=== PATIENT | male | born 1940 | race Caucasian/White ===

== ENCOUNTER 2018-09-15 14:24 | Emergency (ER) | payer OTHER ==
--- OUTSIDE RECORDS SUMMARY | 2018-09-15 14:30 | XMS REPORT | Continuity of Care Document ---
:1940 Author Organization [employer] Care Team Providers Name Role Phone [employer] Unavailable Unavailable Problems No Data Provided for This Section Medications No Data Provided for This Section Allergies, Adverse Reactions, Alerts No Known Medication Allergies Immunizations No Data Provided for This Section Results No Data Provided for This Section Pathology Reports No Data Provided for This Section Diagnostic Reports No Data Provided for This Section Consultation Notes No Data Provided for This Section Discharge Summaries No Data Provided for This Section History and Physicals No Data Provided for This Section Vital Signs No Data Provided for This Section Encounters Location Location Encounter Encounter Reason Attending ADM DC Status Source Details Type Number For Provider Date Date Visit Outpatient [id number] CORNELIO 08/11 Active [facility] [place] Outpatient [id number] CORNELIO 09/11 [facility] [place] Procedures No Data Provided for This Section Assessment and Plan No Data Provided for This Section Plan of Care No Data Provided for This Section Social History No Data Provided for This Section Family History No Data Provided for This Section Advance Directives No Data Provided for This Section Functional Status No Data Provided for This Section
--- NOTE | 2018-09-15 15:46 | RAD REPORT ---
EXAM DESCRIPTION: CT - Head C Spine Mpr Wo Con - 09/15/2018 3:23 pm CLINICAL HISTORY: Head and neck injury status post fall. Head and neck pain COMPARISON: None. TECHNIQUE: Computed axial tomography of the head and cervical spine was obtained. Sagittal and coronal reconstruction was performed. All CT scans are performed using dose optimization technique as appropriate and may include automated exposure control or mA/KV adjustment according to patient size. FINDINGS: Left posterior scalp hematoma without underlying skull fracture An intracranial bleed is not seen. Mild to moderate low-density areas within periventricular, deep an d subcortical white matter may indicate ischemic changes secondary to small vessel disease. The ventricles are normal in caliber. An extra-axial fluid collection is not noted.Fluid within the m axillary sinuses may indicate acute sinusitis A cervical fracture is not visualized. Minimal anterior subluxation C5 on C6. Minimal posterior sublu xation of C6 on C7. Spondylosis C3-4 results in moderate to marked narrowing of the left neural etienne petra. Spondylosis C4-5 results in moderate narrowing of the left neural foramina. Additional spondylos is involves the distal cervical spine IMPRESSION: No acute intracranial abnormality is seen. A cervical fracture is not visualized. If the patient continues to have symptoms to suggest intracra nial /spinal cord pathology then MRI would be recommended
[2018-09-15 17:20] LABS: Absolute Lymphocytes (CBC) 1.5 K/uL (0.7-4.9); Basophils % 0.8 % (0-1.3); Lymphocytes % 16.3 % (15.3-44.8); MPV 9.4 fL (7.6-11.3); Monocytes % 6.5 % (3.3-12.3)
[2018-09-15 17:24] LABS: Protime INR 1.04
--- NOTE | 2018-09-15 17:33 | RAD REPORT ---
EXAM DESCRIPTION: Ericka Single View09/15/2018 5:17 pm CLINICAL HISTORY: Chest pain COMPARISON: 2013 FINDINGS: The lungs appear clear of acute infiltrate. The heart is normal size 3 centimeter area of increased density within the right humerus likely either represents an infarct o r enchondroma IMPRESSION: No acute abnormalities displayed
[2018-09-15 17:39] LABS: ALT/SGPT 32 U/L (12-78); AST/SGOT 28 U/L (15-37); Albumin 3.9 g/dL (3.4-5.0); Alkaline Phosphatase 67 U/L (45-117); BUN Blood Urea Nitrogen 34 mg/dL (7-18); Bicarbonate 27 mmol/L (21-32); Bilirubin Direct 0.1 mg/dL (0-0.2); Bilirubin Total 0.3 mg/dL (0.2-1.0); Glucose Level 135 mg/dL (74-106); Magnesium 2.4 mg/dL (1.8-2.4); NT PRO-BNP 300 pg/mL (<450); Protein, Total 7.5 g/dL (6.4-8.2); Sodium Level 138 mmol/L (136-145); Troponin (Emerg Dept Use Only) < 0.02 ng/mL (0.0-0.045)
--- NOTE | 2018-09-15 18:54 | ER ---
Nurse's Notes [facility] Name: Abdoul Samuels Age: 78 yrs Sex: Male : 1940 Arrival Date: 09/15/2018 Time: 14:27 Bed 27 Private MD: Diagnosis: Syncope and collapse;Superficial injury of head Presentation: 09/15 14:28 Presenting complaint: Patient states: i was sitting on a stool and got dizzy and fell hj backwards and hit the back of the head and passed out, unknown how long, unwitnessed, denies taking blood thinners; denies N/V; reports neck pain; reports last memory was sitting on a stool and got dizzy;. Transition of care: patient was not received from another setting of care. Onset of symptoms was September 15, 2018. Risk Assessment: Do you want to hurt yourself or someone else? Patient reports no desire to harm self or others. Initial Sepsis Screen: Does the patient meet any 2 criteria? No. Patient's initial sepsis screen is negative. Does the patient have a suspected source of infection? No. Patient's initial sepsis screen is negative. Care prior to arrival: None. 14:28 Method Of Arrival: Ambulatory 14:28 Acuity: SHON 2 14:31 Mechanism of Injury: Fall out of chair. Trauma event details: Injury occurred in the [facility], Injury occurred: at home. Injury occurred: September 15, 2018 Injury occurred at: 13:00. Triage Assessment: 16:39 General: Appears in no apparent distress. Pain: Complains of pain in neck Pain does not wh radiate. Pain currently is 3 out of 10 on a pain scale. Historical: - Allergies: 14:30 No Known Allergies; hj - Home Meds: 16:45 Glimepiride Oral [Active]; levothyroxine oral [Active]; lisinopril Oral [Active]; Metoprolol Tartrate Oral [Active]; pravastatin Oral [Active]; tamsulosin Oral [Active]; amlodipine oral [Active]; - PMHx: 14:30 Arthritis; Diabetes - NIDDM; Hyperlipidemia; Hypertension; Hypothyroidism; - PSHx: 14:30 Unable to obtain; - Immunization history:: Adult Immunizations up to date. - Social history:: Smoking status: Patient/guardian denies using tobacco. - Immunization history: Last tetanus immunization: - up to date. - Ebola Screening: : Patient negative for fever greater than or equal to 101.5 degrees Fahrenheit, and additional compatible Ebola Virus Disease symptoms Patient denies exposure to infectious person. Screenin:37 Abuse screen: Denies threats or abuse. Denies injuries from another. Nutritional wh screening: No deficits noted. Tuberculosis screening: No symptoms or risk factors identified. Fall Risk Fall in past 12 months (25 points). Primary Survey: 16:37 NO uncontrolled hemorrhage observed. A: The patient needs verbal stimulation to wh respond. Airway: patent. Breathing/Chest: Respiratory pattern: regular, Respiratory effort: spontaneous, unlabored, Breath sounds: clear, bilaterally. Circulation: Cardiac rhythm: sinus rhythm. Disability Alert. Exposure/Environment: All clothing and personal items were removed. Reassessment Airway Airway Patent Breathing/Chest Respiratory pattern Regular Respiratory effort Spontaneous Unlabored Breath sounds Clear. Assessment: 15:22 General: Appears in no apparent distress. comfortable, Behavior is calm, cooperative, wh appropriate for age. Pain: Denies pain. Neuro: Level of Consciousness is awake, alert, obeys commands, Oriented to person, place, time, situation, Appropriate for age [employer] are equal bilaterally Moves all extremities. Full function. Neuro:. Cardiovascular: Cardiovascular: Heart tones S1 S2 Capillary refill < 3 seconds. Respiratory: Airway is patent Respiratory effort is even, unlabored, Respiratory pattern is regular, symmetrical, Breath sounds are clear bilaterally. GI: Abdomen is flat, non-distended. : No signs and/or symptoms were reported regarding the genitourinary system. EENT: No signs and/or symptoms were reported regarding the EENT system. Derm: Skin is intact, is healthy with good turgor, Skin is pink, warm \T\ dry. normal. Musculoskeletal: Range of motion: intact in all extremities. 16:25 Reassessment: Patient appears in no apparent distress at this time. Patient and/or wh family updated on plan of care and expected duration. Pain level reassessed. Patient is alert, oriented x 3, equal unlabored respirations, skin warm/dry/pink. Patient denies pain at this time. 17:27 Reassessment: Patient appears in no apparent distress at this time. Patient and/or wh family updated on plan of care and expected duration. Pain level reassessed. Patient is alert, oriented x 3, equal unlabored respirations, skin warm/dry/pink. Patient denies pain at this time. 18:26 Reassessment: Patient appears in no apparent distress at this time. Patient and/or wh family updated on plan of care and expected duration. Pain level reassessed. Patient is alert, oriented x 3, equal unlabored respirations, skin warm/dry/pink. Patient denies pain at this time. 19:29 Reassessment: Patient appears in no apparent distress at this time. Patient and/or wh family updated on plan of care and expected duration. Pain level reassessed. Patient is alert, oriented x 3, equal unlabored respirations, skin warm/dry/pink. Patient denies pain at this time. Vital Signs: 14:32 BP 110 / 54; Pulse 62; Resp 18; Temp 98.1(TE); Pulse Ox 98% on R/A; Weight 108.86 kg; hj Height 5 ft. 11 in. (180.34 cm); Pain 9/10; 16:46 BP 108 / 73; Pulse 59; Resp 18; Temp 97.8; Pulse Ox 99% on R/A; wh 17:00 BP 115 / 61; Pulse 61; Resp 18; Pulse Ox 98% on R/A; wh 17:31 BP 121 / 74; Pulse 57; Resp 17; Pulse Ox 98% on R/A; wh 18:26 BP 110 / 58; Pulse 55; Resp 18; Pulse Ox 98% on R/A; 14:32 Body Mass Index 33.47 (108.86 kg, 180.34 cm) Melissa Coma Score: 16:40 Eye Response: spontaneous(4). Verbal Response: oriented(5). Motor Response: obeys wh commands(6). Total: 15. Trauma Score (Adult): 16:38 Eye Response: spontaneous(1); Verbal Response: oriented(1); Motor Response: obeys wh commands(2); Systolic BP: > 89 mm Hg(4); Respiratory Rate: 10 to 29 per min(4); Melissa Score: 15; Trauma Score: 12 ED Course: 14:27 Patient arrived in ED. mr 14:30 Triage completed. hj 14:31 Arm band placed on. hj 14:35 Wolfgang Gruber MD is Attending Physician. kdr 14:48 Prabha Avalos, RN is Primary Nurse. iw 16:41 Patient has correct armband on for positive identification. Call light in reach. Side rails up X 1. monitoring and evaluation advisor on. Pulse ox on. NIBP on. 16:41 Patient maintains SpO2 saturation greater than 95% on room air. 16:42 Thermoregulation:. 17:16 XRAY Chest (1 view) In Process Unspecified. EDMS 17:19 EKG done, by cytogenetics technologist. reviewed by Wolfgang Gruber MD. dt2 17:50 Inserted saline lock: 22 gauge in right antecubital area, using aseptic technique. Blood collected. 19:29 No provider procedures requiring assistance completed. 19:36 IV discontinued, intact, bleeding controlled, No redness/swelling at site. wh Administered Medications: 19:12 Drug: Tetanus-Diphtheria Toxoid Adult 0.5 ml {Remote Sensing Scientist: [employer]. Exp: 05/29/2020. Lot #: [id number]. } Route: IM; Site: right deltoid; 19:36 Follow up: Response: No adverse reaction wh Intake: 19:40 PO: 0ml; Total: 0ml. Output: 19:40 Urine: 0ml; Total: 0ml. Outcome: 18:54 Discharge ordered by . kdr 19:35 Discharged to home via wheelchair. wh 19:35 Condition: good 19:35 Discharge instructions given to patient, family, Instructed on discharge instructions, follow up and referral plans. POC Syncope Demonstrated understanding of instructions, follow-up care, POC 19:39 Patient's length of stay in the Emergency Department was greater than 2 hours. awaiting fc results of CTPatient's length of stay extended due to 19:41 Patient left the ED. Signatures: Dispatcher [employer] EDMS Wolfgang Gruber MD MD [facility] Nelson Trinh CastilloEmily, RIGOBERTO FRANKLIN Prabha Avalos, RIGOBERTO FRANKLIN Carl Meneses RN RN hj Habalo, Winsy Alanna Chaves dt2 Corrections: (The following items were deleted from the chart) 14:31 14:28 Presenting complaint: Patient states: i was sitting on a stool and fell backwards hj and hit the back of the head and passed out, unknown how long, unwitnessed, denies taking blood thinners; denies N/V; 14:32 14:28 Presenting complaint: Patient states: i was sitting on a stool and got dizzy and hj fell backwards and hit the back of the head and passed out, unknown how long, unwitnessed, denies taking blood thinners; denies N/V; reports last memory was sitting on a stool and got dizzy; 14:33 14:28 Acuity: SHON 3 [facility] 16:42 16:41 Pulse ox on. NIBP on. [facility]
--- NOTE | 2018-09-15 18:55 | EDPHYS ---
Physician Documentation [facility] Name: Abdoul Samuels Age: 78 yrs Sex: Male : 1940 Arrival Date: 09/15/2018 Time: 14:27 Bed 27 Private MD: ED Physician Wolfgang Gruber HPI: 09/16 07:19 This 78 yrs old Male presents to ER via Ambulatory with complaints of Fall kdr Injury. 07:19 Details of fall: The patient fell from an upright position, from seated position, out kdr of a chair. Onset: The symptoms/episode began/occurred acutely, suddenly, just prior to arrival. Associated injuries: The patient sustained injury to the head, abrasion, contusion, hematoma, pain, swelling, tenderness. Severity of symptoms: At their worst the symptoms were moderate, in the emergency department the symptoms have improved, markedly. The patient has not experienced similar symptoms in the past. The patient has not recently seen a physician. The patient had been working in the [employer] for about 30 minutes or more. He was sweating profusely while sawing off the a pipe that he had just bought at the store. While he had a fan blowing on him, he was still very hot. While cutting the pipe, he became dizzy and apparently fell backwards off the chair hitting the concrete floor. He then had a LOC of unknown duration. When he awoke, he noted the bump on his head and then came to the ED with his .. Historical: - Allergies: 09/15 14:30 No Known Allergies; - Home Meds: 16:45 Glimepiride Oral [Active]; levothyroxine oral [Active]; lisinopril Oral [Active]; wh Metoprolol Tartrate Oral [Active]; pravastatin Oral [Active]; tamsulosin Oral [Active]; amlodipine oral [Active]; - PMHx: 14:30 Arthritis; Diabetes - NIDDM; Hyperlipidemia; Hypertension; Hypothyroidism; hj - PSHx: 14:30 Unable to obtain; hj - Immunization history:: Adult Immunizations up to date. - Social history:: Smoking status: Patient/guardian denies using tobacco. - Immunization history: Last tetanus immunization: - up to date. - Ebola Screening: : Patient negative for fever greater than or equal to 101.5 degrees Fahrenheit, and additional compatible Ebola Virus Disease symptoms Patient denies exposure to infectious person. ROS: 09/16 07:19 Constitutional: Negative for fever, chills, and weight loss, Eyes: Negative for injury, kdr pain, redness, and discharge, ENT: Negative for injury, pain, and discharge, Neck: Negative for injury, pain, and swelling, Cardiovascular: Negative for chest pain, palpitations, and edema, Respiratory: Negative for shortness of breath, cough, wheezing, and pleuritic chest pain, Abdomen/GI: Negative for abdominal pain, nausea, vomiting, diarrhea, and constipation, Back: Negative for injury and pain, : Negative for injury, bleeding, discharge, and swelling, MS/Extremity: Negative for injury and deformity, Psych: Negative for depression, anxiety, suicide ideation, homicidal ideation, and hallucinations, Allergy/Immunology: Negative for hives, rash, and allergies, Endocrine: Negative for neck swelling, polydipsia, polyuria, polyphagia, and marked weight changes, Hematologic/Lymphatic: Negative for swollen nodes, abnormal bleeding, and unusual bruising. Skin: Positive for abrasion(s), hematoma, swelling, of the left parietal area, Negative for abscesses, avulsion, cellulitis, laceration(s). Exam: 07:19 Constitutional: This is a well developed, well nourished patient who is awake, alert, kdr and in no acute distress. Eyes: Pupils equal round and reactive to light, extra-ocular motions intact. Lids and lashes normal. Conjunctiva and sclera are non-icteric and not injected. Cornea within normal limits. Periorbital areas with no swelling, redness, or edema. Neck: Trachea midline, no thyromegaly or masses palpated, and no cervical lymphadenopathy. Supple, full range of motion without nuchal rigidity, or vertebral point tenderness. No Meningismus. Chest/axilla: Normal chest wall appearance and motion. Nontender with no deformity. No lesions are appreciated. Cardiovascular: Regular rate and rhythm with a normal S1 and S2. No gallops, murmurs, or rubs. Normal PMI, no JVD. No pulse deficits. Respiratory: Lungs have equal breath sounds bilaterally, clear to auscultation and percussion. No rales, rhonchi or wheezes noted. No increased work of breathing, no retractions or nasal flaring. Abdomen/GI: Soft, non-tender, with normal bowel sounds. No distension or tympany. No guarding or rebound. No evidence of tenderness throughout. Back: No spinal tenderness. No costovertebral tenderness. Full range of motion. MS/ Extremity: Pulses equal, no cyanosis. Neurovascular intact. Full, normal range of motion. Neuro: Awake and alert, GCS 15, oriented to person, place, time, and situation. Cranial nerves II-XII grossly intact. Motor strength 5/5 in all extremities. Sensory grossly intact. Cerebellar exam normal. Normal gait. Psych: Awake, alert, with orientation to person, place and time. Behavior, mood, and affect are within normal limits. 07:19 Head/face: Exam is negative for Noted is abrasion(s), hematoma, that is mild, of the left occipital area. 07:19 Skin: injury, abrasion(s), small abrasion noted, of the left parietal area. Vital Signs: 09/15 14:32 BP 110 / 54; Pulse 62; Resp 18; Temp 98.1(TE); Pulse Ox 98% on R/A; Weight 108.86 kg; Height 5 ft. 11 in. (180.34 cm); Pain 9/10; 16:46 BP 108 / 73; Pulse 59; Resp 18; Temp 97.8; Pulse Ox 99% on R/A; wh 17:00 BP 115 / 61; Pulse 61; Resp 18; Pulse Ox 98% on R/A; wh 17:31 BP 121 / 74; Pulse 57; Resp 17; Pulse Ox 98% on R/A; wh 18:26 BP 110 / 58; Pulse 55; Resp 18; Pulse Ox 98% on R/A; wh 14:32 Body Mass Index 33.47 (108.86 kg, 180.34 cm) Melissa Coma Score: 16:40 Eye Response: spontaneous(4). Verbal Response: oriented(5). Motor Response: obeys wh commands(6). Total: 15. Trauma Score (Adult): 16:38 Eye Response: spontaneous(1); Verbal Response: oriented(1); Motor Response: obeys wh commands(2); Systolic BP: > 89 mm Hg(4); Respiratory Rate: 10 to 29 per min(4); [place] Score: 15; Trauma Score: 12 MDM: 18:54 Patient medically screened. [facility] 09/16 07:19 Data reviewed: vital signs, nurses notes, lab test result(s), EKG, radiologic studies. kdr Counseling: I had a detailed discussion with the patient and/or guardian regarding: the historical points, exam findings, and any diagnostic results supporting the discharge/admit diagnosis, lab results, radiology results, the need for outpatient follow up. ED course: The patient was stable in the ED. He was offered admission for observation but declined. 09/15 16:58 Order name: Basic Metabolic Panel; Complete Time: 18:44 kdr 09/15 16:58 Order name: CBC with Diff; Complete Time: 18:44 kdr 09/15 16:58 Order name: LFT's; Complete Time: 18:44 kdr 09/15 16:58 Order name: Magnesium; Complete Time: 18:44 kdr 09/15 16:58 Order name: NT PRO-BNP; Complete Time: 18:44 kdr 09/15 16:58 Order name: PT-INR; Complete Time: 18:44 kdr 09/15 14:46 Order name: CT Head C Spine ss 09/15 16:07 Order name: Head C Spine Mpr Wo Con; Complete Time: 18:44 EDMS 09/15 16:58 Order name: Troponin (emerg Dept Use Only); Complete Time: 18:44 kdr 09/15 16:58 Order name: XRAY Chest (1 view); Complete Time: 18:44 kdr 09/15 16:58 Order name: EKG; Complete Time: 17:00 kdr 09/15 16:58 Order name: Cardiac monitoring; Complete Time: 17:12 kdr 09/15 16:58 Order name: EKG - Nurse/Tech; Complete Time: 17:12 kdr 09/15 16:58 Order name: IV Saline Lock; Complete Time: 17:12 kdr 09/15 16:58 Order name: Labs collected and sent; Complete Time: 17:12 kdr 09/15 16:58 Order name: O2 Per Protocol; Complete Time: 17:12 kdr 09/15 16:58 Order name: O2 Sat Monitoring; Complete Time: 17:12 kdr Administered Medications: 09/15 19:12 Drug: Tetanus-Diphtheria Toxoid Adult 0.5 ml {Potato Chip Cooker Machine: [employer]. Exp: 05/29/2020. Lot #: [id number]. } Route: IM; Site: right deltoid; 19:36 Follow up: Response: No adverse reaction wh Disposition: 09/15/18 18:54 Discharged to Home. Impression: Syncope and collapse, Superficial injury of head. - Condition is Stable. - Discharge Instructions: Syncope, [id number], Head Injury, Adult, [id number]. - Medication Reconciliation Form, Thank You Letter form. - Follow up: Private Physician; When: 2 - 3 days; Reason: If symptoms return, Further diagnostic work-up, Recheck today's complaints, Continuance of care, Re-evaluation by your physician. - Problem is new. - Symptoms are resolved. Signatures: Dispatcher [employer] EDMS Wolfgang Gruber MD MD kdr Joaquin, Henry, RN RN Kirill Camacho Corrections: (The following items were deleted from the chart) 19:41 18:54 09/15/2018 18:54 Discharged to Home. Impression: Syncope and collapse; wh Superficial injury of head. Condition is Stable. Forms are Medication Reconciliation Form, Thank You Letter, Antibiotic Education, Prescription Opioid Use. Follow up: Private Physician; When: 2 - 3 days; Reason: If symptoms return, Further diagnostic work-up, Recheck today's complaints, Continuance of care, Re-evaluation by your physician. Problem is new. Symptoms are resolved. kdr
[2018-09-15] MEDS ORDERED: TETANUS & DIPHTHERIA TOX,ADULT 0.5 ML VIAL ONE (19:22)
[2018-09-15 19:47] VITALS: TEMP 97.8
[2018-09-15 19:48] VITALS: O2SAT 98
[2018-09-15 19:50] VITALS: BP 110/58
--- NOTE | 2018-09-16 07:36 | EKG ---
Test Date: 2018-09-15 Test Time: 16:58:03 Parole Hearing Officer: LUIZA MEASUREMENT RESULTS: Intervals: Rate: 59 CO: 162 QRSD: 136 QT: 442 QTc: 437 Coy: P: 48 CO: 162 QRS: 4 T: 35 INTERPRETIVE STATEMENTS: Sinus bradycardia Right bundle branch block Abnormal ECG Compared to ECG 08/24/2013 08:01:21 Right bundle-branch block now present Sinus rhythm no longer present Incomplete right bundle-branch block no longer present T-wave abnormality no longer present Electronically Signed On 09-16-18 07:35:39 CDT by Mark Lofton
== END 2018-09-15 19:41 | disposition home or self-care (01) ==
LOC: ER 14:24
DX: S00.81XA Abrasion of other part of head, initial encounter (principal); I10 Essential (primary) hypertension; E11.9 Type 2 diabetes mellitus without complications; E03.9 Hypothyroidism, unspecified; E78.5 Hyperlipidemia, unspecified; W07.XXXA Fall from chair, initial encounter; Y93.89 Activity, other specified; Y92.9 Unspecified place or not applicable; Z23 Encounter for immunization
CPT/HCPCS: 36415; 70450; 71045; 72125; 80048; 80076; 83735; 83880; 84484; 85025; 85610; 90471; 90714; 93005; 99285

== ENCOUNTER 2021-08-06 10:38 | Day surgery (SDC) | payer OTHER ==
--- NOTE | 2021-08-01 13:46 | RAD REPORT ---
EXAM DESCRIPTION: Ericka Reese And Philipp (2 Views)08/01/2021 1:39 pm CLINICAL HISTORY: Preop for bladder surgery/hypertension COMPARISON: 2020 FINDINGS: The lungs appear clear of acute infiltrate. The heart is normal size IMPRESSION: No acute abnormalities displayed
[2021-08-01 13:51] LABS: Protime INR 1.04
[2021-08-06] MEDS ORDERED: NA CHLORIDE 0.9% 1,000 ML ONE (11:09)
[2021-08-06] MEDS ORDERED: CEFAZOLIN 2 GM IN 0.9% NACL 2 GM/100 ML BAG IV ONE (11:15)
[2021-08-06] MEDS ORDERED: propofoL 200 MG/20 ML VIAL IV ONE (16:49)
[2021-08-06] MEDS ORDERED: FENTANYL CITR 100 MCG/2 ML ONE (16:49)
[2021-08-06] MEDS ORDERED: LIDOCAINE 1% MPF 5 ML VIAL ONE (16:50)
[2021-08-06] MEDS ORDERED: GLYCOPYRROLATE 0.2 MG/ML SYR ONE (17:36)
[2021-08-06] MEDS ORDERED: PHENAZOPYRIDINE 100MG TAB PO ONE ×2 (18:06→18:59)
[2021-08-06] MEDS: HYDROMORPHONE HCL 1 MG/ML INJ ONE ×2 (18:15→18:20)
[2021-08-06] MEDS ORDERED: ONDANSETRON 4 MG/2 ML VIAL ONE (18:22)
[2021-08-06] MEDS ORDERED: HYDROCODONE/APAP 5/325 MG TAB ONE (18:59)
[2021-08-06 20:17] VITALS: BP 124/70; TEMP 97.4; O2SAT 97
--- NOTE | 2021-08-07 04:05 | OP ---
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 Principal Procedure: Cystoscopy with multiple biopsies of the targeted lesion and fulguration of the lesion. Indication For Procedure: Mr. Samuels is an -xwct-vlz gentleman with chronic kidney disease st age 3, hypertension, hypothyroidism, obstructive sleep apnea on CPAP, CHF, diastolic dysfunction, typ e 2 diabetes with neuropathy and osteoarthritis with obstructive LUTS due to BPH, and a small amount of urge incontinence requiring 1 liner pad per day refractory to Flomax 0.8 mg daily in the setting o f a family history of prostate cancer in his father and brother, but PSA less than 1. He underwent c ystoscopic evaluation on 07/11/2021 revealing an erythematous and hemorrhagic patchy mucosa lateral t o the left ureteral orifice involving an approximately 2 cm patch of the left lateral wall in additio n to BPH with lateral lobar hypertrophy and mild intravesical projection without intravesically proje cting median lobe and mild trabeculation noted throughout. He presents for definitive diagnostic hair luation and treatment. Description Of Procedure: The patient was consented in the preoperative holding area before being tr ansferred to the operative suite where general anesthesia was induced. He was given Ancef 2 g IV ant imicrobial prophylaxis and Pneumoboots were provided for DVT prophylaxis. He was placed in the litho jenny position, padded and secured to the table appropriately. His genitalia were prepped using Hibic lens and draped in standard fashion. The case was begun using a 22-Serbian rigid cystoscope to paulette se the urethra and into the bladder with ease. The bladder was surveyed in its entirety, and as had previously been observed, within the left lateral wall lateral to the ureteral orifice, there was a p atch of irregular and erythematous nodular appearing mucosa suspicious for CIS. It occupied a region approximately 2 to 3 cm in diameter. As a result, I utilized a cold cup biopsy forceps to essential ly resect the entirety of that lesion biopsying the central portion and then extending to biopsying m ore along the periphery until essentially the entirety of the area of mucosal suspicion had been rese cted. I then fulgurated at 2 different points along the process due to some arterial bleeding vessel s that obscured visualization, but to also achieve complete hemostasis. I also wanted to make sure t he entirety of the lesion of mucosa irregularity had been fulgurated along the periphery. Once this was completed, I decompressed his bladder and again fulgurated any venous oozing that would occur wit h his bladder decompressed. In the end, the area was completely hemostatic, so I refilled his bladde r and placed an 18-[place]bian coude tip catheter for bladder rest and decompression. He was then taken o ut of the lithotomy position, awakened from general anesthesia, transferred to a stretcher and then t ransferred to the recovery room in good condition. Complications: None. Discharge Disposition: He should follow up in the Urology Clinic within the next 2 to 3 weeks to dis cuss the results of the pathology and determine any next steps if indeed bladder malignancy is identi fied. He will require upper tract imaging in that eventuality to rule out any upper tract lesion. SIM/CACHORRO Voice ID: [id number] Report ID: [id number]
== END 2021-08-06 20:00 | disposition home or self-care (01) ==
LOC: OR 10:38
PROVIDERS: ATTEND Urology
PROC: 0TBB8ZX Excision of Bladder, Via Natural or Artificial Opening Endoscopic, Diagnostic (ICD-10-PCS; principal; 2021-08-06 12:30)
DX: N32.9 Bladder disorder, unspecified (principal); N32.81 Overactive bladder; N40.1 Benign prostatic hyperplasia with lower urinary tract symptoms; Z20.822 Contact with and (suspected) exposure to COVID-19; N18.30 Chronic kidney disease, stage 3 unspecified; E03.9 Hypothyroidism, unspecified; I10 Essential (primary) hypertension; G47.33 Obstructive sleep apnea (adult) (pediatric); I50.9 Heart failure, unspecified; E11.9 Type 2 diabetes mellitus without complications
CPT/HCPCS: 87088; 87086; 36415; 85610; 82947 ×2; 88305; 71046; 52204; U0002; J2704; J3010; J1170; J0690; J7030; J2405

== ENCOUNTER 2021-10-22 07:05 | Day surgery (SDC) | payer OTHER ==
[2021-10-18 13:09] LABS: SARS-CoV-2 Antigen Rapid Res Negative (Negative)
[2021-10-18 13:31] LABS: Absolute Lymphocytes (CBC) 0.9 K/uL (0.7-4.9); Hematocrit 35.6 % (39.6-49.0); Lymphocytes % 14.2 % (15.3-44.8); MCV 89.7 fL (80-100); RBC Red Blood Cell Count 3.97 M/uL (4.33-5.43)
[2021-10-18 13:58] LABS: Potassium 5.2 mmol/L (3.5-5.1)
[2021-10-22] MEDS ORDERED: NA CHLORIDE 0.9% 1,000 ML ONE ×2 (07:21→11:02)
[2021-10-22] MEDS ORDERED: CEFAZOLIN 2 GM IN 0.9% NACL 0 GM/0 ML BAG ONE (07:21)
[2021-10-22] MEDS ORDERED: CEFAZOLIN 2 GM IN 0.9% NACL 2 GM/100 ML BAG ONE (07:22)
[2021-10-22] MEDS ORDERED: FENTANYL CITR 100 MCG/2 ML ONE (08:16)
[2021-10-22] MEDS ORDERED: LIDOCAINE 1% MPF 5 ML VIAL ONE (08:16)
[2021-10-22] MEDS ORDERED: propofoL 200 MG/20 ML VIAL IV ONE (08:16)
--- NOTE | 2021-10-22 08:28 | EKG ---
Test Date: 2021-10-18 Test Time: 12:39:08 Slip Filler: MEASUREMENT RESULTS: Intervals: Rate: 55 ND: 158 QRSD: 136 QT: 458 QTc: 438 [place]: P: 39 ND: 158 QRS: 0 T: 37 INTERPRETIVE STATEMENTS: Sinus bradycardia Right bundle branch block Abnormal ECG Compared to ECG 09/15/2018 16:58:03 No significant changes Electronically Signed On 10-22-21 08:13:11 CDT by Mark Anthony Alcala
[2021-10-22] MEDS ORDERED: GLYCOPYRROLATE 0.2 MG/ML SYR ONE (09:34)
[2021-10-22] MEDS: MORPHINE 4 MG/ML SYR ONE ×5 (10:07→10:31)
[2021-10-22] MEDS ORDERED: PHENAZOPYRIDINE 100MG TAB PO ONE ×2 (10:26→11:53)
[2021-10-22] MEDS ORDERED: CODEINE 30MG/APAP 300MG TAB PO PRN (10:26)
[2021-10-22] MEDS ORDERED: OPIUM/BELLADONNA SUPPOS (30-16.2 MG) PR ONE ×2 (10:32→10:36)
[2021-10-22 10:41] VITALS: O2SAT 100
[2021-10-22] MEDS ORDERED: MORPHINE 4 MG/ML SYR ONE (11:01)
[2021-10-22] MEDS ORDERED: CODEINE 30MG/APAP 300MG TAB ONE (11:53)
[2021-10-22 14:11] VITALS: BP 135/60; TEMP 97.3
--- NOTE | 2021-10-22 19:51 | OP ---
Surgeon: ADONAY FELICIANO Preoperative Diagnoses: 1.Benign prostatic hypertrophy with lower urinary tract obstruction and symptoms. 2.Urge incontinence. Postoperative Diagnoses: 1.Benign prostatic hypertrophy with lower urinary tract obstruction and symptoms. 2.Urge incontinence. 3.Bulbar urethral stricture disease. Principal Procedures: 1.Prostatic urethral lift/UroLift, 7 devices used with 6 implants placed. 2.Sequential urethral dilation of stricture. Indication For Procedure: Mr. Samuels presented to the Urology Clinic with bothersome urinary symptoms d espite use of Flomax 0.8 mg daily. He underwent cystoscopic evaluation revealing a papillary lesion in the bladder that was biopsied and found only to be atypical cells. He had significant lateral lob ar hypertrophy without significant intravesical projection and thus was counseled on the potential be nefit to management of his obstructive left using the prostatic urethral lift as opposed to other opt ions. He elected to proceed with the UroLift. Procedure In Detail: The patient was consented in the preoperative holding area before being transfe rred to operative suite where general anesthesia was induced. He was given Ancef 2 g IV antimicrobia l prophylaxis and pneumo boots were provided for DVT prophylaxis. He was placed in the lithotomy pos ition, padded and secured to the table appropriately. His genitalia were prepped with Hibiclens and he was draped in standard fashion. The case was begun using the UroLift sheath to attempt to anastasiya e the urethra and into the bladder; however, within the bulbar urethra, there was an approximately 5- Citizen [place] urethral stricture narrowing. As a result, the UroLift sheath was removed and a 22-[place]izen [place] rig id cystoscope was instead placed via the urethra to the point of the strictured narrowing. A [employer] guidewire was placed via the strictured opening and coiled putatively within his bladder. Over the wire, I was able use S-curved urethral dilators to dilate the strictured area from 18 to 20-Citizen [place]. I was then able to back load the cystoscope over the wire and surpass the previous point of stricture narrowing into his bladder with ease. I then removed the 22-Citizen [place] cystoscope and replaced it with the 20-[place]izen [place] UroLift delivery sheath and entered his bladder. His bladder was then decompressed, an d the first treatment site was identified within the left lateral lobe. Approximately 2 cm from the bladder neck, the first implant was placed in the anterolateral surface of the prostate and angled ap proximately 20 degrees to compress the lateral lobe. The trigger was pulled, thereby deploying a nee dle containing the implant through the prostate. The needle was advanced and compression was then ob tained allowing one end of the implant to be delivered to the capsular surface of the prostate. The implant was then tensioned to ensure capsular seating and removal of slack monofilament. The device was angled back toward the midline and slowly advanced proximally approximately 2 mm until cystoscopi c verification of the monofilament was centered in the delivery bay. The urethral end piece was then affixed to the monofilament thereby tailoring the size of the implant, and excess filament was then severed. The delivery device was then advanced into the bladder and replaced with a new delivery dev ice. A similar implant was placed in the right lateral lobe anterolaterally approximately 2 cm from the bladder neck. Unfortunately, this implant did not in fact successfully deployed, likely due to a bone strike, and no implant was seated in position upon subsequent cystoscopic verification using th e bridge. As a result, an additional implant was then placed in that position within the anterolater al lobe of the prostate 2 cm from the bladder neck successfully. I then placed a third implant at th e level of the verumontanum anterolaterally and then a fourth implant was placed at the level of the verumontanum within the right lobe of the prostate anterolaterally. I then performed cystoscopic cole ification of the implants and the position and confirmed the presence of a continuous anterior channe l with the of fluid inflow off and the bladder decompressed. Upon this observation, there was noted to be some left inferior median lobar intravesical projection that was obscuring the urethral lumen a t the bladder neck and there was residual lateral lobar intrusion into the urethra from the right lob e of the prostate at the verumontanum, so I then placed an additional implant at the level of the cole umontanum on the right side opening the channel there and a 6th implant was then placed inferiorly ta cking the median lobe up from the sulcus that was to the right side of the median lobe lateralizing t he median lobe to the left side successfully. In the end, a beautiful continuous anterior channel montalvo d been created from the bladder neck through the verumontanum, and the procedure was concluded. I th en placed the 20-Citizen [place] coude tip catheter successfully and easily into his bladder and placed 15 cc of sterile water in the balloon. The catheter was connected to a leg bag and the patient was taken o ut of the lithotomy position. He was then awakened from general anesthesia, transferred to a [facility] er and then transferred to the recovery room in good condition. Complications: None. Discharge Disposition: Given the presence of the stricture disease which was dilated today, I recomm end he maintain the catheter for at least 3-5 days to allow settling of the dilated stricture. He wi ll be discharged with a prescription for antimicrobial prophylaxis either Keflex or Bactrim until the catheter has been removed. SIM/MODL Voice ID: [id number] Report ID: [id number]
== END 2021-10-22 13:35 | disposition home or self-care (01) ==
LOC: OR 07:05
PROVIDERS: ATTEND Urology
PROC: 0T7D8DZ Dilation of Urethra with Intraluminal Device, Via Natural or Artificial Opening Endoscopic (ICD-10-PCS; 2021-10-22)
PROC: 0T7D8DZ Dilation of Urethra with Intraluminal Device, Via Natural or Artificial Opening Endoscopic (ICD-10-PCS; principal; 2021-10-22 08:30)
DX: N40.1 Benign prostatic hyperplasia with lower urinary tract symptoms (principal); N39.41 Urge incontinence; Z20.822 Contact with and (suspected) exposure to COVID-19; N18.30 Chronic kidney disease, stage 3 unspecified; E03.9 Hypothyroidism, unspecified; E11.9 Type 2 diabetes mellitus without complications; I50.30 Unspecified diastolic (congestive) heart failure
CPT/HCPCS: 52441; 52442 ×5; 52281; 93005; 85025; 87086; 80048; 36415; 82947 ×2; 87811; J2704; J3010; J0690; J7030 ×2; 87088

== ENCOUNTER 2022-12-24 19:03 | Inpatient (IN) | payer OTHER ==
--- OUTSIDE RECORDS SUMMARY | 2022-12-24 19:09 | XMS REPORT | Continuity of Care Document ---
:1940 Author Organization Formerly [facility] t Address [address] [facility]. [address] [place] [address] Care Team Providers Name Role Phone Danny Simon MD Primary Care Physician Juan Maurer Attending Clinician Doctor Unassigned, Mamou Attending Clinician Unavailable Pob, [facility] Main Attending Clinician Unavailable Nai Mcdonough DO Attending Clinician NAI MCDONOUGH Attending Clinician Unavailable Payers Payer Name Policy Type Policy Number Effective Date Expiration Date S ource Problems Condition Condition Condition Status Onset Resolution Last Treating Co mments Source Name Details Category Date Date Treatment Clinician Date Urge Urge Problem Common incontinen incontinen Sp kyleigh ce of ce - [facility] urine [facility] [id number] Acquired Problem Comm on phimosis Spirit of penis - [facility] [id number] Balanopost Problem Com mon hitis Spirit [facility] Lower Benign Problem Common urinary prostatic Spirit tract hyperplasi - [facility]I symptoms a with St due to lower [facility] benign urinary Medical prostatic tract Center hypertroph symptoms y [id number] Paraphimos Problem Com mon is Spirit - [facility] [id number] BPH loc w Problem Com mon urin Spirit obs/LUTS - [facility] [id number] Family Problem Common history of Spirit prostate - [facility] cancer [facility] [id number] OAB Problem Common (overactiv Spirit e bladder) - [facility] [id number] Lesion of Problem Com mon bladder Spirit - [facility] Disorder Bladder Problem Common of urinary disorder, Spi rit bladder unspecifie - [facility]I d [facility] Ataxia Ataxia Problem Active 2022-11-16 Maximiliano benson (finding) (finding) 12:50:41 l Active Moore Problem 11/16/2022 [facility] Cervical Cervical Problem Active 2022-11-16 Memoria radiculopa radiculopa 12:50:41 l thy thy Joseph (disorder) (disorder) Active Problem 11/16/2022 [facility] 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 12:50:41 l s s Moore (disorder) (disorder) Active Problem 11/16/2022 [facility] 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 Joseph (disorder) (disorder) Active Problem 11/16/2022 [facility] Hand pain Hand pain Problem Active 2022-11-16 Memsevero (finding) (finding) 12:50:41 l Active Joseph Problem 11/16/2022 [facility] Hyperlipid Hyperlipi Problem Active 2022-11-16 Memoria emia demia 12:50:41 l (disorder) (disorder) He rmann Active Problem 11/16/2022 [facility] Hypertensi Hypertens Problem Active 2022-11-16 Memoria ve madai 12:50:41 l disorder, disorder, Herm idania systemic systemic arterial arterial (disorder) (disorder) Active Problem 11/16/2022 [facility] Hypothyroi Hypothyro Problem Active 2022-11-16 Memoria dism idism 12:50:41 l (disorder) (disorder) He rmann Active Problem 11/16/2022 [facility] 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:41 l disease disease Moore (disorder) (disorder) Active Problem 11/16/2022 [facility] Simple Simple Problem Active 2022-11-16 Maximiliano kelley obesity obesity 12:50:41 l (disorder) (disorder) He itzelann Active Problem 11/16/2022 [facility] Carpal Carpal Problem Active 2022-11-16 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 Gonzalo n (disorder) (disorder) Active Problem 11/16/2022 [facility] Inactive Inactive Problem Active 2022-11-16 Memoria tuberculos tuberculos 12:50:41 l is is Joseph (disorder) (disorder) Active Problem 11/16/2022 [facility] Shoulder Shoulder Problem Active 2022-11-16 Memoria pain pain 12:50:41 l (finding) (finding) Herm idania Active Problem 11/16/2022 [facility] Tremor Tremor Problem Active 2022-11-16 Maximiliano kelley (finding) (finding) 12:50:41 l Active Moore Problem 11/16/2022 [facility] Amnesia Amnesia Problem Active 2022-11-16 Me moria (finding) (finding) 12:50:41 l Active Joseph Problem 11/16/2022 [facility] Impaired Impaired Problem Active 2022-11-16 Memoria cognition cognition 12:50:41 l (finding) (finding) Herm idania Active Problem 11/16/2022 [facility] Lumbar Lumbar Problem Active 2022-11-16 Mem oria radiculopa radiculopa 12:50:41 l thy thy Joseph (disorder) (disorder) Active Problem 11/16/2022 [facility] Allergies, Adverse Reactions, Alerts Allergy Allergy Status Severity Reaction(s) Onset Inactive Treating Comm ents Source Name Type Date Date Clinician No Known No Known Active Memori a Medicati Medicati l on on Joseph Allergie Allergie s s NO KNOWN Drug Active Univers [facility] Social History Social Habit Start Date Stop Date Quantity Comments Source History of Tobacco Use Co mmon [facility] Sex Assigned At Com mon [facility] Smoking Status Start Date Stop Date Source Unknown if ever smoked [facility] Tobacco smoking status 2022-11-13 14:02:04 Sg kunaljustino [place] Never Smoker [facility] Medications Ordered Filled Start Stop Current Ordering Indication Dosage Frequency Signature Comments Components Source Medication Medication Date Date Medication? Clinician (SIG) Name Name memantine 0 Yes 10 mg = 1 Mem oria 10 mg oral 9-07 tab, PO, l tablet 14:29: BID, # 60 Gonzalo n 00 tab, 5 Refill(s), Pharmacy: [facility] [id number], 170.18, cm, 11/13/22 9:07:00 CDT, Height, 109.545, kg, 11/13/22 9:07:00 CDT, Weight memantine 0 Yes 10 mg = 1 Mem oria 10 mg oral 9-07 tab, PO, l tablet 14:29: BID, # 60 Gonzalo n 00 tab, 5 Refill(s), Pharmacy: [facility] [id number], 170.18, cm, 11/13/22 9:07:00 CDT, Height, 109.545, kg, 11/13/22 9:07:00 CDT, Weight memantine 0 Yes 10 mg = 1 Mem oria 10 mg oral 6-13 tab, PO, l tablet 14:39: BID, # 60 Gonzalo n 00 tab, 2 Refill(s), Pharmacy: [facility] [id number], 170.18, cm, 06/24/22 10:25:00 CDT, Height, 112.727, kg, 06/24/22 10:25:00 CDT, Weight memantine 2022-0 Yes 10 mg = 1 Mem oria 10 mg oral 6-13 tab, PO, l tablet 14:39: BID, # 60 Gonzalo n 00 tab, 2 Refill(s), Pharmacy: [facility] [id number], 170.18, cm, 06/24/22 10:25:00 CDT, Height, 112.727, kg, 06/24/22 10:25:00 CDT, Weight memantine 2022-0 Yes 10 mg = 1 Mem oria 10 mg oral 4-18 tab, PO, l tablet 15:40: BID, # 60 Gonzalo n 00 tab, 6 Refill(s), Pharmacy: [facility] [id number], 170.18, cm, 06/24/22 10:25:00 CDT, Height, 112.727, kg, 06/24/22 10:25:00 CDT, Weight memantine 3-0 Yes 10 mg = 1 Mem oria 10 mg oral 4-18 tab, PO, l tablet 15:40: BID, # 60 Gonzalo n 00 tab, 6 Refill(s), Pharmacy: [facility] [id number], 170.18, cm, 06/24/22 10:25:00 CDT, Height, 112.727, kg, 06/24/22 10:25:00 CDT, Weight finasteride 2021-03 Yes 5 mg = 1 Me moria 5 mg oral 2-13 tab, PO, l tablet 20:11: Daily, # Joseph 00 30 tab, 0 Refill(s) finasteride 2021-03 Yes 5 mg = 1 Me moria 5 mg oral 2-13 tab, PO, l tablet 20:11: Daily, # Joseph 00 30 tab, 0 Refill(s) finasteride 2021-03 Yes 5 mg = 1 Me moria 5 mg oral 2-13 tab, PO, l tablet 20:11: Daily, # Joseph 00 30 tab, 0 Refill(s) donepezil 2021-03 Yes = 1 tab, Maximiliano kelley 10 mg oral 2-12 PO, Daily, l tablet 17:39: # 75 tab, Gonzalo n 00 2 Refill(s), Pharmacy: [facility] [id number], 172.72, cm, 10/17/21 13:31:00 CDT, Height, 100, kg, 10/17/21 13:31:00 CDT, Weight donepezil 1 Yes = 1 tab, Maximiliano kelley 10 mg oral 2-12 PO, Daily, l tablet 17:39: # 75 tab, Gonzalo n 00 2 Refill(s), Pharmacy: [facility] [id number], 172.72, cm, 10/17/21 13:31:00 CDT, Height, 100, kg, 10/17/21 13:31:00 CDT, Weight donepezil 2021-03 Yes = 1 tab, Maximiliano kelley 10 mg oral 2-12 PO, Daily, l tablet 17:39: # 75 tab, Gonzalo n 00 2 Refill(s), Pharmacy: [facility] [id number], 172.72, cm, 10/17/21 13:31:00 CDT, Height, 100, kg, 10/17/21 13:31:00 CDT, Weight Trospium Trospium 2021-03- No 1{table QD Trospium Chloride 20 Chloride 20 17 04-16 t_on_an Chloride MG MG 00:00: 00:00 _empty_ 20 MG 00 :00 stomach } Clotrimazol Clotrimazol 2021- No 1{appli BID Clotrimazo e-Betametha e-Betametha 11-18 cation} le-Betamet sone 1-0.05 sone 1-0.05 00:00: 00:00 hasone % % 00 :00 1-0.05 % Clotrimazol Clotrimazol 2021- No 1{appli BID Clotrimazo e-Betametha e-Betametha 11-18 cation} le-Betamet sone 1-0.05 sone 1-0.05 00:00: 00:00 hasone % % 00 :00 1-0.05 % Clotrimazol Clotrimazol 2021- No 1{appli BID Clotrimazo e-Betametha e-Betametha 11-18 cation} le-Betamet sone 1-0.05 sone 1-0.05 00:00: 00:00 hasone % % 00 :00 1-0.05 % Clotrimazol Clotrimazol 2021- No 1{appli BID Clotrimazo e-Betametha e-Betametha 11-18 cation} le-Betamet sone 1-0.05 sone 1-0.05 00:00: 00:00 hasone % % 00 :00 1-0.05 % Cephalexin Cephalexin 2021- No 1{capsu TID Cephalexin 500 MG 500 MG 11-18 le} 500 MG 00:00: 00:00 00 :00 donepezil 2021-0 Yes 10 mg = 1 Mem oria 10 mg oral 5-17 tab, PO, l tablet 20:47: Daily, # Moore 00 90 tab, 1 Refill(s), Pharmacy: [facility] [id number], 172.72, cm, 07/23/21 15:24:00 CDT, Height, 100.909, kg, 07/23/21 15:24:00 CDT, Weight donepezil 2021-0 Yes 10 mg = 1 Mem oria 10 mg oral 5-17 tab, PO, l tablet 20:47: Daily, # Moore 00 90 tab, 1 Refill(s), Pharmacy: [facility] [id number], 172.72, cm, 07/23/21 15:24:00 CDT, Height, 100.909, kg, 07/23/21 15:24:00 CDT, Weight donepezil 2021-0 Yes 10 mg = 1 Mem oria 10 mg oral 5-17 tab, PO, l tablet 20:47: Daily, # Joseph 00 90 tab, 1 Refill(s), Pharmacy: [facility] [id number], 172.72, cm, 07/23/21 15:24:00 CDT, Height, 100.909, kg, 07/23/21 15:24:00 CDT, Weight Aricept 5 2021-0 No 5 mg = 1 Maximiliano kelley mg oral 3-23 tab, PO, l tablet 19:27: Daily, # Moore 00 90 tab, 3 Refill(s), Pharmacy: [facility] [id number], 172.72, cm, 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, Height, 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, kg, 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, Weight Aricept 5 2-0 No 5 mg = 1 Maximiliano kelley mg oral 3-23 tab, PO, l tablet 19:27: Daily, # Moore 00 90 tab, 3 Refill(s), Pharmacy: [facility] [id number], 172.72, cm, 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, 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, 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, kg, 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, Weight Aricept 5 2021-0 No 5 mg = 1 Maximiliano kelley mg oral 3-23 tab, PO, l tablet 19:27: Daily, # Joseph 00 90 tab, 3 Refill(s), Pharmacy: [facility] [id number], 172.72, cm, 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, 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, 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, kg, 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, Weight Proscar 5 Proscar 5 2021-0 2023- No 1{table QD Proscar 5 MG MG 3-17 04-11 t} MG 00:00: 00:00 00 :00 Proscar 5 Proscar 5 2021-0 2023- No 1{table QD Proscar 5 MG MG 3-17 04-11 t} MG 00:00: 00:00 00 :00 Proscar 5 Proscar 5 2021-0 2023- No 1{table QD Proscar 5 MG MG 3-17 04-11 t} MG 00:00: 00:00 00 :00 Proscar 5 Proscar 5 2021-0 2023- No 1{table QD Proscar 5 MG MG 3-17 04-11 t} MG 00:00: 00:00 00 :00 Proscar 5 Proscar 5 2-0 2023- No 1{table QD Proscar 5 MG MG 3-17 04-11 t} MG 00:00: 00:00 00 :00 Proscar 5 Proscar 5 2021-0 2023- No 1{table QD Proscar 5 MG MG 3-17 04-11 t} MG 00:00: 00:00 00 :00 Proscar 5 Proscar 5 2021-0 2023- No 1{table QD Proscar 5 MG MG 3-17 04-11 t} MG 00:00: 00:00 00 :00 Donepezil 2-0 Yes 5 mg = 1 Maximiliano kelley hydrochlori 1-20 tab, PO, l de 5 MG 18:00: Daily, # Gonzalo n Oral Tablet 00 30 tab, 4 [Aricept] Refill(s), Pharmacy: [facility] [id number], 172.72, cm, 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, 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, 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, kg, 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, Weight Donepezil 2021-0 Yes 5 mg = 1 Maximiliano kelley hydrochlori 1-20 tab, PO, l de 5 MG 18:00: Daily, # Gonzalo n Oral Tablet 00 30 tab, 4 [Aricept] Refill(s), Pharmacy: [facility] [id number], 172.72, cm, 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 00 Pain/Fever , # 28 tab, 0 Refill(s) acetaminoph 2020-0 Yes 500 mg = 1 Memoria en 500 mg 9-09 tab, PO, l oral 15:56: Q6H, PRN Joseph tablet. 00 Pain/Fever , # 28 tab, 0 Refill(s) acetaminoph 2020-0 Yes 500 mg = 1 Memoria en 500 mg 9-09 tab, PO, l oral 15:56: Q6H, PRN Joseph tablet. 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, Height, 101.818, kg, 07/05/20 15:09:00 CDT, Weight primidone 0 Yes 50 mg = 1 Mem oria 50 mg oral 4-29 tab, PO, l tablet 20:28: Bedtime, # Christiana nn 00 30 tab, 3 Refill(s), Pharmacy: [facility] 149, 172.72, cm, 05/01/20 15:43: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, Height, 101.818, kg, 07/05/20 15:09:00 CDT, Weight moxifloxaci 0 No 0 Memori a n/nepafenac 4-29 Refill(s) l /prednisolo 20:26: Gonzalo n ne 00 0.5%-0.1%-1 % ophthalmic suspension Prednisone 0 Yes 20 mg, PO, M emoria 4-29 Daily, l 20:26: Quantity Moore 00 sufficient , 0 Refill(s) predniSONE 0 Yes 20 mg, PO, M emoria 4-29 Daily, l 20:26: Quantity Moore 00 sufficient , 0 Refill(s) moxifloxaci 0 No 0 Memori a n/nepafenac 4-29 Refill(s) l /prednisolo 20:26: Gonzalo n ne 00 0.5%-0.1%-1 % ophthalmic suspension Prednisone 2020-0 Yes 20 mg, PO, M emoria 4-29 Daily, l 20:26: Quantity Moore 00 sufficient , 0 Refill(s) predniSONE 2020-0 Yes 20 mg, PO, M emoria 4-29 Daily, l 20:26: Quantity Joseph 00 sufficient , 0 Refill(s) moxifloxaci 2020-0 No 0 Memori a n/nepafenac 4-29 Refill(s) l /prednisolo 20:26: Gonzalo n ne 00 0.5%-0.1%-1 % ophthalmic suspension Prednisone 2020-0 Yes 20 mg, PO, M emoria 4-29 Daily, l 20:26: Quantity Joseph 00 sufficient , 0 Refill(s) predniSONE 2020-0 Yes 20 mg, PO, M emoria 4-29 Daily, l 20:26: Quantity Moore 00 sufficient , 0 Refill(s) Hydroxychlo 2020-0 Yes 200 mg = 1 Memoria roquine 4-29 tab, PO, l Sulfate 200 20:17: BID, # 180 Joseph MG Oral 00 tab, 0 Tablet Refill(s) hydroxychlo 2020-0 Yes 200 mg = 1 Memoria roquine 4-29 tab, PO, l sulfate 200 20:17: BID, # 180 Joseph mg oral 00 tab, 0 tablet Refill(s) Hydroxychlo 2020-0 Yes 200 mg = 1 Memoria roquine 4-29 tab, PO, l Sulfate 200 20:17: BID, # 180 Joseph MG Oral 00 tab, 0 Tablet Refill(s) hydroxychlo 2020-0 Yes 200 mg = 1 Memoria roquine 4-29 tab, PO, l sulfate 200 20:17: BID, # 180 Joseph mg oral 00 tab, 0 tablet Refill(s) Hydroxychlo 2020-0 Yes 200 mg = 1 Memoria roquine 4-29 tab, PO, l Sulfate 200 20:17: BID, # 180 Moore MG Oral 00 tab, 0 Tablet Refill(s) hydroxychlo 2020-0 Yes 200 mg = 1 Memoria roquine 4-29 tab, PO, l sulfate 200 20:17: BID, # 180 Joseph mg oral 00 tab, 0 tablet Refill(s) pioglitazon 2020-0 Yes 15 mg = 1 M emoria e 15 mg 4-29 tab, PO, l oral tablet 20:16: Daily, # He rmann 00 30 tab, 0 Refill(s) meloxicam 2020-0 Yes 7.5 mg = 1 Me moria 7.5 mg oral 4-29 tab, PO, l tablet 20:16: Daily, # Joseph 00 30 tab, 0 Refill(s) pioglitazon 2020-0 Yes 15 mg = 1 M emoria e 15 mg 4-29 tab, PO, l oral tablet 20:16: Daily, # He rmann 00 30 tab, 0 Refill(s) meloxicam 2020-0 Yes 7.5 mg = 1 Me moria 7.5 mg oral 4-29 tab, PO, l tablet 20:16: Daily, # Moore 00 30 tab, 0 Refill(s) pioglitazon Yes 15 mg = 1 M emoria e 15 mg 4-29 tab, PO, l oral tablet 20:16: Daily, # He rm 30 tab, 0 Refill(s) meloxicam Yes 7.5 mg = 1 Me moria 7.5 mg oral 4-29 tab, PO, l tablet 20:16: Daily, # Moore 00 30 tab, 0 Refill(s) amLODIPine Yes 2.5 mg = 1 M emoria 2.5 mg oral 4-29 tab, PO, l tablet 20:14: Daily, # Joseph 00 90 tab, 1 Refill(s) amLODIPine Yes 2.5 mg = 1 M emoria 2.5 mg oral 4-29 tab, PO, l tablet 20:14: Daily, # Moore 00 90 tab, 1 Refill(s) amLODIPine Yes 2.5 mg = 1 M emoria 2.5 mg oral 4-29 tab, PO, l tablet 20:14: Daily, # Moore 00 90 tab, 1 Refill(s) tramadol 2020-0 Yes 50 mg = 1 Maximiliano kelley hydrochlori 3-24 tab, PO, l de 50 MG 14:54: BID, # 30 Herm idania Oral Tablet 00 tab, 0 Refill(s) tramadol 50 2020-0 Yes 50 mg = 1 M emoria mg oral 3-24 tab, PO, l tablet 14:54: BID, # 30 Gonzalo n 00 tab, 0 Refill(s) tramadol 2020-0 Yes 50 mg = 1 Maximiliano kelley hydrochlori 3-24 tab, PO, l de 50 MG 14:54: BID, # 30 Herm idania Oral Tablet 00 tab, 0 Refill(s) tramadol 50 2020-0 Yes 50 mg = 1 M emoria mg oral 3-24 tab, PO, l tablet 14:54: BID, # 30 Gonzalo n 00 tab, 0 Refill(s) tramadol 2020-0 Yes 50 mg = 1 Maximiliano kelley hydrochlori 3-24 tab, PO, l de 50 MG 14:54: BID, # 30 Herm idania Oral Tablet 00 tab, 0 Refill(s) tramadol 50 2020-0 Yes 50 mg = 1 M emoria mg oral 3-24 tab, PO, l tablet 14:54: BID, # 30 Gonzalo n 00 tab, 0 Refill(s) gabapentin 2020-0 Yes 300 mg = 1 M emoria 300 MG Oral 3-24 cap, PO, l Capsule 14:52: TID, 0 Joseph 00 Refill(s) gabapentin 2020-0 Yes 300 mg = 1 M emoria 300 mg oral 3-24 cap, PO, l capsule 14:52: BID, 0 Moore 00 Refill(s) gabapentin 2020-0 Yes 300 mg = 1 M emoria 300 MG Oral 3-24 cap, PO, l Capsule 14:52: TID, 0 Joseph 00 Refill(s) gabapentin 2020-0 Yes 300 mg = 1 M emoria 300 mg oral 3-24 cap, PO, l capsule 14:52: BID, 0 Joseph 00 Refill(s) gabapentin 2020-0 Yes 300 mg = 1 M emoria 300 MG Oral 3-24 cap, PO, l Capsule 14:52: TID, 0 Joseph 00 Refill(s) gabapentin 2020-0 Yes 300 mg = 1 M emoria 300 mg oral 3-24 cap, PO, l capsule 14:52: BID, 0 Joseph 00 Refill(s) baclofen 10 2019-0 No See Memori a mg oral 2-24 Instructio l tablet 20:42: ns, # 30 Joseph 06 tab, Refill(s) 2, TAKE ONE TABLET BY MOUTH AT BEDTIME, Pharmacy: [place] [id number] baclofen 10 No See Memori a mg oral 2-24 Instructio l tablet 20:42: ns, # 30 Joseph 06 tab, Refill(s) 2, TAKE ONE TABLET BY MOUTH AT BEDTIME, Pharmacy: [place] [address] baclofen 10 No See Memori a mg oral 2-24 Instructio l tablet 20:42: ns, # 30 Moore 06 tab, Refill(s) 2, TAKE ONE TABLET BY MOUTH AT BEDTIME, Pharmacy: [place] [address] baclofen 10 2018-03 Yes 10 mg = 1 M emoria mg oral 1-22 tab, PO, l tablet 15:53: Bedtime, # Christiana nn 00 30 tab, 2 Refill(s), Pharmacy: [place] [address] baclofen 2018-03 Yes 10 mg = 1 M emoria mg oral 1-22 tab, PO, l tablet 15:53: Bedtime, # Christiana nn 00 30 tab, 2 Refill(s), Pharmacy: [place] [address] baclofen 2018-03 Yes 10 mg = 1 M emoria mg oral 1-22 tab, PO, l tablet 15:53: Bedtime, # Christiana nn 00 30 tab, 2 Refill(s), Pharmacy: [place] [address] metFORMIN 2017- Yes 850 mg = 1 Me moria 850 mg oral 6-05 tab, PO, l tablet 18:32: TID, 0 Moore 00 Refill(s) glimepiride 2017- Yes 4 mg = 1 Me moria 4 mg oral 6-05 tab, PO, l tablet 18:32: Breakfast, Christiana nn 00 # 30 tab, 0 Refill(s) levothyroxi 2017-0 Yes 100 Memori a ne 100 mcg 6-05 microgram l (0.1 mg) 18:32: = 1 tab, Christiana nn oral tablet 00 PO, Daily, # 30 tab, 0 Refill(s) metoprolol 2018-0 Yes 50 mg = 1 Me moria tartrate 50 6-05 tab, PO, l mg oral 18:32: BID, # 180 Herm idania tablet 00 tab, 0 Refill(s) pravastatin 2018- Yes 40 mg = 1 M emoria 40 mg oral 6-05 tab, PO, l tablet 18:32: Bedtime, # Christiana nn 00 30 tab, 0 Refill(s) tamsulosin 2018-0 Yes 0.4 mg = 1 M emoria 0.4 mg oral 6-05 cap, PO, l capsule 18:32: Daily, # Gonzalo n 00 30 cap, 0 Refill(s) lisinopril 2018-0 Yes 5 mg = 1 Mem oria 5 mg oral 6-05 tab, PO, l tablet 18:32: Daily, # Moore 00 30 tab, 0 Refill(s) metFORMIN 2017- Yes 850 mg = 1 Me moria 850 mg oral 6-05 tab, PO, l tablet 18:32: TID, 0 Moore 00 Refill(s) glimepiride 2018-0 Yes 4 mg = 1 Me moria 4 mg oral 6-05 tab, PO, l tablet 18:32: Breakfast, Christiana nn 00 # 30 tab, 0 Refill(s) levothyroxi 2018-0 Yes 100 Memori a ne 100 mcg 6-05 microgram l (0.1 mg) 18:32: = 1 tab, Christinaa nn oral tablet 00 PO, Daily, # 30 tab, 0 Refill(s) metoprolol 2018-0 Yes 50 mg = 1 Me moria tartrate 50 6-05 tab, PO, l mg oral 18:32: BID, # 180 Herm idania tablet 00 tab, 0 Refill(s) pravastatin 2018-0 Yes 40 mg = 1 M emoria 40 mg oral 6-05 tab, PO, l tablet 18:32: Bedtime, # Christiana nn 00 30 tab, 0 Refill(s) tamsulosin 2018-0 Yes 0.4 mg = 1 M emoria 0.4 mg oral 6-05 cap, PO, l capsule 18:32: Daily, # Gonzalo n 00 30 cap, 0 Refill(s) lisinopril 2018-0 Yes 5 mg = 1 Mem oria 5 mg oral 6-05 tab, PO, l tablet 18:32: Daily, # Moore 00 30 tab, 0 Refill(s) metFORMIN 2018-0 Yes 850 mg = 1 Me moria 850 mg oral 6-05 tab, PO, l tablet 18:32: TID, 0 Moore 00 Refill(s) glimepiride 2018-0 Yes 4 mg = 1 Me moria 4 mg oral 6-05 tab, PO, l tablet 18:32: Breakfast, Christiana nn 00 # 30 tab, 0 Refill(s) levothyroxi 2018-0 Yes 100 Memori a ne 100 mcg 6-05 microgram l (0.1 mg) 18:32: = 1 tab, Christiana nn oral tablet 00 PO, Daily, # 30 tab, 0 Refill(s) metoprolol 2018-0 Yes 50 mg = 1 Me moria tartrate 50 6-05 tab, PO, l mg oral 18:32: BID, # 180 Herm idania tablet 00 tab, 0 Refill(s) pravastatin 2018-0 Yes 40 mg = 1 M emoria 40 mg oral 6-05 tab, PO, l tablet 18:32: Bedtime, # Christiana nn 00 30 tab, 0 Refill(s) tamsulosin 2018-0 Yes 0.4 mg = 1 M emoria 0.4 mg oral 6-05 cap, PO, l capsule 18:32: Daily, # Gonzalo n 00 30 cap, 0 Refill(s) lisinopril 2018-0 Yes 5 mg = 1 Mem oria 5 mg oral 6-05 tab, PO, l tablet 18:32: Daily, # Joseph 00 30 tab, 0 Refill(s) Levothyroxi Levothyroxi No QD Levothyrox ne Sodium ne Sodium ine Sodium 100 MCG 100 MCG 100 MCG Primidone Primidone No 1{table QD Primidone 50 MG 50 MG t} 50 MG Norvasc 10 Norvasc 10 No 1{table QD Norvasc 10 MG MG t} MG Metoprolol Metoprolol No 1{table BID Metoprolol Tartrate 50 Tartrate 50 t_with_ Tartrate MG MG food} 50 MG Lisinopril Lisinopril No 1{table QD Lisinopril 5 MG 5 MG t} 5 MG Levothyroxi Levothyroxi No QD Levothyrox ne Sodium ne Sodium ine Sodium 100 MCG 100 MCG 100 MCG Norvasc 10 Norvasc 10 No 1{table QD Norvasc 10 MG MG t} MG Pravastatin Pravastatin No 1{table QD Pravastati Sodium 40 Sodium 40 t} n Sodium MG MG 40 MG Metoprolol Metoprolol No 1{table BID Metoprolol Tartrate 50 Tartrate 50 t_with_ Tartrate MG MG food} 50 MG Glimepiride Glimepiride No 1{table QD Glimepirid 4 MG 4 MG t_with_ e [address]_or_t he_firs t_main_ meal_of _the_da y} Gabapentin Gabapentin No 1{capsu QD Gabapentin 300 MG 300 MG le} 300 MG Primidone Primidone No 1{table QD Primidone 50 MG 50 MG t} 50 MG Hydroxychlo Hydroxychlo No BID Hydroxychl roquine roquine oroquine Sulfate 200 Sulfate 200 Sulfate MG MG 200 MG tramadol tramadol No tramadol Hydrocodone Hydrocodone No Hydrocodon -Chlorpheni -Chlorpheni e-Chlorphe ramine ramine niramine metFORMIN metFORMIN No 1{table BID metFORMIN HCl 850 MG HCl 850 MG t_with_ HCl 850 MG a_meal} Acetaminoph Acetaminoph No 1{capsu QID Acetaminop en 500 MG en 500 MG le_as_n hen 500 MG eeded} metFORMIN metFORMIN No 1{table BID metFORMIN HCl 850 MG HCl 850 MG t_with_ HCl 850 MG a_meal} Hydroxychlo Hydroxychlo No BID Hydroxychl roquine roquine oroquine Sulfate 200 Sulfate 200 Sulfate MG MG 200 MG Gabapentin Gabapentin No 1{capsu QD Gabapentin 300 MG 300 MG le} 300 MG Pravastatin Pravastatin No 1{table QD Pravastati Sodium 40 Sodium 40 t} n Sodium MG MG 40 MG Acetaminoph Acetaminoph No 1{capsu QID Acetaminop en 500 MG en 500 MG le_as_n hen 500 MG eeded} Lisinopril Lisinopril No 1{table QD Lisinopril 5 MG 5 MG t} 5 MG Hydrocodone Hydrocodone No Hydrocodon -Chlorpheni -Chlorpheni e-Chlorphe ramine ramine niramine tramadol tramadol No tramadol Glimepiride Glimepiride No 1{table QD Glimepirid 4 MG 4 MG t_with_ e [address]_or_t he_firs t_main_ meal_of _the_da y} Levothyroxi Levothyroxi No QD Levothyrox ne Sodium ne Sodium ine Sodium 100 MCG 100 MCG 100 MCG Primidone Primidone No 1{table QD Primidone 50 MG 50 MG t} 50 MG Norvasc 10 Norvasc 10 No 1{table QD Norvasc 10 MG MG t} MG Metoprolol Metoprolol No 1{table BID Metoprolol Tartrate 50 Tartrate 50 t_with_ Tartrate MG MG food} 50 MG Lisinopril Lisinopril No 1{table QD Lisinopril 5 MG 5 MG t} 5 MG Pravastatin Pravastatin No 1{table QD Pravastati Sodium 40 Sodium 40 t} n Sodium MG MG 40 MG tramadol tramadol No tramadol Glimepiride Glimepiride No 1{table QD Glimepirid 4 MG 4 MG t_with_ e [address]_or_t he_firs t_main_ meal_of _the_da y} Hydrocodone Hydrocodone No Hydrocodon -Chlorpheni -Chlorpheni e-Chlorphe ramine ramine niramine Levothyroxi Levothyroxi No QD Levothyrox ne Sodium ne Sodium ine Sodium 100 MCG 100 MCG 100 MCG Acetaminoph Acetaminoph No 1{capsu QID Acetaminop en 500 MG en 500 MG le_as_n hen 500 MG eeded} Primidone Primidone No 1{table QD Primidone 50 MG 50 MG t} 50 MG Norvasc 10 Norvasc 10 No 1{table QD Norvasc 10 MG MG t} MG metFORMIN metFORMIN No 1{table BID metFORMIN HCl 850 MG HCl 850 MG t_with_ HCl 850 MG a_meal} Hydroxychlo Hydroxychlo No BID Hydroxychl roquine roquine oroquine Sulfate 200 Sulfate 200 Sulfate MG MG 200 MG Gabapentin Gabapentin No 1{capsu QD Gabapentin 300 MG 300 MG le} 300 MG Metoprolol Metoprolol No 1{table BID Metoprolol Tartrate 50 Tartrate 50 t_with_ Tartrate MG MG food} 50 MG Lisinopril Lisinopril No 1{table QD Lisinopril 5 MG 5 MG t} 5 MG Pravastatin Pravastatin No 1{table QD Pravastati Sodium 40 Sodium 40 t} n Sodium MG MG 40 MG tramadol tramadol No tramadol Glimepiride Glimepiride No 1{table QD Glimepirid 4 MG 4 MG t_with_ e [address]_or_t he_firs t_main_ meal_of _the_da y} Hydrocodone Hydrocodone No Hydrocodon -Chlorpheni -Chlorpheni e-Chlorphe ramine ramine niramine Levothyroxi Levothyroxi No QD Levothyrox ne Sodium ne Sodium ine Sodium 100 MCG 100 MCG 100 MCG Acetaminoph Acetaminoph No 1{capsu QID Acetaminop en 500 MG en 500 MG le_as_n hen 500 MG eeded} Primidone Primidone No 1{table QD Primidone 50 MG 50 MG t} 50 MG Norvasc 10 Norvasc 10 No 1{table QD Norvasc 10 MG MG t} MG metFORMIN metFORMIN No 1{table BID metFORMIN HCl 850 MG HCl 850 MG t_with_ HCl 850 MG a_meal} Hydroxychlo Hydroxychlo No BID Hydroxychl roquine roquine oroquine Sulfate 200 Sulfate 200 Sulfate MG MG 200 MG Gabapentin Gabapentin No 1{capsu QD Gabapentin 300 MG 300 MG le} 300 MG Metoprolol Metoprolol No 1{table BID Metoprolol Tartrate 50 Tartrate 50 t_with_ Tartrate MG MG food} 50 MG tramadol tramadol No tramadol Norvasc 10 Norvasc 10 No 1{table QD Norvasc 10 MG MG t} MG Hydroxychlo Hydroxychlo No BID Hydroxychl roquine roquine oroquine Sulfate 200 Sulfate 200 Sulfate MG MG 200 MG Primidone Primidone No 1{table QD Primidone 50 MG 50 MG t} 50 MG Pravastatin Pravastatin No 1{table QD Pravastati Sodium 40 Sodium 40 t} n Sodium MG MG 40 MG metFORMIN metFORMIN No 1{table BID metFORMIN HCl 850 MG HCl 850 MG t_with_ HCl 850 MG a_meal} Glimepiride Glimepiride No 1{table QD Glimepirid 4 MG 4 MG t_with_ e [address]_or_t he_firs t_main_ meal_of _the_da y} Acetaminoph Acetaminoph No 1{capsu QID Acetaminop en 500 MG en 500 MG le_as_n hen 500 MG eeded} Hydrocodone Hydrocodone No Hydrocodon -Chlorpheni -Chlorpheni e-Chlorphe ramine ramine niramine Levothyroxi Levothyroxi No QD Levothyrox ne Sodium ne Sodium ine Sodium 100 MCG 100 MCG 100 MCG Gabapentin Gabapentin No 1{capsu QD Gabapentin 300 MG 300 MG le} 300 MG Metoprolol Metoprolol No 1{table BID Metoprolol Tartrate 50 Tartrate 50 t_with_ Tartrate MG MG food} 50 MG Lisinopril Lisinopril No 1{table QD Lisinopril 5 MG 5 MG t} 5 MG metFORMIN metFORMIN No 1{table BID metFORMIN HCl 850 MG HCl 850 MG t_with_ HCl 850 MG a_meal} Hydroxychlo Hydroxychlo No BID Hydroxychl roquine roquine oroquine Sulfate 200 Sulfate 200 Sulfate MG MG 200 MG Gabapentin Gabapentin No 1{capsu QD Gabapentin 300 MG 300 MG le} 300 MG Pravastatin Pravastatin No 1{table QD Pravastati Sodium 40 Sodium 40 t} n Sodium MG MG 40 MG Acetaminoph Acetaminoph No 1{capsu QID Acetaminop en 500 MG en 500 MG le_as_n hen 500 MG eeded} Lisinopril Lisinopril No 1{table QD Lisinopril 5 MG 5 MG t} 5 MG Hydrocodone Hydrocodone No Hydrocodon -Chlorpheni -Chlorpheni e-Chlorphe ramine ramine niramine tramadol tramadol No tramadol Glimepiride Glimepiride No 1{table QD Glimepirid 4 MG 4 MG t_with_ e [address]_or_t he_firs t_main_ meal_of _the_da y} Levothyroxi Levothyroxi No QD Levothyrox ne Sodium ne Sodium ine Sodium 100 MCG 100 MCG 100 MCG Primidone Primidone No 1{table QD Primidone 50 MG 50 MG t} 50 MG Norvasc 10 Norvasc 10 No 1{table QD Norvasc 10 MG MG t} MG Metoprolol Metoprolol No 1{table BID Metoprolol Tartrate 50 Tartrate 50 t_with_ Tartrate MG MG food} 50 MG metFORMIN metFORMIN No 1{table BID metFORMIN HCl 850 MG HCl 850 MG t_with_ HCl 850 MG a_meal} Hydroxychlo Hydroxychlo No BID Hydroxychl roquine roquine oroquine Sulfate 200 Sulfate 200 Sulfate MG MG 200 MG Gabapentin Gabapentin No 1{capsu QD Gabapentin 300 MG 300 MG le} 300 MG Pravastatin Pravastatin No 1{table QD Pravastati Sodium 40 Sodium 40 t} n Sodium MG MG 40 MG Acetaminoph Acetaminoph No 1{capsu QID Acetaminop en 500 MG en 500 MG le_as_n hen 500 MG eeded} Lisinopril Lisinopril No 1{table QD Lisinopril 5 MG 5 MG t} 5 MG Hydrocodone Hydrocodone No Hydrocodon -Chlorpheni -Chlorpheni e-Chlorphe ramine ramine niramine tramadol tramadol No tramadol Glimepiride Glimepiride No 1{table QD Glimepirid 4 MG 4 MG t_with_ e [address]_or_t he_firs t_main_ meal_of _the_da y} Tamsulosin Tamsulosin 2021- No 2{capsu QD Tamsulosin HCl 0.4 MG HCl 0.4 MG 12-12 les} HCl 0.4 MG 00:00 :00 Tamsulosin Tamsulosin 2021- No 2{capsu QD Tamsulosin HCl 0.4 MG HCl 0.4 MG 12-12 les} HCl 0.4 MG 00:00 :00 Tamsulosin Tamsulosin 2021- No 2{capsu QD Tamsulosin HCl 0.4 MG HCl 0.4 MG 12-12 les} HCl 0.4 MG 00:00 :00 Tamsulosin Tamsulosin 2021- No 2{capsu QD Tamsulosin HCl 0.4 MG HCl 0.4 MG 12-12 les} HCl 0.4 MG 00:00 :00 Tamsulosin Tamsulosin 2021- No 2{capsu QD Tamsulosin HCl 0.4 MG HCl 0.4 MG 12-12 les} HCl 0.4 MG 00:00 :00 Tamsulosin Tamsulosin 2021- No 2{capsu QD Tamsulosin HCl 0.4 MG HCl 0.4 MG 12-12 les} HCl 0.4 MG 00:00 :00 Tamsulosin Tamsulosin 2021- No 2{capsu QD Tamsulosin HCl 0.4 MG HCl 0.4 MG 12-12 les} HCl 0.4 MG 00:00 :00 Vital Signs Vital Name Observation Time Observation Value Comments Source height 2022-01-23 09:15:00 71 [in_i] [facility] weight 2022-01-23 09:15:00 233 [lb_av] [facility] temperature 2022-01-23 09:15:00 98 [degF] [facility] bmi 2022-01-23 09:15:00 32.49 kg/m2 [facility] oximetry 2022-01-23 09:15:00 96 % [facility] respiratory rate 2022-01-23 09:15:00 18 /min Comm on [facility] blood pressure 2022-01-23 09:15:00 133 mm[Hg] [facility] blood pressure 2022-01-23 09:15:00 60 mm[Hg] [facility] height 2021-11-18 11:45:00 71 [in_i] [facility] weight 2021-11-18 11:45:00 224.2 [lb_av] [facility] temperature 2021-11-18 11:45:00 98.3 [degF] [facility] bmi 2021-11-18 11:45:00 31.27 kg/m2 [facility] oximetry 2021-11-18 11:45:00 96 % [facility] respiratory rate 2021-11-18 11:45:00 16 /min Comm on [facility] blood pressure 2021-11-18 11:45:00 132 mm[Hg] [facility] - systolic [facility] blood pressure 2021-11-18 11:45:00 60 mm[Hg] [facility] - diastolic [facility] height 2021-09-05 09:45:00 71 [in_i] [facility] weight 2021-09-05 09:45:00 220 [lb_av] [facility] temperature 2021-09-05 09:45:00 98.1 [degF] [facility] bmi 2021-09-05 09:45:00 30.68 kg/m2 [facility] oximetry 2021-09-05 09:45:00 99 % [facility] respiratory rate 2021-09-05 09:45:00 16 /min Comm on [facility] blood pressure 2021-09-05 09:45:00 134 mm[Hg] [facility] - systolic [facility] blood pressure 2021-09-05 09:45:00 64 mm[Hg] [facility] height 2021-07-11 09:30:00 71 [in_i] [facility] weight 2021-07-11 09:30:00 212 [facility]lb_av] [facility] temperature 2021-07-11 09:30:00 98.4 [degF] [facility] bmi 2021-07-11 09:30:00 29.56 kg/m2 [facility] oximetry 2021-07-11 09:30:00 99 % [facility] respiratory rate 2021-07-11 09:30:00 16 /min [facility] blood pressure 2021-07-11 09:30:00 118 mm[Hg] [facility] blood pressure 2021-07-11 09:30:00 61 mm[Hg] [facility] Systolic (mm Hg) 2022-11-13 14:01:00 Maximiliano [facility] Diastolic (mm Hg) 2022-11-13 14:01:00 [facility] Heart Rate 2022-11-13 14:01:00 [facility] Height 2022-11-13 14:01:00 5 [ft_i] [facility] Weight 2022-11-13 14:01:00 [facility] BMI Calculated 2022-11-13 14:01:00 [facility] Systolic (mm Hg) 2022-06-24 15:15:00 Maximiliano rial Joseph Diastolic (mm Hg) 2022-06-24 15:15:00 [facility] Heart Rate 2022-06-24 15:15:00 [facility] Height 2022-06-24 15:15:00 5 [ft_i] [facility] Weight 2022-06-24 15:15:00 [facility] BMI Calculated 2022-06-24 15:15:00 [facility] Systolic (mm Hg) 2022-02-18 19:39:00 Maximiliano rial Moore Diastolic (mm Hg) 2022-02-18 19:39:00 [facility] Heart Rate 2022-02-18 19:39:00 [facility] Height 2022-02-18 19:39:00 5 [ft_i] [facility] Weight 2022-02-18 19:39:00 [facility] BMI Calculated 2022-02-18 19:39:00 [facility] Systolic (mm Hg) 2021-10-17 18:18:00 Maximiliano rial Joseph Diastolic (mm Hg) 2021-10-17 18:18:00 [facility] Heart Rate 2021-10-17 18:18:00 [facility] Respitory Rate 2021-10-17 18:18:00 [facility] Height 2021-10-17 18:18:00 172.72 cm [facility] Weight 2021-10-17 18:18:00 [facility] BMI Calculated 2021-10-17 18:18:00 [facility] Systolic (mm Hg) 2021-07-23 20:00:00 Maximiliano rial Moore Diastolic (mm Hg) 2021-07-23 20:00:00 [facility] Heart Rate 2021-07-23 20:00:00 [facility] Respitory Rate 2021-07-23 20:00:00 [facility] Height 2021-07-23 20:00:00 172.72 cm [facility] Weight 2021-07-23 20:00:00 [facility] BMI Calculated 2021-07-23 20:00:00 [facility] Systolic (mm Hg) 2021-03-28 17:34:00 Maximiliano rial Moore Diastolic (mm Hg) 2021-03-28 17:34:00 [facility] Heart Rate 2021-03-28 17:34:00 [facility] Respitory Rate 2021-03-28 17:34:00 [facility] Height 2021-03-28 17:34:00 172.72 cm [facility] Weight 2021-03-28 17:34:00 [facility] BMI Calculated 2021-03-28 17:34:00 [facility] Diastolic (mm Hg) 2020-12-27 16:08:00 [facility] Heart Rate 2020-12-27 16:08:00 [facility] Respitory Rate 2020-12-27 16:08:00 [facility] Height 2020-12-27 16:08:00 175.26 cm [facility] Weight 2020-12-27 16:08:00 [facility] BMI Calculated 2020-12-27 16:08:00 [facility] Systolic (mm Hg) 2020-12-27 16:08:00 Maximiliano rial Moore Systolic (mm Hg) 2020-11-15 16:17:00 Maximiliano rial Moore Diastolic (mm Hg) 2020-11-15 16:17:00 [facility] Heart Rate 2020-11-15 16:17:00 [facility] Respitory Rate 2020-11-15 16:17:00 [facility] Height 2020-11-15 16:17:00 170.18 cm [facility] Weight 2020-11-15 16:17:00 [facility] BMI Calculated 2020-11-15 16:17:00 [facility] Systolic (mm Hg) 2020-07-05 20:09:00 Maximiliano rial Moore Diastolic (mm Hg) 2020-07-05 20:09:00 [facility] Heart Rate 2020-07-05 20:09:00 [facility] Respitory Rate 2020-07-05 20:09:00 [facility] Weight 2020-07-05 20:09:00 [facility] Systolic (mm Hg) 2020-05-01 21:06:00 Maximiliano rial Moore Diastolic (mm Hg) 2020-05-01 21:06:00 [facility] Heart Rate 2020-05-01 21:06:00 [facility] Respitory Rate 2020-05-01 21:06:00 [facility] Height 2020-05-01 21:06:00 172.72 cm [facility] Weight 2020-05-01 21:06:00 [facility] BMI Calculated 2020-05-01 21:06:00 [facility] Systolic (mm Hg) 2020-01-05 20:13:00 Maximiliano rial Moore Diastolic (mm Hg) 2020-01-05 20:13:00 [facility] Heart Rate 2020-01-05 20:13:00 [facility] Respitory Rate 2020-01-05 20:13:00 [facility] Height 2020-01-05 20:13:00 172.72 cm [facility] Weight 2020-01-05 20:13:00 [facility] BMI Calculated 2020-01-05 20:13:00 [facility] Systolic (mm Hg) 2019-12-01 15:07:00 Maximiliano rial Moore Diastolic (mm Hg) 2019-12-01 15:07:00 [facility] o[facility] Heart Rate 2019-12-01 15:07:00 [facility] Respitory Rate 2019-12-01 15:07:00 [facility] Height 2019-12-01 15:07:00 172.72 cm [facility] Weight 2019-12-01 15:07:00 [facility] BMI Calculated 2019-12-01 15:07:00 [facility] Systolic (mm Hg) 2019 14:35:00 Maximiliano rial Joseph Diastolic (mm Hg) 2019 14:35:00 [facility] Heart Rate 2019 14:35:00 [facility] Respitory Rate 2019 14:35:00 [facility] Height 2019 14:35:00 180.34 cm [facility] Weight 2019 14:35:00 [facility] BMI Calculated 2019 14:35:00 [facility] Systolic (mm Hg) 2019-03-30 19:37:00 Maximiliano rial Joseph Diastolic (mm Hg) 2019-03-30 19:37:00 [facility] Heart Rate 2019-03-30 19:37:00 [facility] Respitory Rate 2019-03-30 19:37:00 [facility] Height 2019-03-30 19:37:00 172.72 cm [facility] Weight 2019-03-30 19:37:00 [facility] BMI Calculated 2019-03-30 19:37:00 [facility] Systolic (mm Hg) 2019-01-28 15:19:00 Maximiliano rial Moore Diastolic (mm Hg) 2019-01-28 15:19:00 [facility] Heart Rate 2019-01-28 15:19:00 [facility] Respitory Rate 2019-01-28 15:19:00 [facility] Height 2019-01-28 15:19:00 177.8 cm [facility] Weight 2019-01-28 15:19:00 [facility] BMI Calculated 2019-01-28 15:19:00 Kylee Grullon Procedures Procedure Date / Time Performing Clinician Source Performed PATIENT CORRESPONDENCE 2021-08-13 05:01:00 Doctor Unassigned, Un [facility] (LETTERS, USPS [facility] DOCUMENTATION) ASSIGNMENT OF BENEFITS 2021-04-05 17:50:31 Doctor Unassigned, Un [facility] PHYSICIAN ORDERS 2021-01-10 05:01:00 Doctor Unassigned, [facility] Carpal tunnel release [facility] Encounters Start End Encounter Admission Attending Care Care Encounter Source Date/Time Date/Time Type Type Clinicians Facility Department ID 2022-05-22 Outpatient [facility] [id number] Common 14:53:02 [id number] [facility] 2022-02-18 [facility] [id number] Common 08:27:01 [facility] 2021-07-11 [facility] [id number] Common 08:55:02 [facility] 2023-05-22 2023-05-22 Outpatient [facility]IE [facility] [id number] [facility] 09:00:00 09:00:00 24 justino Moore 2023-05-22 2023-05-22 Outpatient [facility]IE [facility] [id number] [facility] 09:00:00 09:00:00 24 justino Ruiz 2022-11-13 2022-11-14 Outpatient MHIE MNA [id number] [facility] 14:00:00 04:59:59 Neurology 23 justino Ruiz 2022-11-13 2022-11-14 Outpatient MHIE MNA [id number] [facility] 14:00:00 04:59:59 Neurology 23 justino Ruiz 2022-11-13 2022-11-13 Outpatient MIKE MaurerSCHPORSCHE [id number] 09:00:00 23:59:59 Juan 23 Javier 2022-11-13 2022-11-13 Outpatient MHIE MHIE [id number] [facility]oria 09:00:00 09:00:00 23 justino Ruiz 2022-08-19 2022-08-20 Between MHIE MNA [id number] [facility] 14:39:39 14:39:39 Visit Neurology 04 justino Ruiz 2022-08-19 2022-08-20 Between MHIE MNA [id number] Memoria 14:39:39 14:39:39 Visit Neurology 04 justino Ruiz 2022-08-19 2022-08-20 Outpatient MHMISCHER MHMISCHER [id number] 09:39:39 09:39:39 04 2022-06-24 2022-06-25 Outpatient MHIE MNA [id number] [facility] 15:15:00 04:59:59 Neurology 22 l Pepe Ruiz 2022-06-24 2022-06-25 Outpatient MHIE MNA [id number] [facility] 15:15:00 04:59:59 Neurology 22 justino Ruiz 2022-06-24 2022-06-24 Outpatient DEREK MaurerSCHER MISCHER [id number] 10:15:00 23:59:59 Juan 22 Javier 2022-06-24 2022-06-24 Outpatient MHIE MHIE [id number] [facility]oria 10:15:00 10:15:00 22 justino Ruiz 2022-02-18 2022-02-19 Outpatient MHIE MNA [id number] [facility] 20:15:00 05:59:59 Neurology 21 justino Ruiz 2022-02-18 2022-02-19 Outpatient MHIE MNA [id number] [facility] 20:15:00 05:59:59 Neurology 21 justino Ruiz 2022-02-18 2022-02-18 Outpatient DEREK MaurerSCHER MISCHER [id number] 14:15:00 23:59:59 Juan 21 Javier 2022-02-18 2022-02-18 Outpatient MHIE MHIE [id number] [facility] 14:15:00 14:15:00 21 justino Ruiz 2022-01-23 2022-01-23 OFFICE [facility] [id number] Co mmon 00:00:00 00:00:00 VISIT EST Spir it PT LEVEL 3 - [facility] 2021-12-03 2021-12-03 (TEL) [facility] [id number] Co mmon 00:00:00 00:00:00 [facility] 2021-11-18 2021-11-18 OFFICE STLMLC [facility] [id number] Co mmon 00:00:00 00:00:00 VISIT [facility] ESTAB PT - [facility] LEVEL 4 [facility] 2021-10-24 2021-10-24 Ambulatory nullFlavo MNA [id number] Memoria 18:30:00 18:30:00 Pre-Reg r Neurology 19 l Pepe Ruiz 2021-10-24 2021-10-24 Ambulatory nullFlavo MNA [id number] Memoria 18:30:00 18:30:00 Pre-Reg r Neurology 19 l Pepe Ruiz 2021-10-24 2021-10-24 Outpatient MHIE MHIE [id number] [facility]oria 13:30:00 13:30:00 19 justino Ruiz 2021-10-24 2021-10-24 [facility] [id number] 13:30:00 13:30:00 Juan Kyle Javier 2021-10-17 2021-10-18 Outpatient nullFlavo MNA [id number] Memoria 18:00:00 04:59:59 r Neurology 20 l Pepe Ruiz 2021-10-17 2021-10-18 Outpatient nullFlavo MNA [id number] Memoria 18:00:00 04:59:59 r Neurology 20 l Pepe Ruiz 2021-10-17 2021-10-17 [facility] [id number] 13:00:00 23:59:59 Juan Beth Javier 2021-10-17 2021-10-17 Outpatient MHIE MHIE [id number] [facility]oria 13:00:00 13:00:00 20 l Joseph 2021-09-05 2021-09-05 OFFICE STLMLC [facility] [id number] Co mmon 00:00:00 00:00:00 VISIT [facility] ESTAB PT - [facility] LEVEL 4 [facility] 2021-08-19 2021-08-19 (TEL) [facility]LMLC [facility] [id number] Co mmon 00:00:00 00:00:00 [facility] 2021-08-13 2021-08-13 Orders Doctor LUCIEN [id number] Univers 00:00:00 00:00:00 Only Unassigned, ADONIS [id number] [facility]y of [facility] [id number] Antony as [id number] [address] 2021-07-23 2021-07-24 Outpatient nullFlavo MNA [id number] Memoria 20:00:00 04:59:59 r Neurology 18 l Pepe Oviedoann 2021-07-23 2021-07-24 Outpatient nullFlavo MNA [id number] Memoria 20:00:00 04:59:59 r Neurology 18 l Pepe Ruiz 2021-07-23 2021-07-23 Outpatient RALEIGH MaurerMISCHER MHMISCHER [id number] 15:00:00 23:59:59 Juan 18 Javier 2021-07-23 2021-07-23 Outpatient MHIE MHIE [id number] [facility] 15:00:00 15:00:00 18 justino Joseph 2021-07-11 2021-07-11 OFFICE STLMLC ST[facility] [id number] Co mmon 00:00:00 00:00:00 VISIT [facility] ESTAB PT - [facility] LEVEL 2 [facility] 2021-04-05 2021-04-05 Core Checker Fernando, Memo Lab Main [facility] [id number] Univers 11:45:00 12:00:00 Visit Nai Mcdonough [id number] [id number] [id number] [place] [address] 2021-04-05 2021-04-05 Outpatient Sridevi MCDONOUGH [facility] [id number] Univers 11:45:00 11:45:00 ANI itsukhdeep of [facility] 2021-04-05 2021-04-05 Orders Doctor MCGRAW [id number] Univers 00:00:00 00:00:00 Only Unassigned, ADONIS [id number] [facility] [id number] Antony as [phone] [address] 2021-03-28 2021-03-29 Outpatient nullFlavo MNA [id number] Memoria 17:15:00 05:59:59 r Neurology 17 justino Ruiz 2021-03-28 2021-03-29 Outpatient nullFlavo MNA [id number] Memoria 17:15:00 05:59:59 r Neurology 17 l Pepe Ruiz 2021-03-28 2021-03-28 Outpatient MIKE Maurer [facility] [id number] 11:15:00 23:59:59 Juan 17 Javier 2021-03-28 2021-03-28 Outpatient MHIE MHIE [id number] Memoria 11:15:00 11:15:00 17 justino Joseph 2021-01-10 2021-01-10 Orders Doctor LUCIEN [id number] Univers 00:00:00 00:00:00 Only Unassigned, ADONIS [id number] [place]y of [place] [facility] [id number] Antony as [id number] [address] 2020-12-27 2020-12-28 Outpatient nullFlavo MNA [id number] Memoria 16:30:00 04:59:59 r Neurology 16 justino Ruiz 2020-12-27 2020-12-28 Outpatient nullFlavo MNA [id number] Memoria 16:30:00 04:59:59 r Neurology 16 justino Ruiz 2020-12-27 2020-12-27 Outpatient MIKE Maurer [facility] [id number] 11:30:00 23:59:59 Juan 16 Javier 2020-12-27 2020-12-27 Outpatient MHIE MHIE [id number] [facility]oria 11:30:00 11:30:00 16 justino Ruiz 2020-11-15 2020-11-16 Outpatient nullFlavo MNA [id number] Mem[facility] 16:15:00 04:59:59 r Neurology 15 justino Ruiz 2020-11-15 2020-11-16 Outpatient nullFlavo MNA [id number] Memoria 16:15:00 04:59:59 r Neurology 15 l Pepe Oviedoann 2020-11-15 2020-11-15 Outpatient MIKE Maurer [facility] [id number] 11:15:00 23:59:59 Juan 15 Javier 2020-11-15 2020-11-15 Outpatient MHIE MHIE [id number] [facility]oria 11:15:00 11:15:00 15 justino Ruiz 2020-11-09 2020-11-11 Outside nullFlavo MNA [id number] [facility]oria 18:33:21 04:59:59 Medical r Neurology 02 l Records Pepe Ruiz 2020-11-09 2020-11-11 Outside nullFlavo MNA [id number] Memoria 18:33:21 04:59:59 Medical r Neurology 02 l Records Pepe Ruiz 2020-11-09 2020-11-10 Outpatient MHMISCHER MHMISCHER [id number] 13:33:21 23:59:59 2020-08-11 2020-08-13 Outside nullFlavo MNA [id number] Memoria 22:43:35 04:59:59 Medical r Neurology 01 l Records Pepe Ruiz 2020-08-11 2020-08-13 Outside nullFlavo MNA [id number] Memoria 22:43:35 04:59:59 Medical r Neurology 01 l Records Pepe Ruiz 2020-08-11 2020-08-12 Outpatient MHMISCHER MHMISCHER [id number] 17:43:35 23:59:59 2020-08-02 2020-08-02 Ambulatory nullFlavo MNA [id number] Memoria 19:30:00 19:30:00 Pre-Reg r Neurology 14 l Pepe Ruiz 2020-08-02 2020-08-02 Ambulatory nullFlavo MNA [id number] Memoria 19:30:00 19:30:00 Pre-Reg r Neurology 14 l Pepe Oviedoann 2020-08-02 2020-08-02 Outpatient MHIE MHIE [id number] Memoria 14:30:00 14:30:00 14 justino Ruiz 2020-08-02 2020-08-02 Outpatient RALEIGH MaurerMISCHER MHMISCHER [id number] 14:30:00 14:30:00 Juan 14 Javier 2020-07-05 2020-07-06 Outpatient nullFlavo MNA [id number] Memoria 19:45:00 04:59:59 r Neurology 13 l Pepe Ruiz 2020-07-05 2020-07-06 Outpatient nullFlavo MNA [id number] Memoria 19:45:00 04:59:59 r Neurology 13 l Pepe Ruiz 2020-07-05 2020-07-05 [id number] 14:45:00 23:59:59 Juan 13 Javier 2020-07-05 2020-07-05 Outpatient MHIE [id number] Memoria 14:45:00 14:45:00 13 justino Ruiz 2020-05-01 2020-05-02 Outpatient nullFlavo MNA [id number] Memoria 21:30:00 05:59:59 r Neurology 12 l Pepe Ruiz 2020-05-01 2020-05-02 Outpatient nullFlavo MNA [id number] Memoria 21:30:00 05:59:59 r Neurology 12 l Pepe Oviedoann 2020-05-01 2020-05-01 [facility] [id number] 15:30:00 23:59:59 Juan 12 Javier 2020-05-01 2020-05-01 Outpatient MHIE IE [id number] Memoria 15:30:00 15:30:00 12 justino Joseph 2020-02-17 2020-02-17 Ambulatory nullFlavo MNA [id number] Memoria 15:00:00 15:00:00 Pre-Reg r Neurology 11 l Lares Moore 2020-02-17 2020-02-17 Ambulatory nullFlavo MNA [id number] Memoria 15:00:00 15:00:00 Pre-Reg r Neurology 11 l Lares Moore 2020-02-17 2020-02-17 Outpatient MHIE IE [id number] Memoria 09:00:00 09:00:00 11 l Joseph 2020-02-17 2020-02-17 [id number] 09:00:00 09:00:00 Juan 11 Javier 2020-01-12 2020-01-12 Ambulatory nullFlavo MNA [id number] Memoria 16:00:00 16:00:00 Pre-Reg r Neurology 09 l Lares Joseph 2020-01-12 2020-01-12 Ambulatory nullFlavo MNA [id number] Memoria 16:00:00 16:00:00 Pre-Reg r Neurology 09 l Laressevero Ruiz 2020-01-12 2020-01-12 Outpatient MHIE IE [id number] Memoria 10:00:00 10:00:00 09 l Joseph 2020-01-12 2020-01-12 [facility] [id number] 10:00:00 10:00:00 Juan 09 Javier 2020-01-05 2020-01-06 Outpatient nullFlavo MNA [id number] Memoria 20:00:00 04:59:59 r Neurology 10 l Lares Joseph 2020-01-05 2020-01-06 Outpatient nullFlavo MNA [id number] Memoria 20:00:00 04:59:59 r Neurology 10 l Pepe Moore 2020-01-05 2020-01-05 [facility] [id number] 15:00:00 23:59:59 Juan 10 Javier 2020-01-05 2020-01-05 Outpatient MHIE [id number] Memoria 15:00:00 15:00:00 10 justino Moore 2019-12-01 2019-12-02 Outpatient nullFlavo MNA [id number] Memoria 14:30:00 04:59:59 r Neurology 08 l Lares Moore 2019-12-01 2019-12-02 Outpatient nullFlavo MNA [id number] Memoria 14:30:00 04:59:59 r Neurology 08 l Lares Moore 2019-12-01 2019-12-01 [id number] 09:30:00 23:59:59 Juan 08 Javier 2019-12-01 2019-12-01 Ambulatory nullFlavo MNA [id number] Memoria 14:30:00 14:30:00 Pre-Reg r Neurology 07 l Lares Moore 2019-12-01 2019-12-01 Ambulatory nullFlavo MNA [id number] Memoria 14:30:00 14:30:00 Pre-Reg r Neurology 07 l Lares Joseph 2019-12-01 2019-12-01 Outpatient MHIE IE [id number] Memoria 09:30:00 09:30:00 08 l Moore 2019-12-01 2019-12-01 Outpatient MHIE IE [id number] Memoria 09:30:00 09:30:00 07 l Moore 2019-12-01 2019-12-01 Outpatient [facility] [id number] 09:30:00 09:30:00 Juan 07 Javier 2019 2019-06-01 Outpatient nullFlavo MNA [id number] Memoria 14:30:00 04:59:59 r Neurology 06 l Pepe Moore 2019 2019-06-01 Outpatient nullFlavo MNA [id number] Memoria 14:30:00 04:59:59 r Neurology 06 l Pepe Moore 2019 2019 Outpatient [facility] [id number] 09:30:00 23:59:59 Juan 06 Javier 2019 2019 Outpatient MHIE IE [id number] Memoria 09:30:00 09:30:00 06 l Moore 2019-03-30 2019-03-31 Outpatient nullFlavo MNA [id number] Memoria 19:00:00 05:59:59 r Neurology 05 l Pepe Joseph 2019-03-30 2019-03-31 Outpatient nullFlavo MNA [id number] Memoria 19:00:00 05:59:59 r Neurology 05 l Lares Joseph 2019-03-30 2019-03-30 [id number] 13:00:00 23:59:59 Juan 05 Javier 2019-03-30 2019-03-30 Outpatient MHIE MHIE [id number] Memoria 13:00:00 13:00:00 05 l Joseph 2019-03-18 2019-03-18 Ambulatory nullFlavo MNA [id number] Memoria 16:00:00 16:00:00 Pre-Reg r Neurology 04 l Lares Moore 2019-03-18 2019-03-18 Ambulatory nullFlavo MNA [id number] Memoria 16:00:00 16:00:00 Pre-Reg r Neurology 04 l Lares Joseph 2019-03-18 2019-03-18 Outpatient MHIE MHIE [id number] Memoria 10:00:00 10:00:00 04 justino Ruiz 2019-03-18 2019-03-18 Outpatient [facility] [id number] 10:00:00 10:00:00 Juan Farrah Herrera 2019-01-28 2019-01-29 Outpatient nullFlavo MNA [id number] Memoria 15:00:00 05:59:59 r Neurology 03 justino Oviedoann 2019-01-28 2019-01-29 Outpatient nullFlavo MNA [id number] Memoria 15:00:00 05:59:59 r Neurology 03 justino Lares Joseph 2019-01-28 2019-01-28 Outpatient [facility] [id number] 09:00:00 23:59:59 Juan Terrence Herrera 2019-01-28 2019-01-28 Outpatient MHIE MHIE [id number] Memoria 09:00:00 09:00:00 03 justino Ruiz 2017-09-11 2017-09-11 Outpatient MHIE MHIE [id number] Memoria 15:15:00 15:15:00 02 justino Ruiz 2017-09-11 2017-09-11 Outpatient MHIE MHIE [id number] Memoria 15:15:00 15:15:00 02 justino Ruiz 2017-08-11 2017-08-11 Outpatient MHIE MHIE [id number] Memoria 14:30:00 14:30:00 01 justino Ruiz 2017-08-11 2017-08-11 Outpatient MHIE MHIE [id number] Memoria 14:30:00 14:30:00 01 justino Ruiz Results This patient has no known results.
[2022-12-24 19:42] LABS: Absolute Lymphocytes (CBC) 1.1 K/uL (0.7-4.9); Hematocrit 29.3 % (39.6-49.0); Lymphocytes % 21.3 % (15.3-44.8); MCV 89.9 fL (80-100); MPV 9.2 fL (7.6-11.3); Platelets 138 thou/uL (152-406); RBC Red Blood Cell Count 3.26 M/uL (4.33-5.43)
[2022-12-24 19:43] LABS: Protime INR 1.06
[2022-12-24] MEDS ORDERED: CALCIUM GLUCONATE 1 GM IVPB 2 GM/100 ML BAG IV ONE (19:52)
--- NOTE | 2022-12-24 19:59 | P.HP ---
Certification for Inpatient Patient admitted to: Inpatient With expected LOS: <2 Midnights Patient will require the following post-hospital care: None Practitioner: I am a practitioner with admitting privileges, knowledge of patient current condition, hospital course, and medical plan of care. Services: Services provided to patient in accordance with Admission requirements found in Title 42 Section 412.3 of the Code of Federal Regulations Patient History Date of Service: 12/25/22 Reason for admission: Hyperkalemia, acute kidney injury History of Present Illness: 82-year-old male with a past medical history of sgb-xmhvqgc-vqaurjpwq diabetes, hypertension, hyperlipidemia, arthritis, hypothyroidism, presents to the emergency room for acute kidney injury. Patient was referred by Dr. Portillo, urology. With reported mild hyperkalemia, acute kidney injury. Patient has no reported symptoms, no chest pain, palpitations, shortness of breath, dysuria, abdominal pain, nausea vomiting diarrhea,. No reported history of prior kidney dysfunction. Plan to admit for acute kidney injury, hypekalemia. ER evaluation vital signs BP 132 / 67; Pulse 71; Resp 18; Temp 97.7; Pulse Ox 100% ; ER lab evaluation initial potassium was 6.2 after treatment with repeat. Potassium of 5.7, BUN 66 creatinine 2.66, elevated BNP 1790, troponin normal 7.4 no leukocy tosis, normocytic anemia 10.0, 29.3 Allergies No Known Allergies Allergy (Verified 12/23/22 14:19) Home Medications: Amlodipine [Norvasc*] 10 mg PO DAILY 08/24/13 Glimepiride [Amaryl] 4 mg PO BID 08/24/13 Levothyroxine [Synthroid*] 100 mcg PO DAILY 08/24/13 Metoprolol Tartrate [Lopressor*] 50 mg PO BID 08/24/13 Pravastatin [Pravachol*] 40 mg PO DAILY 08/24/13 Tamsulosin [Flomax*] 0.4 mg PO DAILY 08/24/13 Lisinopril [Zestril] 1 tab PO DAILY 08/01/21 Chlorthalidone [Hygroton 25mg Tab] 25 mg PO DAILY 12/23/22 Finasteride [Proscar] 5 mg PO DAILY 12/23/22 Metformin HCl [Glucophage] 850 mg PO BIDWM 12/23/22 - Past Medical/Surgical History Diabetic: Yes -: Diabetes -: Hypertension -: Hypothyroidism -: Thyroidectomy -: Knee Replacement right -: Back surgery -: Ankle surgery - Social History Smoking Status: Never smoker Alcohol use: No CD- Drugs: No Caffeine use: Yes Place of Residence: Home Review of Systems 10-point ROS is otherwise unremarkable Physical Examination - Physical Exam General: Alert, In no apparent distress, Oriented x3, Other (Generalized weakness) HEENT: Atraumatic, Normocephalic Neck: Supple, 2+ carotid pulse no bruit Respiratory: Clear to auscultation bilaterally, Normal air movement Cardiovascular: No edema, Normal pulses, Regular rate/rhythm Capillary refill: <2 Seconds Gastrointestinal: Normal bowel sounds, Soft and benign Musculoskeletal: No clubbing, No swelling Integumentary: No rashes, No breakdown Neurological: Normal speech, Normal strength at 5/5 x4 extr, Other (Unsteady gait) - Studies Laboratory Data (last 24 hrs) 12/24/22 12/24/22 19:28 19:28 WBC 5.20 Hgb 10.0 L Hct 29.3 L Plt Count 138 L PT 11.7 INR 1.06 Assessment and Plan - Plan Assessment plan Acute on chronic kidney disease Elevated BNP Hyperkalemia Normocytic anemia nja-qhmlzlt-vcxicfwsl diabetes hypertension hyperlipidemia arthritis hypothyroidism DVT prophylaxis Assessment plan Acute on chronic kidney disease Hyperkalemia Nephrology consult, referred by Dr. Portillo, urology. initial potassium was 6.2 after treatment with repeat. Potassium of 5.7, BUN 66 creatinine 2.66, Elevated BNP elevated BNP 1790, troponin normal 7.4 Trend BNP cmn-rspfmjv-maujutxon diabetes Accu-Cheks, sliding scale insulin Normocytic anemia normocytic anemia 10.0, 29.3 Trend H&H hypertension hyperlipidemia arthritis hypothyroidism Resume appropriate home medications BP 132 / 67; Pulse 71; Resp 18; Temp 97.7; Pulse Ox 100% Full code Diet renal DVT prophylaxis Discharge Plan: Home Plan to discharge in: 48 Hours - Advance Directives Does patient have a Living Will: No Does patient have a Durable POA for Healthcare: No - Code Status/Comfort Care Code Status: Full Code Physician Review: Patient Assessed, Agree with Above Assessment and Plan Critical Care: No Time Spent Managing Pts Care (In Minutes): 50
[2022-12-24 20:15] LABS: Albumin 3.5 g/dL (3.4-5.0); Bilirubin Direct 0.1 mg/dL (0-0.2); Bilirubin Indirect, Calculated 0.2 mg/dL (0.2-0.8); Bilirubin Total 0.3 mg/dL (0.2-1.0); Magnesium 1.9 mg/dL (1.6-2.4); Potassium 5.7 mEq/L (3.5-5.1); Protein, Total 7.2 g/dL (6.4-8.2); Troponin High Sensitivity 7.4 pg/mL (<58.9)
--- NOTE | 2022-12-24 20:22 | EDPHYS ---
Physician Documentation [facility] Name: Abdoul Samuels Age: 82 yrs Sex: Male : 1940 Arrival Date: 12/24/2022 Time: 19:03 Bed 7 Private MD: ED Physician Otilia Pham HPI: 12/24 19:36 This 82 yrs old Male presents to ER via Wheelchair with complaints of Abnormal Lab sp3 Results. 19:36 82-year-old male with a history of diabetes, hyperlipidemia, hypertension who was being sp3 evaluated by urology for possible bladder malignancy secondary to bleeding presents to the ED sent via his urologist Dr. Portillo for elevated potassium and creatinine found on routine outpatient preop labs. Potassium was taken twice and the first time it was 6.2 and the second time 6.1. Creatinine is 3+. 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 Portillo. Patient has no symptoms currently and denies any pain, headache, neck pain, fever, chest pain, palpitations, shortness of breath, back pain, abdominal pain, nausea, vomiting, diarrhea, syncope, near syncope, focal neurological deficit, penile bleeding, gross hematuria, or any other signs or symptoms on ROS at this time. No prior kidney dysfunction reported.. Historical: - Allergies: 19:14 No Known Allergies; ap3 - PMHx: 19:13 Arthritis; Diabetes - NIDDM; Diabetes - NIDDM; Hyperlipidemia; Hypertension; ap3 Hypothyroidism; Hypothyroidism; Hypothyroidism; - Immunization history:: Client reports receiving the 2nd dose of the Covid vaccine. - Social history:: Smoking status: Patient denies any tobacco usage or history of. ROS: 19:38 Constitutional: Negative for fever, chills, and weight loss, Eyes: Negative for injury, sp3 pain, redness, and discharge, ENT: Negative for injury, pain, and discharge, Neck: Negative for injury, pain, and swelling, Cardiovascular: Negative for chest pain, palpitations, and edema, Respiratory: Negative for shortness of breath, cough, wheezing, and pleuritic chest pain, Abdomen/GI: Negative for abdominal pain, nausea, vomiting, diarrhea, and constipation, Back: Negative for injury and pain, MS/Extremity: Negative for injury and deformity, Skin: Negative for injury, rash, and discoloration, Neuro: Negative for headache, weakness, numbness, tingling, and seizure, Psych: Negative for depression, anxiety, suicide ideation, homicidal ideation, and hallucinations, Allergy/Immunology: Negative for hives, rash, and allergies, Endocrine: Negative for neck swelling, polydipsia, polyuria, polyphagia, and marked weight changes, 19:38 All other systems are negative, Exam: 19:40 Constitutional: This is a well developed, well nourished patient who is awake, alert, sp3 and in no acute distress. Head/Face: Normocephalic, atraumatic. Eyes: Pupils equal round and reactive to light, extra-ocular motions intact. Lids and lashes normal. Conjunctiva and sclera are non-icteric and not injected. Cornea within normal limits. Periorbital areas with no swelling, redness, or edema. ENT: Nares patent. No nasal discharge, no septal abnormalities noted. External auditory canals are clear. Oropharynx with no redness, swelling, or masses, exudates, or evidence of obstruction, uvula midline. Mucous membranes moist. Neck: Trachea midline, no thyromegaly or masses palpated, and no cervical lymphadenopathy. Supple, full range of motion without nuchal rigidity, or vertebral point tenderness. No Meningismus. Chest/axilla: Normal chest wall appearance and motion. Nontender with no deformity. No lesions are appreciated. Cardiovascular: Regular rate and rhythm with a normal S1 and S2. No gallops, murmurs, or rubs. Normal PMI, no JVD. No pulse deficits. Respiratory: Lungs have equal breath sounds bilaterally, clear to auscultation and percussion. No rales, rhonchi or wheezes noted. No increased work of breathing, no retractions or nasal flaring. Abdomen/GI: Soft, non-tender, with normal bowel sounds. No distension or tympany. No guarding or rebound. No evidence of tenderness throughout. Back: No spinal tenderness. No costovertebral tenderness. Full range of motion. Skin: Warm, dry with normal turgor. Normal color with no rashes, no lesions, and no evidence of cellulitis. 19:40 ECG was reviewed by the Attending Physician. EKG demonstrates normal sinus rhythm at 65 bpm with normal intervals, right bundle branch block, nonspecific diffuse ST/T changes without evidence of acute ischemia. No T wave elevations noted. Vital Signs: 19:12 BP 132 / 67; Pulse 71; Resp 18; Temp 97.7; Pulse Ox 100% ; Weight 95.25 kg; ap3 19:49 BP 118 / 63; Pulse 65; Resp 17 S; Pulse Ox 97% on R/A; jw7 20:00 BP 116 / 66; Pulse 63; Resp 16 S; Pulse Ox 98% on R/A; jw7 21:00 BP 121 / 72; Pulse 64; Resp 18 S; Pulse Ox 100% on R/A; jw7 22:07 BP 102 / 82; Pulse 62; Resp 18; Pulse Ox 100% ; bp MDM: 19:20 Patient medically screened. sp3 19:41 Data reviewed: vital signs, nurses notes, lab test result(s), EKG, radiologic studies. sp3 ED course: 82-year-old male with PMH above being worked up for potential bladder malignancy now presents with acute kidney injury and mild hypokalemia. No EKG changes noted. Calcium gluconate x2 A have been given to stabilize membranes pending repeat potassium here. Patient will need to be admitted to medicine service with renal and urological consults for further work-up. Differential diagnosis includes intrinsic renal pathology, tubular acidosis, as well as obstructive pathology including ureteral obstruction due to external compression or ureterovesicular junction blockade.. 12/24 19:23 Order name: Basic Metabolic Panel; Complete Time: 20:17 sp3 12/24 19:23 Order name: CBC with Diff; Complete Time: 19:52 sp3 12/24 19:23 Order name: LFT's; Complete Time: 20:17 sp3 12/24 19:23 Order name: Magnesium; Complete Time: 20:17 sp3 12/24 19:23 Order name: NT PRO-BNP; Complete Time: 20:17 sp3 12/24 19:23 Order name: PT-INR; Complete Time: 19:52 sp3 12/24 19:23 Order name: Troponin HS; Complete Time: 20:17 sp3 12/24 19:23 Order name: XRAY Chest (1 view) sp3 12/24 19:23 Order name: EKG; Complete Time: 19:24 sp3 12/24 19:23 Order name: Cardiac monitoring; Complete Time: 19:40 sp3 12/24 19:23 Order name: EKG - Nurse/Tech; Complete Time: 19:40 sp3 12/24 19:23 Order name: IV Saline Lock; Complete Time: 19:40 sp3 12/24 19:23 Order name: Labs collected and sent; Complete Time: 19:40 sp3 12/24 19:23 Order name: O2 Per Protocol; Complete Time: 19:40 sp3 12/24 19:23 Order name: O2 Sat Monitoring; Complete Time: 19:40 sp3 Administered Medications: 19:47 Drug: Calcium Gluconate IVPB 2 grams IVPB once over 60 mins; (mix in NS 100 mL) Route: jw7 IVPB; Infused Over: 60 mins; Site: left forearm; 21:16 Follow up: Response: No adverse reaction; IV Status: Completed infusion; IV Intake: jw7 100ml Disposition Summary: 12/24/22 20:22 Hospitalization Ordered Notes: Hospitalization Status: Inpatient Admission sp3 Provider: Rosy Feliz sp3 Location: Telemetry/[facility] (Inpatient) sp3 Condition: Stable sp3 Problem: new sp3 Symptoms: are unchanged sp3 Bed/Room Type: Standard sp3 Room Assignment: 428(12/24/22 21:56) kl Diagnosis - Acute kidney injury, hypokalemia sp3 Forms: - Medication Reconciliation Form sp3 - SBAR form sp3 - Leadership Thank You Letter sp3 Signatures: Dispatcher [employer] Amber Burris RN RN kl Prokisch, Amanda, RN RN ap3 Patel, Setul, MD MD sp3 Yanci Szymanski RN RN jw7 Corrections: (The following items were deleted from the chart) 21:56 20:22 sp3 kl
--- NOTE | 2022-12-24 20:22 | ER ---
Nurse's Notes [facility] Name: Abdoul Samuels Age: 82 yrs Sex: Male : 1940 Arrival Date: 12/24/2022 Time: 19:03 Bed 7 Private MD: Diagnosis: Acute kidney injury, hypokalemia Presentation: 12/24 19:12 Chief complaint: Patient states: he was evaluated with his PCP, and was informed that ap3 his potassium was high and he needed to come to the ED for further evaluation. Coronavirus screen: At this time, the client does not indicate any symptoms associated with coronavirus-19. Ebola Screen: No symptoms or risks identified at this time. Initial Sepsis Screen: Does the patient meet any 2 criteria? No. Patient's initial sepsis screen is negative. Does the patient have a suspected source of infection? No. Patient's initial sepsis screen is negative. Risk Assessment: Do you want to hurt yourself or someone else? Patient reports no desire to harm self or others. Onset of symptoms is unknown. 19:12 Method Of Arrival: Wheelchair ap3 19:12 Acuity: SHON 3 ap3 Triage Assessment: 19:13 General: Appears in no apparent distress. Behavior is calm, cooperative, appropriate ap3 for age. Pain: Complains of pain in low back area. Neuro: Level of Consciousness is awake, alert, obeys commands, Oriented to person, place, time, situation. Cardiovascular: Patient's skin is warm and dry. Respiratory: Airway is patent Respiratory effort is even, unlabored, Respiratory pattern is regular, symmetrical. Historical: - Allergies: 19:14 No Known Allergies; ap3 - PMHx: 19:13 Arthritis; Diabetes - NIDDM; Diabetes - NIDDM; Hyperlipidemia; Hypertension; ap3 Hypothyroidism; Hypothyroidism; Hypothyroidism; - Immunization history:: Client reports receiving the 2nd dose of the Covid vaccine. - Social history:: Smoking status: Patient denies any tobacco usage or history of. Screenin:14 Abuse screen: Denies threats or abuse. Nutritional screening: No deficits noted. ap3 Tuberculosis screening: No symptoms or risk factors identified. 19:39 [facility] ED Fall Risk Assessment (Adult) History of falling in the last 3 months, jw7 including since admission No falls in past 3 months (0 pts) Confusion or Disorientation No (0 pts) Intoxicated or Sedated No (0 pts) Impaired Gait No (0 pts) Mobility Assist Device Used Yes (1 pt) Altered Elimination No (0 pt) Score/Fall Risk Level 0 - 2 = Low Risk Oriented to surroundings, Maintained a safe environment. Assessment: 19:20 General: see triage assessment. jw7 20:15 Reassessment: Patient appears in no apparent distress at this time. No changes from jw7 previously documented assessment. Patient and/or family updated on plan of care and expected duration. Pain level reassessed. Patient is alert, oriented x 3, equal unlabored respirations, skin warm/dry/pink. 21:13 Reassessment: Patient appears in no apparent distress at this time. No changes from jw7 previously documented assessment. Patient and/or family updated on plan of care and expected duration. Pain level reassessed. Patient is alert, oriented x 3, equal unlabored respirations, skin warm/dry/pink. Vital Signs: 19:12 BP 132 / 67; Pulse 71; Resp 18; Temp 97.7; Pulse Ox 100% ; Weight 95.25 kg; ap3 19:49 BP 118 / 63; Pulse 65; Resp 17 S; Pulse Ox 97% on R/A; jw7 20:00 BP 116 / 66; Pulse 63; Resp 16 S; Pulse Ox 98% on R/A; jw7 21:00 BP 121 / 72; Pulse 64; Resp 18 S; Pulse Ox 100% on R/A; jw7 22:07 BP 102 / 82; Pulse 62; Resp 18; Pulse Ox 100% ; bp ED Course: 19:07 Patient arrived in ED. mr 19:08 Otilia Pham MD is Attending Physician. sp3 19:13 Triage completed. ap3 19:14 Arm band placed on right wrist. ap3 19:37 Yanci Szymanski, RN is Primary Nurse. jw7 19:38 Initial lab(s) drawn, by me, sent to lab. EKG done, by ED staff, reviewed by Otilia Pham MD. Inserted saline lock: 22 gauge in left forearm, using aseptic technique. Blood collected. 19:39 Patient has correct armband on for positive identification. Bed in low position. Call [facility] light in reach. 20:14 XRAY Chest (1 view) In Process Unspecified. EDMS 20:21 Rosy Feliz MD is Hospitalizing Provider. sp3 21:15 Provided Education on: need for admit. jw7 21:15 No provider procedures requiring assistance completed. jw7 22:07 Patient admitted, IV remains in place. bp Administered Medications: 19:47 Drug: Calcium Gluconate IVPB 2 grams IVPB once over 60 mins; (mix in NS 100 mL) Route: jw7 IVPB; Infused Over: 60 mins; Site: left forearm; 21:16 Follow up: Response: No adverse reaction; IV Status: Completed infusion; IV Intake: jw7 100ml Medication: 21:15 VIS not applicable for this client. jw7 Intake: 21:16 IV: 100ml; Total: 100ml. jw7 Outcome: 20:22 Decision to Hospitalize by Provider. sp3 22:06 Admitted to Tele accompanied by tech, via wheelchair, room 428, with chart, Report bp called to ZEYAD FRANKLIN 22:06 Condition: stable 22:06 Instructed on the need for admit, 22:22 Patient left the ED. bp Signatures: Dispatcher [employer] EDCA Trinh Nelson, Reg Reg mr Brien Hernández, RN RN bp Alida Zuniga RN RN [email or web address] Otilia Pham MD MD sp3 Yanci Szymanski RN RN jw7
--- NOTE | 2022-12-24 20:29 | RAD REPORT ---
EXAM DESCRIPTION: RADChest Single View12/24/2022 8:12 pm CLINICAL HISTORY: Hypokalemia COMPARISON: Chest Pa And Lat (2 Views) dated 12/23/2022; Chest Pa And Lat (2 Views) dated 08/01/2021; Chest Pa And Lat (2 Views) dated 07/06/2020; Chest Single View dated 09/15/2018 TECHNIQUE: Portable AP view of the chest. FINDINGS: The lungs are clear. No pneumothorax or effusion. The cardiomediastinal contours are unre markable. IMPRESSION: No acute cardiopulmonary process.
[2022-12-24 22:28] VITALS: BMI 32.2
[2022-12-24] MEDS ORDERED: SOD POLYSTYREN SUL 15 GM/60 ML UCUP PO ONE (22:29)
[2022-12-24] MEDS ORDERED: ACETAMINOPHEN 500 MG TAB PO PRN (22:29)
[2022-12-25 07:08] LABS: Absolute Lymphocytes (CBC) 1.4 K/uL (0.7-4.9); Hematocrit 28.4 % (39.6-49.0); Lymphocytes % 31.4 % (15.3-44.8); MCV 90.6 fL (80-100); MPV 9.3 fL (7.6-11.3); Platelets 118 thou/uL (152-406); RBC Red Blood Cell Count 3.13 M/uL (4.33-5.43)
[2022-12-25 07:21] LABS: Magnesium 1.8 mg/dL (1.6-2.4); Potassium 5.8 mEq/L (3.5-5.1)
[2022-12-25] MEDS ORDERED: NA CHLORIDE 0.9% 1,000 ML IV SCH (08:00)
[2022-12-25] MEDS ORDERED: HOME MED 1 EA UNK (Pravastatin [Pravachol*] 40 MG/TAB Tab) PO SCH (09:00)
[2022-12-25] MEDS ORDERED: AMLODIPINE 10 MG TAB PO SCH (09:00)
[2022-12-25] MEDS ORDERED: TAMSULOSIN 0.4 MG SR CAP PO SCH (09:00)
[2022-12-25] MEDS ORDERED: FINASTERIDE 5 MG TAB PO SCH (09:00)
--- NOTE | 2022-12-25 09:41 | P.CNS ---
Date of Consult: 12/25/22 Reason for Consult: PUNEET/ CKD Requesting Physician: Clement Lau Chief Complaint: Hyperkalemia, acute kidney injury History of Present Illness: 82-year-old male with a past medical history of [id number] diabetes, hypertension, hyperlipidemia, arthritis, hypothyroidism, presents to the emergency room for acute kidney injury. Patient was referred by Dr. Portillo, urology. With reported mild hyperkalemia, acute kidney injury. Patient has no reported symptoms, no chest pain, palpitations, shortness of breath, dysuria, abdominal pain, nausea vomiting diarrhea,. No reported history of prior kidney dysfunction. Plan to admit for acute kidney injury, hypekalemia. ER evaluation vital signs BP 132 / 67; Pulse 71; Resp 18; Temp 97.7; Pulse Ox 100% ; ER lab evaluation initial potassium was 6.2 after treatment with repeat. Potassium of 5.7, BUN 66 creatinine 2.66, elevated BNP 1790, troponin normal 7.4 no leukocytosis, normocytic anemia 10.0, 29.3 19:36 This 82 yrs old Male presents to ER via Wheelchair with complaints of Abnormal Lab sp3 Results. 19:36 82-year-old male with a history of diabetes, hyperlipidemia, hypertension who was being sp3 evaluated by urology for possible bladder malignancy secondary to bleeding presents to the ED sent via his urologist Dr. Portillo for elevated potassium and creatinine found on routine outpatient preop labs. Potassium was taken twice and the first time it was 6.2 and the second time 6.1. Creatinine is 3+. 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 Portillo. Patient has no symptoms currently and denies any pain, headache, neck pain, fever, chest pain, palpitations, shortness of breath, back pain, abdominal pain, nausea, vomiting, diarrhea, syncope, near syncope, focal neurological deficit, penile bleeding, gross hematuria, or any other signs or symptoms on ROS at this time. No prior kidney dysfunction reported. Allergies No Known Allergies Allergy (Verified 12/23/22 14:19) Home medications list reviewed: Yes Home Medications: Amlodipine [Norvasc*] 10 mg PO DAILY 08/24/13 Glimepiride [Amaryl] 4 mg PO BID 08/24/13 Levothyroxine [Synthroid*] 100 mcg PO DAILY 08/24/13 Metoprolol Tartrate [Lopressor*] 50 mg PO BID 08/24/13 Pravastatin [Pravachol*] 40 mg PO DAILY 08/24/13 Tamsulosin [Flomax*] 0.4 mg PO DAILY 08/24/13 Chlorthalidone [Hygroton 25mg Tab] 25 mg PO DAILY 12/23/22 Finasteride [Proscar*] 5 mg PO DAILY 12/23/22 Metformin HCl [Glucophage*] 850 mg PO BIDWM 12/23/22 - Past Medical/Surgical History Diabetic: Yes -: DM II -: HTN -: Hypothyroidism -: CKD III with Proteinuria (Dr. Paul/ Dr. Taveras) -: Hypothyroidism -: HLD -: Thyroidectomy -: Knee Replacement right -: Back surgery -: Ankle surgery - Social History Smoking Status: Former smoker Alcohol use: No CD- Drugs: No Caffeine use: Yes Place of Residence: Home Review of Systems 10-point ROS is otherwise unremarkable General: Weakness, Malaise Physical Examination Temp Pulse Resp BP Pulse Ox 97.7 F 69 18 118/57 L 96 12/25/22 04:00 12/25/22 04:00 12/25/22 04:00 12/25/22 04:00 12/25/22 04:00 General: In no apparent distress, Oriented x3, Cooperative HEENT: Atraumatic Neck: Supple Respiratory: Clear to auscultation bilaterally Cardiovascular: No edema, Regular rate/rhythm Gastrointestinal: Soft and benign, Non-distended Musculoskeletal: No clubbing, No contractures Integumentary: No rashes, No cyanosis Neurological: Normal speech Laboratory Data (last 24 hrs) 12/24/22 12/24/22 12/24/22 19:28 19:28 19:28 WBC 5.20 Hgb 10.0 L Hct 29.3 L Plt Count 138 L PT 11.7 INR 1.06 Sodium 140 Potassium 5.7 H BUN 66 H Creatinine 2.66 H Glucose 114 H Magnesium 1.9 Total Bilirubin 0.3 AST 25 ALT 29 Alkaline Phosphatase 76 Imagings Data: EXAM DESCRIPTION: RADChest Single View12/24/2022 8:12 pm CLINICAL HISTORY: Hypokalemia COMPARISON: Chest Pa And Lat (2 Views) dated 12/23/2022; Chest Pa And Lat (2 Views) dated 08/01/2021; Chest Pa And Lat (2 Views) dated 07/06/2020; Chest Single View dated 09/15/2018 TECHNIQUE: Portable AP view of the chest. FINDINGS: The lungs are clear. No pneumothorax or effusion. The cardiomediastinal contours are unremarkable. IMPRESSION: No acute cardiopulmonary process. Conclusions/Impression: Stage II PUNEET likely due to hypovolemia CKD III with Proteinuria -No NSAIDs -Change IVF to 1/2NS Hyperkalemia -Continue Lokelma HTN with CKD/ CHF -Continue Amlodipine Diastolic CHF, chronic -Daily weight DM II with CKD -RISS prn -Hold Metformin -Continue Glimepiride Anemia in chronic illness B12 Deficiency -Monitor H&H -Start B12 BPH with LUTS -Continue Proscar and Flomax CKD MBD Vitamin D3 Deficiency -Start Ergo Hospitalist and ER notes reviewed Thank you kindly for the consultation
[2022-12-25] MEDS: METFORMIN HCL 850 MG TAB PO SCH ×2 (09:48→09:49)
[2022-12-25] MEDS: GLIMEPIRIDE 2 MG TABLET PO SCH ×2 (09:48→21:38)
[2022-12-25] MEDS: METOPROLOL TAR 50 MG TAB PO SCH ×2 (09:48→21:38)
[2022-12-25] MEDS: LEVOTHYROXINE SOD 0.1 MG TAB PO SCH (09:48)
[2022-12-25] MEDS: SODIUM ZIRCONIUM CYCLOSILICATE 10 GM/PKT PO SCH ×3 (09:49→21:38)
[2022-12-25] MEDS ORDERED: CYANOCOBALAMIN 1000MCG/ML INJ SQ SCH (10:00)
--- NOTE | 2022-12-25 11:27 | P.PN ---
Subjective Date of Service: 12/25/22 Chief Complaint: Hyperkalemia, acute kidney injury Subjective: Improving (Patient is improving denies any complaints-at the bedside patient feels weak) Review of Systems Unremarkable General: Weakness Physical Examination - Vital Signs Temperature: 97.7 F Blood Pressure: 124/65 Pulse: 66 Respirations: 18 Pulse Ox (%): 96 - Physical Exam General: Alert HEENT: Atraumatic Neck: Supple Cardiovascular: No edema, Regular rate/rhythm - Studies Laboratory Data (last 24 hrs) 12/24/22 12/24/22 12/24/22 19:28 19:28 19:28 WBC 5.20 Hgb 10.0 L Hct 29.3 L Plt Count 138 L PT 11.7 INR 1.06 Sodium 140 Potassium 5.7 H BUN 66 H Creatinine 2.66 H Glucose 114 H Magnesium 1.9 Total Bilirubin 0.3 AST 25 ALT 29 Alkaline Phosphatase 76 Assessment And Plan - Current Problems (Diagnosis) (1) Hyperkalemia Current Visit: Yes Status: Acute Plan: Patient is 82 years of age with stage III kidney disease admitted with hyperkalemia signs of weakness been falling recently according to his patient is on ZULEYMA inhibitor potassium is borderline elevated at 5.8 renal function is improved start on IV fluids and was given a dose of Kayexalate patient is also on Lokelma and exchange resident seen by nephrology possible discharge tomorrow chest x-ray clear vital signs stable Discharge Plan: Home Plan to discharge in: 24 Hours Physician Review: Patient Assessed, Agree with Above Assessment and Plan
[2022-12-25] MEDS: NACHLORIDE 0.45% 1,000 ML IV SCH ×2 (12:00→21:39)
[2022-12-25] MEDS ORDERED: DRISDOL (VITAMIN D=ERGOCALCIFEROL) 50000 UNIT CAP PO SCH (12:00)
--- NOTE | 2022-12-25 13:38 | EKG ---
Test Date: 2022-12-24 Test Time: 19:26:16 Virtual Customer Assistant: ALYSSIA MEASUREMENT RESULTS: Intervals: Rate: 65 NH: 142 QRSD: 130 QT: 396 QTc: 411 [place]: P: 61 NH: 142 QRS: 33 T: 45 INTERPRETIVE STATEMENTS: Normal sinus rhythm Right bundle branch block Abnormal ECG Compared to ECG 12/23/2022 14:36:34 No significant changes Electronically Signed On 12-25-22 13:36:15 CDT by Israel Girard
[2022-12-25] MEDS ORDERED: ATORVASTATIN 10 MG TAB PO SCH (21:00)
[2022-12-26 03:34] LABS: Absolute Lymphocytes (CBC) 1.7 K/uL (0.7-4.9); Hematocrit 27.7 % (39.6-49.0); Lymphocytes % 31.4 % (15.3-44.8); MPV 9.4 fL (7.6-11.3); Platelets 108 thou/uL (152-406); RBC Red Blood Cell Count 3.08 M/uL (4.33-5.43)
[2022-12-26 03:35] LABS: Magnesium 1.6 mg/dL (1.6-2.4); Potassium 4.2 mEq/L (3.5-5.1)
[2022-12-26] MEDS: LEVOTHYROXINE SOD 0.1 MG TAB PO SCH (04:00)
[2022-12-26 04:56] VITALS: O2SAT 95
[2022-12-26 07:38] VITALS: BP 135/74; TEMP 97.1
--- NOTE | 2022-12-26 08:41 | P.DS ---
Admission Date: 12/24/22 Discharge Date: 12/26/22 Disposition: ROUTINE DISCHARGE Discharge Condition: GOOD Reason for Admission: Hyperkalemia, acute kidney injury - Problems (1) Hyperkalemia Current Visit: Yes Status: Acute Brief History of Present Illness: Patient is 82 years of age admitted to the hospital with hyperkalemia chronic back pain Hospital Course: Patient was admitted to the hospital and was given Lokelma iron exchange the resident was also seen by Nephrology started on IV fluids Did well his renal function improved calcium was back to normal discharge home pending approval of nephrology on examination is alert oriented signs all stable chest clear cardiovascular stoma sounds normal abdomen soft-at the bedside Vital Signs/Physical Exam: Temp Pulse Resp BP Pulse Ox 97.1 F 58 17 135/74 97 12/26/22 07:38 12/26/22 07:38 12/26/22 07:38 12/26/22 07:38 12/26/22 07:38 Laboratory Data at Discharge: WBC 5.50 thou/uL (4.3-10.9) 12/26/22 02:45 Hgb 9.3 g/dL (13.6-17.9) L 12/26/22 02:45 Hct 27.7 % (39.6-49.0) L 12/26/22 02:45 Plt Count 108 thou/uL (152-406) L 12/26/22 02:45 PT 11.7 SECONDS (9.5-12.5) 12/24/22 19:28 INR 1.06 12/24/22 19:28 Sodium 140 mEq/L (136-145) 12/26/22 02:45 Potassium 4.2 mEq/L (3.5-5.1) D 12/26/22 02:45 BUN 45 mg/dL (7-18) H 12/26/22 02:45 Creatinine 1.81 mg/dL (0.70-1.30) H 12/26/22 02:45 Glucose 66 mg/dL (74-106) L 12/26/22 02:45 Magnesium 1.6 mg/dL (1.6-2.4) 12/26/22 02:45 Total Bilirubin 0.3 mg/dL (0.2-1.0) 12/24/22 19:28 AST 25 U/L (15-37) 12/24/22 19:28 ALT 29 U/L (16-61) 12/24/22 19:28 Alkaline Phosphatase 76 U/L (45-117) 12/24/22 19:28 Home Medications: Amlodipine [Norvasc*] 10 mg PO DAILY 08/24/13 Glimepiride [Amaryl] 4 mg PO BID 08/24/13 Levothyroxine [Synthroid*] 100 mcg PO DAILY 08/24/13 Metoprolol Tartrate [Lopressor*] 50 mg PO BID 08/24/13 Pravastatin [Pravachol*] 40 mg PO DAILY 08/24/13 Tamsulosin [Flomax*] 0.4 mg PO DAILY 08/24/13 Chlorthalidone [Hygroton 25mg Tab] 25 mg PO DAILY 12/23/22 Finasteride [Proscar*] 5 mg PO DAILY 12/23/22 Metformin HCl [Glucophage*] 850 mg PO BIDWM 12/23/22 Followup: HUGO ARIAS [Primary Care Provider] -
[2022-12-26] MEDS ORDERED: MAGNESIUM SULFATE 1 gm IVPB 1 GM/100 ML BAG IV ONE (09:00)
== END 2022-12-26 09:55 | disposition home or self-care (01) | DRG 683 ==
LOC: ER 19:03 → ERHOLD 20:57 → OBSVTOIN 20:57 → 4TH 22:05
PROVIDERS: ADMIT Internal Medicine Sleep Medicine; ATTEND Internal Medicine Sleep Medicine
DX: N17.9 Acute kidney failure, unspecified (principal); I13.0 Hypertensive heart and chronic kidney disease with heart failure and stage 1 through stage 4 chronic kidney disease, or unspecified chronic kidney disease; I50.32 Chronic diastolic (congestive) heart failure; E87.5 Hyperkalemia; N18.30 Chronic kidney disease, stage 3 unspecified; E11.22 Type 2 diabetes mellitus with diabetic chronic kidney disease; D63.1 Anemia in chronic kidney disease; D51.9 Vitamin B12 deficiency anemia, unspecified; E78.5 Hyperlipidemia, unspecified; E55.9 Vitamin D deficiency, unspecified; N40.1 Benign prostatic hyperplasia with lower urinary tract symptoms; E87.6 Hypokalemia; E03.9 Hypothyroidism, unspecified; G89.29 Other chronic pain; M54.9 Dorsalgia, unspecified; M19.90 Unspecified osteoarthritis, unspecified site; I45.10 Unspecified right bundle-branch block; Z79.84 Long term (current) use of oral hypoglycemic drugs; Z79.899 Other long term (current) drug therapy; Z96.651 Presence of right artificial knee joint; Z79.890 Hormone replacement therapy; Z87.891 Personal history of nicotine dependence
CPT/HCPCS: 36415; 71045; 80048; 80076; 83735; 83880; 84484; 85025; 85610; 93005; 96365; 97116; 97161; 97530; 99285; J0612; J3420; J3475; J7030

== ENCOUNTER 2023-01-08 10:30 | Day surgery (SDC) | payer OTHER ==
[2023-01-07 14:12] LABS: Protime INR 1.02
--- NOTE | 2023-01-08 09:49 | EKG ---
Test Date: 2023-01-07 Test Time: 13:23:57 Rotary Cutter: MYRA MEASUREMENT RESULTS: Intervals: Rate: 75 DC: 152 QRSD: 126 QT: 388 QTc: 433 [place]: P: 74 DC: 152 QRS: 52 T: 52 INTERPRETIVE STATEMENTS: Normal sinus rhythm with sinus arrhythmia Right bundle branch block Abnormal ECG Compared to ECG 12/24/2022 19:26:16 No significant changes Electronically Signed On 01-08-23 09:46:16 CDT by Israel Girard
[2023-01-08] MEDS ORDERED: NA CHLORIDE 0.9% 500 ML ONE (11:44)
[2023-01-08] MEDS ORDERED: HEPA 1000U/500MLS 2,000 UNIT/1,000 ML BAG IV ONE (13:48)
[2023-01-08] MEDS ORDERED: LIDOCAINE 1% 20 ML MDV ONE (13:48)
[2023-01-08] MEDS ORDERED: MIDAZOLAM HCL 2 MG/2 ML INJ ONE (13:48)
[2023-01-08] MEDS ORDERED: HEPARIN 5000 UNIT/ML 1 ML VIAL ONE (13:48)
[2023-01-08] MEDS ORDERED: FENTANYL CITR 100 MCG/2 ML ONE (13:48)
[2023-01-08] MEDS ORDERED: HEPARIN 10,000 UNIT/10 ML VIAL IV ONE (13:49)
[2023-01-08] MEDS ORDERED: ATROPINE SULF 1 MG/10 ML SYR IV ONE (13:49)
[2023-01-08] MEDS ORDERED: CLOPIDOGREL 75 MG TABLET ONE (13:49)
[2023-01-08] MEDS ORDERED: ASPIRIN 325 MG TAB ONE (13:49)
[2023-01-08] MEDS ORDERED: VERAPAMIL HCL 10 MG/4 ML VIAL IV ONE (13:49)
[2023-01-08] MEDS ORDERED: ASPIRIN 81 MG CHEWABLE TABLET ONE (14:15)
[2023-01-08 17:05] VITALS: TEMP 98
[2023-01-08 17:06] VITALS: O2SAT 98
[2023-01-08 17:17] VITALS: BP 133/92
== END 2023-01-08 16:50 | disposition home or self-care (01) ==
LOC: CCL 10:30
PROVIDERS: ATTEND Internal Medicine
DX: I25.10 Atherosclerotic heart disease of native coronary artery without angina pectoris (principal); I34.0 Nonrheumatic mitral (valve) insufficiency; I45.10 Unspecified right bundle-branch block; I10 Essential (primary) hypertension; E78.2 Mixed hyperlipidemia; E11.9 Type 2 diabetes mellitus without complications; F17.220 Nicotine dependence, chewing tobacco, uncomplicated; Z79.84 Long term (current) use of oral hypoglycemic drugs; Z79.899 Other long term (current) drug therapy
CPT/HCPCS: 93005; 36415; 85610; 82947; 85730; 93458; 76937; C1893; Q9966; J1644; J2001; J2250; J3010; J7040; J0461

== ENCOUNTER 2023-01-20 08:04 | Day surgery (SDC) | payer OTHER ==
[2023-01-20] MEDS ORDERED: NA CHLORIDE 0.9% 1,000 ML ONE (08:48)
[2023-01-20] MEDS ORDERED: propofoL 200 MG/20 ML VIAL IV ONE (09:46)
[2023-01-20] MEDS ORDERED: GEMCITABINE HCL 26.3 ML IS ONE (10:00)
[2023-01-20] MEDS ORDERED: CEFAZOLIN SODIUM 2 GM/VIAL ONE (10:27)
[2023-01-20] MEDS ORDERED: GLYCOPYRROLATE 0.2 MG/ML SYR ONE ×2 (11:06→11:07)
--- NOTE | 2023-01-20 12:29 | OP ---
Surgeon: ADONAY FELICIANO Preoperative Diagnoses: 1.Multifocal bladder tumors. 2.Irritative LUTS/lower urinary tract symptoms. Postoperative Diagnoses: 1.Multifocal bladder tumors. 2.Irritative LUTS/lower urinary tract symptoms. Principal Procedures: 1.Cystoscopy. 2.Transurethral resection of a bladder tumor (less than 2 cm). 3.Bladder biopsies with fulguration. 4.Insertion of urethral Harkins catheter. 5.Instillation of intravesical gemcitabine 2 g in 50 cc normal saline. Findings: Sessile papillary tumor within the bladder neck next to the left ureteral orifice, within the left posterior lateral wall extending into the right posterior lateral wall, and a separate nodul ar papillary tumor at the left bladder neck. Indications For Procedures: Mr. Samuels presented to the Urology Clinic and underwent cystoscopic evalua tion revealing the presence of the multifocal bladder tumors. He was recommended for operative resec tion and intravesical gemcitabine chemotherapy, but this was delayed due to the presence of acute on chronic kidney injury and hyperkalemia. He was admitted and medically managed for that and now prese [facility] for definitive management of his bladder cancer. Procedure In Detail: The patient was consented in the preoperative holding area before being transfe rred to the operative suite where general anesthesia was induced. He was given Ancef 1 g IV antimicr obial prophylaxis, and pneumo boots were provided for DVT prophylaxis. He was placed in the lithotom y position, padded and secured to the table appropriately, and his genitalia were prepped with Hibicl ens and draped in standard fashion. The case was begun using a 22-Portuguese rigid cystoscope to anastasiya e the urethra and into the bladder with ease. The prostatic urethral channel was surveyed on the way in, and there was evidence of a UroLift implants with a nice anterior channel created with some mini mal residual lateral lobar hypertrophy between the implants potentially causing a slight residual deg ree of obstruction, but overall a beautiful channel with a history of UroLift. The bladder was then entered and decompressed of fluid and urine. I then surveyed it in its entirety after refilling it w ith sterile water. As noted above, within the left bladder neck near the trigone, there was a sessil e papillary tumor that was approximately 1.5 to 2 cm in diameter. This was extending overlying the a maury lateral to the ureteral orifice and into the bladder neck. Additionally, posteriorly involving t he left posterior wall, mostly extending into the mid posterior and slightly to the right posterior w all of the bladder, there was an erythematous irregular patch of sessile mucosa. Additionally, in th e bladder neck on the left, there was a separate nodular tumor approximately 1 cm in diameter. I rubia s switched to the resectoscope after dilating his meatus and fossa navicularis to 30-Portuguese using ure thral sounds. I then utilized the monopolar resectoscope loop at a cautery setting of 120 cut and 70 coag and began to resect the bladder neck trigone left tumor first. This was resected in its entire ty, and those samples were sent for pathologic analysis. I then switched for a cold cup biopsy force ps, and given the patch of irregular mucosa posteriorly, I biopsied several segments of that patch an d sent that separately for pathologic analysis as left posterior lateral wall bladder biopsy. I then turned my attention back to the bladder neck and used the resectoscope to resect the bladder tumor o bserved anteriorly within the left portion of the bladder neck. Once each of the sites was adequatel y resected or biopsied, I then carefully fulgurated each of these lesions, taking care to keep the ri ght ureteral orifice in vision and uninjured. Once completely hemostatic, I then irrigated his bladd er to remove any circulating debris and tumor cells created. I then ensured the bladder was complete ly hemostatic and decompressed, and once it was, I then refilled it and placed an 18-Portuguese coude tip catheter after removing the resectoscope. I placed 15 cc of sterile water in the balloon and decomp ressed his bladder before irrigating it using a catheter tip syringe to further ensure removal of any and all circulating debris and tumor cells. I then decompressed his bladder completely before retro grade instilling 2 g of gemcitabine in 50 cc of normal saline with ease. This was clamped into his b ladder and a leg bag was attached for ease of subsequent decompression. He was then taken out of the lithotomy position, and his genitalia were toweled off to prevent potential topical exposure. He wa s then awakened from general anesthesia, transferred to a stretcher, and then transferred to the [facility] very room in good condition. Complications: None. Discharge Disposition: He should follow up in the Urology Clinic within the next 1 to 2 weeks to dis cuss the results of the pathology. Given the multifocal nature of his bladder tumors, he will requir e adjuvant therapy of some sort, depending on the pathologic findings. He also will require definiti ve upper tract imaging via CT urography, which we will arrange also on followup. SIM/CACHORRO Voice ID: [id number] Report ID: [id number]
[2023-01-20 14:40] VITALS: O2SAT 97
[2023-01-20] MEDS ORDERED: LIDOCAINE JELLY 2% 5 ML SYRINGE TOP ONE (15:42)
[2023-01-20 16:09] LABS: Potassium 5.4 mEq/L (3.5-5.1)
[2023-01-20] MEDS ORDERED: FUROSEMIDE 40 MG/4 ML VIAL IV ONE (16:31)
[2023-01-20 18:07] LABS: Potassium 4.8 mEq/L (3.5-5.1)
[2023-01-20 18:53] VITALS: BP 130/72; TEMP 97
== END 2023-01-20 18:48 | disposition home or self-care (01) ==
LOC: OR 08:04
PROVIDERS: ATTEND Urology
PROC: 3E0K705 Introduction of Other Antineoplastic into Genitourinary Tract, Via Natural or Artificial Opening (ICD-10-PCS; 2023-01-20)
PROC: 0TBB8ZX Excision of Bladder, Via Natural or Artificial Opening Endoscopic, Diagnostic (ICD-10-PCS; principal; 2023-01-20 10:00)
DX: C67.5 Malignant neoplasm of bladder neck (principal); C67.0 Malignant neoplasm of trigone of bladder; C67.4 Malignant neoplasm of posterior wall of bladder; E11.22 Type 2 diabetes mellitus with diabetic chronic kidney disease; I13.0 Hypertensive heart and chronic kidney disease with heart failure and stage 1 through stage 4 chronic kidney disease, or unspecified chronic kidney disease; N18.30 Chronic kidney disease, stage 3 unspecified; I50.30 Unspecified diastolic (congestive) heart failure
CPT/HCPCS: 52500; 52204; 51720; 80048 ×2; 36415; 82947 ×2; 88305; J9201; J2704; J1940; J7030

== ENCOUNTER → 2023-03-30 | Emergency (ER) | payer OTHER ==
[~2023-03-30] MED LIST: CIPROFLOXACIN 400mg IV 400 MG/200 ML BAG IV ONE; HEPARIN 5000 UNIT/ML 1 ML VIAL ONE; NA CHLORIDE 0.9% 0 ML ONE; Ringers Lactate 1,000 ML IV ONE
--- NOTE | 2023-03-30 21:34 | EDPHYS ---
Physician Documentation [facility] Name: Abdoul Samuels Age: 82 yrs Sex: Male : 1940 Arrival Date: 03/30/2023 Time: 20:20 Bed 10 Private MD: Florin Strange ED Physician Kj Lee HPI: 03/30 20:24 This 82 yrs old Male presents to ER via Unassigned with complaints of Problem sp4 With Urinary Catheter. 20:24 PMH - Allergies: No Known Allergies; PMHx: Arthritis; Diabetes - NIDDM; Diabetes - sp4 NIDDM; Hyperlipidemia; Hypertension; Hypothyroidism; Hypothyroidism; Hypothyroidism;. 21:28 Very pleasant 82-year-old male with history of bladder cancer, history of indwelling sp4 Harkins catheter for 1 week, presents with complaint of urine leakage around catheter and discomfort associated with the cath. Patient initially requested catheter to be removed. . Historical: - Allergies: 20:33 No Known Allergies; jj7 - PMHx: 20:33 Arthritis; Diabetes - NIDDM; Hyperlipidemia; Hypertension; Hypothyroidism; BLADDER jj7 CANCER (Hypothyroidism); - PSHx: 20:34 RIGHT KNEE REPLACEMENT; BACK; NECK; jj7 - Immunization history:: Adult Immunizations up to date, Flu vaccine is up to date. - Social history:: Smoking status: Patient denies any tobacco usage or history of. Patient/guardian denies using alcohol, street drugs. - Family history:: not pertinent. ROS: 21:28 Constitutional: Negative for fever, chills, and weight loss, positive for urinary sp4 catheter discomfort and leakage around urinary catheter 21:28 All other systems are negative, Exam: 21:28 Constitutional: This is a well developed, well nourished patient who is awake, alert, sp4 and in no acute distress. Elderly male with indwelling urinary catheter ambulatory via motorized wheelchair Head/Face: Normocephalic, atraumatic. Eyes: Pupils equal round and reactive to light, extra-ocular motions intact. Lids and lashes normal. Conjunctiva and sclera are not injected. Cornea within normal limits. Periorbital areas with no swelling, redness, or edema. ENT: Nares patent. No nasal discharge, no septal abnormalities noted. Tympanic membranes are normal and external auditory canals are clear. Oropharynx with no redness, swelling, or masses, exudates, or evidence of obstruction, uvula midline. Mucous membranes moist. Neck: Trachea midline, no thyromegaly or masses palpated, and no cervical lymphadenopathy. Supple, full range of motion without nuchal rigidity, or vertebral point tenderness. Chest/axilla: Normal chest wall appearance and motion. Nontender with no deformity. No lesions are appreciated. Cardiovascular: Regular rate and rhythm with a normal S1 and S2. No gallops, murmurs, or rubs. Normal PMI, no JVD. No pulse deficits. Respiratory: Lungs have equal breath sounds bilaterally, clear to auscultation and percussion. No rales, rhonchi or wheezes noted. No increased work of breathing, no retractions or nasal flaring. Abdomen/GI: Soft, non-tender, with normal bowel sounds. No distension or tympany. No guarding or rebound. No evidence of tenderness throughout. Back: No spinal tenderness. No costovertebral tenderness. There is sacral decubitus ulcer that is covered by the wound VAC. Male : Normal genitalia with no discharge or lesions. Normal uncircumcised male with indwelling urinary catheter. Catheter removed during examination , replaced with larger 18-gauge Harkins cathether. Skin: Warm, dry with normal turgor. Normal color with no rashes, no lesions, and no evidence of cellulitis. MS/ Extremity: Pulses equal, no cyanosis. Neurovascular intact. Full, normal range of motion. Neuro: Awake and alert, GCS 15, oriented to person, place, time, and situation. Cranial nerves II-XII grossly intact. Motor strength 5/5 in all extremities. Sensory grossly intact. Psych: Awake, alert, with orientation to person, place and time. Behavior, mood, and affect are within normal limits Vital Signs: 20:26 BP 147 / 89; Pulse 100; Resp 19; Temp 97; Pulse Ox 98% ; Weight 98.43 kg; Height 5 ft. [facility] 8 in. ; Pain 0/10; 20:26 Body Mass Index 32.99 (98.43 kg, 172.72 cm) [facility] 20:26 Pain Scale: Adult [facility] Melissa Coma Score: 21:28 Eye Response: spontaneous(4). Motor Response: obeys commands(6). Verbal Response: sp4 oriented(5). Total: 15. Procedures: 21:28 Harkins cath inserted by myself - 18 Fr. Returned clear yellow urine. Urine output = 20 sp4 ml's. Patient tolerated well. No complications , leg bag applied. MDM: 20:40 Patient medically screened. sp4 21:28 Differential Diagnosis Harkins catheter complication. Data reviewed: vital signs, nurses sp4 notes. ED course: 16 [place] Harkins catheter was replaced onto 18-gauge Harkins catheter with return of a clear urine, patient was convinced to keep the catheter until he can see his urologist Dr. Portillo on outpatient basis for voiding trial in office. Patient is advised and has agreed to keep current catheter and to will continue catheter care at home . . 03/30 20:39 Order name: Harkins Leg Bag; Complete Time: 21:41 sp4 03/30 20:39 Order name: Harkins; Complete Time: 21:41 sp4 Administered Medications: No medications were administered Disposition Summary: 03/30/23 21:33 Discharge Ordered Problem: new sp4 Symptoms: have improved sp4 Condition: Stable sp4 Diagnosis - Leakage of urinary (indwelling) catheter sp4 - Discomfort associated with indwelling urinary catheter sp4 Followup: sp4 - With: Rob Portillo MD - When: 7 - 10 days - Reason: Recheck today's complaints Discharge Instructions: - Discharge Summary Sheet sp4 - Indwelling Urinary Catheter Insertion, Care After sp4 Forms: - Patient Portal Instructions sp4 Signatures: Pedro King RN RN jj7 Kj Lee MD MD sp4
--- NOTE | 2023-03-30 21:34 | ER ---
Nurse's Notes [facility] Name: Abdoul Samuels Age: 82 yrs Sex: Male : 1940 Arrival Date: 03/30/2023 Time: 20:20 Bed 10 Private MD: Florin Strange Diagnosis: Leakage of urinary (indwelling) catheter;Discomfort associated with indwelling urinary catheter Presentation: 03/30 20:26 Chief complaint: Patient states: PT STATES HE WANTS HIS MONTES CATHETER TAKEN OUT jj7 BECAUSE HE IS TIRED OF IT LEAKING ALL OVER HIM. HAD IT PUT IN 1 WK AGO. Coronavirus screen: At this time, the client does not indicate any symptoms associated with coronavirus-19. Ebola Screen: No symptoms or risks identified at this time. Initial Sepsis Screen: Does the patient meet any 2 criteria? HR > 90 bpm. No. Patient's initial sepsis screen is negative. Does the patient have a suspected source of infection? No. Patient's initial sepsis screen is negative. Risk Assessment: Do you want to hurt yourself or someone else? Patient reports no desire to harm self or others. 20:26 Method Of Arrival: Ambulatory jj7 20:26 Acuity: SHON 4 jj7 21:58 Onset of symptoms is unknown. ap3 Triage Assessment: 20:34 General: Appears in no apparent distress. comfortable, Behavior is calm, cooperative, jj7 appropriate for age, Smells of. Pain: Denies pain. Historical: - Allergies: 20:33 No Known Allergies; jj7 - PMHx: 20:33 Arthritis; Diabetes - NIDDM; Hyperlipidemia; Hypertension; Hypothyroidism; BLADDER jj7 CANCER (Hypothyroidism); - PSHx: 20:34 RIGHT KNEE REPLACEMENT; BACK; NECK; jj7 - Immunization history:: Adult Immunizations up to date, Flu vaccine is up to date. - Social history:: Smoking status: Patient denies any tobacco usage or history of. Patient/guardian denies using alcohol, street drugs. - Family history:: not pertinent. Screenin:36 [facility] ED Fall Risk Assessment (Adult) History of falling in the last 3 months, jj7 including since admission No falls in past 3 months (0 pts) Confusion or Disorientation No (0 pts) Intoxicated or Sedated No (0 pts) Impaired Gait Yes (1 pt) Mobility Assist Device Used Yes (1 pt) Altered Elimination Yes (1 pt) Score/Fall Risk Level 3 or more points = High Risk Oriented to surroundings, Maintained a safe environment, Educated pt \T\ family on fall prevention, incl call for assistance when getting out of bed. Abuse screen: Denies threats or abuse. Nutritional screening: No deficits noted. Tuberculosis screening: No symptoms or risk factors identified. Vital Signs: 20:26 BP 147 / 89; Pulse 100; Resp 19; Temp 97; Pulse Ox 98% ; Weight 98.43 kg; Height 5 ft. jj7 8 in. ; Pain 0/10; 20:26 Body Mass Index 32.99 (98.43 kg, 172.72 cm) j7 20:26 Pain Scale: Adult j7 Melissa Coma Score: 21:28 Eye Response: spontaneous(4). Motor Response: obeys commands(6). Verbal Response: sp4 oriented(5). Total: 15. ED Course: 20:23 Patient arrived in ED. mr 20:23 Florin Strange MD is Private Physician. mr 20:23 Kj Lee MD is Attending Physician. sp4 20:33 Triage completed. jj7 20:34 Arm band placed on right wrist. jj7 20:36 Patient has correct armband on for positive identification. jj7 21:32 Rob Portillo MD is Referral Physician. sp4 21:56 No provider procedures requiring assistance completed. Patient did not have IV access ap3 during this emergency room visit. 21:57 Provided Education on: discharge instructions. ap3 Administered Medications: No medications were administered Medication: 21:58 VIS not applicable for this client. ap3 Outcome: 21:33 Discharge ordered by . sp4 21:57 Discharged to home via wheelchair, ap3 21:57 Condition: good 21:57 Discharge instructions given to patient, Instructed on discharge instructions, follow up and referral plans. Demonstrated understanding of instructions, follow-up care, 21:58 Patient left the ED. ap3 Signatures: Trinh Nelson, Reg Reg Alida Zuniga RN RN ap3 Pedro King RN RN jj7 Kj Lee MD MD sp4
[2023-03-31 03:47] VITALS: BP 147/89; TEMP 97; O2SAT 98
== END ==
LOC: ER 20:20
DX: T83.038A Leakage of other urinary catheter, initial encounter (principal); T83.84XA Pain due to genitourinary prosthetic devices, implants and grafts, initial encounter; E11.9 Type 2 diabetes mellitus without complications; I10 Essential (primary) hypertension; E03.9 Hypothyroidism, unspecified; E78.5 Hyperlipidemia, unspecified; Z85.51 Personal history of malignant neoplasm of bladder
CPT/HCPCS: 51702; 99282

== ENCOUNTER → 2023-03-31 | Emergency (ER) | payer OTHER ==
[2023-04-01 00:20] LABS: Absolute Lymphocytes (CBC) 0.6 K/uL (0.7-4.9); Hematocrit 26.5 % (39.6-49.0); Lymphocytes % 22.6 % (15.3-44.8); MCV 88.4 fL (80-100); MPV 8.1 fL (7.6-11.3); Platelets 128 thou/uL (152-406)
[2023-04-01 00:21] LABS: Specific Gravity 1.026 (1.005-1.030); Urine Bacteria >50 /HPF (<20); Urine Bilirubin NEGATIVE (Negative); Urine Blood 3+ (OVER) (Negative); Urine Clarity Extremely Turbid (Clear); Urine Color Light-Orange (Yellow); Urine Glucose TRACE (Negative); Urine Mucus 3+ /HPF (None Seen); Urine Protein 3+ (Negative); Urine RBC >50 /HPF (None Seen); Urine Urobilinogen Normal (Normal); Urine WBC Clump Many /HPF (None Seen); Urine pH 5.5 (5.0-7.0)
[2023-04-01 00:34] LABS: Albumin 3.5 g/dL (3.4-5.0); Bilirubin Total 0.5 mg/dL (0.2-1.0); Potassium 4.4 mEq/L (3.5-5.1); Protein, Total 6.8 g/dL (6.4-8.2)
--- NOTE | 2023-04-01 04:35 | ER ---
Nurse's Notes [facility] Name: Abdoul Samuels Age: 82 yrs Sex: Male : 1940 Arrival Date: 03/31/2023 Time: 22:18 Bed 13 Private MD: Diagnosis: UTI/ Urinary tract infection, site not specified;Acute on chronic renal insufficiency, indwelling catheter associated UTI, indwelling urinary catheter discomfort, decreased urine output Presentation: 03/31 22:47 Chief complaint: Patient states: URINARY RETENTION. STATES HE WAS HAVING ISSUE WITH IT jj7 LEAKING. CAME LAST NIGHT TO THE ER TO GET IT REMOVED FOR LEAKING. IT WAS NOT REMOVED BUT CHANGED. STATES HE CAME IN THIS MORNING FOR LEAKING AND URINARY RETENTION. THEY CHANGED THE BAG. NOW HE IS JUST HAVING URINARY RETENTION AND HE IS FRUSTRATED. Coronavirus screen: At this time, the client does not indicate any symptoms associated with coronavirus-19. Ebola Screen: No symptoms or risks identified at this time. Initial Sepsis Screen: Does the patient meet any 2 criteria? No. Patient's initial sepsis screen is negative. Does the patient have a suspected source of infection? No. Patient's initial sepsis screen is negative. Risk Assessment: Do you want to hurt yourself or someone else? Patient reports no desire to harm self or others. 22:47 Method Of Arrival: Wheelchair jj7 22:47 Acuity: SHON 5 jj7 Triage Assessment: 22:55 General: Appears in no apparent distress. uncomfortable, Behavior is cooperative, jj7 appropriate for age, agitated. Pain: Denies pain. Historical: - Allergies: 22:55 NKDA; jj7 - PMHx: 22:55 Arthritis; Bladder cancer (Hypothyroidism); Diabetes - NIDDM; Hyperlipidemia; jj7 Hypertension; Hypothyroidism; - PSHx: 22:55 back; Right knee replacement; neck; jj7 - Immunization history:: Adult Immunizations up to date. - Social history:: Smoking status: Patient denies any tobacco usage or history of. Patient/guardian denies using alcohol, street drugs. - Family history:: not pertinent. Screenin/24 00:01 [facility] ED Fall Risk Assessment (Adult) History of falling in the last 3 months, bp including since admission No falls in past 3 months (0 pts). Abuse screen: Denies threats or abuse. Denies injuries from another. Nutritional screening: No deficits noted. Tuberculosis screening: No symptoms or risk factors identified. Assessment: 03/31 23:00 General: SEE TRIAGE NOTE. bp 04/01 00:10 Reassessment: Patient is alert, oriented x 3, equal unlabored respirations, skin jj7 warm/dry/pink. RECEIVED PT REPORT FROM CHER FRANKLIN. 02:50 Reassessment: Patient appears in no apparent distress at this time. Patient and/or pf1 family updated on plan of care and expected duration. Pain level reassessed. Patient is alert, oriented x 3, equal unlabored respirations, skin warm/dry/pink. Patient states symptoms have improved. Vital Signs: 03/31 22:47 BP 113 / 96; Pulse 76; Resp 18; Temp 97; Pulse Ox 98% ; Weight 126.1 kg; Height 5 ft. jj7 11 in. ; 04/01 01:14 BP 96 / 54; Pulse 72; Resp 17; Pulse Ox 98% ; Pain 0/10; jj7 02:10 BP 100 / 61; Pulse 69; Resp 16; Pulse Ox 96% ; jj7 02:50 BP 106 / 65; Pulse 68; Resp 16; Pulse Ox 97% on R/A; Pain 0/10; pf1 03/31 22:47 Body Mass Index 38.77 (126.10 kg, 180.34 cm) jj7 04/01 01:14 Pain Scale: Adult jj7 02:50 Pain Scale: Adult pf1 ED Course: 03/31 22:19 Patient arrived in ED. jj6 22:29 Kj Lee MD is Attending Physician. sp4 22:55 Triage completed. jj7 22:55 Arm band placed on right wrist. jj7 23:02 Cher Hernández, RIGOBERTO is Primary Nurse. bp 04/01 00:00 Inserted saline lock: 22 gauge in right forearm, using aseptic technique. Blood bp collected. 00:01 Patient has correct armband on for positive identification. bp 00:30 CT Abd/Pelvis - Without Cont (PO Contrast Only) In Process Unspecified. EDMS 02:36 Richar Paul DO is Referral Physician. sp4 02:50 Provided Education on: follow up and prescription. pf1 02:50 IV discontinued, intact, bleeding controlled, No redness/swelling at site. Pressure pf1 dressing applied. 02:50 No provider procedures requiring assistance completed. pf1 Administered Medications: No medications were administered Medication: 02:50 VIS not applicable for this client. pf1 Outcome: 02:37 Discharge ordered by . sp4 02:50 Discharged to home via wheelchair, pf1 02:50 Condition: improved pf1 02:50 Discharge instructions given to patient, Instructed on discharge instructions, follow up and referral plans. Demonstrated understanding of instructions, follow-up care, medications, Prescriptions given X 1, 02:50 Patient left the ED. pf1 Signatures: Dispatcher [employer] EDMS Cher Hernández RN RN Radha Meyer jj6 Pedro King RN RN jj7 Chelsy Levi RN RN pf1 Kj Lee MD MD sp4 Corrections: (The following items were deleted from the chart) 06:20 03:15 Patient left the ED. pf1 pf1
--- NOTE | 2023-04-01 04:35 | EDPHYS ---
Physician Documentation [facility] Name: Abdoul Samuels Age: 82 yrs Sex: Male : 1940 Arrival Date: 03/31/2023 Time: 22:18 Bed 13 Private MD: ED Physician Kj Lee HPI: 03/31 22:29 This 82 yrs old Male presents to ER via Unassigned with complaints of Problem sp4 With Urinary Catheter. 04/01 02:24 82-year-old male with history of bladder cancer, arthritis, hypothyroidism, diabetes, sp4 hyperlipidemia, prostate enlarged. Patient presents with urinary catheter discomfort. Patient states that there is less urinary output. He noticed in the last 24 hours.. Historical: - Allergies: 03/31 22:55 NKDA; jj7 - PMHx: 22:55 Arthritis; Bladder cancer (Hypothyroidism); Diabetes - NIDDM; Hyperlipidemia; jj7 Hypertension; Hypothyroidism; - PSHx: 22:55 back; Right knee replacement; neck; jj7 - Immunization history:: Adult Immunizations up to date. - Social history:: Smoking status: Patient denies any tobacco usage or history of. Patient/guardian denies using alcohol, street drugs. - Family history:: not pertinent. Vital Signs: 22:47 BP 113 / 96; Pulse 76; Resp 18; Temp 97; Pulse Ox 98% ; Weight 126.1 kg; Height 5 ft. j7 11 in. ; 04/01 01:14 BP 96 / 54; Pulse 72; Resp 17; Pulse Ox 98% ; Pain 0/10; jj7 02:10 BP 100 / 61; Pulse 69; Resp 16; Pulse Ox 96% ; jj7 02:50 BP 106 / 65; Pulse 68; Resp 16; Pulse Ox 97% on R/A; Pain 0/10; pf1 03/31 22:47 Body Mass Index 38.77 (126.10 kg, 180.34 cm) j7 04/01 01:14 Pain Scale: Adult jj7 02:50 Pain Scale: Adult pf1 MDM: 03/31 22:38 Patient medically screened. sp4 04/01 02:17 ED course: CLINICAL HISTORY: bladder pain COMPARISON: 02/13/2023. TECHNIQUE: CTABDOMEN sp4 PELVIS WITHOUT IV CONTRAST on 03/31/2023 10:58 PM PAN SHAKER This exam was performed according to our departmental dose-optimization program, which includes automated exposure control, adjustment of the mA and/or kV according to patient size and/or use of iterative reconstruction technique. FINDINGS: Lower lungs are clear. Abdomen: The liver is normal in appearance. There is no biliary dilatation. Gallbladder is normal in appearance. Stomach is moderately distended with fluid and food material. The pancreas and spleen are normal in appearance. The adrenal glands are normal. Kidneys are mildly atrophic. Bilateral upper pole renal cysts are present measuring up to 3.7 cm. Abdominal aorta is normal in course and caliber without aneurysm. There is no free air. There is no retroperitoneal adenopathy. Pelvis: There is no bowel obstruction. Urinary bladder is decompressed with a Harkins catheter. There is no free fluid. Appendix is normal. Skeleton: There are no acute osseous findings. No suspicious bony lesions. IMPRESSION: No acute process. Bosniak II benign renal cyst measuring 3.7 cm. No follow-up imaging is recommended. JACR 2018 Apr; 264-273, Management of the Incidental Renal Mass on CT, [employer] 2020; 814-848, Bosniak Classification of Cystic Renal Masses, Version 2019.. 03/31 23:39 Order name: Urinalysis W/Microscopic; Complete Time: 02:18 sp4 03/31 23:39 Order name: CBC with Diff; Complete Time: 02:18 sp4 03/31 23:39 Order name: CMP; Complete Time: 02:18 sp4 04/01 00:27 Order name: Urine Culture EDID 03/31 22:58 Order name: CT Abd/Pelvis - Without Cont (PO Contrast Only) sp4 Administered Medications: No medications were administered Disposition Summary: 04/01/23 02:37 Discharge Ordered Problem: new sp4 Symptoms: have improved sp4 Condition: Stable sp4 Diagnosis - UTI/ Urinary tract infection, site not specified sp4 - Acute on chronic renal insufficiency, indwelling catheter associated UTI, sp4 indwelling urinary catheter discomfort, decreased urine output Followup: sp4 - With: Richar Paul DO - When: 5 - 6 days - Reason: Recheck today's complaints Discharge Instructions: - Discharge Summary Sheet sp4 - Urinary Tract Infection, Adult, [id number] sp4 Forms: - Patient Portal Instructions sp4 Prescriptions: - Cephalexin 500 mg Oral Capsule - take 1 capsule ORAL route every 8 hours for 10 days; 30 capsule; Refills: 0, sp4 Product Selection Permitted Signatures: Dispatcher [employer] Pedro Crow RN RN jj7 Kj Lee MD MD sp4
[2023-04-01 06:53] VITALS: BP 100/61; TEMP 97; O2SAT 96
--- NOTE | 2023-04-01 13:43 | RAD REPORT ---
EXAM DESCRIPTION: CT - Abdomen Pelvis Wo Contrast - 04/01/2023 12:29 am CLINICAL HISTORY: Bladder pain COMPARISON: 02/13/2023. TECHNIQUE: CT ABDOMEN PELVIS WITHOUT IV CONTRAST on 03/31/2023 10:58 PM MANAGER PARTY This exam was performed according to our departmental dose-optimization program, which includes autom ated exposure control, adjustment of the mA and/or kV according to patient size and/or use of iterati ve reconstruction technique. FINDINGS: Lower lungs are clear. Abdomen: The liver is normal in appearance. There is no biliary dilatation. Gallbladder is normal in appearance. Stomach is moderately distended with fluid and food material. The pancreas and spleen are normal in appearance. The adrenal glands are normal. Kidneys are mildly atrophic. Bilateral upper po le renal cysts are present measuring up to 3.7 cm. Abdominal aorta is normal in course and caliber without aneurysm. There is no free air. There is no r etroperitoneal adenopathy. Pelvis: There is no bowel obstruction. Urinary bladder is decompressed with a Harkins catheter. There i s no free fluid. Appendix is normal. Skeleton: There are no acute osseous findings. No suspicious bony lesions. IMPRESSION: No acute process. Bosniak II benign renal cyst measuring 3.7 cm. No follow-up imaging is recommended. JACR 2018 Apr; 264-273, Management of the Incidental Renal Mass on CT, [employer] 2020; 814-848, B osniak Classification of Cystic Renal Masses, Version 2019. Electronically signed by: Brandon Cummins MD 04/01/2023 01:09 AM MANAGER PARTY Due to temporary technical issues with the PACS/Fluency reporting system, reports are being signed by the in house radiologist without review as a courtesy to ensure prompt reporting. The interpreting r adiologist is fully responsible for the content of the report.
== END ==
LOC: ER 22:18
DX: T83.511A Infection and inflammatory reaction due to indwelling urethral catheter, initial encounter (principal); E11.22 Type 2 diabetes mellitus with diabetic chronic kidney disease; I12.9 Hypertensive chronic kidney disease with stage 1 through stage 4 chronic kidney disease, or unspecified chronic kidney disease; N18.9 Chronic kidney disease, unspecified; N17.9 Acute kidney failure, unspecified; R34 Anuria and oliguria
CPT/HCPCS: 36415; 74176; 99284

== ENCOUNTER → 2023-03-31 | Emergency (ER) | payer OTHER ==
--- NOTE | 2023-03-31 12:35 | ER ---
Nurse's Notes [facility] Name: Abdoul Samuels Age: 82 yrs Sex: Male : 1940 Arrival Date: 03/31/2023 Time: 11:58 Bed 10 Private MD: Diagnosis: Kirk catheter problem Presentation: 03/31 12:04 Chief complaint: Patient states: kirk catheter is leaking, had it replaced last night iw but the new one is leaking again . has hx of prostate cancer , Dr. Portillo did surgery less than a years ago and he has had a kirk catheter for approx one month. Coronavirus screen: At this time, the client does not indicate any symptoms associated with coronavirus-19. Ebola Screen: Patient negative for fever greater than or equal to 101.5 degrees Fahrenheit, and additional compatible Ebola Virus Disease symptoms Patient denies exposure to infectious person. Patient denies travel to an Ebola-affected area in the 21 days before illness onset. No symptoms or risks identified at this time. Initial Sepsis Screen: Does the patient meet any 2 criteria? No. Patient's initial sepsis screen is negative. Does the patient have a suspected source of infection? No. Patient's initial sepsis screen is negative. Risk Assessment: Do you want to hurt yourself or someone else? Patient reports no desire to harm self or others. Onset of symptoms was March 31, 2023. 12:04 Method Of Arrival: Ambulatory iw 12:04 Acuity: SHON 4 iw Triage Assessment: 12:47 General: Appears in no apparent distress. Behavior is calm, cooperative, appropriate cp4 for age. Pain: Denies pain. Historical: - Allergies: 12:07 No Known Allergies; iw - PMHx: 12:06 Bladder cancer (Hypothyroidism); Arthritis; Diabetes - NIDDM; Hyperlipidemia; iw Hypertension; Hypothyroidism; - PSHx: 12:06 back; neck; Right knee replacement; iw - Immunization history:: Adult Immunizations up to date. - Social history:: Smoking status: Patient denies any tobacco usage or history of. Screenin:[address] [facility] ED Fall Risk Assessment (Adult) History of falling in the last 3 months, cp4 including since admission No falls in past 3 months (0 pts) Confusion or Disorientation No (0 pts) Intoxicated or Sedated No (0 pts) Impaired Gait No (0 pts) Mobility Assist Device Used No (0 pt) Altered Elimination No (0 pt) Score/Fall Risk Level 0 - 2 = Low Risk Oriented to surroundings, Maintained a safe environment, Educated pt \T\ family on fall prevention, incl call for assistance when getting out of bed, Assessed \T\ reinforced patient's understanding of fall precautions, Hourly rounding (assess needs \T\ fall precautionary measures) done. Abuse screen: Denies threats or abuse. Nutritional screening: No deficits noted. Tuberculosis screening: No symptoms or risk factors identified. Assessment: 12:48 Reassessment: No changes from previously documented assessment. cp4 Vital Signs: 12:04 BP 122 / 71; Pulse 76; Resp 16; Temp 98.1; Pulse Ox 97% on R/A; Weight 98.43 kg; Height iw 5 ft. 11 in. ; 12:04 Body Mass Index 30.27 (98.43 kg, 180.34 cm) iw ED Course: 12:00 Patient arrived in ED. mr 12:01 Otilia Pham MD is Attending Physician. sp3 12:06 Triage completed. iw 12:06 Arm band placed on. iw 12:36 Mariaelena Villarreal is Primary Nurse. cp4 12:48 Bed in low position. Call light in reach. Side rails up X 1. Provided Education on: cp4 kirk catheter. 12:48 No provider procedures requiring assistance completed. Patient did not have IV access cp4 during this emergency room visit. Administered Medications: No medications were administered Medication: 12:48 VIS not applicable for this client. cp4 Outcome: 12:35 Discharge ordered by . sp3 12:48 Discharged to home via wheelchair, cp4 12:48 Condition: stable 12:48 Discharge instructions given to patient, Instructed on discharge instructions, follow up and referral plans. Demonstrated understanding of instructions, follow-up care, 12:53 Patient left the ED. cp4 Signatures: Trinh Nelson, Reg Reg Prabha Avalos, RN RN iw Otilia Pham MD MD sp3 Mariaelena Villarreal cp4 Corrections: (The following items were deleted from the chart) 12:07 12:04 Chief complaint: Patient states: kirk catheter is leaking, had it replaced last iw night but the new one is leaking again iw
--- NOTE | 2023-03-31 12:35 | EDPHYS ---
Physician Documentation [facility] Name: Abdoul Samuels Age: 82 yrs Sex: Male : 1940 Arrival Date: 03/31/2023 Time: 11:58 Bed 10 Private MD: ED Physician Otilia Pham HPI: 03/31 12:22 This 82 yrs old Male presents to ER via Ambulatory with complaints of Problem With sp3 Urinary Catheter. 12:22 82-year-old male with history of bladder cancer, diabetes, hyperlipidemia, hypertension sp3 who was seen yesterday for Harkins catheter problem where he had it replaced with a larger catheter presents again for similar complaints of leaking urine. Patient is requesting a different catheter to prevent leakage. He has no pain, no hematuria grossly, no fever and no complaints. Remainder of ROS negative.. Historical: - Allergies: 12:07 No Known Allergies; iw - PMHx: 12:06 Bladder cancer (Hypothyroidism); Arthritis; Diabetes - NIDDM; Hyperlipidemia; iw Hypertension; Hypothyroidism; - PSHx: 12:06 back; neck; Right knee replacement; iw - Immunization history:: Adult Immunizations up to date. - Social history:: Smoking status: Patient denies any tobacco usage or history of. ROS: 12:25 Constitutional: Negative for fever, chills, and weight loss, Eyes: Negative for injury, sp3 pain, redness, and discharge, ENT: Negative for injury, pain, and discharge, Neck: Negative for injury, pain, and swelling, Cardiovascular: Negative for chest pain, palpitations, and edema, Respiratory: Negative for shortness of breath, cough, wheezing, and pleuritic chest pain, Abdomen/GI: Negative for abdominal pain, nausea, vomiting, diarrhea, and constipation, Back: Negative for injury and pain, MS/Extremity: Negative for injury and deformity, Skin: Negative for injury, rash, and discoloration, Neuro: Negative for headache, weakness, numbness, tingling, and seizure, Psych: Negative for depression, anxiety, suicide ideation, homicidal ideation, and hallucinations, Allergy/Immunology: Negative for hives, rash, and allergies, 12:25 All other systems are negative, Exam: 12:25 Constitutional: This is a well developed, well nourished patient who is awake, alert, sp3 and in no acute distress. Head/Face: Normocephalic, atraumatic. Chest/axilla: Normal chest wall appearance and motion. Nontender with no deformity. No lesions are appreciated. Cardiovascular: Regular rate and rhythm with a normal S1 and S2. No gallops, murmurs, or rubs. Normal PMI, no JVD. No pulse deficits. Respiratory: Lungs have equal breath sounds bilaterally, clear to auscultation and percussion. No rales, rhonchi or wheezes noted. No increased work of breathing, no retractions or nasal flaring. Abdomen/GI: Soft, non-tender, with normal bowel sounds. No distension or tympany. No guarding or rebound. No evidence of tenderness throughout. Back: No spinal tenderness. No costovertebral tenderness. Full range of motion. Skin: Warm, dry with normal turgor. Normal color with no rashes, no lesions, and no evidence of cellulitis. MS/ Extremity: Pulses equal, no cyanosis. Neurovascular intact. Full, normal range of motion. Neuro: Awake and alert, GCS 15, oriented to person, place, time, and situation. Cranial nerves II-XII grossly intact. Motor strength 5/5 in all extremities. Sensory grossly intact. Cerebellar exam normal. Normal gait. 12:25 : Harkins catheter in place without any trauma, bleeding or other abnormalities. Patient has soaked undergarments presumably of urine., Vital Signs: 12:04 BP 122 / 71; Pulse 76; Resp 16; Temp 98.1; Pulse Ox 97% on R/A; Weight 98.43 kg; Height iw 5 ft. 11 in. ; 12:04 Body Mass Index 30.27 (98.43 kg, 180.34 cm) iw MDM: 12:11 Patient medically screened. sp3 12:25 Data reviewed: vital signs, nurses notes, old medical records, lab test result(s). ED sp3 course: Will obtain urine analysis and attempt to switch out catheter for larger size by nursing staff.. 12:34 ED course: Upon further examination, patient's Harkins tube became unhooked from the bag sp3 and that is a source of the leak. No changes required to the Harkins catheter itself there is no leakage around the penis. Urine analysis is canceled and patient will be discharged home at this time.. 03/31 12:13 Order name: Harkins; Complete Time: 12:36 sp3 Administered Medications: No medications were administered Disposition Summary: 03/31/23 12:35 Discharge Ordered Notes: Location: Home sp3 Condition: Stable sp3 Diagnosis - Harkins catheter problem sp3 Followup: sp3 - With: Private Physician - When: Upon discharge from the Emergency Department - Reason: Continuance of care Discharge Instructions: - Discharge Summary Sheet sp3 - Indwelling Urinary Catheter Care, Adult sp3 Forms: - Medication Reconciliation Form sp3 - Thank You Letter sp3 - Antibiotic Education sp3 - Prescription Opioid Use sp3 - Patient Portal Instructions sp3 - Leadership Thank You Letter sp3 Signatures: Dispatcher [employer] Prabha Adler RN RN iw Otilia Pham MD MD sp3 Mariaelena Villarreal cp4
[2023-03-31 14:27] VITALS: BP 122/71; TEMP 98.1; O2SAT 97
== END ==
LOC: ER 11:58
DX: T83.098A Other mechanical complication of other urinary catheter, initial encounter (principal)
CPT/HCPCS: 99282

== ENCOUNTER 2023-04-01 14:23 | Inpatient (IN) | payer OTHER ==
[2023-04-01 15:10] LABS: Absolute Lymphocytes (CBC) 0.4 K/uL (0.7-4.9); MCV 89.1 fL (80-100); MPV 7.9 fL (7.6-11.3); Platelets 124 thou/uL (152-406); RBC Red Blood Cell Count 3.15 M/uL (4.33-5.43)
[2023-04-01 15:14] LABS: Specific Gravity 1.022 (1.005-1.030); Urine Bacteria <20 /HPF (<20); Urine Bilirubin NEGATIVE (Negative); Urine Blood 3+ (Negative); Urine Clarity Extremely Turbid (Clear); Urine Color Yellow (Yellow); Urine Crystals Unidentified Few /HPF (None Seen); Urine Glucose NEGATIVE (Negative); Urine Mucus Slight /HPF (None Seen); Urine Protein 2+ (Negative); Urine RBC 21-50 /HPF (None Seen); Urine Urobilinogen Normal (Normal); Urine pH 5.5 (5.0-7.0)
[2023-04-01 15:26] LABS: Albumin 3.5 g/dL (3.4-5.0); Bilirubin Direct 0.2 mg/dL (0-0.2); Bilirubin Indirect, Calculated 0.2 mg/dL (0.2-0.8); Bilirubin Total 0.4 mg/dL (0.2-1.0); Potassium 4.2 mEq/L (3.5-5.1); Protein, Total 6.8 g/dL (6.4-8.2)
--- NOTE | 2023-04-01 15:32 | ER ---
Nurse's Notes [facility] Name: Abdoul Samuels Age: 82 yrs Sex: Male : 1940 Arrival Date: 04/01/2023 Time: 14:23 Bed 18 Private MD: Diagnosis: Acute kidney failure, unspecified;Muscle weakness (generalized) Presentation: 04/01 14:31 Chief complaint: Patient states: Sent for eval by ID center. Possible kidney failure, ll1 abnormal lab results. Coronavirus screen: Vaccine status: Patient reports receiving the 2nd dose of the covid vaccine. Client denies travel out of the [place] in the last 14 days. At this time, the client does not indicate any symptoms associated with coronavirus-19. Ebola Screen: Patient denies travel to an Ebola-affected area in the 21 days before illness onset. Initial Sepsis Screen: Does the patient meet any 2 criteria? No. Patient's initial sepsis screen is negative. Does the patient have a suspected source of infection? No. Patient's initial sepsis screen is negative. Risk Assessment: Do you want to hurt yourself or someone else? Patient reports no desire to harm self or others. Onset of symptoms is unknown. 14:31 Method Of Arrival: Wheelchair ll1 14:32 Acuity: SHON 3 ll1 Triage Assessment: 14:39 General: Appears uncomfortable, ill, Behavior is calm, cooperative, appropriate for ll1 age. General: Reports fatigue for. Pain: Denies pain. Neuro: Reports weakness. Historical: - Allergies: 14:32 NKDA; ll1 - Home Meds: 15:03 amlodipine oral [Active]; Glimepiride Oral [Active]; levothyroxine oral [Active]; tl4 lisinopril Oral [Active]; Metoprolol Tartrate Oral [Active]; tamsulosin Oral [Active]; pravastatin Oral [Active]; - PMHx: 14:32 Arthritis; Bladder cancer (Hypothyroidism); Diabetes - NIDDM; Hyperlipidemia; ll1 Hypertension; Hypothyroidism; - PSHx: 14:32 back; neck; Right knee replacement; ll1 - Immunization history:: Adult Immunizations up to date. - Social history:: Smoking status: Patient denies any tobacco usage or history of. - Family history:: not pertinent. - Hospitalizations: : No recent hospitalization is reported. Screenin:[facility] ED Fall Risk Assessment (Adult) History of falling in the last 3 months, tl4 including since admission No falls in past 3 months (0 pts) Confusion or Disorientation No (0 pts) Intoxicated or Sedated No (0 pts) Impaired Gait No (0 pts) Mobility Assist Device Used No (0 pt) Altered Elimination No (0 pt) Score/Fall Risk Level 0 - 2 = Low Risk Oriented to surroundings, Maintained a safe environment, Educated pt \\T\\ family on fall prevention, incl call for assistance when getting out of bed, Assessed \\T\\ reinforced patient's understanding of fall precautions, Provided non-skid footwear, Hourly rounding (assess needs \\T\\ fall precautionary measures) done, Used ambulatory aids as needed (educated on \\T\\ assisted with), Used gait belt as appropriate. Abuse screen: Denies threats or abuse. Denies injuries from another. Nutritional screening: No deficits noted. Tuberculosis screening: No symptoms or risk factors identified. Assessment: 14:42 General: Appears in no apparent distress. Behavior is calm, cooperative. Pain: Denies tl4 pain. Neuro: No deficits noted. Cardiovascular: No deficits noted. Denies chest pain, lightheadedness, palpitations, Rhythm is sinus rhythm. Respiratory: No deficits noted. Denies cough, shortness of breath. GI: No deficits noted. No signs and/or symptoms were reported involving the gastrointestinal system. 15:02 Reassessment: No changes from previously documented assessment. Patient and/or family tl4 updated on plan of care and expected duration. Pain level reassessed. Patient is alert, oriented x 3, equal unlabored respirations, skin warm/dry/pink. 15:06 Reassessment: Attempt to verify home medications. Pt does not know what he takes and tl4 has no list. Pt states "You have my information. Whatever is in the computer is what I take". Pt advised to keep a current list of his home medications with him. Vital Signs: 14:31 BP 103 / 53; Pulse 66; Resp 17; Temp 98.1; Pulse Ox 97% ; Weight 98.43 kg; Height 5 ft. ll1 8 in. ; Pain 0/10; 14:43 BP 101 / 62; Pulse 68; Resp 14; Pulse Ox 99% on R/A; Pain 0/10; tl4 15:34 BP 95 / 55; Pulse 70; Resp 16; Pulse Ox 98% on R/A; tl4 16:30 BP 105 / 65; Pulse 68; Resp 18; Pulse Ox 98% on R/A; ph 14:31 Body Mass Index 32.99 (98.43 kg, 172.72 cm) ll1 14:31 Pain Scale: Adult ll1 14:43 Pain Scale: Adult tl4 Vitals: 14:43 Cardiac Rhythm Assessment Regular Sinus rhythm. tl4 [place] Coma Score: 14:43 Eye Response: spontaneous(4). Motor Response: obeys commands(6). Verbal Response: tl4 oriented(5). Total: 15. ED Course: 14:25 Patient arrived in ED. gm2 14:27 Phani Glass MD is Attending Physician. rn 14:32 Triage completed. ll1 14:33 Arm band placed on Patient placed in an exam room, on a stretcher. ll1 14:44 Patient has correct armband on for positive identification. Placed in gown. Bed in low tl4 position. Call light in reach. Side rails up X2. Provided Education on: ed process. Client placed on continuous cardiac and pulse oximetry monitoring. NIBP monitoring applied. soaping department supervisor on. Door closed. Noise minimized. Lights dimmed. Moved to private room. Warm blanket given. 14:45 No provider procedures requiring assistance completed. tl4 15:02 LFT's Sent. tl4 15:02 Urinalysis w/ reflexes Sent. tl4 15:02 Basic Metabolic Panel Sent. tl4 15:02 CBC with Diff Sent. tl4 15:03 Inserted saline lock: 20 gauge in right forearm, using aseptic technique. Blood tl4 collected. 15:32 Rosy Feliz MD is Hospitalizing Provider. rn 15:47 Aisha Taveras, RN is Primary Nurse. ph 19:44 Patient admitted, IV remains in place. ph Administered Medications: No medications were administered Medication: 14:44 VIS not applicable for this client. tl4 Outcome: 15:32 Decision to Hospitalize by Provider. rn 17:00 Admitted to ER Hold. Please see [facility] for further documentation. ph 17:00 Condition: stable 17:00 Instructed on the need for admit, 04/02 14:23 Patient left the ED. rs5 Signatures: GlassPhani barkley MD MD rn Hall, Patricia RN RN olman Lua, RIGOBERTO Ibarra RN ll1 Reuben Leyva RN RN rs5 Tala Harding 2 Tanmay Mitchell tl4 Corrections: (The following items were deleted from the chart) 04/01 14:39 14:31 Chief complaint: Patient states: Sent for eval by ID center. Possible kidney ll1 failure ll1 15:05 15:03 Home Meds: Glimepiride Oral; tl4 tl4
--- NOTE | 2023-04-01 15:32 | EDPHYS ---
Physician Documentation [facility] Name: Abdoul Samuels Age: 82 yrs Sex: Male : 1940 Arrival Date: 04/01/2023 Time: 14:23 Bed 18 Private MD: ED Physician Phani Glass HPI: 04/01 15:06 This 82 yrs old Male presents to ER via Wheelchair with complaints of Kidney failure rn .Doctor sent patient. 15:06 Patient sent to ER by cancer center for acute renal failure and admission. Patient does rn not have a history of dialysis. Seen here last night as has been having trouble with urinary catheter. Has history of bladder cancer, sees Dr. Portillo as well as Dr. Mi and Dr. Lund. Patient reports generalized malaise and fatigue. No fever. No vomiting. No diarrhea. No chest or abdominal pain. States after last night's visit catheter is functioning better.. Onset: The symptoms/episode began/occurred at an unknown time. Severity of symptoms: At their worst the symptoms were moderate in the emergency department the symptoms are unchanged. The patient has not experienced similar symptoms in the past. The patient has been recently seen by a physician:. Historical: - Allergies: 14:32 NKDA; ll1 - Home Meds: 15:03 amlodipine oral [Active]; Glimepiride Oral [Active]; levothyroxine oral [Active]; tl4 lisinopril Oral [Active]; Metoprolol Tartrate Oral [Active]; tamsulosin Oral [Active]; pravastatin Oral [Active]; - PMHx: 14:32 Arthritis; Bladder cancer (Hypothyroidism); Diabetes - NIDDM; Hyperlipidemia; ll1 Hypertension; Hypothyroidism; - PSHx: 14:32 back; neck; Right knee replacement; ll1 - Immunization history:: Adult Immunizations up to date. - Social history:: Smoking status: Patient denies any tobacco usage or history of. - Family history:: not pertinent. - Hospitalizations: : No recent hospitalization is reported. ROS: 15:06 Constitutional: Negative for fever, chills, and weight loss, Cardiovascular: Negative rn for chest pain, palpitations, and edema, Respiratory: Negative for shortness of breath, cough, wheezing, and pleuritic chest pain, Abdomen/GI: Negative for abdominal pain, nausea, vomiting, diarrhea, and constipation, Back: Negative for injury and pain, MS/Extremity: Negative for injury and deformity, Skin: Negative for injury, rash, and discoloration, Neuro: Positive for generalized weakness Exam: 15:06 Constitutional: This is a well developed, well nourished patient who is awake, alert, rn and in no acute distress. Patient requires assistance to get into ER bed. Head/Face: Normocephalic, atraumatic. Cardiovascular: Regular rate and rhythm. No pulse deficits. Respiratory: Lungs have equal breath sounds bilaterally, clear to auscultation and percussion. No rales, rhonchi or wheezes noted. No increased work of breathing, no retractions or nasal flaring. Abdomen/GI: Soft, non-tender, with normal bowel sounds. No distension or tympany. No guarding or rebound. No evidence of tenderness throughout. MS/ Extremity: Pulses equal, no cyanosis. Neurovascular intact. Full, normal range of motion. Equal circumference. Neuro: Awake and alert, GCS 15 Vital Signs: 14:31 BP 103 / 53; Pulse 66; Resp 17; Temp 98.1; Pulse Ox 97% ; Weight 98.43 kg; Height 5 ft. ll1 8 in. ; Pain 0/10; 14:43 BP 101 / 62; Pulse 68; Resp 14; Pulse Ox 99% on R/A; Pain 0/10; tl4 15:34 BP 95 / 55; Pulse 70; Resp 16; Pulse Ox 98% on R/A; tl4 16:30 BP 105 / 65; Pulse 68; Resp 18; Pulse Ox 98% on R/A; ph 14:31 Body Mass Index 32.99 (98.43 kg, 172.72 cm) ll1 14:31 Pain Scale: Adult ll1 14:43 Pain Scale: Adult tl4 [place] Coma Score: 14:43 Eye Response: spontaneous(4). Motor Response: obeys commands(6). Verbal Response: tl4 oriented(5). Total: 15. MDM: 14:27 Patient medically screened. rn 15:30 Differential Diagnosis acute kidney failure, dehydration, UTI, weakness. Data reviewed: rn vital signs, nurses notes, lab test result(s), radiologic studies, CT scan, and as a result, I will admit patient. Consideration of Admission/Observation Patient was admitted/placed on observation. Escalation of care including admission/observation considered. Management of patient was discussed with the following: Hospitalist: Will see and admit patient. Care significantly affected by the following chronic conditions: Diabetes, Hypertension, Bladder cancer. Counseling: I had a detailed discussion with the patient and/or guardian regarding the historical points, exam findings, and any diagnostic results supporting the discharge/admit diagnosis, lab results, radiology results, the need for further work-up and treatment in the hospital. Response to treatment: There is no appreciated change of the patient's symptoms at this time. ED course: CT abdomen and pelvis obtained at midnight without acute findings. Harkins catheter was swapped out last night with improvement of symptoms. No evidence of hydronephrosis or any other acute finding. Creatinine a month ago was 1.79 now 3.22. Will admit to hospitalist for acute renal failure.. 04/01 14:41 Order name: CBC with Diff rn 04/01 14:41 Order name: Basic Metabolic Panel; Complete Time: 15:28 rn 04/01 14:41 Order name: Urinalysis w/ reflexes; Complete Time: 15:24 rn 04/01 14:41 Order name: LFT's; Complete Time: 15:28 rn 04/01 15:13 Order name: CBC Smear Scan EDUT 04/01 17:25 Order name: Urinalysis w/ reflexes EDUT 04/01 17:25 Order name: Basic Metabolic Panel EDUT 04/01 17:25 Order name: Basic Metabolic Panel EDUT 04/01 17:25 Order name: Basic Metabolic Panel EDMS 04/01 17:25 Order name: Basic Metabolic Panel EDUT 04/01 17:25 Order name: CBC with Automated Diff EDMS 04/01 17:25 Order name: CBC with Automated Diff EDMS 04/01 17:25 Order name: CBC with Automated Diff EDMS 04/01 17:25 Order name: CBC with Automated Diff EDMS 04/01 17:25 Order name: Magnesium EDMS 04/01 17:25 Order name: Magnesium EDMS 04/01 17:25 Order name: Magnesium EDMS 04/01 17:25 Order name: Magnesium EDMS 04/01 17:25 Order name: Urine Culture EDMS 04/01 21:32 Order name: Glucose, Ancillary Testing EDUT 04/02 05:32 Order name: Uric Acid EDMS 04/02 05:32 Order name: Phosphorus EDUT 04/02 06:50 Order name: Urinalysis W/Microscopic EDUT 04/02 06:59 Order name: UR SODIUM EDUT 04/02 06:59 Order name: UR POTASSIUM EDUT 04/02 06:59 Order name: UR CL RANDOM EDUT 04/02 08:18 Order name: Glucose, Ancillary Testing EDUT 04/02 11:37 Order name: Glucose, Ancillary Testing EDUT 04/01 15:53 Order name: CONS Physician Consult EDUT 04/01 14:41 Order name: IV Start; Complete Time: 15:02 rn Administered Medications: No medications were administered Disposition Summary: 04/01/23 15:32 Hospitalization Ordered Notes: Hospitalization Status: Observation rn Provider: Rosy Feliz rn Condition: Stable rn Problem: new rn Symptoms: are unchanged rn Bed/Room Type: Standard rn Location: Telemetry/MedSurg (observation)(04/02/23 13:35) em1 Room Assignment: [facility](04/02/23 13:35) em1 Diagnosis - Acute kidney failure, unspecified rn - Muscle weakness (generalized) rn Forms: - Medication Reconciliation Form rn - SBAR form rn - Leadership Thank You Letter rn Signatures: Dispatcher [employer] EDUT Gwendolyn Parikh bd Phani Glass MD MD rn Martinez, German em1 Fred Lua RN RN 1 Paula, Tanmay tl4 Corrections: (The following items were deleted from the chart) 15:05 15:03 Home Meds: Glimepiride Oral; tl4 tl4 17:07 15:32 Telemetry/MedSurg (observation) rn bd 17:07 15:32 rn bd 04/02 13:35 04/01 17:[address] [facility] ER HOLD bd em1 04/02 13:35 04/01 17:07 ERHOLD- bd em1
--- NOTE | 2023-04-01 15:58 | P.HP ---
Certification for Inpatient Patient admitted to: Inpatient With expected LOS: <2 Midnights Patient will require the following post-hospital care: None Practitioner: I am a practitioner with admitting privileges, knowledge of patient current condition, hospital course, and medical plan of care. Services: Services provided to patient in accordance with Admission requirements found in Title 42 Section 412.3 of the Code of Federal Regulations Patient History Date of Service: 04/01/23 Reason for admission: Acute kidney History of Present Illness: 82-year-old male with a past medical history of bladder cancer sees Dr. Mi, hypothyroidism, diabetes, [id number], hyperlipidemia, hypertension, hypothyroidism presents to the emergency room with acute renal failure. He denies history of being on hemodialysis. He reports seeing Dr. Portillo for a bladder CA, sees Dr. Mi for oncology. He reports generalized fatigue and malaise, no reported fever, no reported nausea vomiting diarrhea or abdominal pain. Reports having a chronic indwelling catheter, he reports being seen in the emergency room last night for catheter malfunctioning, presents today for acute renal failure, acute kidney injury. CT of the abdomen pelvis was done 03/31/23 IMPRESSION: No acute process. Bosniak II benign renal cyst measuring 3.7 cm. No follow-up imaging is recommended. JACR 2018 Apr; 264-273, Management of the Incidental Renal Mass on CT, [employer] 2020; 814-848, Bosniak Classification of Cystic Renal Masses, Version 2019, Dr. Garima schofield consulted for acute renal failure.. Laboratory evaluation BUN 54 creatinine 3.09, estimated GFR 19 blood glucose 154 transaminitis AST 45,, leukopenia WBCs 2.10, microcytic anemia 9.4 28.0, platelets 124, neutrophils are low 1.3, acute cystitis leukoesterase greater than 500 RBCs 21-50 will start prophylactic antibiotics with history of bladder cancer and leukopenia. Allergies No Known Allergies Allergy (Verified 01/20/23 09:15) Home Medications: Glimepiride [Amaryl] 4 mg PO BID 08/24/13 Levothyroxine [Synthroid*] 100 mcg PO DAILY 08/24/13 Metoprolol Tartrate [Lopressor*] 50 mg PO BID 08/24/13 Pravastatin [Pravachol*] 40 mg PO DAILY 08/24/13 Tamsulosin [Flomax*] 0.4 mg PO DAILY 08/24/13 Chlorthalidone [Hygroton 25mg Tab*] 25 mg PO DAILY 12/23/22 Finasteride [Proscar*] 5 mg PO DAILY 12/23/22 Metformin HCl [Glucophage*] 850 mg PO BIDWM 12/23/22 Codeine/APAP [Tylenol W/Codeine #3 tab] 1 tab PO Q6HP PRN #12 tab 01/20/23 Lisinopril [Zestril] 5 mg PO DAILY 01/20/23 Mirabegron [Myrbetriq] 50 mg PO BID 01/20/23 Pantoprazole [Protonix Tab*] 40 mg PO DAILY 01/20/23 Tramadol HCl [Ultram] 50 mg PO BIDP PRN 01/20/23 - Past Medical/Surgical History Diabetic: Yes -: DM II -: HTN -: Hypothyroidism -: CKD III with Proteinuria (Dr. Paul/ Dr. Taveras) -: Hypothyroidism -: HLD -: Thyroidectomy -: Knee Replacement right -: Back surgery -: Ankle surgery - Social History Alcohol use: No CD- Drugs: No Caffeine use: Yes Review of Systems per HPI Physical Examination - Physical Exam General: Alert, In no apparent distress, Oriented x3, Other (forgetful) HEENT: Atraumatic, Normocephalic Neck: Supple, 2+ carotid pulse no bruit Respiratory: Clear to auscultation bilaterally, Normal air movement Cardiovascular: No edema, Normal pulses, Regular rate/rhythm Capillary refill: <2 Seconds Gastrointestinal: Normal bowel sounds, Soft and benign Integumentary: No rashes, No breakdown Neurological: Normal speech, Normal strength at 5/5 x4 extr, Other (moderate generalized weakness) Urinary: Harkins catheter - Studies Laboratory Data (last 24 hrs) 04/01/23 04/01/23 14:55 14:55 WBC 2.10 L Hgb 9.4 L Hct 28.0 L Plt Count 124 L Sodium 137 Potassium 4.2 BUN 54 H Creatinine 3.09 H Glucose 158 H Total Bilirubin 0.4 AST 45 H ALT 52 Alkaline Phosphatase 85 Assessment and Plan - Plan Assessment plan Acute renal failure He reports generalized fatigue and malaise, no reported fever, no reported nausea vomiting diarrhea or abdominal pain. Nephrology consult IV fluids, I&O, He denies history of being on hemodialysis. Reports having a chronic indwelling catheter, he reports being seen in the emergency room last night for catheter malfunctioning, presents today for acute renal failure, acute kidney injury. CT of the abdomen pelvis was done 03/31/23 IMPRESSION: No acute process. Bosniak II benign renal cyst measuring 3.7 cm. No follow-up imaging is recommended. JACR 2018 Apr; 264-273, Management of the Incidental Renal Mass on CT, [employer] 2020; 814-848, Bosniak Classification of Cystic Renal Masses, Version 2019, Dr. Godfrey consulted for acute renal failure. Laboratory evaluation BUN 54 creatinine 3.09, estimated GFR 19 history of bladder cancer sees Dr. Mi, Neutropenia He reports seeing Dr. Portillo for a bladder CA, sees Dr. Mi for oncology. Trend WBCs, eutrophils are low 1.3,. Acute cystitis Cipro 400 IV twice daily acute cystitis leukoesterase greater than 500 RBCs 21-50 will start prophylactic antibiotics with history of bladder cancer and leukopenia Transaminitis transaminitis AST 45 Microcytic anemia Thrombocytopenia microcytic anemia 9.4 28.0, platelets 124, diabetes, [id number], Sliding scale insulin, resume home long-acting insulin blood glucose 154, hyperlipidemia hypertension hypothyroidism Resume appropriate home meds , l n Discharge Plan: Home Plan to discharge in: 48 Hours - Advance Directives Does patient have a Living Will: No Does patient have a Durable POA for Healthcare: No - Code Status/Comfort Care Code Status: Full Code Critical Care: No Time Spent Managing Pts Care (In Minutes): 55
[2023-04-01 16:45] LABS: Anisocytosis 1+; Blood Morphology Comment NOTED (NOT SEEN); Platelet Estimate DECR; White Blood Cell Scan OK (OK)
[2023-04-01] MEDS: CIPROFLOXACIN 400mg IV 400 MG/200 ML BAG IV SCH (17:00)
[2023-04-01] MEDS ORDERED: D10W 250 ML BAG IV PRN (17:22)
[2023-04-01] MEDS ORDERED: GLUCAGON 1 MG/VIAL IM PRN (17:22)
[2023-04-01] MEDS ORDERED: ONDANSETRON 4 MG/2 ML VIAL IV PRN (17:22)
[2023-04-01] MEDS ORDERED: ACETAMINOPHEN 500 MG TAB PO PRN (17:22)
[2023-04-01] MEDS: HEPARIN 5000 UNIT/ML 1 ML VIAL SQ SCH (17:27)
[2023-04-01] MEDS: INSULIN REGULAR (HUMAN) 100 UNIT/ML SQ SCH ×2 (17:28→21:00)
[2023-04-01] MEDS ORDERED: NA CHLORIDE 0.9% 1,000 ML IV SCH (17:29)
[2023-04-01] MEDS ORDERED: NA CHLORIDE 0.9% 1,000 ML ONE (17:31)
[2023-04-01] MEDS ORDERED: CIPROFLOXACIN 400mg IV 400 MG/200 ML BAG IV ONE (17:31)
[2023-04-01] MEDS ORDERED: HEPARIN 5000 UNIT/ML 1 ML VIAL ONE (18:21)
[2023-04-01] MEDS: Ringers Lactate 1,000 ML IV SCH (21:00)
[2023-04-02] MEDS: HEPARIN 5000 UNIT/ML 1 ML VIAL SQ SCH ×3 (02:00→17:04)
[2023-04-02 03:36] VITALS: BMI 31.7
[2023-04-02 05:18] LABS: MCV 88.3 fL (80-100); RBC Red Blood Cell Count 2.83 M/uL (4.33-5.43)
[2023-04-02 05:19] LABS: Absolute Lymphocytes (CBC) 0.5 K/uL (0.7-4.9); Lymphocytes % 29.9 % (15.3-44.8); MPV 8.4 fL (7.6-11.3); Platelets 103 thou/uL (152-406)
[2023-04-02 05:31] LABS: Phosphorus 3.6 mg/dL (2.5-4.9); Potassium 3.8 mEq/L (3.5-5.1); Uric Acid 10.5 mg/dL (3.5-7.2)
[2023-04-02 06:50] LABS: Specific Gravity 1.016 (1.005-1.030); Urine Bacteria None Seen /HPF (<20); Urine Bilirubin NEGATIVE (Negative); Urine Blood 2+ (Negative); Urine Clarity Turbid (Clear); Urine Color Light-Yellow (Yellow); Urine Glucose NEGATIVE (Negative); Urine Mucus Slight /HPF (None Seen); Urine Protein 1+ (Negative); Urine RBC 21-50 /HPF (None Seen); Urine Urobilinogen Normal (Normal)
[2023-04-02] MEDS: Ringers Lactate 1,000 ML IV SCH ×2 (07:00→17:04)
[2023-04-02] MEDS: INSULIN REGULAR (HUMAN) 100 UNIT/ML SQ SCH ×4 (07:30→20:35)
[2023-04-02] MEDS ORDERED: Ringers Lactate 1,000 ML IV ONE (07:57)
[2023-04-02] MEDS ORDERED: INFLUENZA VACCINE (for 6+ mo) 0.5 ML DOSE IMVAC ONE (08:00)
[2023-04-02] MEDS ORDERED: HEPARIN 5000 UNIT/ML 1 ML VIAL ONE (09:27)
--- NOTE | 2023-04-02 11:11 | P.CNS ---
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 Pt also has [id number] DM, hypertension, some CKD with prior PUNEET episode last Dec. Pt has had several ER visits this mo for kirk catheter leaking or other malfunction, exchanged in the ER the other day. CT scan and renal u/s imaging performed and reviewed. No acute complains currently. Kirk draining well. Allergies No Known Allergies Allergy (Verified 01/20/23 09:15) Home Medications: Glimepiride [Amaryl] 4 mg PO BID 08/24/13 Levothyroxine [Synthroid*] 100 mcg PO DAILY 08/24/13 Metoprolol Tartrate [Lopressor*] 50 mg PO BID 08/24/13 Pravastatin [Pravachol*] 40 mg PO DAILY 08/24/13 Tamsulosin [Flomax*] 0.4 mg PO DAILY 08/24/13 Chlorthalidone [Hygroton 25mg Tab*] 25 mg PO DAILY 12/23/22 Finasteride [Proscar*] 5 mg PO DAILY 12/23/22 Metformin HCl [Glucophage*] 850 mg PO BIDWM 12/23/22 Codeine/APAP [Tylenol W/Codeine #3 tab] 1 tab PO Q6HP PRN #12 tab 01/20/23 Lisinopril [Zestril] 5 mg PO DAILY 01/20/23 Mirabegron [Myrbetriq] 50 mg PO BID 01/20/23 Pantoprazole [Protonix Tab*] 40 mg PO DAILY 01/20/23 Tramadol HCl [Ultram] 50 mg PO BIDP PRN 01/20/23 - Past Medical/Surgical History Diabetic: Yes -: DM II -: HTN -: Hypothyroidism -: CKD III with Proteinuria (Dr. Paul/ Dr. Taveras) -: Hypothyroidism -: HLD -: Thyroidectomy -: Knee Replacement right -: Back surgery -: Ankle surgery - Social History Smoking Status: Former smoker Alcohol use: No CD- Drugs: No Caffeine use: Yes Review of Systems General: Weakness, As per HPI Eyes: Unremarkable ENT: Unremarkable Respiratory: Unremarkable Gastrointestinal: Nausea Genitourinary: As per HPI Musculoskeletal: Other (Weakness) Neurological: Unremarkable Lymphatics: Unremarkable Physical Examination Temp Pulse Resp BP Pulse Ox 98.0 F 72 18 134/74 99 04/02/23 08:00 04/02/23 08:00 04/02/23 08:00 04/02/23 08:00 04/02/23 08:00 General: In no apparent distress, Cooperative HEENT: Atraumatic, Normocephalic, Other (Dry oral mucosa) Neck: Supple Respiratory: Clear to auscultation bilaterally, Normal air movement Cardiovascular: Regular rate/rhythm, Other (No sig edema) Gastrointestinal: Soft and benign, Non-distended, No tenderness Musculoskeletal: No contractures, No tenderness, No warmth Integumentary: Other (Stasis dermatitis ) Neurological: Normal speech, Normal tone Urinary: Kirk catheter Laboratory Data (last 24 hrs) 04/01/23 04/01/23 14:55 14:55 WBC 2.10 L Hgb 9.4 L Hct 28.0 L Plt Count 124 L Sodium 137 Potassium 4.2 BUN 54 H Creatinine 3.09 H Glucose 158 H Total Bilirubin 0.4 AST 45 H ALT 52 Alkaline Phosphatase 85 Conclusions/Impression: Conclusions/Impression: Stage II PUNEET likely 2nd to pre-renal azotemia and/or other functional PUNEET 2nd to relative hypotension with possible OP use of meds such as ACEi and thiazide diuretic. Prior PUNEET episode last fall CKD III unspecified, underlying -No obstructive uropathy on imaging, kirk draining well. Cont IVF hydration, d/c offending meds -D/c Metformin Abnormal findings in urine, unspecified -Chronic in the setting of his bladder CA, indwelling kirk and other. F/u catherized urine culture HTN, essential -Avoid relative hypotension, liberalize BP goals Pancytopenia -Clarify chemo regimen with Cancer center, monitor counts closely, transfuse per typical tresholds. Doug Taveras MD, JESSICA
[2023-04-02] MEDS ORDERED: INSULIN REGULAR (HUMAN) 100 UNIT/ML ONE (11:29)
--- NOTE | 2023-04-02 13:52 | P.PN ---
Subjective Date of Service: 04/02/23 Chief Complaint: Acute kidney Asymptomatic, no reported abdominal pain, chest pain, - Physical Exam General: Alert, In no apparent distress, Oriented x3, Other (forgetful) HEENT: Atraumatic, Normocephalic Neck: Supple, 2+ carotid pulse no bruit Respiratory: Clear to auscultation bilaterally, Normal air movement Cardiovascular: No edema, Normal pulses, Regular rate/rhythm Capillary refill: <2 Seconds Gastrointestinal: Normal bowel sounds, Soft and benign Integumentary: No rashes, No breakdown Neurological: Normal speech, Normal strength at 5/5 x4 extr, Other (moderate generalized weakness) Review of Systems per HPI Physical Examination - Vital Signs Temperature: 98.0 F Blood Pressure: 134/74 Pulse: 72 Respirations: 18 Pulse Ox (%): 99 - Studies Laboratory Data (last 24 hrs) 04/01/23 04/01/23 14:55 14:55 WBC 2.10 L Hgb 9.4 L Hct 28.0 L Plt Count 124 L Sodium 137 Potassium 4.2 BUN 54 H Creatinine 3.09 H Glucose 158 H Total Bilirubin 0.4 AST 45 H ALT 52 Alkaline Phosphatase 85 Assessment And Plan - Plan Assessment plan Acute renal failure Chronic indwelling Harkins catheter History of Harkins catheter malfunction He reports generalized fatigue and malaise, no reported fever, no reported nausea vomiting diarrhea or abdominal pain. Nephrology consult IV fluids, I&O, He denies history of being on hemodialysis. Reports having a chronic indwelling catheter, he reports being seen in the emergency room last night for catheter malfunctioning, presents today for acute renal failure, acute kidney injury. CT of the abdomen pelvis was done 03/31/23 IMPRESSION: No acute process. Bosniak II benign renal cyst measuring 3.7 cm. No follow-up imaging is recommended. JACR 2018 Apr; 264-273, Management of the Incidental Renal Mass on CT, [employer] 2020; 814-848, Bosniak Classification of Cystic Renal Masses, Version 2019, Dr. Godfrey consulted for acute renal failure. Laboratory evaluation BUN 54 creatinine 3.09, estimated GFR 19 history of bladder cancer sees Dr. 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 Portillo for a bladder CA, sees Dr. Mi for oncology. Trend WBCs, 2.10, 1.80 Acute cystitis Cipro 400 IV twice daily acute cystitis leukoesterase greater than 500 RBCs 21-50 will start prophylactic antibiotics with history of bladder cancer and leukopenia Transaminitis transaminitis AST 45 Microcytic anemia Thrombocytopenia microcytic anemia 9.4 28.0, platelets 124, diabetes, [id number], Sliding scale insulin, resume home long-acting insulin blood glucose 154, hyperlipidemia hypertension hypothyroidism Resume appropriate home meds , l n Discharge Plan: Home - Code Status/Comfort Care Code Status: Full Code Critical Care: No Time Spent Managing PTS Care (In Minutes): 35
[2023-04-02 16:01] VITALS: O2SAT 98
[2023-04-02] MEDS: CIPROFLOXACIN 400mg IV 400 MG/200 ML BAG IV SCH (17:04)
[2023-04-02 18:35] LABS: UR PROTEIN 17.1 mg/dL (<11.9); Urine Protein/Creatinine Ratio 0.39 ratio (<0.15)
[2023-04-02 19:04] LABS: UR MICROALBUMIN 4.2 mg/dL (< 1.9)
[2023-04-03] MEDS: HEPARIN 5000 UNIT/ML 1 ML VIAL SQ SCH ×3 (00:51→17:57)
[2023-04-03] MEDS: Ringers Lactate 1,000 ML IV SCH (03:00)
[2023-04-03 06:13] LABS: Absolute Lymphocytes (CBC) 0.6 K/uL (0.7-4.9); Hematocrit 27.1 % (39.6-49.0); Lymphocytes % 26.1 % (15.3-44.8); MCV 89.4 fL (80-100); Platelets 107 thou/uL (152-406); RBC Red Blood Cell Count 3.03 M/uL (4.33-5.43)
[2023-04-03 06:30] LABS: Magnesium 1.9 mg/dL (1.6-2.4)
--- NOTE | 2023-04-03 07:29 | P.PN ---
Subjective Date of Service: 04/03/23 Chief Complaint: Acute kidney Generalized weakness, bilateral lower extremity pain with ambulation, as needed pain medications help with pain pending rehab placement - Physical Exam General: Alert, In no apparent distress, Oriented x3, Other (forgetful) HEENT: Atraumatic, Normocephalic Neck: Supple, 2+ carotid pulse no bruit Respiratory: Clear to auscultation bilaterally, Normal air movement Cardiovascular: No edema, Normal pulses, Regular rate/rhythm Capillary refill: <2 Seconds Gastrointestinal: Normal bowel sounds, Soft and benign , chronic indwelling Harkins catheter Integumentary: No rashes, No breakdown Neurological: Normal speech, Normal strength at 5/5 x4 extr, Other (moderate generalized weakness) Review of Systems per HPI Physical Examination - Vital Signs Temperature: 97.2 F Blood Pressure: 119/66 Pulse: 73 Respirations: 20 Pulse Ox (%): 94 Assessment And Plan - Plan Assessment plan Acute renal failure improving with IV fluids Chronic indwelling Harkins catheter History of Harkins catheter malfunction He reports generalized fatigue and malaise, no reported fever, no reported nausea vomiting diarrhea or abdominal pain. Nephrology consult IV fluids, I&O, He denies history of being on hemodialysis. Reports having a chronic indwelling catheter, he reports being seen in the emergency room last night for catheter malfunctioning, presents today for acute renal failure, acute kidney injury. CT of the abdomen pelvis was done 03/31/23 IMPRESSION: No acute process. Bosniak II benign renal cyst measuring 3.7 cm. No follow-up imaging is recommended. JACR 2018 Apr; 264-273, Management of the Incidental Renal Mass on CT, [employer] 2020; 814-848, Bosniak Classification of Cystic Renal Masses, Version 2019, Dr. Godfrey consulted for acute renal failure. Laboratory evaluation BUN 54 creatinine 3.09, estimated GFR 19->50/2.29-> 31/1.86 history of bladder cancer sees Dr. 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 Portillo for a bladder CA, sees Dr. Mi for oncology. Trend WBCs, 2.10, 1.80, wbc 2.40 Acute cystitis Cipro 400 IV twice daily acute cystitis leukoesterase greater than 500 RBCs 21-50 will start prophylactic antibiotics with history of bladder cancer and leukopenia Transaminitis transaminitis AST 45 Microcytic anemia Thrombocytopenia microcytic anemia 9.4 28.0, platelets 124, diabetes, [id number], Sliding scale insulin, resume home long-acting insulin blood glucose 154, hyperlipidemia hypertension hypothyroidism Resume appropriate home meds , l n Discharge Plan: Other - Code Status/Comfort Care Code Status: Full Code Critical Care: No (Rehab) Time Spent Managing PTS Care (In Minutes): 35
[2023-04-03] MEDS: INSULIN REGULAR (HUMAN) 100 UNIT/ML SQ SCH ×4 (07:30→21:00)
--- NOTE | 2023-04-03 11:35 | P.PN ---
(S) Reports feeling better, renal function tests improving on IVF hydration. He denies any N/V/D, kirk draining clear yellow urine (O) Vitals reviewed in the EMR General: In no apparent distress, Cooperative HEENT: Atraumatic, Normocephalic, Other (Dry oral mucosa) Neck: Supple Respiratory: Clear to auscultation bilaterally, Normal air movement Cardiovascular: Regular rate/rhythm, Other (No sig edema) Gastrointestinal: Soft and benign, Non-distended, No tenderness Musculoskeletal: No contractures, No tenderness, No warmth Integumentary: Other (Stasis dermatitis ) Neurological: Normal speech, Normal tone Urinary: Kirk catheter present Conclusions/Impression: Stage II PUNEET likely 2nd to pre-renal azotemia and/or other functional PUNEET 2nd to relative hypotension with possible OP use of meds such as ACEi and thiazide diuretic. Prior PUNEET episode last fall CKD III unspecified, underlying Acquired cysts of the kidney -No obstructive uropathy on imaging, kirk draining well. Cr level trending down nicely, if pt can maintain adeq PO intake, d/c IVF -D/c Metformin on discharge Abnormal findings in urine, unspecified -Chronic in the setting of his bladder CA, indwelling ikrk and other. F/u catherized urine culture shows no growth, can prob d/c Abx. Maintain kirk per Urology HTN, essential -Avoid relative hypotension, liberalize BP goals. Suspend BP meds such as Lisinopril, Chlorthalidone and Amlodopine on discharge Pancytopenia -Clarify chemo regimen with Cancer center, monitor counts closely, transfuse per typical tresholds. Doug Taveras MD, JESSICA
[2023-04-03] MEDS: CIPROFLOXACIN 400mg IV 400 MG/200 ML BAG IV SCH (17:59)
[2023-04-04] MEDS: HEPARIN 5000 UNIT/ML 1 ML VIAL SQ SCH ×2 (00:43→08:10)
[2023-04-04 03:06] LABS: Absolute Lymphocytes (CBC) 0.7 K/uL (0.7-4.9); Hematocrit 28.8 % (39.6-49.0); Lymphocytes % 30.3 % (15.3-44.8); MCV 88.9 fL (80-100); MPV 8.2 fL (7.6-11.3); Platelets 107 thou/uL (152-406); RBC Red Blood Cell Count 3.24 M/uL (4.33-5.43)
[2023-04-04 03:30] LABS: Albumin 3.2 g/dL (3.4-5.0); Bilirubin Total 0.2 mg/dL (0.2-1.0); Magnesium 1.8 mg/dL (1.6-2.4); Potassium 4.1 mEq/L (3.5-5.1); Protein, Total 6.5 g/dL (6.4-8.2)
[2023-04-04] MEDS: INSULIN REGULAR (HUMAN) 100 UNIT/ML SQ SCH ×2 (07:30→11:54)
--- NOTE | 2023-04-04 09:07 | P.PN ---
Subjective Date of Service: 04/04/23 Chief Complaint: Acute kidney Generalized weakness, no reported fever, edema - Physical Exam General: Alert, In no apparent distress, Oriented x3, Other (forgetful) HEENT: Atraumatic, Normocephalic Neck: Supple, 2+ carotid pulse no bruit Respiratory: Clear to auscultation bilaterally, Normal air movement Cardiovascular: No edema, Normal pulses, Regular rate/rhythm Capillary refill: <2 Seconds Gastrointestinal: Normal bowel sounds, Soft and benign , chronic indwelling Harkins catheter Integumentary: No rashes, No breakdown Neurological: Normal speech, Normal strength at 5/5 x4 extr, Other (moderate generalized weakness) Review of Systems per HPI Physical Examination - Vital Signs Temperature: 97.9 F Blood Pressure: 118/66 Pulse: 71 Respirations: 16 Pulse Ox (%): 96 Assessment And Plan - Plan Assessment plan Acute renal failure improving with IV fluids Chronic indwelling Harkins catheter History of Harkins catheter malfunction He reports generalized fatigue and malaise, no reported fever, no reported nausea vomiting diarrhea or abdominal pain. Nephrology consult IV fluids, I&O, He denies history of being on hemodialysis. Reports having a chronic indwelling catheter, he reports being seen in the emergency room last night for catheter malfunctioning, presents today for acute renal failure, acute kidney injury. CT of the abdomen pelvis was done 03/31/23 IMPRESSION: No acute process. Bosniak II benign renal cyst measuring 3.7 cm. No follow-up imaging is recommended. JACR 2018 Apr; 264-273, Management of the Incidental Renal Mass on CT, [employer] 2020; 814-848, Bosniak Classification of Cystic Renal Masses, Version 2019, Dr. Godfrey consulted for acute renal failure. Laboratory evaluation BUN 54 creatinine 3.09, estimated GFR 19->50/2.29-> 31/1.86->31/1.90 eGFR 35 history of bladder cancer sees Dr. 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 Portillo for a bladder CA, sees Dr. Mi for oncology. Trend WBCs, 2.10, 1.80, wbc 2.40, 2.40 Acute cystitis Chronic indwelling Harkins catheter Cipro 400 IV twice daily x 3 days, stopped acute cystitis leukoesterase greater than 500 RBCs 21-50 will start prophylactic antibiotics with history of bladder cancer and leukopenia Transaminitis transaminitis AST/ALT45/52, AST 71/70 Microcytic anemia Thrombocytopenia microcytic anemia 9.4 28.0, platelets 124, 9.8/28.8 diabetes, [id number], Sliding scale insulin, resume home long-acting insulin blood glucose 154, hyperlipidemia hypertension hypothyroidism Resume appropriate home meds Disposition correction facility with Discharge Plan: Intermediate - Code Status/Comfort Care Code Status: Full Code Critical Care: No Time Spent Managing PTS Care (In Minutes): 35
[2023-04-04 12:56] VITALS: BP 150/85; TEMP 97.8
--- NOTE | 2023-04-04 14:39 | PN ---
Date of Progress Note: 04/04/2023 Subjective: The patient was seen and examined at bedside. He is doing very, very well. Denies any other issues. Lungs are clear to auscultation. Physical Examination: Vital Signs: Reviewed. General: He appears in no acute distress. Extremities: No evidence of edema. Laboratory Data: At this time showing creatinine improving to 1.9, BUN of 31, and electrolytes are s table. CBC showing stable hemoglobin, hematocrit, and platelet count of 107 with some pancytopenia w ith WBC count of 3.4. Current Medications: Reviewed in detail. Impression: 1.Acute on chronic renal insufficiency, likely secondary to dehydration leading to acute tubular nec rosis. Currently with improving renal function. 2.Urinary tract infection. The patient was treated with antibiotics and his urine culture is stable . He is being discharged with indwelling Harkins catheter with plan to follow up with Dr. Portillo upon discharge. 3.History of bladder cancer, being followed by Dr. Mi and Dr. Portillo. 4.History of transaminitis, currently improving. 5.Pancytopenia, currently not on any medications that can do this. Continue to follow up closely. Plan: Overall the patient is doing okay. Metformin is being discontinued. Chlorthalidone is also b eing stopped and switched to Lasix every other day. We will continue to follow up closely. CORIE/CACHORRO Voice ID: [id number] Report ID: [id number]
--- NOTE | 2023-04-04 16:00 | P.DS ---
Admission Date: 04/01/23 Discharge Date: 04/04/23 Disposition: ROUTINE DISCHARGE Discharge Condition: GOOD Reason for Admission: Acute kidney Brief History of Present Illness: 82-year-old male with a past medical history of bladder cancer sees Dr. Mi, hypothyroidism, diabetes, [id number], hyperlipidemia, hypertension, hypothyroidism presents to the emergency room with acute renal failure. He denies history of being on hemodialysis. He reports seeing Dr. Portillo for a bladder CA, sees Dr. Mi for oncology. He reports generalized fatigue and malaise, no reported fever, no reported nausea vomiting diarrhea or abdominal pain. Reports having a chronic indwelling catheter, he reports being seen in the emergency room last night for catheter malfunctioning, presents today for acute renal failure, acute kidney injury. CT of the abdomen pelvis was done 03/31/23 IMPRESSION: No acute process. Bosniak II benign renal cyst measuring 3.7 cm. No follow-up imaging is recommended. JACR 2018 Apr; 264-273, Management of the Incidental Renal Mass on CT, [employer] 2020; 814-848, Bosniak Classification of Cystic Renal Masses, Version 2019, Dr. Garima schofield consulted for acute renal failure.. Laboratory evaluation BUN 54 creatinine 3.09, estimated GFR 19 blood glucose 154 transaminitis AST 45,, leukopenia WBCs 2.10, microcytic anemia 9.4 28.0, platelets 124, neutrophils are low 1.3, acute cystitis leukoesterase greater than 500 RBCs 21-50 will start prophylactic antibiotics with history of bladder cancer and leukopenia. - Physical Exam General: Alert, In no apparent distress, Oriented x3, Other (forgetful) HEENT: Atraumatic, Normocephalic Neck: Supple, 2+ carotid pulse no bruit Respiratory: Clear to auscultation bilaterally, Normal air movement Cardiovascular: No edema, Normal pulses, Regular rate/rhythm Capillary refill: <2 Seconds Gastrointestinal: Normal bowel sounds, Soft and benign Integumentary: No rashes, No breakdown Neurological: Normal speech, Normal strength at 5/5 x4 extr, Other (moderate generalized weakness) Urinary: Harkins catheter Hospital Course: 82 year-old male patient presented with acute kidney injury. Was noted to have worsening kidney function, urinary tract infection. Was treated with IV antibiotics, IV fluid. Condition improved with IV antibiotics, IV fluids, seen by nephrology. Stable for discharge with follow-up appointment with nephrology primary care physician. PROBLEM: Acute kidney infection, Acute cystitis Patient was seen by physical therapy ambulating independently, Tolerating diet, afebrile, Continue home medicines as previously prescribed GOAL: Clear understanding of disease process INSTRUCTIONS: Physician Discharge Instructions: -DC IV and DC home -Follow-up with PCP in 1 to 2 weeks -Please call Dr. Feliz at [phone] if any questions regarding hospital stay -Please call nursing station at [phone] if any nursing or medication questions -Return to the emergency room if symptoms worsen Diet: ADA, low sodium Activity: Fall precautions DME: Date Ordered: Name of Company: [employer] Services Needed: None Date or Referral: IMMUNIZATION Influenza Vaccine Indicated: Influenza Vaccine Given: Date Given: Pneumonia Vaccine Indicated: Pneumonia Vaccine Given: Date Given: Vital Signs/Physical Exam: Temp Pulse Resp BP Pulse Ox 97.8 F 92 H 16 150/85 H 98 04/04/23 12:00 04/04/23 12:00 04/04/23 12:00 04/04/23 12:00 04/04/23 12:00 Laboratory Data at Discharge: WBC 2.40 thou/uL (4.3-10.9) L 04/04/23 02:37 Hgb 9.8 g/dL (13.6-17.9) L D 04/04/23 02:37 Hct 28.8 % (39.6-49.0) L 04/04/23 02:37 Plt Count 107 thou/uL (152-406) L 04/04/23 02:37 Sodium 138 mEq/L (136-145) 04/04/23 02:37 Potassium 4.1 mEq/L (3.5-5.1) 04/04/23 02:37 BUN 31 mg/dL (7-18) H 04/04/23 02:37 Creatinine 1.90 mg/dL (0.70-1.30) H 04/04/23 02:37 Glucose 114 mg/dL (74-106) H 04/04/23 02:37 Uric Acid 10.5 mg/dL (3.5-7.2) H 04/02/23 04:50 Phosphorus 3.6 mg/dL (2.5-4.9) 04/02/23 04:50 Magnesium 1.8 mg/dL (1.6-2.4) 04/04/23 02:37 Total Bilirubin 0.2 mg/dL (0.2-1.0) 04/04/23 02:37 AST 71 U/L (15-37) H 04/04/23 02:37 ALT 70 U/L (16-61) H 04/04/23 02:37 Alkaline Phosphatase 91 U/L (45-117) 04/04/23 02:37 Home Medications: Levothyroxine [Synthroid*] 100 mcg PO DAILY 08/24/13 Metoprolol Tartrate [Lopressor*] 50 mg PO BID 08/24/13 Pravastatin [Pravachol*] 40 mg PO DAILY 08/24/13 Tamsulosin [Flomax*] 0.4 mg PO DAILY 08/24/13 Finasteride [Proscar*] 5 mg PO DAILY 12/23/22 Codeine/APAP [Tylenol #3*] 1 tab PO Q6HP PRN #12 tab 01/20/23 Mirabegron [Myrbetriq] 50 mg PO BID 01/20/23 Pantoprazole [Protonix Tab*] 40 mg PO DAILY 01/20/23 Tramadol HCl [Ultram] 50 mg PO BIDP PRN 01/20/23 Amlodipine [Norvasc*] 10 mg PO DAILY 04/02/23 Furosemide [Lasix] 20 mg PO M,W,F #20 tab 04/04/23 Glimepiride [Amaryl] 2 mg PO DAILY #30 tab 04/04/23 Potassium Cl [Klor-Con 8] 8 meq PO M,W,F #20 tab 04/04/23 New Medications: Glimepiride [Amaryl] 2 mg PO DAILY #30 tab Potassium Cl [Klor-Con 8] 8 meq PO M,W,F #20 tab Furosemide [Lasix] 20 mg PO M,W,F #20 tab Physician Discharge Instructions: -DC IV and DC home -Follow-up with PCP in 1 to 2 weeks -Follow-up with Nephrology in 1-2 weeks -Follow-up with Urology in 1-2 weeks for bladder retention -Please call Dr. Feliz at [phone] if any questions regarding hospital stay -Please call nursing station at [phone] if any nursing or medication questions -Return to the emergency room if symptoms worsen Diet: AHA Activity: Fall precautions Followup: Richar Paul DO [Primary Care Provider] - Time spent managing pt's care (in minutes): 55
== END 2023-04-04 15:00 | disposition home or self-care (01) | DRG 683 ==
LOC: ER 14:23 → ERHOLD 15:49 → 2ND 04-02 14:07
PROVIDERS: ADMIT Hospitalist; ATTEND Hospitalist
DX: N17.0 Acute kidney failure with tubular necrosis (principal); D61.818 Other pancytopenia; N30.00 Acute cystitis without hematuria; E03.9 Hypothyroidism, unspecified; E78.5 Hyperlipidemia, unspecified; I12.9 Hypertensive chronic kidney disease with stage 1 through stage 4 chronic kidney disease, or unspecified chronic kidney disease; N18.30 Chronic kidney disease, stage 3 unspecified; E11.22 Type 2 diabetes mellitus with diabetic chronic kidney disease; D63.1 Anemia in chronic kidney disease; D50.9 Iron deficiency anemia, unspecified; E86.0 Dehydration; N28.1 Cyst of kidney, acquired; C67.9 Malignant neoplasm of bladder, unspecified; R74.01 Elevation of levels of liver transaminase levels; Z85.51 Personal history of malignant neoplasm of bladder; Z79.84 Long term (current) use of oral hypoglycemic drugs; Z96.651 Presence of right artificial knee joint; Z79.890 Hormone replacement therapy; Z79.899 Other long term (current) drug therapy
CPT/HCPCS: 36415; 51702; 71250; 74176; 76770; 77336; 77386; 80048; 80053; 80076; 81001; 82043; 82435; 82570; 82947; 83735; 84100; 84132; 84156; 84300; 84550; 85025; 87086; 87088; 97116; 97161; 97530; 99215; 99282; 99284; J0744; J1644; J1815; J7030; J7120

== ENCOUNTER → 2023-05-23 | Emergency (ER) | payer OTHER ==
[~2023-05-23] MED LIST changes: -CIPROFLOXACIN 400mg IV 400 MG/200 ML BAG IV ONE; -HEPARIN 5000 UNIT/ML 1 ML VIAL ONE; +HYDROCODONE/APAP 5/325 MG TAB ONE; -NA CHLORIDE 0.9% 0 ML ONE; +ONDANSETRON 4 MG (ODT) TAB ONE; -Ringers Lactate 1,000 ML IV ONE; +TDAP (DIPHTH,PERTUSS(ACELL),TET VAC) 0.5 ML VIAL IMVAC ONE
--- NOTE | 2023-05-23 08:52 | RAD REPORT ---
EXAM DESCRIPTION: CT - Head Brain Wo Cont - 05/23/2023 8:03 am CLINICAL HISTORY: PAIN Headache, drowsiness COMPARISON: No comparisons TECHNIQUE: All CT scans are performed using dose optimization technique as appropriate and may inclu de automated exposure control or mA/KV adjustment according to patient size. FINDINGS: No intracranial hemorrhage, hydrocephalus or extra-axial fluid collection.Advanced general ized brain atrophy is present with mild periventricular and deep white matter chronic microvascular i schemic changes.No areas of brain edema or evidence of midline shift. The paranasal sinuses and mastoids are clear. The calvarium is intact. IMPRESSION: No acute intracranial abnormality.
--- NOTE | 2023-05-23 08:53 | RAD REPORT ---
EXAM DESCRIPTION: RAD - Foot Left 3 View - 05/23/2023 8:40 am CLINICAL HISTORY: PAIN COMPARISON: No comparisons FINDINGS: Moderate soft tissue swelling is seen affecting the great toe. An acute fracture is not se en. Soft tissue/ nail bed injury is suspected distal great toe. Moderate calcaneal spurs, larger post eriorly.
--- NOTE | 2023-05-23 10:40 | EDPHYS ---
Physician Documentation [facility] Name: Abdoul Samuels Age: 82 yrs Sex: Male : 1940 Arrival Date: 05/23/2023 Time: 06:55 Bed 5 Private MD: ED Physician Jodie Tee HPI: 05/22 17:43 This 82 yrs old Male presents to ER via EMS with complaints of Fall Injury. cp3 08:20 The patient is a 82-year-old male who presents to the ED secondary to fall. The patient cp3 endorses that he was staying in a motel and was in the bathroom and hit his toe on the tub and fell into the shower and hit his head. Patient denies LOC. Patient endorses pain to the left foot and great toe as the nail has become loose from the nailbed. Patient denies syncope, lightheadedness, dizziness, chest pain, shortness of breath. Historical: - Allergies: 07:01 NKDA; jb4 - PMHx: 07:01 Bladder cancer (Hypothyroidism); Hypothyroidism; Hypertension; Hyperlipidemia; Diabetes jb4 - NIDDM; Arthritis; - PSHx: 07:01 back; neck; Right knee replacement; jb4 - Immunization history:: Adult Immunizations up to date. - Social history:: Smoking status: Patient denies any tobacco usage or history of. ROS: 08:20 Constitutional: Negative for fever, chills, and weight loss, Eyes: Negative for injury, cp3 pain, redness, and discharge, ENT: Negative for injury, pain, and discharge, Neck: Negative for injury, pain, and swelling, Cardiovascular: Negative for chest pain, palpitations, and edema, Respiratory: Negative for shortness of breath, cough, wheezing, and pleuritic chest pain, Abdomen/GI: Negative for abdominal pain, nausea, vomiting, diarrhea, and constipation, Back: Negative for injury and pain, MS/Extremity: Negative for injury and deformity, Skin: Negative for injury, rash, and discoloration, Neuro: Negative for headache, weakness, numbness, tingling, and seizure, Psych: Negative for depression, anxiety, suicide ideation, homicidal ideation, and hallucinations, Allergy/Immunology: Negative for hives, rash, and allergies, Endocrine: Negative for neck swelling, polydipsia, polyuria, polyphagia, and marked weight changes, 08:20 MS/extremity: Positive for swelling, tenderness, toe pulled with mild swelling. toe nail with fungus. left great toe nail pulled back from nail bed, no laceration noted, Exam: 08:20 Constitutional: This is a well developed, well nourished patient who is awake, alert, cp3 and in no acute distress. Head/Face: Normocephalic, atraumatic. Eyes: Pupils equal round and reactive to light, extra-ocular motions intact. Lids and lashes normal. Conjunctiva and sclera are non-icteric and not injected. Cornea within normal limits. Periorbital areas with no swelling, redness, or edema. ENT: Nares patent. No nasal discharge, no septal abnormalities noted. Tympanic membranes are normal and external auditory canals are clear. Oropharynx with no redness, swelling, or masses, exudates, or evidence of obstruction, uvula midline. Mucous membranes moist. Neck: Trachea midline, no thyromegaly or masses palpated, and no cervical lymphadenopathy. Supple, full range of motion without nuchal rigidity, or vertebral point tenderness. No Meningismus. Chest/axilla: Normal chest wall appearance and motion. Nontender with no deformity. No lesions are appreciated. Cardiovascular: Regular rate and rhythm with a normal S1 and S2. No gallops, murmurs, or rubs. Normal PMI, no JVD. No pulse deficits. Respiratory: Lungs have equal breath sounds bilaterally, clear to auscultation and percussion. No rales, rhonchi or wheezes noted. No increased work of breathing, no retractions or nasal flaring. Abdomen/GI: Soft, non-tender, with normal bowel sounds. No distension or tympany. No guarding or rebound. No evidence of tenderness throughout. Back: No spinal tenderness. No costovertebral tenderness. Full range of motion. 08:20 Neuro: Awake and alert, GCS 15, oriented to person, place, time, and situation. Cranial nerves II-XII grossly intact. Motor strength 5/5 in all extremities. Sensory grossly intact. Cerebellar exam normal. Normal gait. Psych: Awake, alert, with orientation to person, place and time. Behavior, mood, and affect are within normal limits. 08:20 Musculoskeletal/extremity: left great toe with swelling, left great toenail pulled back from nail matrix no laceration noted. Vital Signs: 06:58 BP 148 / 93; Pulse 90; Resp 17; Temp 98.1(O); Pulse Ox 100% on R/A; mc5 06:59 Weight 97.52 kg; Height 5 ft. 7 in. ; jb4 07:00 Weight 97.52 kg; Height 5 ft. 7 in. ; mc5 08:44 BP 98 / 70; Pulse 94; Resp 20; Temp 97.9(T); Pulse Ox 100% on R/A; mc5 10:48 BP 138 / 78; Pulse 84; Resp 18; Pulse Ox 100% on R/A; mb9 07:00 Body Mass Index 33.67 (97.52 kg, 170.18 cm) mc5 MDM: 07:09 Patient medically screened. cp3 08:20 Differential Diagnosis The differential diagnosis includes fracture of the left great cp3 toe, left toe contusion, intracranial hemorrhage, closed head injury. Data reviewed: vital signs, nurses notes, radiologic studies. Consideration of Admission/Observation Escalation of care including admission/observation considered. I considered the following discharge prescriptions or medication management in the emergency department Medications were administered in the Emergency Department. See MAR. Response to treatment: the patient's symptoms have markedly improved after treatment. ED course: wound care provided. 05/22 07:54 Order name: Foot Left 3 View XRAY; Complete Time: 09:37 cp3 05/22 07:54 Order name: CT Head Brain wo Cont; Complete Time: 09:37 cp3 05/22 09:13 Order name: Chest Single View XRAY aa5 05/22 07:54 Order name: Wound Care; Complete Time: 10:42 cp3 Administered Medications: 08:18 Drug: Ondansetron PO 4 mg PO once Route: PO; aa5 10:07 Follow up: Response: No adverse reaction mb9 08:24 CANCELLED (Physician Discretion): tetanus toxoid,adsorbed0.5 ml IM once; Provide aa5 Vaccine Information Statement (VIS). 08:24 Drug: Boostrix Tdap IM 0.5 ml IM once; as a single dose Route: IM; Site: right deltoid; aa5 10:07 Follow up: Response: No adverse reaction mb9 08:45 Drug: HYDROcodone-acetaminophen PO 5 mg-325 mg 2 tabs PO once Route: PO; aa5 10:07 Follow up: Response: No adverse reaction mb9 Disposition Summary: 05/23/23 10:39 Discharge Ordered Condition: Stable cp3 Diagnosis - closed head injury cp3 - right great toe contusion cp3 - nail avulsion cp3 Followup: cp3 - With: Shemar George MD - When: - Reason: Continuance of care, Re-evaluation by your physician Discharge Instructions: - Discharge Summary Sheet cp3 - Wound Care, Adult cp3 Forms: - Medication Reconciliation Form cp3 - Thank You Letter cp3 - Antibiotic Education cp3 - Prescription Opioid Use cp3 - Patient Portal Instructions cp3 - Leadership Thank You Letter cp3 Signatures: Dispatcher [employer] EDJodie Braden MD MD cp3 Michelle Diaz RN RN aa5 Álvaro Guzmán RN RN jb4 Trinh Thorpe RN mb9 Corrections: (The following items were deleted from the chart) 08:24 07:54 Tetanus Toxoid,Adsorbed IM 0.5 ml IM once; Provide Vaccine Information Statement aa5 (VIS). ordered. cp3 08:24 08:24 Tetanus Toxoid,Adsorbed IM 0.5 ml IM once; Provide Vaccine Information Statement aa5 (VIS). ordered. aa5
--- NOTE | 2023-05-23 10:40 | ER ---
Nurse's Notes [facility] Name: Abdoul Samuels Age: 82 yrs Sex: Male : 1940 Arrival Date: 05/23/2023 Time: 06:55 Bed 5 Private MD: Diagnosis: closed head injury;right great toe contusion;nail avulsion Presentation: 05/22 06:59 Chief complaint: EMS states: Pt was getting off the toilet and fell into the shower. He jb4 is complaining of left ankle pain and left big toe pain, along with right lower back pain. Coronavirus screen: At this time, the client does not indicate any symptoms associated with coronavirus-19. Ebola Screen: No symptoms or risks identified at this time. Initial Sepsis Screen: Does the patient meet any 2 criteria? No. Patient's initial sepsis screen is negative. Does the patient have a suspected source of infection? No. Patient's initial sepsis screen is negative. Risk Assessment: Do you want to hurt yourself or someone else? Patient reports no desire to harm self or others. Onset of symptoms was May 23, 2023. Transition of care: patient was not received from another setting of care. 06:59 Method Of Arrival: EMS: [facility] jb4 06:59 Acuity: SHON 4 jb4 Triage Assessment: 10:04 General: Appears in no apparent distress. Behavior is calm, cooperative. Pain: mb9 Complains of pain in left foot. Neuro: Damon Agitation-Sedation Scale (RASS): 0 - Alert and Calm Level of Consciousness is awake, alert, obeys commands, Oriented to person, place, time, situation, Appropriate for age. Cardiovascular: Patient's skin is warm and dry. Respiratory: Airway is patent Respiratory effort is even, unlabored, Respiratory pattern is regular, symmetrical. Derm: Skin is pink, warm \T\ dry. Musculoskeletal: Range of motion: intact in all extremities. Historical: - Allergies: 07:01 NKDA; jb4 - PMHx: 07:01 Bladder cancer (Hypothyroidism); Hypothyroidism; Hypertension; Hyperlipidemia; Diabetes jb4 - NIDDM; Arthritis; - PSHx: 07:01 back; neck; Right knee replacement; jb4 - Immunization history:: Adult Immunizations up to date. - Social history:: Smoking status: Patient denies any tobacco usage or history of. Screenin:04 [facility] ED Fall Risk Assessment (Adult) History of falling in the last 3 months, mb9 including since admission Yes- single mechanical fall (1 pt) Confusion or Disorientation No (0 pts) Intoxicated or Sedated No (0 pts) Impaired Gait No (0 pts) Mobility Assist Device Used No (0 pt) Altered Elimination No (0 pt) Score/Fall Risk Level 0 - 2 = Low Risk Oriented to surroundings, Maintained a safe environment, Educated pt \T\ family on fall prevention, incl call for assistance when getting out of bed. Abuse screen: Denies threats or abuse. Nutritional screening: No deficits noted. Tuberculosis screening: No symptoms or risk factors identified. Assessment: 07:10 General: Appears comfortable, Behavior is calm, cooperative. Pain: Complains of pain in aa5 left foot, left great toe, and right rib cage Pain currently is 8 out of 10 on a pain scale. Quality of pain is described as sharp, Pain began post fall today Is continuous. Neuro: Level of Consciousness is awake, alert, obeys commands, Oriented to person, place, time, situation. Cardiovascular: Patient's skin is warm and dry. Respiratory: Airway is patent Respiratory effort is even, unlabored, Respiratory pattern is regular, symmetrical. GI: No signs and/or symptoms were reported involving the gastrointestinal system. : No signs and/or symptoms were reported regarding the genitourinary system. EENT: No signs and/or symptoms were reported regarding the EENT system. Derm: Skin is pink, warm \T\ dry. left great toe nail noted to be partially lifted up from toe, no active bleeding noted. Musculoskeletal: Reports pain in left foot. 08:24 Reassessment: Pt was given crackers before hydrocodone administration to prevent GI aa5 upset. . 08:45 Reassessment: Patient is alert, oriented x 3, equal unlabored respirations, skin aa5 warm/dry/pink. 10:48 Reassessment: Discharge pending ride home. mb9 10:59 Reassessment: Patient and/or family updated on plan of care and expected duration. Pain mb9 level reassessed. Patient is alert, oriented x 3, equal unlabored respirations, skin warm/dry/pink. Patient states feeling better. Patient states symptoms have improved. Vital Signs: 06:58 BP 148 / 93; Pulse 90; Resp 17; Temp 98.1(O); Pulse Ox 100% on R/A; mc5 06:59 Weight 97.52 kg; Height 5 ft. 7 in. ; jb4 07:00 Weight 97.52 kg; Height 5 ft. 7 in. ; mc5 08:44 BP 98 / 70; Pulse 94; Resp 20; Temp 97.9(T); Pulse Ox 100% on R/A; mc5 10:48 BP 138 / 78; Pulse 84; Resp 18; Pulse Ox 100% on R/A; mb9 07:00 Body Mass Index 33.67 (97.52 kg, 170.18 cm) 5 ED Course: 06:58 Patient arrived in ED. 5 07:01 Triage completed. jb4 07:01 Arm band placed on right wrist. jb4 07:08 Michelle Diaz, RIGOBERTO is Primary Nurse. aa5 07:09 Jodie Tee MD is Attending Physician. cp3 08:04 CT Head Brain wo Cont In Process Unspecified. EDMS 08:42 Foot Left 3 View XRAY In Process Unspecified. EDMS 09:09 Cleaned of incontinence. changed brief and provided with quick change pad. mc5 09:34 Cleaned of incontinence. changed brief and inserted a quick change pad. 5 10:00 Report given to Trinh Jurado RN. aa5 10:06 Placed in gown. Bed in low position. Call light in reach. Side rails up X 1. mb9 10:06 No provider procedures requiring assistance completed. Patient did not have IV access mb9 during this emergency room visit. 10:26 Chest Single View XRAY In Process Unspecified. EDMS 10:38 Shemar George MD is Referral Physician. cp3 10:59 Wound care: to abrasion, located on left foot was cleaned with Hibiclens, dressed with mb9 4X4s, Kerlix, Patient tolerated well. Administered Medications: 08:18 Drug: Ondansetron PO 4 mg PO once Route: PO; aa5 10:07 Follow up: Response: No adverse reaction mb9 08:24 CANCELLED (Physician Discretion): tetanus toxoid,adsorbed0.5 ml IM once; Provide aa5 Vaccine Information Statement (VIS). 08:24 Drug: Boostrix Tdap IM 0.5 ml IM once; as a single dose Route: IM; Site: right deltoid; aa5 10:07 Follow up: Response: No adverse reaction mb9 08:45 Drug: HYDROcodone-acetaminophen PO 5 mg-325 mg 2 tabs PO once Route: PO; aa5 10:07 Follow up: Response: No adverse reaction mb9 Medication: 10:06 VIS not applicable for this client. mb9 Outcome: 10:39 Discharge ordered by . cp3 10:58 Discharged to home via wheelchair, with family, mb9 10:58 Condition: stable 10:58 Discharge instructions given to patient, family, Instructed on discharge instructions, follow up and referral plans. Demonstrated understanding of instructions, follow-up care, 11:03 Patient left the ED. mb9 Signatures: Dispatcher [employer] Jodie García MD MD cp3 Michelle Diaz, RN RN aa5 Álvaro Guzmán RN RN jb4 Trinh Thorpe RN RN mb9 Melissa Ryan [facility] [place]
--- NOTE | 2023-05-23 11:03 | RAD REPORT ---
EXAM DESCRIPTION: RAD - Chest Single View - 05/23/2023 10:24 am CLINICAL HISTORY: right side rib pain Chest pain. COMPARISON: Chest Single View dated 12/24/2022; Chest Pa And Lat (2 Views) dated 12/23/2022; Chest P a And Lat (2 Views) dated 08/01/2021; Chest Pa And Lat (2 Views) dated 07/06/2020 FINDINGS: Portable technique limits examination quality. The lungs are grossly clear. The heart is normal in size. No displaced fractures. IMPRESSION: No acute intrathoracic process suspected.
[2023-05-23 11:12] VITALS: BP 138/78; TEMP 97.9; O2SAT 100
== END ==
LOC: ER 06:55
DX: S09.90XA Unspecified injury of head, initial encounter (principal); S90.212A Contusion of left great toe with damage to nail, initial encounter
CPT/HCPCS: 70450; 71045; 73630; 96372; 99285; Q0162

== ENCOUNTER 2023-05-26 13:04 | Inpatient (IN) | payer OTHER ==
--- NOTE | 2023-05-26 14:19 | RAD REPORT ---
EXAM DESCRIPTION: CT - Stone Protocol - 05/26/2023 1:52 pm CLINICAL HISTORY: Flank pain. dysuria, hematuria COMPARISON: Abdomen Pelvis Wo Contrast dated 04/01/2023 TECHNIQUE: Axial images were obtained without oral or IV contrast. Lack of contrast limits solid org an and vascular assessment. The [id number] spans the entirety of the system partially obscuring uppermost abdomen and lung bases. Coronal reformatted images were obtained and reviewed. All CT scans are performed using dose optimization technique as appropriate and may include automated exposure control or mA/KV adjustment according to patient size. FINDINGS: Noncalcified 6 mm nodule in the posterior right base. Imaged portions of the liver and spleen show no suspicious findings on non-contrast imaging. The panc reas and adrenal glands are normal. No pathologic lymphadenopathy in the abdomen or pelvis. Moderate bilateral hydronephrosis and hydroureter is present. The urinary bladder has a thickened wal l and is significantly decompressed there is no obstructing calculus evident. There is moderate fat s tranding surrounding the urinary bladder. Bilateral renal cysts, benign in appearance. Moderate fat c ontaining right inguinal hernia. Prostate radiation beads. No bowel obstruction, free air, free fluid or abscess. Normal appendix noted. Moderate multilevel lumbar degenerative changes. IMPRESSION: Moderate bilateral hydronephrosis and hydroureter is present. No obstructing stones are seen. The urinary bladder has a thickened wall and is decompressed with mild surrounding inflammation .
--- NOTE | 2023-05-26 14:20 | RAD REPORT ---
EXAM DESCRIPTION: CT - Head Brain Wo Cont - 05/26/2023 1:53 pm CLINICAL HISTORY: AMS Headache, drowsiness COMPARISON: Head Brain Wo Cont dated 05/23/2023 TECHNIQUE: All CT scans are performed using dose optimization technique as appropriate and may inclu de automated exposure control or mA/KV adjustment according to patient size. FINDINGS: No intracranial hemorrhage, hydrocephalus or extra-axial fluid collection.Mild generalized brain atrophy is present.No areas of brain edema or evidence of midline shift. The paranasal sinuses and mastoids are clear. The calvarium is intact. IMPRESSION: No acute intracranial abnormality.
[2023-05-26 14:30] LABS: Anion Gap 10.2 mEq/L (5.0-15.0); Potassium 5.2 mEq/L (3.5-5.1)
[2023-05-26 14:33] LABS: Absolute Eosinophils 0.1 K/uL (0-0.5); Absolute Lymphocytes (CBC) 0.3 K/uL (0.7-4.9); Absolute Monocytes 0.4 K/uL (0.1-1.3); Basophils % 0.5 % (0-1.3); Eosinophils % 2.2 % (0-4.4); Hematocrit 27.5 % (39.6-49.0); Hemoglobin 9.1 g/dL (13.6-17.9); Lymphocytes % 5.7 % (15.3-44.8); MCH 31.8 pg (27.0-35.0); MCHC 33.1 g/dL (32.0-36.0); MPV 8.2 fL (7.6-11.3); Monocytes % 9.1 % (3.3-12.3); Neutrophils % 82.5 % (41.7-73.7); Nucleated Red Blood Cells % 0.1 % (0-0); Platelets 176 thou/uL (152-406); RBC Red Blood Cell Count 2.86 M/uL (4.33-5.43); Red Cell Distribution Width 21.9 % (12.1-15.2)
[2023-05-26 15:01] LABS: Specific Gravity 1.011 (1.005-1.030); Sqamous Epithelial None Seen /HPF (None Seen); Urine Bacteria None Seen /HPF (<20); Urine Bilirubin NEGATIVE (Negative); Urine Blood 3+ (OVER) (Negative); Urine Clarity Extremely Turbid (Clear); Urine Color Light-Orange (Yellow); Urine Culture Reflex Order NOT NEEDED; Urine Glucose TRACE (Negative); Urine Ketones NEGATIVE (Negative); Urine Microscopic Reflex YN ORDER UMIC; Urine Nitrite NEGATIVE (Negative); Urine Protein 2+ (Negative); Urine RBC <5 /HPF (None Seen); Urine Urobilinogen Normal (Normal); Urine WBC <5 /HPF (<5)
[2023-05-26] MEDS ORDERED: ONDANSETRON 4 MG/2 ML VIAL ONE (17:32)
[2023-05-26] MEDS ORDERED: MORPHINE 4 MG/ML SYR ONE (17:32)
[2023-05-26] MEDS ORDERED: NA CHLORIDE 0.9% 1,000 ML ONE (17:33)
[2023-05-26 18:49] LABS: Anisocytosis 1+; Blood Morphology Comment NOTED (NOT SEEN); Platelet Estimate ADEQ; White Blood Cell Scan OK (OK)
--- NOTE | 2023-05-26 19:37 | RAD REPORT ---
EXAM DESCRIPTION: US - Extrem Venous W Compress Vickey - 05/26/2023 7:31 pm CLINICAL HISTORY: Pain;Swelling Bilateral leg edema and swelling. COMPARISON: Extremity Venous Uni Ltd dated 04/28/2023 TECHNIQUE: Real-time sonographic interrogation of the left and right lower extremity deep venous sys tems was performed. FINDINGS: Normal compressibility, flow augmentation, phasic flow and spontaneous flow is identified in both the left and right lower extremity deep venous systems. IMPRESSION: No sonographic evidence of left or right lower extremity deep venous thrombosis.
[2023-05-26 20:03] LABS: Albumin 2.5 g/dL (3.4-5.0); Albumin/Globulin Ratio 0.7 (1.1-1.8); Bilirubin Direct 0.1 mg/dL (0-0.2); Bilirubin Indirect, Calculated 0.1 mg/dL (0.2-0.8); Bilirubin Total 0.2 mg/dL (0.2-1.0); Globulin 3.6 g/dL (2.3-3.5); Protein, Total 6.1 g/dL (6.4-8.2)
--- NOTE | 2023-05-26 21:12 | EDPHYS ---
Physician Documentation [facility] Name: Abdoul Samuels Age: 82 yrs Sex: Male : 1940 Arrival Date: 05/26/2023 Time: 13:04 Bed 6 Private MD: ED Physician Phani Glass HPI: 05/25 13:32 This 82 yrs old Male presents to ER via Wheelchair with complaints of Altered Mental kb Status, Pain With Urination. 13:32 Patient is 82-year-old male who presents for dysuria that started 1 week ago with kb possible clots. Patient states he came today because he left carriage and to go to the cancer center and got lost on the way ending up in [place]. States he had to call his and she talked him through getting here to be seen. Patient has a history of bladder cancer and is currently getting radiation treatment. States he is not sure how long he has been having radiation treatment but has been for a long time and does not know if he is on any kind of chemo. Patient states he has discussed the dysuria with his oncologist and was told it was due to the radiation treatments.. Historical: - Allergies: 13:31 No Known Allergies; ap3 - PMHx: 13:31 bladder cancer; Diabetes mellitus; Hypertensive disorder; ap3 - Immunization history:: Adult Immunizations unknown. - Social history:: Smoking status: Patient denies any tobacco usage or history of. ROS: 13:31 Constitutional: As per HPI kb Exam: 13:31 Constitutional: This is a well developed, well nourished patient who is awake, alert, kb and in no acute distress. Head/Face: Normocephalic, atraumatic. ENT: Moist Mucous membranes Cardiovascular: Regular rate Respiratory: Respirations even and unlabored. No increased work of breathing. Talking in full sentences Abdomen/GI: Soft, non-tender. No distention Skin: Warm, dry with normal turgor. Normal color. MS/ Extremity: Pulses equal, no cyanosis. Neurovascular intact. Full, normal range of motion. Neuro: Awake and alert, GCS 15, oriented to person, place, time, and situation. Moves all extremities. 21:10 Skin: cellulitis, that is minimal, that is mild, on the left cunningham, kb Vital Signs: 13:30 BP 134 / 63; Pulse 113; Resp 17; Temp 98.1; Pulse Ox 98% ; Weight 96.62 kg; Pain 8/10; ap3 17:53 BP 129 / 62; Pulse 74; Resp 18; Pulse Ox 98% on R/A; ld1 19:30 BP 139 / 70; Pulse 92; Resp 18; Pulse Ox 97% on R/A; rv 20:42 BP 129 / 58; Pulse 87; Resp 17; Pulse Ox 96% on R/A; rv 23:17 BP 124 / 61; Pulse 83; Resp 18; Temp 98; Pulse Ox 96% ; rv 13:30 Pain Scale: Adult ap3 [place] Coma Score: 20:42 Eye Response: spontaneous(4). Motor Response: obeys commands(6). Verbal Response: rv oriented(5). Total: 15. 23:17 Eye Response: spontaneous(4). Motor Response: obeys commands(6). Verbal Response: rv oriented(5). Total: 15. MDM: 13:30 Patient medically screened. kb 13:34 Data reviewed: vital signs, nurses notes. kb 13:34 Differential diagnosis: UTI, side effect of radiation therapy, dysuria. kb 18:30 Management of patient was discussed with the following: Clinical Pharmacy Specialist: Dr Bandar betts consulted about CT findings, recommends kirk placement and follow up outpatient. Historians other than the Patient: Spouse/Significant Other: . ED course: now reporting that pt has had swelling and redness to left lower extremity for some time as well. . 21:09 Consideration of Admission/Observation Patient was admitted/placed on observation. kb Escalation of care including admission/observation considered. Management of patient was discussed with the following: Hospitalist: Dr Vargas accepts pt for admission. Counseling: I had a detailed discussion with the patient and/or guardian regarding the historical points, exam findings, and any diagnostic results supporting the discharge/admit diagnosis, lab results, radiology results, the need for further work-up and treatment in the hospital. 05/25 14:02 Order name: Basic Metabolic Panel 05/25 14:02 Order name: Urinalysis w/ reflexes kb 05/25 15:53 Order name: Basic Metabolic Panel EDMS 05/25 15:53 Order name: CBC with Automated Diff; Complete Time: 18:50 EDSD 05/25 15:54 Order name: Urinalysis w/ reflexes EDMS 05/25 18:27 Order name: Blood Culture Adult (2) kb 05/25 18:27 Order name: Lactate w/ 2H reflex if indic. kb 05/25 18:27 Order name: Protime (+inr) kb 05/25 18:27 Order name: Ptt, Activated kb 05/25 18:27 Order name: LFT's; Complete Time: 20:03 kb 05/25 18:50 Order name: CBC Smear Scan; Complete Time: 18:50 EDMS 05/25 21:31 Order name: CBC with Automated Diff EDMS 05/25 21:31 Order name: CBC with Automated Diff EDMS 05/25 21:31 Order name: CBC with Automated Diff EDMS 05/25 21:31 Order name: Comprehensive Metabolic Panel EDMS 05/25 21:31 Order name: Comprehensive Metabolic Panel EDMS 05/25 21:31 Order name: Comprehensive Metabolic Panel EDMS 05/25 14:02 Order name: CT Stone Protocol kb 05/25 14:02 Order name: CT Head Brain wo Cont kb 05/25 15:54 Order name: CT EDMS 05/25 15:54 Order name: CT EDMS 05/25 19:33 Order name: Extrem Venous W Compress Vickey; Complete Time: 19:42 EDMS 05/25 18:27 Order name: EKG; Complete Time: 18:28 kb 05/25 21:31 Order name: CONS Physician Consult EDSD 05/25 14:02 Order name: IV Start; Complete Time: 17:06 kb 05/25 15:27 Order name: Bladder Scanner: PVR; Complete Time: 17:42 kb 05/25 18:27 Order name: EKG - Nurse/Tech; Complete Time: 20:31 kb 05/25 18:32 Order name: Kirk; Complete Time: 19:54 kb Administered Medications: 17:42 Drug: morphine IVP or IV 2 mg IVP once over 4 mins Route: IVP; Infused Over: 4 mins; ph Site: right antecubital; 20:43 Follow up: Response: No adverse reaction; Marked relief of symptoms rv 17:42 Drug: Ondansetron IVP 4 mg IVP once; over 2 minutes Route: IVP; Site: right antecubital;ph 20:43 Follow up: Response: No adverse reaction; Marked relief of symptoms rv 17:48 Drug: NS 0.9% IV 1000 ml IV at 1000 ml once Route: IV; Rate: 1000 ml; Site: right ld1 antecubital; 20:43 Follow up: IV Status: Completed infusion; IV Intake: 1000ml rv 22:02 Drug: vancoMYCIN IVPB 1 grams IVPB once over 2 hrs Route: IVPB; Infused Over: 2 hrs; rv Site: left forearm; 23:18 Follow up: IV Status: Infusion continued upon admission rv Disposition Summary: 05/26/23 21:11 Hospitalization Ordered Notes: Hospitalization Status: Observation kb Provider: Kahlil Vargas Location: Telemetry/MedSurg (observation) kb Condition: Stable kb Problem: new kb Symptoms: are unchanged kb Bed/Room Type: Standard Room Assignment: [facility](05/26/23 22:28) Diagnosis - Altered mental status, unspecified kb - Cellulitis of left lower limb kb Forms: - Medication Reconciliation Form kb - SBAR form kb - Leadership Thank You Letter kb Addendum: 05/29/2023 07:02 Co-signature as Attending Physician, Phani Glass MD I reviewed the patient's care r n provided by the Advanced Practice Provider and agree with the diagnosis and treatment plan. Signatures: Dispatcher [employer] EDMS Antonia Davies, ELECTRIC SPOT WELDER-C ELECTRIC SPOT WELDER-Ckb Phani Glass MD MD rn Hall, Patricia RN Jennifer Poe ph, RN RN Alida Zuniga RN RN ap3 Remigio Ordonez RN RN Jeri Chi RN RN ld1 Corrections: (The following items were deleted from the chart) 05/25 13:32 13:31 Constitutional: This is a well developed, well nourished patient who is awake, kb alert, and in no acute distress. Head/Face: Normocephalic, atraumatic. ENT: Moist Mucous membranes Cardiovascular: Regular rate Respiratory: Respirations even and unlabored. No increased work of breathing. Talking in full sentences Abdomen/GI: Soft, non-tender. No distention Skin: Warm, dry with normal turgor. Normal color. MS/ Extremity: Pulses equal, no cyanosis. Neurovascular intact. Full, normal range of motion. Neuro: Awake and alert, GCS 15, oriented to person, place, time, and situation. Moves all extremities. Normal gait. kb 13:33 13:31 PMHx: Hypothyroidism; ap3 ap3 13:34 13:32 Patient is 82-year-old male who presents for dysuria that started 1 week ago with kb possible clots. Patient states he came today because he left [place] and to go to the cancer center and got lost on the way ending up in [place]. States he had to call his and she talked him through getting here to be seen. Patient has a history of bladder cancer and is currently getting radiation treatment. States he is not sure how long he has been having radiation treatment but has been for a long time and does not know if he is on any kind of chemo.. kb 16:00 16:00 Head Brain Wo Cont ordered. EDMS EDMS 16:00 16:00 Stone Protocol ordered. EDMS EDMS 18:23 15:54 CBC+H.LAB.BRZ ordered. EDMS EDMS 19:33 18:27 Extremity Venous Uni Ltd+US.RAD.BRZ ordered. EDMS EDMS 22:28 21:11 kb
--- NOTE | 2023-05-26 21:12 | ER ---
Nurse's Notes [facility] Name: Abdoul Samuels Age: 82 yrs Sex: Male : 1940 Arrival Date: 05/26/2023 Time: 13:04 Bed 6 Private MD: Diagnosis: Altered mental status, unspecified;Cellulitis of left lower limb Presentation: 05/25 13:30 Chief complaint: Patient states: he woke up with morning feeling like he was having ap3 some memory loss. patient states he was driving to one location, and ended up at another location. patient also states he has been having painful urination for approx one week. Coronavirus screen: At this time, the client does not indicate any symptoms associated with coronavirus-19. Ebola Screen: No symptoms or risks identified at this time. Initial Sepsis Screen: Does the patient meet any 2 criteria? HR > 90 bpm. Does the patient have a suspected source of infection? No. Patient's initial sepsis screen is negative. Risk Assessment: Do you want to hurt yourself or someone else? Patient reports no desire to harm self or others. Onset of symptoms is unknown. 13:30 Method Of Arrival: Wheelchair ap3 13:30 Acuity: SHON 3 ap3 Triage Assessment: 13:33 General: Appears in no apparent distress. Behavior is calm, cooperative, appropriate ap3 for age. Pain: Complains of pain in groin. Neuro: Level of Consciousness is awake, alert, obeys commands, Oriented to person, place, time, situation, Appropriate for age Speech is normal. Cardiovascular: Patient's skin is warm and dry. Respiratory: Airway is patent Respiratory effort is even, unlabored, Respiratory pattern is regular, symmetrical. : Reports pain with urination, urgency, urinary frequency. Historical: - Allergies: 13:31 No Known Allergies; ap3 - PMHx: 13:31 bladder cancer; Diabetes mellitus; Hypertensive disorder; ap3 - Immunization history:: Adult Immunizations unknown. - Social history:: Smoking status: Patient denies any tobacco usage or history of. Screenin:05 [facility] [place] ED Fall Risk Assessment (Adult) History of falling in the last 3 months, ph including since admission No falls in past 3 months (0 pts) Confusion or Disorientation No (0 pts) Intoxicated or Sedated No (0 pts) Impaired Gait Yes (1 pt) Mobility Assist Device Used Yes (1 pt) Altered Elimination Yes (1 pt) Score/Fall Risk Level 3 or more points = High Risk Oriented to surroundings, Maintained a safe environment, Educated pt \T\ family on fall prevention, incl call for assistance when getting out of bed, Hourly rounding (assess needs \T\ fall precautionary measures) done. Abuse screen: Denies threats or abuse. Denies injuries from another. Nutritional screening: No deficits noted. Tuberculosis screening: No symptoms or risk factors identified. Assessment: 17:25 General: Appears in no apparent distress. comfortable, well groomed, Behavior is calm, ph cooperative, appropriate for age. Pain: Complains of pain in pelvis. Neuro: Level of Consciousness is awake, alert, obeys commands, Oriented to person, place, time, situation. Cardiovascular: Capillary refill < 3 seconds in bilateral fingers Patient's skin is warm and dry. Respiratory: Airway is patent Respiratory effort is even, unlabored. : Reports burning with urination, urinary frequency. Vital Signs: 13:30 BP 134 / 63; Pulse 113; Resp 17; Temp 98.1; Pulse Ox 98% ; Weight 96.62 kg; Pain 8/10; ap3 17:53 BP 129 / 62; Pulse 74; Resp 18; Pulse Ox 98% on R/A; ld1 19:30 BP 139 / 70; Pulse 92; Resp 18; Pulse Ox 97% on R/A; rv 20:42 BP 129 / 58; Pulse 87; Resp 17; Pulse Ox 96% on R/A; rv 23:17 BP 124 / 61; Pulse 83; Resp 18; Temp 98; Pulse Ox 96% ; rv 13:30 Pain Scale: Adult ap3 [place] Coma Score: 20:42 Eye Response: spontaneous(4). Motor Response: obeys commands(6). Verbal Response: rv oriented(5). Total: 15. 23:17 Eye Response: spontaneous(4). Motor Response: obeys commands(6). Verbal Response: rv oriented(5). Total: 15. ED Course: 13:29 Patient arrived in ED. mr 13:30 [facility]C [facility] kb 13:30 Phani Glass MD is Attending Physician. kb 13:31 Triage completed. ap3 13:34 Arm band placed on right wrist. ap3 14:18 Initial lab(s) drawn, by me, sent to lab. Inserted saline lock: 20 gauge in right tm3 antecubital area, using aseptic technique. 15:56 CT In Process Unspecified. EDMS 15:56 CT In Process Unspecified. EDMS 16:15 Aisha Taveras, RN is Primary Nurse. ph 18:06 Patient has correct armband on for positive identification. Bed in low position. Call ph light in reach. Side rails up X 1. 19:33 Extrem Venous W Compress Vickey In Process Unspecified. EDMS 19:54 Harkins cath inserted, using sterile technique, 16 Fr., by me, balloon inflated, to jj7 gravity drainage. 21:11 Kahlil Vargas MD is Hospitalizing Provider. kb 23:17 No provider procedures requiring assistance completed. Patient admitted, IV remains in rv place. Administered Medications: 17:42 Drug: morphine IVP or IV 2 mg IVP once over 4 mins Route: IVP; Infused Over: 4 mins; ph Site: right antecubital; 20:43 Follow up: Response: No adverse reaction; Marked relief of symptoms rv 17:42 Drug: Ondansetron IVP 4 mg IVP once; over 2 minutes Route: IVP; Site: right antecubital;ph 20:43 Follow up: Response: No adverse reaction; Marked relief of symptoms rv 17:48 Drug: NS 0.9% IV 1000 ml IV at 1000 ml once Route: IV; Rate: 1000 ml; Site: right ld1 antecubital; 20:43 Follow up: IV Status: Completed infusion; IV Intake: 1000ml rv 22:02 Drug: vancoMYCIN IVPB 1 grams IVPB once over 2 hrs Route: IVPB; Infused Over: 2 hrs; rv Site: left forearm; 23:18 Follow up: IV Status: Infusion continued upon admission rv Medication: 18:06 VIS not applicable for this client. ph Intake: 20:43 IV: 1000ml; Total: 1000ml. rv Outcome: 21:11 Decision to Hospitalize by Provider. kb 23:17 Admitted to Tele accompanied by saige, via stretcher, room 417, Report called to FAXED rv REPORT TO GEN 23:17 Condition: good 23:17 Instructed on the need for admit, 23:37 Patient left the ED. rv Signatures: Dispatcher [employer] EDAntonia Payne, TABLE WORKER PACKAGER-C TABLE WORKER PACKAGER-Ckb Blaise, Tanmay tm3 Omar, Trinh, Reg Reg mr Aisah Taveras, RN RN Alida Zuniga RN RN ap3 Remigio Ordonez RN RIGOBERTO rv Jeri Chi RN RN ld1 Pedro King, RN RN jj7 Corrections: (The following items were deleted from the chart) 13:33 13:31 PMHx: Hypothyroidism; ap3 ap3
[2023-05-26] MEDS ORDERED: ONDANSETRON 4 MG/2 ML VIAL IV PRN (21:13)
[2023-05-26] MEDS ORDERED: ACETAMINOPHEN 500 MG TAB PO PRN (21:13)
--- NOTE | 2023-05-26 21:39 | P.HP ---
Certification for Inpatient Patient admitted to: Inpatient With expected LOS: >2 Midnights Practitioner: I am a practitioner with admitting privileges, knowledge of patient current condition, hospital course, and medical plan of care. Services: Services provided to patient in accordance with Admission requirements found in Title 42 Section 412.3 of the Code of Federal Regulations Patient History Date of Service: 05/27/23 Reason for admission: Hydronephrosis, hypokalemia, PUNEET on CKD. History of Present Illness: 82-year-old male patient with medical history significant for history of bladder cancer who is being followed by oncology and urology, diabetes type 2, hypertension, hyperlipidemia, history of hypothyroidism and prostate enlargement will came to the ED with complaint of burning micturition and altered mentation. He had issues with navigating his way to a clinic appointment and eventually was brought to the ED because his was concerned about statin issues. In the ED he had imaging studies done that revealed bilateral hydronephrosis and thickening of bladder wall. He also had hyperkalemia with a potassium of 5.2 and elevated creatinine of 2.54. He was started on Harkins catheterization for management of hydronephrosis and he had disposition discussed with urologist who recommended continuing Harkins catheterization and outpatient follow-up. He also noted swelling of the left lower extremity so it was asked to be evaluated for cellulitis management. Allergies No Known Allergies Allergy (Verified 01/20/23 09:15) Home Medications: Levothyroxine [Synthroid*] 100 mcg PO DAILY 08/24/13 Pravastatin [Pravachol*] 40 mg PO DAILY 08/24/13 Tamsulosin [Flomax*] 0.4 mg PO DAILY 08/24/13 Finasteride [Proscar*] 5 mg PO DAILY 12/23/22 Pantoprazole [Protonix Tab*] 40 mg PO DAILY 01/20/23 Amlodipine [Norvasc*] 10 mg PO DAILY 04/02/23 Furosemide [Lasix] 20 mg PO M,W,F #20 tab 04/04/23 Potassium Cl [Klor-Con 8] 8 meq PO M,W,F #20 tab 04/04/23 Glimepiride [Amaryl] 2 mg PO DAILY 05/27/23 Memantine HCl [Namenda] 10 mg PO BEDTIME 05/27/23 - Past Medical/Surgical History Diabetic: Yes -: DM II -: HTN -: Hypothyroidism -: CKD III with Proteinuria (Dr. Paul/ Dr. Taveras) -: Hypothyroidism -: HLD -: Thyroidectomy -: Knee Replacement right -: Back surgery -: Ankle surgery - Social History Alcohol use: No CD- Drugs: No Caffeine use: Yes Review of Systems General: Malaise Eyes: Unremarkable ENT: Unremarkable Respiratory: Unremarkable Cardiovascular: Unremarkable Gastrointestinal: Unremarkable Genitourinary: Unremarkable Musculoskeletal: Unremarkable Integumentary: Lesions Neurological: Unremarkable Physical Examination - Physical Exam General: Alert HEENT: Atraumatic Neck: Supple Respiratory: Normal air movement Cardiovascular: Regular rate/rhythm, Normal S1 S2 Gastrointestinal: Soft and benign Musculoskeletal: No swelling Integumentary: Skin lesion Neurological: Normal speech, Normal strength at 5/5 x4 extr Urinary: Harkins catheter - Studies Laboratory Data (last 24 hrs) 05/26/23 05/26/23 05/26/23 19:30 14:02 14:00 WBC Cancelled Hgb Cancelled Hct Cancelled Plt Count Cancelled Sodium 139 Potassium 5.2 H BUN 57 H Creatinine 2.54 H Glucose 197 H Total Bilirubin 0.2 AST 43 H ALT 33 Alkaline Phosphatase 93 05/26/23 14:00 WBC 4.90 Hgb 9.1 L Hct 27.5 L Plt Count 176 Sodium Potassium BUN Creatinine Glucose Total Bilirubin AST ALT Alkaline Phosphatase Assessment and Plan - Plan History of bladder cancer with obstruction. Patient does have bilateral hydronephrosis and had Harkins catheter placed and had clear urine draining. Will continue Harkins catheterization as per urology recommendation. He will be continued on tamsulosin and finasteride. Acute kidney injury on chronic kidney disease: Creatinine is elevated 2.5. His baseline creatinine is in the range of 1.8-2.2. Will continue routine care of CKD by avoiding nephrotoxins. Will dose medication for estimated glomerular filtration. Hyperkalemia: Mild at 5.2. Will continue to management by relieving obstruction and following potassium level on daily labs. Cellulitis: Patient does have hyperemia of the left lower extremity concerning for cellulitis. Continue empiric antibiotic therapy of doxycycline due to his poor kidney function pending further review. Diabetes type 2: We will monitor blood sugar ACHS, continue sliding scale insulin for glucose control and continue oral antidiabetic medications. Hypertension: We will monitor vital signs per unit protocol and continue outpatient antihypertensive medication. Prophylaxis: Lovenox for DVT prophylaxis. CODE STATUS: Full code. Disposition: We will treat his multiple medical issues and he will be discharged home once deemed clinically stable. - Advance Directives Does patient have a Living Will: No Does patient have a Durable POA for Healthcare: No
[2023-05-26] MEDS ORDERED: VANCOMYCIN 1 GM/VIAL ONE (21:56)
[2023-05-26] MEDS ORDERED: NA CHLORIDE 0.9% 250 ML ONE (21:57)
[2023-05-27 00:51] VITALS: O2SAT 96
[2023-05-27] MEDS: HEPARIN 5000 UNIT/ML 1 ML VIAL SQ SCH (00:53)
[2023-05-27 03:29] LABS: PT Prothrombin Time 13.2 SECONDS (9.5-12.5); PTT, Activated Partial Thromb 30.7 SECONDS (24.3-36.9); Protime INR 1.21
[2023-05-27 03:32] LABS: Absolute Eosinophils 0.2 K/uL (0-0.5); Absolute Lymphocytes (CBC) 0.4 K/uL (0.7-4.9); Absolute Monocytes 0.5 K/uL (0.1-1.3); Absolute Neutrophil 2.8 K/uL (1.8-8.0); Basophils % 0.5 % (0-1.3); Eosinophils % 4.8 % (0-4.4); Hematocrit 23.5 % (39.6-49.0); Hemoglobin 7.7 g/dL (13.6-17.9); Lymphocytes % 9.4 % (15.3-44.8); MCH 31.4 pg (27.0-35.0); MCHC 32.8 g/dL (32.0-36.0); MCV 95.5 fL (80-100); MPV 8.2 fL (7.6-11.3); Monocytes % 11.8 % (3.3-12.3); Neutrophils % 73.5 % (41.7-73.7); Nucleated Red Blood Cells % 0.1 % (0-0); Platelets 137 thou/uL (152-406); RBC Red Blood Cell Count 2.46 M/uL (4.33-5.43)
[2023-05-27 03:45] LABS: Albumin 2.2 g/dL (3.4-5.0); Albumin/Globulin Ratio 0.7 (1.1-1.8); Anion Gap 9.2 mEq/L (5.0-15.0); Bilirubin Total 0.3 mg/dL (0.2-1.0); Globulin 3.1 g/dL (2.3-3.5); Potassium 4.2 mEq/L (3.5-5.1); Protein, Total 5.3 g/dL (6.4-8.2)
[2023-05-27 04:26] VITALS: BMI 30.5
[2023-05-27] MEDS: MORPHINE 2 MG/ML SYR IV PRN (04:37)
[2023-05-27] MEDS: DOXYCYCLINE 100 MG in NA CHLORIDE 0.9% 100 ML IVPB SCH (10:26)
[2023-05-27] MEDS: FINASTERIDE 5 MG TAB PO SCH (10:30)
[2023-05-27] MEDS: TAMSULOSIN 0.4 MG SR CAP PO SCH (10:30)
[2023-05-27] MEDS: PANTOPRAZOLE 40MG TABLET PO SCH (10:30)
[2023-05-27] MEDS: GLIMEPIRIDE 2 MG TABLET PO SCH (10:30)
--- NOTE | 2023-05-27 10:34 | P.CNS ---
Date of Consult: 05/27/23 Reason for Consult: PUNEET Requesting Physician: mihai lr Chief Complaint: Hydronephrosis, hypokalemia, PUNEET on CKD. History of Present Illness: 82-year-old male patient with medical history significant for history of bladder cancer who is being followed by oncology and urology, diabetes type 2, hypertension, hyperlipidemia, history of hypothyroidism and prostate enlargement will came to the ED with complaint of burning micturition and altered mentation. He had issues with navigating his way to a clinic appointment and eventually was brought to the ED because his was concerned about statin issues. In the ED he had imaging studies done that revealed bilateral hydronephrosis and thickening of bladder wall. He also had hyperkalemia with a potassium of 5.2 and elevated creatinine of 2.54. He was started on Harkins catheterization for management of hydronephrosis and he had disposition discussed with urologist who recommended continuing Harkins catheterization and outpatient follow-up. He also noted swelling of the left lower extremity so it was asked to be evaluated for cellulitis management. 13:32 This 82 yrs old Male presents to ER via Wheelchair with complaints of Altered Mental kb Status, Pain With Urination. 13:32 Patient is 82-year-old male who presents for dysuria that started 1 week ago with kb possible clots. Patient states he came today because he left carriage and to go to the cancer center and got lost on the way ending up in [place]. States he had to call his and she talked him through getting here to be seen. Patient has a history of bladder cancer and is currently getting radiation treatment. States he is not sure how long he has been having radiation treatment but has been for a long time and does not know if he is on any kind of chemo. Patient states he has discussed the dysuria with his oncologist and was told it was due to the radiation treatments.. Reports needle like pain in his groin area. Reports episodes of confusion and memory loss. Allergies No Known Allergies Allergy (Verified 01/20/23 09:15) Home medications list reviewed: Yes Home Medications: Levothyroxine [Synthroid*] 100 mcg PO DAILY 08/24/13 Pravastatin [Pravachol*] 40 mg PO DAILY 08/24/13 Tamsulosin [Flomax*] 0.4 mg PO DAILY 08/24/13 Finasteride [Proscar*] 5 mg PO DAILY 12/23/22 Pantoprazole [Protonix Tab*] 40 mg PO DAILY 01/20/23 Amlodipine [Norvasc*] 10 mg PO DAILY 04/02/23 Furosemide [Lasix] 20 mg PO M,W,F #20 tab 04/04/23 Potassium Cl [Klor-Con 8] 8 meq PO M,W,F #20 tab 04/04/23 Glimepiride [Amaryl] 2 mg PO DAILY 05/27/23 Memantine HCl [Namenda] 10 mg PO BEDTIME 05/27/23 - Past Medical/Surgical History Diabetic: Yes -: DM II -: HTN -: Hypothyroidism -: CKD III with Proteinuria (Dr. Paul/ Dr. Taveras) -: Hypothyroidism -: HLD -: Thyroidectomy -: Knee Replacement right -: Back surgery -: Ankle surgery - Social History Smoking Status: Unknown if ever smoked Alcohol use: No CD- Drugs: No Caffeine use: Yes Place of Residence: Home Review of Systems 10-point ROS is otherwise unremarkable General: Weakness, Malaise Genitourinary: Frequency, Retention Physical Examination Temp Pulse Resp BP Pulse Ox 97.3 F 82 15 107/56 L 93 05/27/23 08:00 05/27/23 08:00 05/27/23 08:00 05/27/23 08:00 05/27/23 08:00 General: In no apparent distress, Oriented x3, Cooperative HEENT: Atraumatic Neck: Supple Respiratory: Clear to auscultation bilaterally Cardiovascular: No edema Gastrointestinal: Soft and benign, Non-distended Musculoskeletal: No clubbing, No contractures Integumentary: Other (venous stasis) Neurological: Normal speech Laboratory Data (last 24 hrs) 05/26/23 05/26/23 05/26/23 19:30 14:02 14:02 WBC Cancelled Hgb Cancelled Hct Cancelled Plt Count Cancelled Sodium Cancelled Potassium Cancelled BUN Cancelled Creatinine Cancelled Glucose Cancelled Total Bilirubin 0.2 AST 43 H ALT 33 Alkaline Phosphatase 93 05/26/23 05/26/23 14:00 14:00 WBC 4.90 Hgb 9.1 L Hct 27.5 L Plt Count 176 Sodium 139 Potassium 5.2 H BUN 57 H Creatinine 2.54 H Glucose 197 H Total Bilirubin AST ALT Alkaline Phosphatase Imagings Data: EXAM DESCRIPTION: US - Extrem Venous W Compress Vickey - 05/26/2023 7:31 pm CLINICAL HISTORY: Pain;Swelling Bilateral leg edema and swelling. COMPARISON: Extremity Venous Uni Ltd dated 04/28/2023 TECHNIQUE: Real-time sonographic interrogation of the left and right lower extremity deep venous systems was performed. FINDINGS: Normal compressibility, flow augmentation, phasic flow and spontaneous flow is identified in both the left and right lower extremity deep venous systems. IMPRESSION: No sonographic evidence of left or right lower extremity deep venous thrombosis. EXAM DESCRIPTION: CT - Stone Protocol - 05/26/2023 1:52 pm CLINICAL HISTORY: Flank pain. dysuria, hematuria COMPARISON: Abdomen Pelvis Wo Contrast dated 04/01/2023 TECHNIQUE: Axial images were obtained without oral or IV contrast. Lack of contrast limits solid organ and vascular assessment. The [id number] spans the entirety of the system partially obscuring uppermost abdomen and lung bases. Coronal reformatted images were obtained and reviewed. All CT scans are performed using dose optimization technique as appropriate and may include automated exposure control or mA/KV adjustment according to patient size. FINDINGS: Noncalcified 6 mm nodule in the posterior right base. Imaged portions of the liver and spleen show no suspicious findings on non- contrast imaging. The pancreas and adrenal glands are normal. No pathologic lymphadenopathy in the abdomen or pelvis. Moderate bilateral hydronephrosis and hydroureter is present. The urinary bladder has a thickened wall and is significantly decompressed there is no obstructing calculus evident. There is moderate fat stranding surrounding the urinary bladder. Bilateral renal cysts, benign in appearance. Moderate fat containing right inguinal hernia. Prostate radiation beads. No bowel obstruction, free air, free fluid or abscess. Normal appendix noted. Moderate multilevel lumbar degenerative changes. IMPRESSION: Moderate bilateral hydronephrosis and hydroureter is present. No obstructing stones are seen. The urinary bladder has a thickened wall and is decompressed with mild surrounding inflammation. EXAM DESCRIPTION: CT - Head Brain Wo Cont - 05/26/2023 1:53 pm CLINICAL HISTORY: AMS Headache, drowsiness COMPARISON: Head Brain Wo Cont dated 05/23/2023 TECHNIQUE: All CT scans are performed using dose optimization technique as appropriate and may include automated exposure control or mA/KV adjustment according to patient size. FINDINGS: No intracranial hemorrhage, hydrocephalus or extra-axial fluid collection.Mild generalized brain atrophy is present.No areas of brain edema or evidence of midline shift. The paranasal sinuses and mastoids are clear. The calvarium is intact. IMPRESSION: No acute intracranial abnormality Conclusions/Impression: Stage I PUNEET in the setting of urinary retention with BL hydroureter and hydronephrosis CKD IIIb with Proteinuria -No NSAIDs -Continue Harkins Hyperkalemia, resolved HTN with CKD -Continue Amlodipine Hypoalbuminemia -Encourage nutrition as tolerated Anemia in chronic illness Pancytopenia -Monitor CBC BPH with LUTS Urinary Retention -Continue Harkins -Continue tamsulosin and finasteride -Urology following the patient Case reviewed with Dr. Lr Thank you kindly for the consultation
[2023-05-27] MEDS: LEVOTHYROXINE SOD 0.1 MG TAB PO SCH (10:51)
[2023-05-27 13:06] LABS: Hematocrit 28.8 % (39.6-49.0); Hemoglobin 9.6 g/dL (13.6-17.9)
--- NOTE | 2023-05-27 16:54 | P.PN ---
Subjective Date of Service: 05/27/23 Chief Complaint: Hydronephrosis, hypokalemia, PUNEET on CKD. Patient reports improvement in suprapubic pain. Harkins catheter is in place with clear urine. Physical Examination - Vital Signs Temperature: 98.2 F Blood Pressure: 145/68 Pulse: 90 Respirations: 17 Pulse Ox (%): 95 - Studies Laboratory Data (last 24 hrs) 05/26/23 05/26/23 05/26/23 19:30 14:02 14:02 WBC Cancelled Hgb Cancelled Hct Cancelled Plt Count Cancelled Sodium Cancelled Potassium Cancelled BUN Cancelled Creatinine Cancelled Glucose Cancelled Total Bilirubin 0.2 AST 43 H ALT 33 Alkaline Phosphatase 93 05/26/23 14:00 WBC 4.90 Hgb 9.1 L Hct 27.5 L Plt Count 176 Sodium Potassium BUN Creatinine Glucose Total Bilirubin AST ALT Alkaline Phosphatase Assessment And Plan - Plan Physical Examination General: Not in acute distress. Neck: Supple, no elevated JVD. Lungs: Clear to auscultation bilaterally. No rhonchi, no rales, no crackles. Heart: S1-S2 heard, rapid, no murmur no gallop no rub. Normal capillary refill. Abdomen: Soft, nontender, nondistended, no hepatosplenomegaly. Extremities: No pedal edema. No deformity. Neuro: No cranial nerve deficit, no focal motor deficit. Psychiatry: Awake, normal behavior, normal affect. Genitourinary: Harkins catheter Skin: Warm and dry, no rashes. Assessment and plan History of bladder cancer with obstruction. Bilateral hydronephrosis Will continue Harkins catheterization as per urology recommendation. Continue tamsulosin and finasteride. UA did not reflex to culture. Maintain Harkins catheter. Urology recommend outpatient follow-up. Acute kidney injury on chronic kidney disease Serum creatinine improved with hydration and Harkins catheter placement. Continue IV fluid and monitor renal function. Nephrology input appreciated Hyperkalemia Resolved. Likely related to postobstructive uropathy. Bilateral venous stasis dermatitis I doubt patient has cellulitis. Patient with dark-colored discoloration of bilateral legs which per patient is chronic. Diabetes type 2 Insulin sliding scale for glucose management Hypertension Resume home dose amlodipine DVT Prophylaxis: Heparin SQ.
[2023-05-27] MEDS ORDERED: GLUCAGON 1 MG/VIAL IM PRN (16:59)
[2023-05-27] MEDS ORDERED: D10W 250 ML BAG IV PRN (16:59)
[2023-05-27] MEDS: FUROSEMIDE 20 MG TABLET PO SCH (17:02)
[2023-05-27] MEDS: POLYETHYL GLY 3350 17 GM/DOSE PO SCH (20:20)
[2023-05-27] MEDS: ATORVASTATIN 10 MG TAB PO SCH (20:20)
[2023-05-27] MEDS: INSULIN REGULAR (HUMAN) 100 UNIT/ML SQ SCH (20:20)
[2023-05-27] MEDS: MEMANTINE HCL 10 MG TABLET PO SCH (20:20)
[2023-05-28 06:36] LABS: Albumin 2.5 g/dL (3.4-5.0); Albumin/Globulin Ratio 0.7 (1.1-1.8); Anion Gap 10.8 mEq/L (5.0-15.0); Bilirubin Total 0.4 mg/dL (0.2-1.0); Globulin 3.8 g/dL (2.3-3.5); Potassium 4.8 mEq/L (3.5-5.1); Protein, Total 6.3 g/dL (6.4-8.2)
[2023-05-28 06:51] LABS: Absolute Eosinophils 0.2 K/uL (0-0.5); Absolute Lymphocytes (CBC) 0.4 K/uL (0.7-4.9); Absolute Monocytes 0.5 K/uL (0.1-1.3); Absolute Neutrophil 4.9 K/uL (1.8-8.0); Basophils % 0.4 % (0-1.3); Eosinophils % 3.3 % (0-4.4); Hematocrit 27.6 % (39.6-49.0); Hemoglobin 9.3 g/dL (13.6-17.9); Lymphocytes % 7.3 % (15.3-44.8); MCH 32.3 pg (27.0-35.0); MCHC 33.8 g/dL (32.0-36.0); MCV 95.6 fL (80-100); MPV 8.5 fL (7.6-11.3); Monocytes % 7.8 % (3.3-12.3); Neutrophils % 81.2 % (41.7-73.7); Nucleated Red Blood Cells % 0.1 % (0-0); Platelets 186 thou/uL (152-406); RBC Red Blood Cell Count 2.88 M/uL (4.33-5.43); Red Cell Distribution Width 21.3 % (12.1-15.2)
[2023-05-28] MEDS: SOLIFENACIN SUCCIN 5 MG TAB PO SCH (08:05)
[2023-05-28] MEDS: AMLODIPINE 10 MG TAB PO SCH (08:06)
[2023-05-28] MEDS: GABAPENTIN 100 MG CAP PO SCH (11:00)
--- NOTE | 2023-05-28 11:09 | P.PN ---
Date of Service: 05/28/23 Vital Signs Temp Pulse Resp BP Pulse Ox 97.4 F 88 16 136/65 96 05/28/23 08:00 05/28/23 08:00 05/28/23 08:00 05/28/23 08:00 05/28/23 08:00 Medications Acetaminophen (Acetaminophen 500 Mg Tab) 500 mg PO Q4HP PRN PRN Reason: Pain scale 2-4 (Mild) Amlodipine Besylate (Amlodipine 10 Mg Tab) 10 mg PO DAILY [facility] Last Admin: 05/28/23 08:06 Dose: 10 mg Atorvastatin Calcium (Atorvastatin 10 Mg Tab) 10 mg PO BEDTIME [facility] Last Admin: 05/27/23 20:20 Dose: 10 mg Dextrose (D10w 250 Ml Bag) 125 ml IV PRN PRN; Protocol PRN Reason: HYPOGLYCEMIA Finasteride (Finasteride 5 Mg Tab) 5 mg PO DAILY [facility] Last Admin: 05/28/23 08:06 Dose: 5 mg Furosemide (Furosemide 20 Mg Tablet) 20 mg PO M,W,F [facility] Last Admin: 05/27/23 17:02 Dose: 20 mg Gabapentin (Gabapentin 100 Mg Cap) 100 mg PO BID [facility] Last Admin: 05/28/23 11:00 Dose: 100 mg Glimepiride (Glimepiride 2 Mg Tablet) 2 mg PO DAILY [facility] Last Admin: 05/28/23 08:06 Dose: 2 mg Glucagon (Glucagon 1 Mg/Vial) 1 mg IM 1X PRN PRN Reason: HYPOGLYCEMIA Heparin Sodium (Porcine) (Heparin 5000 Unit/Ml 1 Ml Vial) 5,000 unit SQ Q8HR [facility] Last Admin: 05/28/23 08:05 Dose: 5,000 unit Doxycycline Hyclate 100 mg/ (Sodium Chloride) 100 mls @ 100 mls/hr IVPB Q12HR [facility]; Protocol Last Admin: 05/28/23 08:06 Dose: 100 mls Insulin Human Regular (Insulin Regular (Human) 100 Unit/Ml) 0 unit SQ ACHS [facility]; Protocol Last Admin: 05/28/23 07:30 Dose: Not Given Levothyroxine Sodium (Levothyroxine Sod 0.1 Mg Tab) 0.1 mg PO ACB [facility] Last Admin: 05/28/23 08:06 Dose: 0.1 mg Memantine (Memantine Hcl 10 Mg Tablet) 10 mg PO BEDTIME [facility] Last Admin: 05/27/23 20:20 Dose: 10 mg Morphine Sulfate (Morphine 2 Mg/Ml Syr) 2 mg IV Q4H PRN PRN Reason: Pain scale 8-10 (Severe) Last Admin: 05/28/23 04:24 Dose: 2 mg Ondansetron HCl (Ondansetron 4 Mg/2 Ml Vial) 4 mg IV Q6HP PRN PRN Reason: NAUSEA / VOMITING Pantoprazole Sodium (Pantoprazole 40mg Tablet) 40 mg PO ACB [facility]; Protocol Last Admin: 05/28/23 08:06 Dose: 40 mg Polyethylene Glycol (Polyethyl Gly 3350 17 Gm/Dose) 17 gm PO BID [facility] Stop: 05/28/23 21:01 Last Admin: 05/28/23 08:06 Dose: 17 gm Solifenacin (Solifenacin Succin 5 Mg Tab) 10 mg PO DAILY [facility] Last Admin: 05/28/23 08:05 Dose: 10 mg Tamsulosin HCl (Tamsulosin 0.4 Mg Sr Cap) 0.4 mg PO DAILY [facility] Last Admin: 05/28/23 08:06 Dose: 0.4 mg Microbiology Results 05/26/23 19:45 Blood - Blood Aerobic Blood Culture - Preliminary No growth in 24 hours. 05/26/23 19:45 Blood - Blood Anaerobic Blood Culture - Preliminary No growth in 24 hours. 05/26/23 19:30 Blood - Blood Aerobic Blood Culture - Preliminary No growth in 24 hours. 05/26/23 19:30 Blood - Blood Anaerobic Blood Culture - Preliminary No growth in 24 hours. Assessment/ Plan: Nephrology Progress Note No Dyspnea No Chest Pain Started on Miralax for constipation Poor sleep overnight due to bladder pain described as bee stings Vital Signs, Medications, Blood Work, and Imaging reviewed in the chart General: In no apparent distress, Oriented x3, Cooperative HEENT: Atraumatic Neck: Supple Respiratory: Clear to auscultation bilaterally Cardiovascular: No edema Gastrointestinal: Soft and benign, Non-distended Musculoskeletal: No clubbing, No contractures Integumentary: Other (venous stasis) Neurological: Normal speech Laboratory Data (last 24 hrs) 05/26/23 05/26/23 05/26/23 19:30 14:02 14:02 WBC Cancelled Hgb Cancelled Hct Cancelled Plt Count Cancelled Sodium Cancelled Potassium Cancelled BUN Cancelled Creatinine Cancelled Glucose Cancelled Total Bilirubin 0.2 AST 43 H ALT 33 Alkaline Phosphatase 93 05/26/23 05/26/23 14:00 14:00 WBC 4.90 Hgb 9.1 L Hct 27.5 L Plt Count 176 Sodium 139 Potassium 5.2 H BUN 57 H Creatinine 2.54 H Glucose 197 H Total Bilirubin AST ALT Alkaline Phosphatase Imagings Data: EXAM DESCRIPTION: US - Extrem Venous W Compress Vickey - 05/26/2023 7:31 pm CLINICAL HISTORY: Pain;Swelling Bilateral leg edema and swelling. COMPARISON: Extremity Venous Uni Ltd dated 04/28/2023 TECHNIQUE: Real-time sonographic interrogation of the left and right lower extremity deep venous systems was performed. FINDINGS: Normal compressibility, flow augmentation, phasic flow and spontaneous flow is identified in both the left and right lower extremity deep venous systems. IMPRESSION: No sonographic evidence of left or right lower extremity deep venous thrombosis. EXAM DESCRIPTION: CT - Stone Protocol - 05/26/2023 1:52 pm CLINICAL HISTORY: Flank pain. dysuria, hematuria COMPARISON: Abdomen Pelvis Wo Contrast dated 04/01/2023 TECHNIQUE: Axial images were obtained without oral or IV contrast. Lack of contrast limits solid organ and vascular assessment. The [id number] spans the entirety of the system partially obscuring uppermost abdomen and lung bases. Coronal reformatted images were obtained and reviewed. All CT scans are performed using dose optimization technique as appropriate and may include automated exposure control or mA/KV adjustment according to patient size. FINDINGS: Noncalcified 6 mm nodule in the posterior right base. Imaged portions of the liver and spleen show no suspicious findings on non- contrast imaging. The pancreas and adrenal glands are normal. No pathologic lymphadenopathy in the abdomen or pelvis. Moderate bilateral hydronephrosis and hydroureter is present. The urinary bladder has a thickened wall and is significantly decompressed there is no obstructing calculus evident. There is moderate fat stranding surrounding the urinary bladder. Bilateral renal cysts, benign in appearance. Moderate fat containing right inguinal hernia. Prostate radiation beads. No bowel obstruction, free air, free fluid or abscess. Normal appendix noted. Moderate multilevel lumbar degenerative changes. IMPRESSION: Moderate bilateral hydronephrosis and hydroureter is present. No obstructing stones are seen. The urinary bladder has a thickened wall and is decompressed with mild surrounding inflammation. EXAM DESCRIPTION: CT - Head Brain Wo Cont - 05/26/2023 1:53 pm CLINICAL HISTORY: AMS Headache, drowsiness COMPARISON: Head Brain Wo Cont dated 05/23/2023 TECHNIQUE: All CT scans are performed using dose optimization technique as appropriate and may include automated exposure control or mA/KV adjustment according to patient size. FINDINGS: No intracranial hemorrhage, hydrocephalus or extra-axial fluid collection.Mild generalized brain atrophy is present.No areas of brain edema or evidence of midline shift. The paranasal sinuses and mastoids are clear. The calvarium is intact. IMPRESSION: No acute intracranial abnormality Conclusions/Impression: Stage I PUNEET in the setting of urinary retention with BL hydroureter and hydronephrosis CKD IIIb with Proteinuria -No NSAIDs -Continue Harkins Hyperkalemia, resolved HTN with CKD -Continue Amlodipine Hypoalbuminemia -Encourage nutrition as tolerated Anemia in chronic illness Pancytopenia -Monitor CBC BPH with LUTS Urinary Retention -Continue Harkins -Continue tamsulosin and finasteride -Urology following the patient -Start Gabapentin for bladder pain Case reviewed with Dr. Lr
--- NOTE | 2023-05-28 12:10 | RAD REPORT ---
EXAM DESCRIPTION: RAD - Chest Single View - 05/28/2023 11:51 am CLINICAL HISTORY: Cough with hemoptysis COMPARISON: Chest Single View dated 05/23/2023; Chest Single View dated 12/24/2022; Chest Pa And Lat (2 Views) dated 12/23/2022; Chest Pa And Lat (2 Views) dated 08/01/2021 FINDINGS: Lines: None. Lungs: No evidence of edema or pneumonia. Pleural: No significant pleural effusions or pneumothorax. Cardiac: The heart size is within normal limits. Mediastinum: Within normal limits. Bones: No acute fractures. Benign cartilaginous lesion in the right proximal humerus. Other: None IMPRESSION: No acute cardiopulmonary disease.
[2023-05-28 13:22] VITALS: BP 137/65; TEMP 97.5
--- NOTE | 2023-05-28 13:53 | P.DS ---
Admission Date: 05/26/23 Discharge Date: 05/28/23 Disposition: ROUTINE DISCHARGE Discharge Condition: FAIR Reason for Admission: Hydronephrosis, hypokalemia, PUNEET on CKD. Brief History of Present Illness: 82-year-old male patient with medical history of bladder cancer, diabetes type 2, hypertension, hyperlipidemia, hypothyroidism and prostate enlargement presented to the ED with complaint of burning micturition and suprapubic pain. Patient follows with Dr. Portillo regarding his bladder cancer. In the ED he had imaging studies done that revealed bilateral hydronephrosis and thickening of bladder wall. He also had hyperkalemia with a potassium of 5.2 and elevated creatinine of 2.54. Harkins catheter was inserted and case discussed with urologist Dr. Portillo who recommended to maintain the Harkins catheterization and outpatient follow-up with him in the office. There was a concern for cellulitis of lower extremities. Patient was hospitalized for further management. Hospital Course: Patient admitted to the medical floor and the following medical problems addressed: History of bladder cancer with obstruction. Bilateral hydronephrosis BPH Patient with a history of BPH on tamsulosin and finasteride Bilateral hydronephrosis deemed secondary to LUT obstruction Harkins catheterization as per urology recommendation. Continued tamsulosin and finasteride. UA did not reflex to culture. Urology recommend to maintain Harkins catheter and outpatient follow-up. Acute kidney injury on chronic kidney disease Serum creatinine improved with hydration and Harkins catheter placement. Serum creatinine improved and stabilized at 2.[address] Paul evaluated patient and assisted with management. Hyperkalemia Resolved. Likely related to postobstructive uropathy. Bilateral venous stasis dermatitis I doubt patient has cellulitis. Patient with dark-colored discoloration of bilateral legs which per patient is chronic. Empirically treated with doxycycline, patient discharged with Levaquin. Diabetes type 2 Managed with insulin sliding scale and glimepiride as inpatient. No medication changes on discharge. Hypertension Continued home dose amlodipine. Vital Signs/Physical Exam: Temp Pulse Resp BP Pulse Ox 97.5 F 95 H 16 137/65 92 05/28/23 12:00 05/28/23 12:00 05/28/23 12:00 05/28/23 12:00 05/28/23 12:00 General: Alert, In no apparent distress, Oriented x3 HEENT: Mucous membr. moist/pink Neck: Supple, JVD not distended Respiratory: Clear to auscultation bilaterally, Normal air movement Cardiovascular: No edema, Regular rate/rhythm, Normal S1 S2 Gastrointestinal: Normal bowel sounds, Soft and benign, Non-distended Musculoskeletal: No swelling Integumentary: Other (Bilateral venous stasis dermatitis of legs) Neurological: Normal strength at 5/5 x4 extr Urinary: Harkins catheter Laboratory Data at Discharge: WBC 6.10 thou/uL (4.3-10.9) 05/28/23 05:45 Hgb 9.3 g/dL (13.6-17.9) L 05/28/23 05:45 Hct 27.6 % (39.6-49.0) L 05/28/23 05:45 Plt Count 186 thou/uL (152-406) D 05/28/23 05:45 PT 13.2 SECONDS (9.5-12.5) H 05/27/23 02:58 INR 1.21 05/27/23 02:58 APTT 30.7 SECONDS (24.3-36.9) 05/27/23 02:58 Sodium 141 mEq/L (136-145) 05/28/23 05:45 Potassium 4.8 mEq/L (3.5-5.1) D 05/28/23 05:45 BUN 40 mg/dL (7-18) H 05/28/23 05:45 Creatinine 2.10 mg/dL (0.70-1.30) H 05/28/23 05:45 Glucose 128 mg/dL (74-106) H 05/28/23 05:45 Total Bilirubin 0.4 mg/dL (0.2-1.0) 05/28/23 05:45 AST 45 U/L (15-37) H 05/28/23 05:45 ALT 31 U/L (16-61) 05/28/23 05:45 Alkaline Phosphatase 98 U/L (45-117) 05/28/23 05:45 Home Medications: Levothyroxine [Synthroid*] 100 mcg PO DAILY 08/24/13 Pravastatin [Pravachol*] 40 mg PO DAILY 08/24/13 Tamsulosin [Flomax*] 0.4 mg PO DAILY 08/24/13 Finasteride [Proscar*] 5 mg PO DAILY 12/23/22 Pantoprazole [Protonix Tab*] 40 mg PO DAILY 01/20/23 Amlodipine [Norvasc*] 10 mg PO DAILY 04/02/23 Furosemide [Lasix*] 20 mg PO M,W,F #20 tab 04/04/23 Glimepiride [Amaryl*] 2 mg PO DAILY 05/27/23 Memantine HCl [Namenda*] 10 mg PO BEDTIME 05/27/23 Gabapentin [Neurontin*] 100 mg PO BID #60 cap 05/28/23 Hydrocodone 5/APAP 325 [[place] 5/325] 1 tab PO Q6H PRN #20 tab 05/28/23 Polyethyl Gly 3350 [Glycolax*] 17 gm PO DAILY #30 udbot 05/28/23 Solifenacin [Vesicare*] 10 mg PO DAILY #30 tab 05/28/23 levoFLOXacin [Levaquin] 250 mg PO DAILY #5 tab 05/28/23 New Medications: Polyethyl Gly 3350 [Glycolax*] 17 gm PO DAILY #30 udbot levoFLOXacin [Levaquin] 250 mg PO DAILY #5 tab Gabapentin [Neurontin*] 100 mg PO BID #60 cap Hydrocodone 5/APAP 325 [[place] 5/325] 1 tab PO Q6H PRN #20 tab PRN Reason: Pain Solifenacin [Vesicare*] 10 mg PO DAILY #30 tab Diet: AHA Activity: Fall precautions Followup: Florin Strange MD [Primary Care Provider] - 1-2 Weeks Rob Portillo [ACTIVE - CAN ADMIT] - (within 2 weeks.) Time spent managing pt's care (in minutes): 36
--- NOTE | 2023-05-28 14:29 | EKG ---
Test Date: 2023-05-26 Test Time: 20:14:37 Court Administrator: RV MEASUREMENT RESULTS: Intervals: Rate: 86 OR: 124 QRSD: 134 QT: 394 QTc: 471 [place]: P: 47 OR: 124 QRS: -22 T: 14 INTERPRETIVE STATEMENTS: Normal sinus rhythm Right bundle branch block Minimal voltage criteria for LVH, may be normal variant Abnormal ECG Compared to ECG 01/07/2023 13:23:57 Left ventricular hypertrophy now present Sinus arrhythmia no longer present Electronically Signed On 05-28-23 14:24:17 CDT by Israel Girard
--- NOTE | 2023-05-28 19:36 | P.CNS ---
Date of Consult: 05/27/23 Reason for Consult: bilateral hydronephrosis Chief Complaint: Hydronephrosis, hypokalemia, PUNEET on CKD. 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, likely due to BPH, and a small amount of urge incontinence requiring 1 liner pad per day refractory to Flomax 0.8 mg daily and family history of prostate cancer in his father and brother but PSA <1, p cystoscopy 07/11/2021 revealing erythematous and hemorrhagic patch of mucosa involving approximately 2 cm of the left lateral wall posteriorly in association with BPH with lateral lobar hypertrophy and mild intravesical projection without intravesically projecting median lobe and mild trabeculation throughout s/p bladder biopsies 08/06/2021 revealing atypical mucosa of uncertain significance, fulgurated s/p UroLift 10/22/21 with improved obstructive LUTS but ongoing irritative LUTS with paraphimosis and resolved cellulitis/posthitis s/p 01/20/2023 TURBT and insti llation of intravesical gemcitabine 2g Findings: Sessile papillary tumor within the bladder neck next to the left ureteral orifice, within the left posterior lateral wall extending into the right posterior lateral wall, and a separate nodular papillary tumor at the left bladder neck. Pathology T2 HG papillary urothelial carcinoma, no LVI at the left bladder neck and trigone in the setting of HG T1 in the posterior lateral wall. Initiated 02/2023 weekly gemcitabine 75 mg/m2 concurrent with XRT. Severe LUTS with intermittent episodes of moderate volume incomplete emptying prompting emergency department visit and catheter placement consistent with radiation cystitis. Treated with trospium, Flomax, and Myrbetriq in the past, now on trospium 60 mg extended release daily only at this time, per list provided by his daughter. 04/04/2023 creatinine 1.9, urine culture 10-100 K mixed katrin and yeast Catheter culture 04/10/23 >100K UG katrin 05/06/2023 Limited cystoscopy due to pain revealed presence of Pyridium colored urine, potentially some hematuria, and fibrinous debris within but no large bladder tumors noted. Nice anterior channel noted following UroLift. Levaquin prophylaxis provided x 1 dose. I recommended he add amitriptyline 25 mg at bedtime, but it appears he may never have gotten the prescription. Despite all of the evaluation and recommendations above, it appears the patient is only taking trospium 60 mg extended release daily of the medication as previously recommended, and he returned to the emergency department with pelvic pain associated with bladder spasms. He said he just got his last dose of radiation a few days ago on Thursday, and he said he was passing worms. The "worms" would obstruct his urinary flow, contributing to some of the pain, and once he would pass the worm, the pain would relief. As a result, he felt he had demons in his bladder passing in his urine. They showed me a picture of one of the worms, which was clearly a stringy clot, potentially emanating from one of his kidneys or ureters. A lot of discussion was held with them as they were convinced that he had worms, and his granddaughter had done some research on the Internet and found that a certain type of bladder cancer could be caused by worms. CT scan was performed revealing bilateral hydronephrosis; so I recommended they place a Harkins catheter as his bladder was likely the source of UVJ obstruction. -I then reviewed the images of the CT scan in detail, and while there was indeed some hydronephrosis bilaterally, it was mild to moderate, and it was associated with ureteral nephrosis extending all the way down to the UVJ bilaterally. The bladder was markedly thickened and somewhat contracted in appearance. Examination: Patient well-appearing and in no acute distress Alert, awake, oriented x 3 No dyspnea or sign of respiratory distress Comfortable and well-appearing at this time Abdomen soft, nontender, nondistended, no suprapubic tenderness Urethral Harkins catheter in place draining largely clear urine with some small clot fragments within the tubing Assessment and recommendation: 81-year-old gentleman with CKD stage III, hypertension, hypothyroidism, WHITNEY on CPAP, CHF diastolic dysfunction, DM 2 with neuropathy and osteoarthritis with BPH with LUTS successfully managed via UroLift, subsequently found to have 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 -Leave urethral Harkins catheter in place and arrange MAG3 Lasix renography to assess for functional obstruction which may benefit from either placement of percutaneous nephrostomy tubes or potentially internalized ureteral stents -Repeat cystoscopy will be in order upon his discharge from the hospital to rule out the "worms" that he is so insistent were present coming from his bladder, but unless he is discharged on antimicrobials, catheter culture will eventually be required prior to cystoscopy to minimize the risk of complicating infection. -Resume trospium 60 mg extended release daily on discharge, but Ditropan/Vesicare to be provided as an inpatient substitution -Resume Myrbetriq 50 mg daily on discharge to act adjuvantly and control of his painful bladder spasms -If still unable to control bladder spasms, recommend amitriptyline 25 to 50 mg daily at bedtime -Extensive counseling was held with the patient, his , and then his granddaughter who arrived later and desired repeat discussion. Over 1 hour of time was spent with the patient and family counseling accordingly. Allergies No Known Allergies Allergy (Verified 01/20/23 09:15) Home medications list reviewed: Yes Home Medications: Levothyroxine [Synthroid*] 100 mcg PO DAILY 08/24/13 Pravastatin [Pravachol*] 40 mg PO DAILY 08/24/13 Tamsulosin [Flomax*] 0.4 mg PO DAILY 08/24/13 Finasteride [Proscar*] 5 mg PO DAILY 12/23/22 Pantoprazole [Protonix Tab*] 40 mg PO DAILY 01/20/23 Amlodipine [Norvasc*] 10 mg PO DAILY 04/02/23 Furosemide [Lasix*] 20 mg PO M,W,F #20 tab 04/04/23 Glimepiride [Amaryl*] 2 mg PO DAILY 05/27/23 Memantine HCl [Namenda*] 10 mg PO BEDTIME 05/27/23 Gabapentin [Neurontin*] 100 mg PO BID #60 cap 05/28/23 Hydrocodone 5/APAP 325 [Cross 5/325] 1 tab PO Q6H PRN #20 tab 05/28/23 Polyethyl Gly 3350 [Glycolax*] 17 gm PO DAILY #30 udbot 05/28/23 Solifenacin [Vesicare*] 10 mg PO DAILY #30 tab 05/28/23 levoFLOXacin [Levaquin] 250 mg PO DAILY #5 tab 05/28/23 - Past Medical/Surgical History Diabetic: Yes -: DM II -: HTN -: Hypothyroidism -: CKD III with Proteinuria (Dr. Paul/ Dr. Taveras) -: Hypothyroidism -: HLD -: Thyroidectomy -: Knee Replacement right -: Back surgery -: Ankle surgery - Social History Smoking Status: Unknown if ever smoked Alcohol use: No CD- Drugs: No Caffeine use: Yes Place of Residence: Home Physical Examination Temp Pulse Resp BP Pulse Ox 97.5 F 95 H 16 137/65 92 05/28/23 12:00 05/28/23 12:00 05/28/23 12:00 05/28/23 12:00 05/28/23 12:00 - Problems (1) Radiation cystitis Status: Acute (2) Clot retention of urine Status: Acute (3) Painful bladder spasm Status: Acute (4) Ureterovesical junction (UVJ) obstruction Status: Acute (5) Bilateral hydronephrosis Status: Acute (6) CKD (chronic kidney disease) stage 3, GFR 30-59 ml/min Status: Acute Time Spent Managing Pts care (In Minutes): 60
== END 2023-05-28 15:45 | disposition home or self-care (01) | DRG 682 ==
LOC: ER 13:04 → ERHOLD 21:13 → 4TH 23:19
PROVIDERS: ADMIT Internal Medicine Nephrology; ATTEND Internal Medicine
PROC: 0T9B70Z Drainage of Bladder with Drainage Device, Via Natural or Artificial Opening (ICD-10-PCS; principal; 2023-05-26)
DX: N17.9 Acute kidney failure, unspecified (principal); G93.41 Metabolic encephalopathy; D61.818 Other pancytopenia; I50.32 Chronic diastolic (congestive) heart failure; I13.0 Hypertensive heart and chronic kidney disease with heart failure and stage 1 through stage 4 chronic kidney disease, or unspecified chronic kidney disease; N30.41 Irradiation cystitis with hematuria; N13.1 Hydronephrosis with ureteral stricture, not elsewhere classified; E87.5 Hyperkalemia; N18.32 Chronic kidney disease, stage 3b; E11.22 Type 2 diabetes mellitus with diabetic chronic kidney disease; E11.40 Type 2 diabetes mellitus with diabetic neuropathy, unspecified; D63.1 Anemia in chronic kidney disease; E03.9 Hypothyroidism, unspecified; E87.6 Hypokalemia; E78.5 Hyperlipidemia, unspecified; I87.2 Venous insufficiency (chronic) (peripheral); M19.90 Unspecified osteoarthritis, unspecified site; C67.9 Malignant neoplasm of bladder, unspecified; I87.8 Other specified disorders of veins; E88.09 Other disorders of plasma-protein metabolism, not elsewhere classified; N40.1 Benign prostatic hyperplasia with lower urinary tract symptoms; R33.8 Other retention of urine; R33.9 Retention of urine, unspecified; Z79.890 Hormone replacement therapy; Z79.899 Other long term (current) drug therapy; Z96.651 Presence of right artificial knee joint
CPT/HCPCS: 36415; 51702; 70450; 71045; 74176; 76377; 80048; 80053; 80076; 81001; 82947; 83605; 85014; 85018; 85025; 85610; 85730; 87040; 93005; 93970; 96361; 96365; 96375; 99285; J1644; J1815; J2270; J2405; J7030; J7050

== ENCOUNTER 2023-06-10 14:20 | Inpatient (IN) | payer OTHER ==
[2023-06-10 15:21] LABS: Absolute Eosinophils 0.1 K/uL (0-0.5); Absolute Lymphocytes (CBC) 0.3 K/uL (0.7-4.9); Absolute Monocytes 0.6 K/uL (0.1-1.3); Absolute Neutrophil 4.9 K/uL (1.8-8.0); Basophils % 0.6 % (0-1.3); Eosinophils % 2.3 % (0-4.4); Hematocrit 25.6 % (39.6-49.0); Hemoglobin 8.5 g/dL (13.6-17.9); Lymphocytes % 5.3 % (15.3-44.8); MCH 31.3 pg (27.0-35.0); MCHC 33.1 g/dL (32.0-36.0); MCV 94.5 fL (80-100); MPV 8.5 fL (7.6-11.3); Monocytes % 9.3 % (3.3-12.3); Neutrophils % 82.5 % (41.7-73.7); Platelets 176 thou/uL (152-406); RBC Red Blood Cell Count 2.71 M/uL (4.33-5.43); Red Cell Distribution Width 18.7 % (12.1-15.2)
[2023-06-10 15:24] LABS: PT Prothrombin Time 13.3 SECONDS (9.5-12.5); PTT, Activated Partial Thromb 31.8 SECONDS (24.3-36.9); Protime INR 1.22
[2023-06-10 15:25] LABS: Specific Gravity 1.013 (1.005-1.030); Sqamous Epithelial None Seen /HPF (None Seen); Urine Bacteria <20 /HPF (<20); Urine Bilirubin NEGATIVE (Negative); Urine Blood 3+ (Negative); Urine Clarity Extremely Turbid (Clear); Urine Color Dark-Yellow (Yellow); Urine Culture Reflex Order REFLEXED; Urine Glucose TRACE (Negative); Urine Ketones NEGATIVE (Negative); Urine Microscopic Reflex YN ORDER UMIC; Urine Mucus Slight /HPF (None Seen); Urine Nitrite NEGATIVE (Negative); Urine Protein 2+ (Negative); Urine RBC >50 /HPF (None Seen); Urine Urobilinogen Normal (Normal); Urine WBC >50 /HPF (<5); Urine WBC Clump Many /HPF (None Seen); Urine pH 5.5 (5.0-7.0)
[2023-06-10 15:36] LABS: Albumin 2.7 g/dL (3.4-5.0); Albumin/Globulin Ratio 0.7 (1.1-1.8); Bilirubin Direct 0.2 mg/dL (0-0.2); Bilirubin Indirect, Calculated 0.1 mg/dL (0.2-0.8); Bilirubin Total 0.3 mg/dL (0.2-1.0); Globulin 3.9 g/dL (2.3-3.5); Magnesium 1.9 mg/dL (1.6-2.4); Protein, Total 6.6 g/dL (6.4-8.2)
--- NOTE | 2023-06-10 16:34 | RAD REPORT ---
EXAM DESCRIPTION: CT - Abdomen Pelvis Wo Contrast - 06/10/2023 3:29 pm CLINICAL HISTORY: ABD PAIN COMPARISON: Stone Protocol dated 05/26/2023; Abdomen Pelvis Wo Contrast dated 04/01/2023; Abdomen Pelvis Wo Contrast dated 02/13/2023 TECHNIQUE: Thin cut axial CT imaging of the abdomen and pelvis was performed without IV contrast. Mu ltiplanar reformats were generated and reviewed. All CT scans are performed using dose optimization technique as appropriate and may include automated exposure control or mA/KV adjustment according to patient size. FINDINGS: No suspicious findings in the lung bases. The liver, spleen, adrenal glands, and pancreas show no suspicious findings. Gallbladder and biliary tree are also without suspicious finding. Symmetric renal contour, without suspicious parenchymal findings within limits of noncontrast techniq ue. [id number] bilateral hydronephrosis and hydroureter. No radiopaque calculi. No lower perien teric fat stranding. No dilated bowel loops or bowel wall thickening. No free air, free fluid or inflammatory stranding. N o hernia, mass or bulky lymphadenopathy. The urinary bladder is decompressed with Harkins catheter in p lace. Pericystic fat stranding noted. No suspicious bony findings. IMPRESSION: Lower bilateral periureteric as well as pericystic fat stranding, findings which may ind icate infectious/ inflammatory cystitis and raise concern for ascending infection. Please correlate c linically. [id number] bilateral hydronephrosis and hydroureter.
--- NOTE | 2023-06-10 16:40 | RAD REPORT ---
EXAM DESCRIPTION: CT - CTHCSPWOC - 06/10/2023 3:28 pm CLINICAL HISTORY: WEAKNESS COMPARISON: Head C Spine Mpr Wo Con dated 09/15/2018 TECHNIQUE: Axial thin cut noncontrast CT images of the head were obtained. Axial thin cut noncontrast CT images of the cervical spine were obtained. Multiplanar reformatted images were generated and reviewed. All CT scans are performed using dose optimization technique as appropriate and may include automated exposure control or mA/KV adjustment according to patient size. FINDINGS: CT HEAD WITHOUT CONTRAST: No acute hemorrhage, hydrocephalus or extra-axial collection is identified. No hydrocephalus. Mild di ffuse parenchymal volume loss. No areas of brain edema or midline shift. The paranasal sinuses and mastoids are clear.The calvarium is intact. CT CERVICAL SPINE WITHOUT CONTRAST: No fracture or subluxation. Moderate cervical spine degenerative changes, most pronounced at C3-4, C4 - 5, and C5-6 on the left. No prevertebral soft tissues swelling is identified. IMPRESSION: No acute traumatic intracranial or cervical spine findings. Chronic findings as above.
--- NOTE | 2023-06-10 16:59 | RAD REPORT ---
EXAM DESCRIPTION: RAD - Femur Left - 06/10/2023 3:22 pm CLINICAL HISTORY: PAIN COMPARISON: No comparisons TECHNIQUE: Left femur, 2 views. FINDINGS: No fracture is identified. There is no dislocation or periosteal reaction noted. Small to moderate suprapatellar joint effusion moderate degenerative changes of the knee with mild medial ren ght-bearing joint space loss. No acute or suspicious bony finding. IMPRESSION: No acute osseus abnormality. Moderate degenerative changes and joint effusion.
--- NOTE | 2023-06-10 17:43 | EDPHYS ---
Physician Documentation [facility] Name: Abdoul Samuels Age: 83 yrs Sex: Male : 1940 Arrival Date: 06/10/2023 Time: 14:20 Bed 17 Private MD: ED Physician Sudheer Faust HPI: 06/09 17:40 This 83 yrs old Male presents to ER via EMS with complaints of Fall Injury, General kb Weakness. 17:40 Pt is an 83 year old male with a history of bladder cancer who presents with recurrent kb falls and weakness. Pt fell once last night, again this morning and once more but was caught by granddaughter. Pt reports pain to left thigh and knee. Denies hitting head or loc. . Historical: - Allergies: 14:30 NKDA; kc6 - PMHx: 14:30 Arthritis; Bladder cancer (Hypothyroidism); Diabetes - NIDDM; Hyperlipidemia; kc6 Hypertension; Hypothyroidism; - PSHx: 14:30 back; neck; Right knee replacement; kc6 - Immunization history:: Adult Immunizations up to date. - Infectious Disease History:: Denies. - Social history:: Smoking status: Patient denies any tobacco usage or history of. ROS: 17:15 Constitutional: As per HPI kb Exam: 17:36 Constitutional: This is a well developed, well nourished patient who is awake, alert, kb and in no acute distress. Head/Face: Normocephalic, atraumatic. ENT: Moist Mucous membranes Cardiovascular: Regular rate Respiratory: Respirations even and unlabored. No increased work of breathing. Talking in full sentences Skin: Warm, dry with normal turgor. Normal color. Neuro: Awake and alert, GCS 15, oriented to person, place, time, and situation. Moves all extremities 17:36 Abdomen/GI: Inspection: abdomen appears normal, Bowel sounds: normal, Palpation: soft, in all quadrants, mild abdominal tenderness, in the left lower quadrant, 17:36 Musculoskeletal/extremity: Extremities: grossly normal except: noted in the left quadriceps and left knee: pain, tenderness, Vital Signs: 14:28 BP 130 / 62; Pulse 95; Resp 16 S; Pulse Ox 98% on R/A; Weight 86.64 kg (R); Height 5 kc6 ft. 8 in. (R); Pain 8/10; 16:24 BP 99 / 56; Pulse 85; Resp 16 S; Pulse Ox 97% on R/A; kc6 17:15 BP 103 / 56; Pulse 81; Resp 16 S; Pulse Ox 98% on R/A; kc6 18:55 BP 100 / 56; Pulse 80; Resp 17 S; Pulse Ox 100% on R/A; kc6 14:28 Body Mass Index 29.04 (86.64 kg, 172.72 cm) kc6 14:28 Pain Scale: Adult kc6 MDM: 14:29 Patient medically screened. kb 17:15 Data reviewed: vital signs, nurses notes. kb 17:36 Differential diagnosis: contusion, fracture, sprain, strain, dehydration, abnormal kb electrolytes. Consideration of Admission/Observation Patient was admitted/placed on observation. Escalation of care including admission/observation considered. Management of patient was discussed with the following: Hospitalist: Hospitalist team. Historians other than the Patient: Daughter/Son: daughter. Counseling: I had a detailed discussion with the patient and/or guardian regarding the historical points, exam findings, and any diagnostic results supporting the discharge/admit diagnosis, lab results, radiology results, the need for further work-up and treatment in the hospital. 22:23 ED course: Pt's is in the ICU in [facility] and had an episode of cardiac arrest. kb Family states they would like to take pt to the hospital to say goodbye. Dr Dominique notified. Family states they will bring pt back as needed. 06/09 14:38 Order name: Basic Metabolic Panel; Complete Time: 15:39 kb 06/09 14:38 Order name: CBC with Diff; Complete Time: 15:39 kb 06/09 14:38 Order name: Hepatic Function; Complete Time: 15:39 kb 06/09 14:38 Order name: Magnesium; Complete Time: 15:39 kb 06/09 14:38 Order name: Protime (+inr); Complete Time: 15:39 kb 06/09 14:38 Order name: Ptt, Activated; Complete Time: 15:39 kb 06/09 14:38 Order name: Troponin High Sensitivity; Complete Time: 15:39 kb 06/09 14:38 Order name: Urinalysis w/ reflexes; Complete Time: 15:39 kb 06/09 18:44 Order name: Urinalysis w/ reflexes EDMS 06/09 18:44 Order name: CBC with Automated Diff EDMS 06/09 18:44 Order name: CBC with Automated Diff EDMS 06/09 18:44 Order name: Comprehensive Metabolic Panel EDMS 06/09 18:44 Order name: Comprehensive Metabolic Panel EDMS 06/09 14:38 Order name: CT Head C Spine; Complete Time: 16:42 kb 06/09 14:38 Order name: Femur Left XRAY; Complete Time: 17:01 kb 06/09 15:15 Order name: Abdomen ; Complete Time: 16:42 EDMS 06/09 18:44 Order name: CONS Physician Consult EDMS 06/09 14:38 Order name: Cardiac monitoring; Complete Time: 15:09 kb 06/09 14:38 Order name: EKG - Nurse/Tech; Complete Time: 15:09 kb 06/09 14:38 Order name: IV Saline Lock; Complete Time: 15:09 kb 06/09 14:38 Order name: Labs collected and sent; Complete Time: 15:09 kb 06/09 14:38 Order name: NPO; Complete Time: 14:48 kb 06/09 14:38 Order name: O2 Per Protocol; Complete Time: 14:48 kb 06/09 14:38 Order name: O2 Sat Monitoring; Complete Time: 14:48 kb Administered Medications: No medications were administered Disposition Summary: 06/10/23 17:42 Hospitalization Ordered Notes: Hospitalization Status: Observation kb Provider: Lee Dominique Condition: Stable kb Problem: new kb Symptoms: are unchanged kb Bed/Room Type: Standard kb Location: Telemetry/MedSurg (Inpatient)(06/10/23 21:06) rv1 Room Assignment: 406(06/10/23 21:06) rv1 Diagnosis - Fall on same level, unspecified kb - Weakness kb Forms: - Medication Reconciliation Form kb - SBAR form kb - Leadership Thank You Letter kb Signatures: Dispatcher [employer] Antonia Kohler, ALIREZA-Alida OLIVERP-Kaylen Mendez RN RN kc6 Lea Nugent rv1 Corrections: (The following items were deleted from the chart) 14:39 14:38 Abdomen Pelvis W Con+CT.RAD.BRZ ordered. EDMS EDMS 14:39 14:39 Femur Left+RAD.RAD.BRZ ordered. EDMS EDMS 14:39 14:39 Knee Left 3 View+RAD.RAD.BRZ ordered. EDMS EDMS 14:58 14:58 Knee Left 3 View+RAD.RAD.BRZ ordered. EDMS EDMS 14:58 14:58 Femur Left+RAD.RAD.BRZ ordered. EDMS EDMS 14:58 14:58 Abdomen Pelvis W Con+CT.RAD.BRZ ordered. EDMS EDMS 20:53 17:42 Telemetry/MedSurg (observation) kb rv1 20:53 17:42 kb rv1 21:06 20:53 [facility] ER HOLD rv1 rv1 21:06 20:53 ERHOLD- rv1 rv1
--- NOTE | 2023-06-10 17:43 | ER ---
Nurse's Notes [facility] Name: Abdoul Samuels Age: 83 yrs Sex: Male : 1940 Arrival Date: 06/10/2023 Time: 14:20 Bed 17 Private MD: Diagnosis: Fall on same level, unspecified;Weakness Presentation: 06/09 14:28 Chief complaint: EMS states: pt has been falling more and more frequently. pts last kc6 fall was this AM, denies LOC. daughter states, "his knees are just buckling up." BGL en route 308. Coronavirus screen: At this time, the client does not indicate any symptoms associated with coronavirus-19. Ebola Screen: No symptoms or risks identified at this time. Initial Sepsis Screen: Does the patient meet any 2 criteria? No. Patient's initial sepsis screen is negative. Does the patient have a suspected source of infection? No. Patient's initial sepsis screen is negative. Risk Assessment: Do you want to hurt yourself or someone else? Patient reports no desire to harm self or others. Onset of symptoms was June 10, 2023. 14:28 Method Of Arrival: EMS: [facility] kc6 14:28 Acuity: SHON 3 kc6 Triage Assessment: 14:30 General: Appears in no apparent distress. comfortable, well groomed, well developed, kc6 Behavior is calm, cooperative, appropriate for age. Pain: Complains of pain in left leg Pain currently is 8 out of 10 on a pain scale. EENT: No signs and/or symptoms were reported regarding the EENT system. Neuro: Level of Consciousness is awake, alert, obeys commands, Oriented to person, place, time, situation, Appropriate for age. Cardiovascular: Capillary refill < 3 seconds. Respiratory: Airway is patent Trachea midline Respiratory effort is even, unlabored, Respiratory pattern is regular, symmetrical. GI: No signs and/or symptoms were reported involving the gastrointestinal system. : Harkins in place to gravity drainage clamped Urine is clear. Derm: No signs and/or symptoms reported regarding the dermatologic system. Skin is intact, is healthy with good turgor, Skin is pink, warm \\T\\ dry. Musculoskeletal: No signs and/or symptoms reported regarding the musculoskeletal system. Circulation, motion, and sensation intact. Capillary refill < 3 seconds, Range of motion: intact in all extremities. Historical: - Allergies: 14:30 NKDA; kc6 - PMHx: 14:30 Arthritis; Bladder cancer (Hypothyroidism); Diabetes - NIDDM; Hyperlipidemia; kc6 Hypertension; Hypothyroidism; - PSHx: 14:30 back; neck; Right knee replacement; kc6 - Immunization history:: Adult Immunizations up to date. - Infectious Disease History:: Denies. - Social history:: Smoking status: Patient denies any tobacco usage or history of. Screenin:33 [facility] ED Fall Risk Assessment (Adult) History of falling in the last 3 months, kc6 including since admission Yes- fall prone (multiple falls) (3 pts) Confusion or Disorientation No (0 pts) Intoxicated or Sedated No (0 pts) Impaired Gait Yes (1 pt) Mobility Assist Device Used Yes (1 pt) Altered Elimination Yes (1 pt) Score/Fall Risk Level 3 or more points = High Risk. Abuse screen: Denies threats or abuse. Denies injuries from another. Nutritional screening: No deficits noted. Tuberculosis screening: No symptoms or risk factors identified. Assessment: 14:33 Reassessment: please see triage. kc6 15:33 Reassessment: Patient appears in no apparent distress at this time. No changes from kc6 previously documented assessment. Patient and/or family updated on plan of care and expected duration. Pain level reassessed. Patient is alert, oriented x 3, equal unlabored respirations, skin warm/dry/pink. 16:49 Reassessment: Patient appears in no apparent distress at this time. No changes from kc6 previously documented assessment. Patient and/or family updated on plan of care and expected duration. Pain level reassessed. Patient is alert, oriented x 3, equal unlabored respirations, skin warm/dry/pink. 17:15 Reassessment: Patient appears in no apparent distress at this time. No changes from kc6 previously documented assessment. Patient and/or family updated on plan of care and expected duration. Pain level reassessed. Patient is alert, oriented x 3, equal unlabored respirations, skin warm/dry/pink. 18:04 Reassessment: Patient appears in no apparent distress at this time. No changes from kc6 previously documented assessment. Patient and/or family updated on plan of care and expected duration. Pain level reassessed. Patient is alert, oriented x 3, equal unlabored respirations, skin warm/dry/pink. 18:55 Reassessment: Patient appears in no apparent distress at this time. No changes from kc6 previously documented assessment. Patient and/or family updated on plan of care and expected duration. Pain level reassessed. Patient is alert, oriented x 3, equal unlabored respirations, skin warm/dry/pink. 19:16 Reassessment: Patient and/or family updated on plan of care and expected duration. Pain tm6 level reassessed. Patient is alert, oriented x 3, equal unlabored respirations, skin warm/dry/pink. Neuro: Level of Consciousness is awake, alert, obeys commands, Oriented to person. 22:36 Reassessment: Patient's in cardiac arrest at another hospital. Patient leaving 6 with family to go say goodbye to his . IV removed, vital signs stable. Family stated they would be bringing patient back for medical care. Discharged from [facility]. Vital Signs: 14:28 BP 130 / 62; Pulse 95; Resp 16 S; Pulse Ox 98% on R/A; Weight 86.64 kg (R); Height 5 kc6 ft. 8 in. (R); Pain 8/10; 16:24 BP 99 / 56; Pulse 85; Resp 16 S; Pulse Ox 97% on R/A; kc6 17:15 BP 103 / 56; Pulse 81; Resp 16 S; Pulse Ox 98% on R/A; kc6 18:55 BP 100 / 56; Pulse 80; Resp 17 S; Pulse Ox 100% on R/A; kc6 14:28 Body Mass Index 29.04 (86.64 kg, 172.72 cm) kc6 14:28 Pain Scale: Adult kc ED Course: 14:27 Patient arrived in ED. mb9 14:27 Kaylen Chowdary, RIGOBERTO is Primary Nurse. kc6 14:28 [facility]C [facility] kb 14:28 Sudheer Faust MD is Attending Physician. kb 14:30 Triage completed. kc6 14:32 Arm band placed on. kc6 14:34 Patient has correct armband on for positive identification. Placed in gown. Bed in low kc6 position. Call light in reach. Side rails up X2. Adult w/ patient. Client placed on continuous cardiac and pulse oximetry monitoring. NIBP monitoring applied. 15:09 Inserted saline lock: 20 gauge in right antecubital area, using aseptic technique. kc6 Blood collected. 15:24 Femur Left XRAY In Process Unspecified. EDMS 15:30 CT Head C Spine In Process Unspecified. EDMS 15:30 Abdomen In Process Unspecified. EDMS 17:41 Lee Dominique MD is Hospitalizing Provider. kb 18:55 No provider procedures requiring assistance completed. Patient admitted, IV remains in kc6 place. 19:16 Provided Education on: need for admit. tm6 Administered Medications: No medications were administered Medication: 18:56 VIS not applicable for this client. kc6 Outcome: 17:42 Decision to Hospitalize by Provider. kb 18:55 Admitted to ER Hold. Please see [facility] for further documentation. 6 18:55 Condition: good 18:55 Instructed on the need for admit, 22:36 Patient left the ED. tm6 Signatures: Dispatcher [employer] EDAntonia Payne, REGISTERED NURSE NURSERY-C REGISTERED NURSE NURSERY-Kaylen Mendez, RN RN kc6 Trinh Thorpe, RN RN mb9 Elvie Mcgrath RN RN tm6
--- NOTE | 2023-06-10 18:20 | P.HP ---
Certification for Inpatient Patient admitted to: Inpatient With expected LOS: >2 Midnights Practitioner: I am a practitioner with admitting privileges, knowledge of patient current condition, hospital course, and medical plan of care. Services: Services provided to patient in accordance with Admission requirements found in Title 42 Section 412.3 of the Code of Federal Regulations Patient History Date of Service: 06/10/23 Reason for admission: generalised weakness History of Present Illness: 83 yrs old Male with past medical history of hypertension, hyperlipidemia, diabetes, hypothyroidism, history of bladder cancer on radiation who received radiation today, arthritis who was brought to ER from assisted living where he had multiple falls. Patient is a poor historian hence most of the history is obtained from the chart review and also talking with the family member at the bedside. Patient had multiple falls recently. Associated with generalized weakness. No fever or chills. Denies any chest pain. No nausea vomiting or diarrhea. Pt fell once last night, again this morning and once more but was caught by granddaughter. He reports pain to left thigh and knee. Denies hitting head or no history of seizures or loss of consciousness Patient had a chronic Harkins Patient was assessed in the ER and was admitted for further management Patient was noted to have acute kidney injury also having UTI; Allergies No Known Allergies Allergy (Verified 06/09/23 11:43) Home medications list reviewed: Yes Home Medications: Levothyroxine [Synthroid*] 100 mcg PO DAILY 08/24/13 Pravastatin [Pravachol*] 40 mg PO DAILY 08/24/13 Finasteride [Proscar*] 5 mg PO DAILY 12/23/22 Amlodipine [Norvasc*] 10 mg PO DAILY 04/02/23 Glimepiride [Amaryl*] 4 mg PO DAILY 05/27/23 Memantine HCl [Namenda*] 10 mg PO BEDTIME 05/27/23 Amitriptyline HCl 25 mg PO BEDTIME 06/09/23 Chlorthalidone [Hygroton 25mg Tab] 25 mg PO DAILY 06/09/23 Gabapentin [Neurontin*] 300 mg PO BEDTIME 06/09/23 Hydroxychloroquine [Plaquenil] 200 mg PO BID 06/09/23 Lisinopril [Zestril] 5 mg PO DAILY 06/09/23 Metformin HCl [Glucophage] 850 mg PO BIDWM 06/09/23 Metoprolol Tartrate [Lopressor] 50 mg PO BID 06/09/23 Mirabegron [Myrbetriq] 50 mg PO DAILY 06/09/23 Pantoprazole [Protonix Tab] 40 mg PO DAILY 06/09/23 Trospium Chloride [Sanctura] 60 mg PO DAILY 06/09/23 - Past Medical/Surgical History Diabetic: Yes Past Medical History: Reviewed- Non-Contributory -: DM II -: HTN -: Hypothyroidism -: CKD III with Proteinuria (Dr. Paul/ Dr. Taveras) -: Hypothyroidism -: HLD Past Surgical History: Reviewed- Non-Contributory -: Thyroidectomy -: Knee Replacement right -: Back surgery -: Ankle surgery - Family History Family History: Reviewed- Non-Contributory - Social History Smoking Status: Never smoker Alcohol use: No CD- Drugs: No Caffeine use: Yes Review of Systems is unable to be obtained Physical Examination - Vital Signs Temperature: 98.6 F Blood Pressure: 126/68 Pulse: 74 Respirations: 18 Pulse Ox (%): 98 - Physical Exam General: Alert, Mild distress, Confused HEENT: Atraumatic, Normocephalic Neck: Supple, No Thyromegaly Respiratory: Clear to auscultation bilaterally, Normal air movement Cardiovascular: No edema, Regular rate/rhythm, Normal S1 S2 Capillary refill: <2 Seconds Gastrointestinal: Soft and benign, W/out hepatosplenomegaly Musculoskeletal: No clubbing, No swelling, Tenderness Integumentary: No rashes Neurological: Other (Anxious Alert awake ), Abnormal gait Lymphatics: No axilla or inguinal lymphadenopathy - Studies Laboratory Data (last 24 hrs) 06/10/23 06/10/23 06/10/23 15:06 15:06 15:06 WBC 5.90 Hgb 8.5 L Hct 25.6 L Plt Count 176 PT 13.3 H INR 1.22 APTT 31.8 Sodium 134 L Potassium 5.0 BUN 57 H Creatinine 3.06 H Glucose 205 H Magnesium 1.9 Total Bilirubin 0.3 AST 93 H ALT 37 Alkaline Phosphatase 100 Assessment and Plan - Problems (Diagnosis) (1) Multiple falls Current Visit: Yes Status: Acute Plan: # Multiple falls CT head was negative Will get a PT OT evaluation Monitor closely Patient may need placement to rehab (2) UTI (urinary tract infection) Current Visit: Yes Status: Acute Plan: Started on IV antibiotics Will obtain cultures Change antibiotic as per sensitivity Monitor closely Patient has a chronic Harkins Has history of bladder cancer Status postradiation 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 Monitor closely (3) PUNEET (acute kidney injury) Current Visit: Yes Status: Acute Plan: Acute kidney injury on CKD stage II Possibly due to dehydration Will start on IV hydration Monitor renal parameters Electrolytes monitor and replace accordingly Will consult nephrology (4) Dehydration Current Visit: Yes Status: Acute Plan: Will start on IV hydration Monitor renal parameters (5) Diabetes mellitus, type II Current Visit: No Status: Chronic Plan: Insulin sliding scale Accu-Chek before every meal and at bedtime Hypertension Continue home medications and titrate as needed Neuropathy Continue home medications Hypothyroidism Monitor TSH level Continue thyroid replacement Discharge Plan: [facility] Plan to discharge in: 48 Hours - Advance Directives Does patient have a Living Will: No Does patient have a Durable POA for Healthcare: No - Code Status/Comfort Care Code Status: Full Code Time Spent Managing Pts Care (In Minutes): 58
[2023-06-10] MEDS ORDERED: ONDANSETRON 4 MG/2 ML VIAL IV PRN (18:39)
[2023-06-10] MEDS ORDERED: ACETAMINOPHEN 500 MG TAB PO PRN (18:39)
[2023-06-10] MEDS ORDERED: GLUCAGON 1 MG/VIAL IM PRN (18:44)
[2023-06-10] MEDS ORDERED: D50W 25 GM/50 ML SYRINGE IV PRN (18:44)
[2023-06-10] MEDS ORDERED: NA CHLORIDE 0.9% 1,000 ML IV SCH (19:00)
[2023-06-10] MEDS ORDERED: D10W 125 ML IV PRN (19:11)
[2023-06-10] MEDS ORDERED: PIPER TAZO 3.375 GM in NA CHLORIDE 0.9% 100 ML IV SCH (19:45)
[2023-06-10 20:34] VITALS: TEMP 98.6
[2023-06-10] MEDS ORDERED: INSULIN REGULAR (HUMAN) 100 UNIT/ML SQ SCH (21:00)
[2023-06-10] MEDS ORDERED: GABAPENTIN 300 MG CAP PO SCH (21:00)
[2023-06-10] MEDS ORDERED: HYDROXYCHLOROQUINE 200MG TAB PO SCH (21:00)
[2023-06-10] MEDS ORDERED: AMITRIPTYLINE 25 MG TAB PO SCH (21:00)
[2023-06-10 22:43] VITALS: BMI 29.0
[2023-06-10 23:12] VITALS: BP 100/56; O2SAT 100
[2023-06-11] MEDS ORDERED: PIPER TAZO 2.25 GM in NA CHLORIDE 0.9% 50 ML IV SCH (01:00)
[2023-06-11] MEDS ORDERED: LEVOTHYROXINE SOD 0.1 MG TAB PO SCH (06:30)
[2023-06-11] MEDS ORDERED: AMLODIPINE 10 MG TAB PO SCH (09:00)
[2023-06-11] MEDS ORDERED: CHLORTHALIDONE 25 MG TAB PO SCH (09:00)
[2023-06-11] MEDS ORDERED: FINASTERIDE 5 MG TAB PO SCH (09:00)
[2023-06-11] MEDS ORDERED: ENOXAPARIN 30 MG/0.3 ML SQ SCH (09:00)
== END 2023-06-10 22:39 | disposition left against medical advice (07) | DRG 699 ==
LOC: ER 14:20 → ERHOLD 18:39
PROVIDERS: ADMIT Family Medicine; ATTEND Hospitalist
DX: N30.40 Irradiation cystitis without hematuria (principal); N17.9 Acute kidney failure, unspecified; E03.9 Hypothyroidism, unspecified; E78.5 Hyperlipidemia, unspecified; M19.90 Unspecified osteoarthritis, unspecified site; I12.9 Hypertensive chronic kidney disease with stage 1 through stage 4 chronic kidney disease, or unspecified chronic kidney disease; N18.2 Chronic kidney disease, stage 2 (mild); E11.22 Type 2 diabetes mellitus with diabetic chronic kidney disease; E11.40 Type 2 diabetes mellitus with diabetic neuropathy, unspecified; E86.0 Dehydration; C67.9 Malignant neoplasm of bladder, unspecified; M79.652 Pain in left thigh; M25.562 Pain in left knee; R29.6 Repeated falls; Z91.81 History of falling; Z79.84 Long term (current) use of oral hypoglycemic drugs; Z53.29 Procedure and treatment not carried out because of patient's decision for other reasons; Z79.899 Other long term (current) drug therapy; Z96.651 Presence of right artificial knee joint; Z79.890 Hormone replacement therapy; W19.XXXA Unspecified fall, initial encounter; Y92.099 Unspecified place in other non-institutional residence as the place of occurrence of the external cause; Y93.9 Activity, unspecified; Y99.9 Unspecified external cause status
CPT/HCPCS: 36415; 70450; 72125; 74176; 80048; 80076; 81001; 83735; 84484; 85025; 85610; 85730; 93005

== ENCOUNTER 2023-06-12 13:48 | Inpatient (IN) | payer OTHER ==
--- NOTE | 2023-06-12 15:04 | RAD REPORT ---
EXAM DESCRIPTION: CT - Head C Spine Cap Wo Con - 06/12/2023 2:31 pm CLINICAL HISTORY: Trauma, head and neck injury. Chest, abdomen and pelvis pain. fall, confused COMPARISON: No comparisons TECHNIQUE: CT head without contrast. CT cervical spine without contrast with coronal and sagittal reformatted images. CT chest, abdomen and pelvis with coronal and sagittal reformatted images of the spine. All CT scans are performed using dose optimization technique as appropriate and may include automated exposure control or mA/KV adjustment according to patient size. FINDINGS: CT HEAD WITHOUT CONTRAST: No intracranial hemorrhage, hydrocephalus or extra-axial fluid collection. No acute large vascular te rritory infarct. Cerebral atrophy. Remote left thalamic lacunar infarct. The paranasal sinuses and mastoids are clear. The calvarium is intact. CT CERVICAL SPINE WITHOUT CONTRAST: No fracture or subluxation. Multilevel cervical spondylosis. Varying degrees of neural foraminal narr owing noted. The prevertebral soft tissues are normal in thickness. CT CHEST, ABDOMEN, PELVIS: Thorax: Chest Wall: No abnormal mass Lungs: Unchanged 6 mm right lower lobe pulmonary nodule. Pleura: No effusions or pneumothorax. Federica/Mediastinum: No lymphadenopathy. Aorta/Pulmonary Arteries: Unremarkable Heart: Normal size. Mild coronary artery calcifications . Abdomen/Pelvis: Liver: No acute abnormality or suspicious lesions. Biliary: No biliary ductal dilatation. Stomach: No significant focal abnormality. Duodenum: No significant focal abnormality. Pancreas: No significant abnormality. Spleen: No significant abnormality. Adrenal: No suspicious lesions. Kidney/ureter: No hydronephrosis. No renal calculi. Similar bilateral hydronephrosis. Too small to ch aracterize and/or benign appearing renal lesions are noted. Retroperitoneum: No retroperitoneal adenopathy. Vascular: No aneurysm. Bowel: No significant focal abnormality. Peritoneum: No ascites or free air. Bladder: The bladder is decompressed via Harkins catheter. Reproductive: Prostate fiducial markers. Bones: No acute fracture. Multilevel degenerative changes are present in the spine. Nonaggressive papa earing sclerotic lesion right proximal humerus is unchanged. Other: n/a IMPRESSION: 1. No evidence of significant trauma to the head, neck, chest, abdomen, or pelvis. 2. Similar mild bilateral hydronephrosis. The bladder is decompressed via Harkins catheter. No obstruct ing stone or mass.
--- NOTE | 2023-06-12 15:06 | RAD REPORT ---
EXAM DESCRIPTION: RAD - Chest Single View - 06/12/2023 2:44 pm CLINICAL HISTORY: confused, hypoxemia COMPARISON: Chest Single View dated 05/28/2023; Chest Single View dated 05/23/2023; Chest Single View dated 12/24/2022; Chest Pa And Lat (2 Views) dated 12/23/2022 FINDINGS: Lines: None. Lungs: No evidence of edema or pneumonia. Pleural: No significant pleural effusions or pneumothorax. Cardiac: The heart size is within normal limits. Mediastinum: Within normal limits. Bones: No acute fractures. Other: None IMPRESSION: No acute cardiopulmonary disease.
[2023-06-12 15:14] LABS: Absolute Eosinophils 0.2 K/uL (0-0.5); Absolute Lymphocytes (CBC) 0.4 K/uL (0.7-4.9); Absolute Monocytes 0.5 K/uL (0.1-1.3); Absolute Neutrophil 4.1 K/uL (1.8-8.0); Basophils % 0.7 % (0-1.3); Hematocrit 26.9 % (39.6-49.0); Hemoglobin 8.7 g/dL (13.6-17.9); Lymphocytes % 7.4 % (15.3-44.8); MCH 30.8 pg (27.0-35.0); MCHC 32.4 g/dL (32.0-36.0); MPV 8.5 fL (7.6-11.3); Monocytes % 8.9 % (3.3-12.3); Nucleated Red Blood Cells % 0.1 % (0-0); Platelets 174 thou/uL (152-406); RBC Red Blood Cell Count 2.83 M/uL (4.33-5.43); Red Cell Distribution Width 18.3 % (12.1-15.2)
[2023-06-12 15:26] LABS: PT Prothrombin Time 13.7 SECONDS (9.5-12.5); PTT, Activated Partial Thromb 27.1 SECONDS (24.3-36.9); Protime INR 1.25
[2023-06-12 15:34] LABS: Albumin 2.7 g/dL (3.4-5.0); Albumin/Globulin Ratio 0.6 (1.1-1.8); Anion Gap 9.4 mEq/L (5.0-15.0); Bilirubin Total 0.4 mg/dL (0.2-1.0); Globulin 4.2 g/dL (2.3-3.5); Potassium 4.4 mEq/L (3.5-5.1); Protein, Total 6.9 g/dL (6.4-8.2)
[2023-06-12 16:21] LABS: Specific Gravity 1.008 (1.005-1.030); Sqamous Epithelial None Seen /HPF (None Seen); Urine Bacteria <20 /HPF (<20); Urine Bilirubin NEGATIVE (Negative); Urine Blood 1+ (Negative); Urine Clarity Extremely Turbid (Clear); Urine Color Light-Yellow (Yellow); Urine Culture Reflex Order REFLEXED; Urine Glucose NEGATIVE (Negative); Urine Ketones NEGATIVE (Negative); Urine Microscopic Reflex YN ORDER UMIC; Urine Mucus Slight /HPF (None Seen); Urine Nitrite NEGATIVE (Negative); Urine Protein 1+ (Negative); Urine Urobilinogen Normal (Normal); Urine WBC >50 /HPF (<5); Urine WBC Clump Occasional /HPF (None Seen); Urine pH 5.5 (5.0-7.0)
--- NOTE | 2023-06-12 16:31 | ER ---
Nurse's Notes [facility] Name: Abdoul Samuels Age: 83 yrs Sex: Male : 1940 Arrival Date: 06/12/2023 Time: 13:48 Bed 3 Private MD: Diagnosis: Altered mental status, unspecified;Weakness;Dehydration;UTI/ Urinary tract infection, site not specified Presentation: 06/11 14:07 Chief complaint: Patient states: Fell last night, granddaughter notices bruising to R ll1 side of forehead. He was asleep this morning at 9am which is abnormal for him. Grand daughter noticed him weak, lethargic, and confused at 1030 while at a , so she brought him in for evaluation. Coronavirus screen: Client denies travel out of the [place] in the last 14 days. At this time, the client does not indicate any symptoms associated with coronavirus-19. Ebola Screen: Patient denies travel to an Ebola-affected area in the 21 days before illness onset. Initial Sepsis Screen: Does the patient meet any 2 criteria? No. Patient's initial sepsis screen is negative. Does the patient have a suspected source of infection? No. Patient's initial sepsis screen is negative. Risk Assessment: Do you want to hurt yourself or someone else? Patient reports no desire to harm self or others. Onset of symptoms was June 12, 2023. 14:07 Method Of Arrival: Wheelchair ll1 14:07 Acuity: SHON 2 ll1 Historical: - Allergies: 14:07 NKDA; ll1 - PMHx: 14:07 Arthritis; Bladder cancer (Hypothyroidism); Diabetes - NIDDM; Hyperlipidemia; ll1 Hypertension; Hypothyroidism; - PSHx: 14:07 back; neck; Right knee replacement; ll1 - Immunization history:: Adult Immunizations up to date. - Infectious Disease History:: unknown. - Social history:: Smoking status: Patient denies any tobacco usage or history of. - Family history:: not pertinent. - Hospitalizations: : No recent hospitalization is reported. Screenin:42 [facility] ED Fall Risk Assessment (Adult) History of falling in the last 3 months, ap3 including since admission Yes- fall prone (multiple falls) (3 pts) Confusion or Disorientation Yes (5 pts) Intoxicated or Sedated No (0 pts) Impaired Gait Yes (1 pt) Mobility Assist Device Used Yes (1 pt) Altered Elimination Yes (1 pt) Score/Fall Risk Level 3 or more points = High Risk Oriented to surroundings, Maintained a safe environment, Educated pt \T\ family on fall prevention, incl call for assistance when getting out of bed, Assessed \T\ reinforced patient's understanding of fall precautions, Provided non-skid footwear, Hourly rounding (assess needs \T\ fall precautionary measures) done, Used ambulatory aids as needed (educated on \T\ assisted with), Used gait belt as appropriate Implemented a Fall Risk Plan of Care, Apply high fall risk patient identification: yellow non skid footwear/ fall signage, Placed fall mat w/ non beveled edge next to bed, Remained w/in arm's length of patient and in sight while toileting, Offered frequent toileting (1:1 observation), Remained with patient while ambulating, Utilized family, sitter, or virtual tin whiz machine operator as indicated. 15:11 Abuse screen: Denies threats or abuse. Nutritional screening: No deficits noted. ap3 Tuberculosis screening: No symptoms or risk factors identified. Assessment: 14:42 : 3-way catheter in place to gravity drainage. ap3 15:10 General: Appears ill, Behavior is calm, drowsy. Pain: Unable to use pain scale. Neuro: ap3 Level of Consciousness is lethargic, Oriented to person. Cardiovascular: Patient's skin is warm and dry. Respiratory: Airway is patent Respiratory effort is even, unlabored, Respiratory pattern is regular, symmetrical. GI: No deficits noted. 17:25 Reassessment: Patient and/or family updated on plan of care and expected duration. Pain ap3 level reassessed. 18:46 General: report faxed to 4th floor. ap3 Vital Signs: 14:07 BP 114 / 94; Pulse 94; Resp 20; Temp 97.9; Pulse Ox 92% on R/A; Weight 104.33 kg; ll1 Height 5 ft. 10 in. ; Pain 0/10; 14:57 BP 121 / 67; Pulse 94; Resp 18; Pulse Ox 97% on 2 lpm NC; ab3 15:30 BP 114 / 94; Pulse 82; Resp 16; Pulse Ox 100% on 2 lpm NC; ab3 16:00 BP 110 / 62; Pulse 83; Resp 16; Pulse Ox 100% on 2 lpm NC; ab3 17:00 BP 119 / 65; Pulse 87; Resp 14; Pulse Ox 100% on 2 lpm NC; Pain 0/10; ab3 18:28 BP 112 / 59; Pulse 83; Resp 16; Pulse Ox 97% on 2 lpm NC; ko1 14:07 Body Mass Index 33.00 (104.33 kg, 177.8 cm) ll1 14:07 Pain Scale: Adult ll1 17:00 Pain Scale: Non-Verbal ab3 Melissa Coma Score: 14:57 Eye Response: spontaneous(4). Motor Response: localizes pain(5). Verbal Response: ab3 inappropriate words(3). Total: 12. 14:57 H/O Dementia; this is intermittent baseline per family. ab3 ED Course: 13:49 Patient arrived in ED. mr 14:00 Arm band placed on Patient placed in an exam room, on a stretcher. ll1 14:01 Phani Glass MD is Attending Physician. rn 14:09 Triage completed. ll1 14:33 CT Traumagram (Head C Spine CAP wo con) In Process Unspecified. EDMS 14:34 Patient has correct armband on for positive identification. Bed in low position. Call ap3 light in reach. Side rails up X2. Adult w/ patient. property assessment monitor on. Pulse ox on. NIBP on. 14:39 X-ray completed. Portable x-ray completed in exam room. Patient tolerated procedure mh1 well. 14:41 Alida Zuniga, RIGOBERTO is Primary Nurse. ap3 14:42 Chest Single View XRAY In Process Unspecified. EDMS 15:01 Initial lab(s) drawn, by me, sent to lab. First set of blood cultures drawn by me. ap3 15:05 Second set of blood cultures drawn. ap3 15:09 Inserted saline lock: 22 gauge in right hand, using aseptic technique. Blood collected. ap3 15:10 Inserted saline lock: 22 gauge in left forearm, using aseptic technique. ap3 16:04 Urine obtained. ab3 16:30 Michael Lr is Hospitalizing Provider. rn 17:04 Warm blanket given. ab3 18:28 Provided Education on: na. ko1 18:28 No provider procedures requiring assistance completed. ko1 18:48 Patient admitted, IV remains in place. ap3 Administered Medications: 17:09 Drug: Rocephin IV 1 grams IV at calculated rate once; Given slow IV push per pharmacy ko1 instructions Route: IV; Rate: calculated rate; Site: left forearm; 18:47 Follow up: IV Status: Completed infusion ap3 Medication: 18:28 VIS not applicable for this client. ko1 Outcome: 16:31 Decision to Hospitalize by Provider. rn 18:47 Admitted to Tele ap3 18:47 Condition: good 18:47 Discharge instructions given to family, Instructed on the need for admit, Demonstrated understanding of instructions, 19:23 Patient left the ED. cm10 Signatures: Dispatcher [employer] EDMS Trinh Nelson, Reg Reg mr Joyce Mohan 1 Phani Glass MD MD rn Prokisch, Amanda RN RIGOBERTO sierra3 Fred Lua RN RN garfield1 Patricia Wright RN RN dorie1 Nathaly Norris RN RN cm10 Kelsie Fry RN RN ab3 Corrections: (The following items were deleted from the chart) 16:58 16:00 BP 110 / 62; Pulse 83bpm; Resp 16bpm; Pulse Ox 100% 2 lpm; ab3 ab3 17:04 14:57 BP 121 / 67; Pulse 94bpm; Resp 18bpm; Pulse Ox 97% 2 lpm Nasal Cannula; ko1 ab3
--- NOTE | 2023-06-12 16:32 | EDPHYS ---
Physician Documentation [facility] Name: Abdoul Samuels Age: 83 yrs Sex: Male : 1940 Arrival Date: 06/12/2023 Time: 13:48 Bed 3 Private MD: ED Physician Phani Glass HPI: 06/11 16:20 This 83 yrs old Male presents to ER via Wheelchair with complaints of Fall Injury, Head rn Injury-Adult, Confusion, Lethargic. 16:21 Family member reports patient seen a few days ago, was being admitted for dehydration rn and weakness when he found out was in the hospital and near he decided to leave AGAINST MEDICAL ADVICE. Patient returns for worsening weakness, near syncope, worse today at 's . Reports recurrent falls and recent fall with possible head injury. No LOC. No extremity injury or deformity. No chest pain. No vomiting or diarrhea. Family member reports known bladder cancer with indwelling Harkins catheter, sees Dr. Portillo, no gross changes recently. Dr. Portillo scheduled to put in stents in upcoming months.. Onset: The symptoms/episode began/occurred 1 week(s) ago. Severity of symptoms: At their worst the symptoms were moderate in the emergency department the symptoms are unchanged. The patient has experienced similar episodes in the past. The patient has been recently seen at the [facility] Emergency Department. Historical: - Allergies: 14:07 NKDA; ll1 - PMHx: 14:07 Arthritis; Bladder cancer (Hypothyroidism); Diabetes - NIDDM; Hyperlipidemia; ll1 Hypertension; Hypothyroidism; - PSHx: 14:07 back; neck; Right knee replacement; ll1 - Immunization history:: Adult Immunizations up to date. - Infectious Disease History:: unknown. - Social history:: Smoking status: Patient denies any tobacco usage or history of. - Family history:: not pertinent. - Hospitalizations: : No recent hospitalization is reported. ROS: 16:21 Constitutional: Negative for fever, chills, and weight loss, Cardiovascular: Negative rn for chest pain, palpitations, and edema, Respiratory: Negative for shortness of breath, cough, wheezing, and pleuritic chest pain, Abdomen/GI: Negative for abdominal pain, nausea, vomiting, diarrhea, and constipation, MS/Extremity: Negative for injury and deformity, Skin: Negative for injury, rash, and discoloration, Neuro: Generalized weakness and near syncope Exam: 16:21 Constitutional: This is a well developed, well nourished patient who is awake, alert, rn and in no acute distress. Head/Face: Normocephalic, atraumatic. ENT: Dry mucous membranes Cardiovascular: Regular rate and rhythm. No pulse deficits. Respiratory: No increased work of breathing, no retractions or nasal flaring. Abdomen/GI: Soft, non-tender Male : Indwelling urinary catheter present, normal urine, no hematuria MS/ Extremity: No cyanosis Neuro: Awake, somnolent, oriented to person and place, not time. Moves all 4 extremities. Confused and at times inappropriate answers. Vital Signs: 14:07 BP 114 / 94; Pulse 94; Resp 20; Temp 97.9; Pulse Ox 92% on R/A; Weight 104.33 kg; ll1 Height 5 ft. 10 in. ; Pain 0/10; 14:57 BP 121 / 67; Pulse 94; Resp 18; Pulse Ox 97% on 2 lpm NC; ab3 15:30 BP 114 / 94; Pulse 82; Resp 16; Pulse Ox 100% on 2 lpm NC; ab3 16:00 BP 110 / 62; Pulse 83; Resp 16; Pulse Ox 100% on 2 lpm NC; ab3 17:00 BP 119 / 65; Pulse 87; Resp 14; Pulse Ox 100% on 2 lpm NC; Pain 0/10; ab3 18:28 BP 112 / 59; Pulse 83; Resp 16; Pulse Ox 97% on 2 lpm NC; ko1 14:07 Body Mass Index 33.00 (104.33 kg, 177.8 cm) ll1 14:07 Pain Scale: Adult ll1 17:00 Pain Scale: Non-Verbal ab3 Melissa Coma Score: 14:57 Eye Response: spontaneous(4). Motor Response: localizes pain(5). Verbal Response: ab3 inappropriate words(3). Total: 12. 14:57 H/O Dementia; this is intermittent baseline per family. ab3 MDM: 14:01 Patient medically screened. rn 16:21 Differential Diagnosis dehydration, weakness, UTI, pneumonia. Data reviewed: vital rn signs, nurses notes, lab test result(s), radiologic studies, CT scan, and as a result, I will admit patient. Consideration of Admission/Observation Patient was admitted/placed on observation. Escalation of care including admission/observation considered. Care significantly affected by the following chronic conditions: Diabetes, Bladder cancer. Counseling: I had a detailed discussion with the patient and/or guardian regarding the historical points, exam findings, and any diagnostic results supporting the discharge/admit diagnosis, lab results, radiology results, the need for further work-up and treatment in the hospital. 06/11 14:08 Order name: Blood Culture Adult (2) rn 06/11 14:08 Order name: CBC with Diff; Complete Time: 15:57 rn 06/11 14:08 Order name: CMP; Complete Time: 15:57 rn 06/11 14:08 Order name: Lactate w/ 2H reflex if indic.; Complete Time: 15:57 rn 06/11 14:08 Order name: Protime (+inr); Complete Time: 15:57 rn 06/11 14:08 Order name: Ptt, Activated; Complete Time: 15:57 rn 06/11 14:08 Order name: Urinalysis w/ reflexes; Complete Time: 16:31 rn 06/11 16:24 Order name: Urine Culture EDMS 06/11 17:13 Order name: T4 Free EDMS 06/11 17:13 Order name: Thyroid Stimulating Hormone EDMS 06/11 17:13 Order name: Basic Metabolic Panel EDMS 06/11 17:13 Order name: Basic Metabolic Panel EDMS 06/11 17:13 Order name: CBC with Automated Diff EDMS 06/11 17:13 Order name: CBC with Automated Diff EDMS 06/11 17:13 Order name: Lipid Profile EDMS 06/11 17:13 Order name: Lipid Profile EDMS 06/11 17:13 Order name: Magnesium EDMS 06/11 17:13 Order name: Magnesium EDMS 06/11 17:13 Order name: Phosphorus EDMS 06/11 17:13 Order name: Phosphorus EDMS 06/11 14:08 Order name: CT Traumagram (Head C Spine CAP wo con); Complete Time: 15:12 rn 06/11 14:08 Order name: Chest Single View XRAY; Complete Time: 15:12 rn 06/11 17:27 Order name: ERT ORTHOSTATIC V/S EDMS 06/11 17:13 Order name: CONS Physician Consult EDMS 06/11 17:27 Order name: Occupational Therapy Consult EDMS 06/11 17:27 Order name: Physical Therapy Consult EDPA 06/11 14:08 Order name: Cardiac monitoring; Complete Time: 14:46 rn 06/11 14:08 Order name: EKG - Nurse/Tech; Complete Time: 15:09 rn 06/11 14:08 Order name: IV Saline Lock - Large Bore; Complete Time: 15:09 rn 06/11 14:08 Order name: Labs collected and sent; Complete Time: 15:09 rn 06/11 14:08 Order name: O2 Per Protocol; Complete Time: 14:46 rn 06/11 14:08 Order name: O2 Sat Monitoring; Complete Time: 14:46 rn 06/11 14:08 Order name: Vital Signs; Complete Time: 14:46 rn Administered Medications: 17:09 Drug: Rocephin IV 1 grams IV at calculated rate once; Given slow IV push per pharmacy ko1 instructions Route: IV; Rate: calculated rate; Site: left forearm; 18:47 Follow up: IV Status: Completed infusion ap3 Disposition Summary: 06/12/23 16:31 Hospitalization Ordered Notes: Hospitalization Status: Observation rn Provider: Michael Lr rn Location: Telemetry/MedSurg (observation) rn Condition: Stable rn Problem: new rn Symptoms: have improved rn Bed/Room Type: Standard rn Room Assignment: 430(06/12/23 18:33) jr12 Diagnosis - Altered mental status, unspecified rn - Weakness rn - Dehydration rn - UTI/ Urinary tract infection, site not specified rn Forms: - Medication Reconciliation Form rn - SBAR form rn - Leadership Thank You Letter rn Signatures: Dispatcher [facility] Phani Glass MD MD rn Prokisch, Amanda RN RN ap3 Fred Lua RN RN ll1 Patricia Wright RN RN ko1 Klarissa Lowe jr12 Corrections: (The following items were deleted from the chart) 14:08 14:08 BLOOD CULTURE*+BA.LAB.BRZ ordered. EDMS EDMS 14:08 14:08 CBC+H.LAB.BRZ ordered. EDMS EDMS 14:08 14:08 COMPREHENSIVE METABOLIC PANEL+C.LAB.BRZ ordered. EDMS EDMS 14:08 14:08 LACTATE+C.LAB.BRZ ordered. EDMS EDMS 14:08 14:08 PROTIME (+INR)+COAG.LAB.BRZ ordered. EDMS EDMS 14: 14:08 PTT, ACTIVATED+COAG.LAB.BRZ ordered. EDMS EDMS 14: 14:08 Urinalysis+U.LAB.BRZ ordered. EDMS EDMS 14: 14:08 Chest Single View+RAD.RAD.BRZ ordered. EDMS EDMS 16: 14:08 Accucheck ordered. rn ab3 18:33 16:31 rn jr12
--- NOTE | 2023-06-12 16:36 | P.HP ---
Certification for Inpatient Patient admitted to: Observation With expected LOS: >2 Midnights Patient will require the following post-hospital care: None Practitioner: I am a practitioner with admitting privileges, knowledge of patient current condition, hospital course, and medical plan of care. Services: Services provided to patient in accordance with Admission requirements found in Title 42 Section 412.3 of the Code of Federal Regulations Patient History Date of Service: 06/12/23 Reason for admission: PUNEET, decompensating History of Present Illness: Abdoul Samuels is an 83 year old male with pmhx hypertension, hyperlipidemia, diabetes, hypothyroidism, history of bladder cancer on radiation (Chronic kirk, arthritis, frequent falls who presents to the ED with chief complaint of weakness. He attended his radiation treatment today but was unable to complete due to his weakness. Family at bedside reports he has become more and more lethargic and confused since Thursday, he previously was admitted from the ED on Thursday but needed to leave to [facility] by to his . Traumagram is negative, UA suggestive of infection, acute on chronic kidney disease. Laboratory evaluation H&H 8.7/26.9, left shift neutrophils 79, sodium 133, BUN/creatinine 57/2.91, GFR 21, serum glucose 166 Initial vitals BP 114 / 94; Pulse 94; Resp 20; Temp 97.9; Pulse Ox 92% on R/A Chest x-ray reports "No acute cardiopulmonary disease." CT head reports "No intracranial hemorrhage, hydrocephalus or extra-axial fluid collection. No acute large vascular territory infarct. Cerebral atrophy. Remote left thalamic lacunar infarct. The paranasal sinuses and mastoids are clear. The calvarium is intact." CT cervical spine reports "No fracture or subluxation. Multilevel cervical spondylosis. Varying degrees of neural foraminal narrowing noted. The prevertebral soft tissues are normal in thickness" CT chest abdomen pelvis reports "IMPRESSION: 1. No evidence of significant trauma to the head, neck, chest, abdomen, or pelvis. 2. Similar mild bilateral hydronephrosis. The bladder is decompressed via Kirk catheter. No obstructing stone or mass." Abdoul will be admitted to hospitalist service for further evaluation and treatment of kidney disease secondary to dehydration, urinary tract infection. Dr. Garima schofield consulted Allergies No Known Allergies Allergy (Verified 06/09/23 11:43) Home Medications: Levothyroxine [Synthroid*] 100 mcg PO DAILY 08/24/13 Pravastatin [Pravachol*] 40 mg PO DAILY 08/24/13 Finasteride [Proscar*] 5 mg PO DAILY 12/23/22 Amlodipine [Norvasc*] 10 mg PO DAILY 04/02/23 Glimepiride [Amaryl*] 4 mg PO DAILY 05/27/23 Memantine HCl [Namenda*] 10 mg PO BEDTIME 05/27/23 Amitriptyline HCl 25 mg PO BEDTIME 06/09/23 Chlorthalidone [Hygroton 25mg Tab] 25 mg PO DAILY 06/09/23 Gabapentin [Neurontin*] 300 mg PO BEDTIME 06/09/23 Hydroxychloroquine [Plaquenil] 200 mg PO BID 06/09/23 Lisinopril [Zestril] 5 mg PO DAILY 06/09/23 Metformin HCl [Glucophage] 850 mg PO BIDWM 06/09/23 Metoprolol Tartrate [Lopressor] 50 mg PO BID 06/09/23 Mirabegron [Myrbetriq] 50 mg PO DAILY 06/09/23 Pantoprazole [Protonix Tab] 40 mg PO DAILY 06/09/23 Trospium Chloride [Sanctura] 60 mg PO DAILY 06/09/23 - Past Medical/Surgical History Diabetic: Yes -: DM II -: HTN -: Hypothyroidism -: CKD III with Proteinuria (Dr. Paul/ Dr. Taveras) -: Hypothyroidism -: HLD -: Thyroidectomy -: Knee Replacement right -: Back surgery -: Ankle surgery - Social History Alcohol use: No CD- Drugs: No Caffeine use: Yes Review of Systems is unable to be obtained Physical Examination - Physical Exam General: Demented, Other (lethargic) HEENT: Other (bruising to right yazidism) Neck: 2+ carotid pulse no bruit Respiratory: Clear to auscultation bilaterally, Normal air movement Cardiovascular: Regular rate/rhythm, Normal S1 S2, Edema Capillary refill: <2 Seconds Gastrointestinal: Hypoactive, Soft and benign Musculoskeletal: Swelling, Erythema (BLE) Integumentary: Skin breakdown (BLE) Neurological: Other (weakness), Abnormal speech - Studies Laboratory Data (last 24 hrs) 06/12/23 06/12/23 06/12/23 15:01 15:01 15:01 WBC 5.10 Hgb 8.7 L Hct 26.9 L Plt Count 174 PT 13.7 H INR 1.25 APTT 27.1 Sodium 133 L Potassium 4.4 BUN 57 H Creatinine 2.91 H Glucose 166 H Total Bilirubin 0.4 AST 77 H ALT 42 Alkaline Phosphatase 103 Assessment and Plan - Plan Assessment and plan Acute kidney injury on CKD stage II likely 2/2 dehydration BUN/creatinine 57/2.91, GFR 21 IV fluids Monitor renal parameters Electrolytes monitor and replace accordingly Consult Dr. 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 No evidence of significant trauma to the head, neck, chest, abdomen, or pelvis. 2. Similar mild bilateral hydronephrosis. The bladder is decompressed via Kirk catheter. No obstructing stone or mass." Anemia of chronic disease Iron, Ferritin, Vit B12 pending H/H 8.7/26.9 Monitor and transfuse PRN Diabetes Mellitus- NIDDM Serum glucose 166 Accu-Check ACHS with sliding scale insulin Hypertension Continue home medications and titrate as needed Neuropathy Continue home medications Hypothyroidism Monitor TSH level Continue thyroid replacement DVT PPx heparin LOS 2 to 3 days Plan to discharge in: 48 Hours - Advance Directives Does patient have a Living Will: No Does patient have a Durable POA for Healthcare: No Time Spent Managing Pts Care (In Minutes): 50
[2023-06-12] MEDS ORDERED: CEFTRIAXONE 1000 MG/VIAL ONE (17:05)
[2023-06-12] MEDS: NA CHLORIDE 0.9% 1,000 ML IV SCH (19:47)
[2023-06-12] MEDS: HEPARIN 5000 UNIT/ML 1 ML VIAL SQ SCH (19:47)
[2023-06-12] MEDS: INSULIN REGULAR (HUMAN) 100 UNIT/ML SQ SCH (21:00)
[2023-06-12 21:07] VITALS: BMI 33.0
[2023-06-12 21:33] LABS: Thyroid Stimulating Hormone 0.107 uIU/mL (0.358-3.740)
[2023-06-13 03:55] LABS: Absolute Eosinophils 0.3 K/uL (0-0.5); Absolute Lymphocytes (CBC) 0.3 K/uL (0.7-4.9); Absolute Monocytes 0.3 K/uL (0.1-1.3); Absolute Neutrophil 3.3 K/uL (1.8-8.0); Eosinophils % 6.1 % (0-4.4); Hematocrit 24.5 % (39.6-49.0); MCH 30.8 pg (27.0-35.0); MCHC 32.5 g/dL (32.0-36.0); MCV 94.6 fL (80-100); Monocytes % 7.9 % (3.3-12.3); Platelets 163 thou/uL (152-406); RBC Red Blood Cell Count 2.59 M/uL (4.33-5.43); Red Cell Distribution Width 18.6 % (12.1-15.2)
[2023-06-13 04:19] LABS: Anion Gap 9.1 mEq/L (5.0-15.0); Magnesium 1.9 mg/dL (1.6-2.4); Phosphorus 4.1 mg/dL (2.5-4.9); Potassium 4.1 mEq/L (3.5-5.1)
--- NOTE | 2023-06-13 07:08 | P.PN ---
Date of Service: 06/13/23 Subjective ROS 10 point ROS as noted above, otherwise negative Physical Exam General: Demented, Other (lethargic) HEENT: Other (bruising to right yazidism) Neck: 2+ carotid pulse no bruit Respiratory: Clear to auscultation bilaterally, Normal air movement Cardiovascular: Regular rate/rhythm, Normal S1 S2, Edema Capillary refill: <2 Seconds Gastrointestinal: Hypoactive, Soft and benign Musculoskeletal: Swelling, Erythema (BLE) Integumentary: Skin breakdown (BLE) Neurological: Other (weakness), Abnormal speech Vitals Reviewed Problem list Acute kidney injury on CKD stage II UTI Hyponatremia [place] Anemia of chronic disease Hypertension Neuropathy Hypothyroidism Assessment and Plan Acute kidney injury on CKD stage II likely 2/2 dehydration BUN/creatinine 51/2.41, GFR 26, IV fluids Monitor renal parameters Electrolytes monitor and replace accordingly Consult Dr. 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 No evidence of significant trauma to the head, neck, chest, abdomen, or pelvis. 2. Similar mild bilateral hydronephrosis. The bladder is decompressed via Harkins catheter. No obstructing stone or mass." Anemia of chronic disease Iron 34, ferritin 680, vitamin B12 943 H&H 8.0/24. Monitor and transfuse PRN Diabetes Mellitus- NIDDM serum glucose 88 Accu-Check ACHS with sliding scale insulin Hypertension Continue home medications and titrate as needed Neuropathy Continue home medications Hypothyroidism TSH/free T4 0.107/1.57 Continue thyroid replacement DVT PPx heparin Full code LOS 2-3 days <Megan Mohan - Last Filed: 06/13/23 07:02> Patient seen and examined. He currently has no complaints. Hyponatremia resolved Chronic anemia UTI Possible syncopal episode versus polypharmacy Check orthostatic vitalss PT to evaluate. Antibiotics. Reduce Synthroid dose due to given hyperthyroid state. <mihai ortega - Last Filed: 06/13/23 13:11>
[2023-06-13] MEDS: CEFTRIAXONE 2,000 MG in NA CHLORIDE 0.9% 100 ML IV SCH (08:43)
[2023-06-13] MEDS: EPOETIN ALFA-EPBX 4,000 UNIT/ML VIAL SQ ONE (16:20)
--- NOTE | 2023-06-13 19:21 | CON ---
History Of Present Illness: The patient is seen and evaluated in room 430 on the 4th floor at [facility] in [place]. The patient is alert, awake. His son-in-law and granddaughter are by the bedside. Recently, had a in the family of his , had been at the , has not be en eating and drinking well. Presents to the hospital with urinary tract infection, some acute kidne y injury on chronic kidney disease. Sees Dr. Paul for outpatient management. States that he is f eeling okay. Has been obviously depressed with appropriate level of reactive depression given his wi fe's recent . Has not been eating and drinking well, but will try his best to do better. Good family support. He has history of kidney disease, has been awaiting a possible stent placement by Dr Kevin Portillo, but that was scheduled for about and he has already been evaluated with him. He has been started on antibiotics and seems to be responding well. He is currently getting IV fluids and r esponding well. Past Medical History: Diabetes, hypertension, history of hypothyroidism, CKD/3 with proteinuria, see s Dr. Paul and Dr. Taveras in outpatient clinic. History of thyroidectomy, history of knee replacem ent, back and ankle surgery. Social History: Does not drink alcohol, does not use any drugs. Will be living alone now that his w kinza has recently . Responding appropriately to 's . No suicidal or homicidal id eation. Good insight. Good family support. Medications: In the chart, reviewed. Patient is currently getting antibiotics. Physical Examination: Vital Signs: Stable. Blood pressure is in the low 100 range. Last one was improved at 117/64. Fir st pulse is between 1900 and regular, respirations around 14 and comfortable, O2 sats are in mid 90s, 96% on room air. Lungs: Clear to auscultation. Abdomen: Soft. Extremities: Reveal no edema. Laboratory Data: Reviewed. WBC count is 4.3, hemoglobin 8.2, hematocrit 24.5, platelet count of 163 . Chemistry shows sodium 139, potassium 4.1, chloride 109, bicarb is 25, BUN is 51, creatinine is 2. 41. The creatinine has come down from yesterday when it was 2.91. The BUN has also come down from 5 7 to 51. HDL is 38, LDL is 42, triglycerides 115, total cholesterol 103. TSH was at 0.107, but free T4 was at 1.57. Assessment And Plan: The patient with acute kidney injury/chronic kidney disease/urinary tract infec tion. Continue antibiotics. Continue IV fluids, seems to be slightly prerenal. We will give him a dose of Retacrit to assist with the low hemoglobin, would likely not need transfusion unless hemoglob in goes below 7. We will continue to monitor. We will also dose of vitamin D and use it q.7 days fo r supplementation given his low calcium. Continue IV fluids. Discussed with the family and the sylvia ent about keeping up with his p.o. intake. If depression worsens and/or needs assistance, may need m edications to monitor for this, but however, currently his depression seems reactive to his recent pa ssing of his and he seems to be doing well with it. Has good insight, has good family support, and the granddaughter does say that they will be visiting him regularly and keeping an eye on him and supporting him that now that the has , he will be living alone or that may need to b e changed if patient needs support. At this point, seems to be alert, able to answer questions and s eems to be improving with IV fluids and antibiotics. Will need further evaluation outpatient with [facility] inspector repairer [place], Dr. Paul, once acute issues are resolved to evaluate for residual basal renal func tion and treatment of same. /CACHORRO Voice ID: [id number] Report ID: [id number]
[2023-06-13] MEDS: MEMANTINE HCL 10 MG TABLET PO SCH (21:06)
[2023-06-14] MEDS: LEVOTHYROXINE SOD 0.075 MG TAB PO SCH (05:18)
[2023-06-14] MEDS: ATORVASTATIN 10 MG TAB PO SCH (08:47)
[2023-06-14] MEDS: PANTOPRAZOLE 40MG TABLET PO SCH (08:47)
[2023-06-14] MEDS: TAMSULOSIN 0.4 MG SR CAP PO SCH (08:47)
[2023-06-14] MEDS: SOLIFENACIN SUCCINATE 10 MG PO SCH (09:00)
[2023-06-14] MEDS: TROSPIUM CHLORIDE 60 MG PO SCH (09:00)
[2023-06-14] MEDS: **PT MED**Mirabegron [Myrbetriq] 50 MG Tab.Er.24h PO SCH (09:00)
[2023-06-14 15:57] LABS: Anion Gap 9.3 mEq/L (5.0-15.0); Potassium 4.3 mEq/L (3.5-5.1)
--- NOTE | 2023-06-14 17:24 | P.PN ---
Subjective Date of Service: 06/14/23 Chief Complaint: PUNEET, decompensating Patient states he feels much better today. He appears to be more awake and interactive. Patient was seen sitting in the wheelchair today. Met with family members who reported patient has been experiencing progressive weakness and impaired mobility.. History of urinary retention with chronic indwelling Harkins. Physical Examination - Vital Signs Temperature: 98 F Blood Pressure: 102/60 Pulse: 93 Respirations: 16 Pulse Ox (%): 96 Assessment And Plan - Plan Physical Exam General: Not in acute distress. HEENT: bruising to right presybeterian Respiratory: Clear to auscultation bilaterally, Normal air movement Cardiovascular: Regular rate/rhythm, Normal S1 S2, Edema Gastrointestinal: Soft and benign, normal bowel sounds. Musculoskeletal: LE Swelling Integumentary: Bilateral venous stasis dermatitis. Neurological: No focal motor deficit. Vitals Reviewed Problem list Acute kidney injury on CKD stage II UTI Hyponatremia [place] Anemia of chronic disease Hypertension Neuropathy Hypothyroidism Assessment and Plan Acute kidney injury on CKD stage II likely 2/2 dehydration Serum creatinine is improving with IV fluid. Nephrology input appreciated. Continue IV fluid. Home dose Lasix is on hold Monitor renal parameters Electrolytes monitor and replace accordingly Nephrology is following. Chronic indwelling Harkins catheter related UTI Leukocyte Esterase 500, WBC > 50 Patient is on IV Rocephin Urine culture shows no growth. 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 Patient is on IV fluid. [place] orthostatics PT/OT evaluation Traumagram reports " "IMPRESSION: 1. No evidence of significant trauma to the head, neck, chest, abdomen, or pelvis. 2. Similar mild bilateral hydronephrosis. The bladder is decompressed via Harkins catheter. No obstructing stone or mass." Family requesting for acute rehab. Social service consult to evaluate for inpatient rehab placement Anemia of chronic disease Iron 34, ferritin 680, vitamin B12 943 H&H 8.0/24. Monitor and transfuse PRN Diabetes Mellitus- NIDDM Accu-Check ACHS with sliding scale insulin Hypertension Patient has soft blood pressure. Hold amlodipine. Monitor blood pressure. Neuropathy Continue home medications Hypothyroidism TSH/free T4 0.107/1.57 Continue thyroid replacement Chronic urinary retention/history of bladder cancer/BPH Continue tamsulosin. Hypothyroidism Patient is in hyperthyroid state. Reduce Synthroid dosing to 75 mcg daily DVT PPx heparin Full code LOS 2-3 days
--- NOTE | 2023-06-14 20:18 | PN ---
Date of Progress Note: 06/14/2023 Subjective: The patient seen in room 430 at [facility] in [place]. The patient is i mproved somewhat compared to yesterday. No pain. Sodium level is stable at about 136. His creatini ne has come down to 2.12 from 2.9 about 2 days ago and 2.4 yesterday. His BUN has also come down fro m 51 to 36 today. Objective: Vitals: Stable. On evaluation of his vitals, blood pressure is about 102/60, before starr t it was 149/64, pulse is about 90 to 100 and regular. His temperature is 98 to 99.1, last one at 99 .1, O2 sats are 95% on room air. Lungs: Clear anteriorly. Abdomen: Soft. Extremities: No significant edema. The patient is able to breathe comfortably. Laboratory Data: Reviewed. The patient's WBC count is 4.3, hemoglobin is 8, hematocrit is 24.5, logan telet counts are 163. Chemistry shows sodium 136, potassium 4.3, chloride 106, bicarb is 25. BUN an d creatinine are 36 and 2.12, with significant improvement compared to 2 days ago. Assessment And Plan: The patient with acute kidney injury, urinary tract infection. Continue with a ntibiotics. Continue with gentle IV fluids. The patient is somewhat improving, still not at baselin e. Will need evaluation by urologist. To continue follow up for a possibility of stent placement. At this point, continue antibiotics, IV fluids, monitor renal function. /CACHORRO Voice ID: [id number] Report ID: [id number]
[2023-06-14] MEDS: LORAZEPAM 0.5 MG TABLET PO ONE (22:39)
[2023-06-15 07:04] LABS: Albumin 2.2 g/dL (3.4-5.0); Anion Gap 8.1 mEq/L (5.0-15.0); Phosphorus 2.4 mg/dL (2.5-4.9); Potassium 4.1 mEq/L (3.5-5.1)
[2023-06-15] MEDS: HALOPERIDOL LACT 5 MG/ML INJ IV PRN (07:43)
[2023-06-15] MEDS: HALOPERIDOL LACT 5 MG/ML INJ IV ONE (10:04)
--- NOTE | 2023-06-15 12:50 | EKG ---
Test Date: 2023-06-12 Test Time: 14:50:03 Respite Coordinator: GAGE MEASUREMENT RESULTS: Intervals: Rate: 89 WV: 156 QRSD: 132 QT: 394 QTc: 479 [place]: P: 91 WV: 156 QRS: 7 T: 35 INTERPRETIVE STATEMENTS: Normal sinus rhythm Right bundle branch block Abnormal ECG Compared to ECG 06/10/2023 14:54:28 No significant changes Electronically Signed On 06-15-23 12:43:19 CDT by Israel Girard
--- NOTE | 2023-06-15 15:58 | P.PN ---
Subjective Date of Service: 06/15/23 Chief Complaint: PUNEET, decompensating Patient was a bit upset and agitated this morning about not being allowed to get up from the bed and walk, with the bed alarm. He appears confused. Physical Examination - Vital Signs Temperature: 98.9 F Blood Pressure: 152/74 Pulse: 84 Respirations: 19 Pulse Ox (%): 94 - Studies Microbiology Data (last 24 hrs): 06/12/23 16:06 Clean Catch Urine [place] Count - Final No growth. 06/12/23 16:06 Clean Catch Urine - Final No growth. Assessment And Plan - Plan Physical Exam General: Not in acute distress. Mildly confused Respiratory: Clear to auscultation bilaterally, Normal air movement Cardiovascular: Regular rate/rhythm, Normal S1 S2, Edema Gastrointestinal: Soft and benign, normal bowel sounds. Musculoskeletal: LE Swelling Integumentary: Bilateral venous stasis dermatitis. Urogenital: Indwelling Harkins catheter. Neurological: No focal motor deficit. Vitals Reviewed Diagnosis Acute kidney injury on CKD stage II Indwelling catheter related UTI Hyponatremia [place] Anemia of chronic disease Hypertension Neuropathy Hypothyroidism Assessment and Plan Acute kidney injury on CKD stage II likely 2/2 dehydration Serum creatinine is improving with IV fluid. Continue IV fluid. Home dose Lasix is on hold Monitor renal parameters Nephrology is following. Chronic indwelling Harkins catheter related UTI BPH History of bladder cancer Leukocyte Esterase 500, WBC > 50 Patient is on IV Rocephin Urine culture shows no growth. 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 Hyponatremia Hyponatremia resolved. Patient is on IV fluid. [place] orthostatics PT/OT evaluation [facility] reports " "IMPRESSION: 1. No evidence of significant trauma to the head, neck, chest, abdomen, or pelvis. 2. Similar mild bilateral hydronephrosis. The bladder is decompressed via Harkins catheter. No obstructing stone or mass." Family requesting for acute rehab/[facility] bed. Social service is assisting with disposition Anemia of chronic disease Iron 34, ferritin 680, vitamin B12 943 Monitor and transfuse PRN Diabetes Mellitus- NIDDM Accu-Check ACHS with sliding scale insulin Hypertension Blood pressure has improved and patient is currently hypertensive Resume amlodipine Monitor blood pressure. Neuropathy/dementia Holding gabapentin due to confusion. Family is requesting neurology input to evaluate him for polypharmacy. Neurology consult. Hypothyroidism TSH/free T4 0.107/1.57 Continue thyroid replacement Chronic urinary retention/history of bladder cancer/BPH Continue tamsulosin. Hypothyroidism Patient is in hyperthyroid state. Synthroid dose reduced to 75 mcg daily. DVT PPx heparin Full code LOS 2-3 days
[2023-06-15] MEDS: GABAPENTIN 100 MG CAP PO SCH (20:39)
--- NOTE | 2023-06-15 21:41 | P.PN ---
Date of Service: 06/15/23 Vital Signs Temp Pulse Resp BP Pulse Ox 98.9 F 84 19 152/74 H 94 06/15/23 16:05 06/15/23 16:05 06/15/23 16:05 06/15/23 16:05 06/15/23 16:05 Medications Amlodipine Besylate (Amlodipine 10 Mg Tab) 10 mg PO DAILY [facility] Atorvastatin Calcium (Atorvastatin 10 Mg Tab) 10 mg PO DAILY [facility] Last Admin: 06/15/23 07:45 Dose: 10 mg Ergocalciferol (Drisdol (Vitamin D=Ergocalciferol) 60402 Unit Cap) 50,000 unit PO Q7D@0900 [facility] Gabapentin (Gabapentin 100 Mg Cap) 100 mg PO BID [facility] Last Admin: 06/15/23 20:39 Dose: 100 mg Haloperidol Lactate (Haloperidol Lact 5 Mg/Ml Inj) 2 mg IV Q4H PRN PRN Reason: DELIRIUM Last Admin: 06/15/23 20:46 Dose: 2 mg Heparin Sodium (Porcine) (Heparin 5000 Unit/Ml 1 Ml Vial) 5,000 unit SQ Q8HR [facility] Last Admin: 06/15/23 16:09 Dose: 5,000 unit Home Med (Mirabegron [Myrbetriq]) 50 mg PO DAILY [facility] Last Admin: 06/15/23 07:47 Dose: Not Given Home Med (Solifenacin Succinate [Vesicare]) 10 mg PO DAILY [facility] Last Admin: 06/15/23 08:21 Dose: Not Given Home Med (Trospium Chloride [Sanctura]) 60 mg PO DAILY [facility] Last Admin: 06/15/23 07:48 Dose: Not Given Sodium Chloride (Ns 1000 Ml Ivbag) 1,000 mls @ 75 mls/hr IV .[id number] [facility] Last Admin: 06/15/23 20:44 Dose: 1,000 mls Ceftriaxone Sodium 2,000 mg/ (Sodium Chloride) 100 mls @ 200 mls/hr IV DAILY [facility]; Protocol Last Admin: 06/15/23 07:32 Dose: 100 mls Insulin Human Regular (Insulin Regular (Human) 100 Unit/Ml) 0 unit SQ ACHS [facility]; Protocol Last Admin: 06/15/23 20:40 Dose: Not Given Levothyroxine Sodium (Levothyroxine Sod 0.075 Mg Tab) [facility] Last Admin: 06/15/23 05:19 Dose: 0.075 mg Memantine (Memantine Hcl 10 Mg Tablet) 10 mg PO BEDTIME [facility] Last Admin: 06/15/23 20:39 Dose: 10 mg Pantoprazole Sodium (Pantoprazole 40mg Tablet) 40 mg PO DAILY [facility]; Protocol Last Admin: 06/15/23 07:46 Dose: 40 mg Tamsulosin HCl (Tamsulosin 0.4 Mg Sr Cap) 0.4 mg PO DAILY [facility] Last Admin: 06/15/23 07:45 Dose: 0.4 mg Tramadol HCl (Tramadol Hcl 50 Mg Tab) 50 mg PO Q6H PRN PRN Reason: Pain scale 5-7 (Moderate) Microbiology Results 06/12/23 16:06 Clean Catch Urine [place] Count - Final No growth. 06/12/23 16:06 Clean Catch Urine - Final No growth. 06/12/23 15:05 Blood - Blood Aerobic Blood Culture - Preliminary No growth in 24 hours. 06/12/23 15:05 Blood - Blood Anaerobic Blood Culture - Preliminary No growth in 24 hours. 06/12/23 15:01 Blood - Blood Aerobic Blood Culture - Preliminary No growth in 24 hours. 06/12/23 15:01 Blood - Blood Anaerobic Blood Culture - Preliminary No growth in 24 hours. Assessment/ Plan: Nephrology No dyspnea No chest pain No acute events overnight Vitals, medications, blood work and imaging reviewed in the chart NAD. MMM. NCAT. Normal Respiratory Effort. S1S2. ND Abd. No C/C/E. No rash. AAO. Normal speech. Harkins light Stage I PUNEET likely due to hypovolemia CKD III -No NSAIDs Hypophosphatemia -Replete prn -Encourage nutrition HTN with CKD -Continue Amlodipine DM II with CKD & Polyneuropathy -RISS -Continue Gabapentin Hypoalbuminemia -Encourage nutrition Anemia in chronic illness -Monitor H&H Case reviewed with Dr. Lr
[2023-06-16] MEDS: TRAMADOL HCL 50 MG TAB PO PRN (01:09)
[2023-06-16 06:56] LABS: Absolute Eosinophils 0.3 K/uL (0-0.5); Absolute Lymphocytes (CBC) 0.4 K/uL (0.7-4.9); Absolute Monocytes 0.5 K/uL (0.1-1.3); Absolute Neutrophil 3.6 K/uL (1.8-8.0); Basophils % 0.4 % (0-1.3); Eosinophils % 6.2 % (0-4.4); Hemoglobin 7.9 g/dL (13.6-17.9); MCH 31.4 pg (27.0-35.0); MCHC 33.1 g/dL (32.0-36.0); MPV 7.8 fL (7.6-11.3); Monocytes % 9.9 % (3.3-12.3); Neutrophils % 74.5 % (41.7-73.7); Nucleated Red Blood Cells % 0.3 % (0-0); Platelets 150 thou/uL (152-406); RBC Red Blood Cell Count 2.52 M/uL (4.33-5.43); Red Cell Distribution Width 18.2 % (12.1-15.2)
[2023-06-16 07:37] LABS: Anion Gap 8.1 mEq/L (5.0-15.0); Phosphorus 2.8 mg/dL (2.5-4.9); Potassium 4.1 mEq/L (3.5-5.1)
[2023-06-16] MEDS: AMLODIPINE 10 MG TAB PO SCH (09:15)
--- NOTE | 2023-06-16 10:02 | P.PN ---
Date of Service: 06/16/23 Subjective: feeling significantly better today, almost back to normal self feels strength/endurance is improving recently . does not want to go to a assisted afebrile ROS: 10 point ROS as noted above, otherwise negative Physical Exam: GEN: Alert, orientedx3, mild memory impairment HEENT: Normal conjunctiva, sclera anicteric CV: Regular rate and rhythm, no edema Pulm: Nonlabored respirations on room air, clear bilaterally ABD: soft, nontender, nondistended Neuro: Normal speech, normal affect Problem List: PUNEET on CKD II Chronic urinary retention with indwelling kirk catheter History of bladder cancer acute encephalopathy, suspect metabolic Hyponatremia, resolved [place] Iron deficiency anemia Hypertension NIDDM2 Neuropathy/dementia Hypothyroidism PUNEET on CKD II Chronic urinary retention with indwelling kirk catheter History of bladder cancer CT head/chest/abd (06/11): similar mild bilateral hydronephrosis. no obstructing stone/mass. multilevel degenerative changes in spine. unchanged 6 mm RLL pulm nodule. PUNEET likely secondary to dehydration / radiation creatinine improving continue to monitor renal function Nephrology consulted continue IV fluids urinalysis in ED with +LE, +WBC. started on abx given increased risk factors - indwelling kirk / hx bladder cancer final urine culture without growth. Blood cx without growth since 06/11. dc rocephin on 06/15, received (06/12-06/15) afebrile, no leukocytosis urology consulted at patient's family request acute encephalopathy, suspect metabolic very mild hyponatremia, unlikely cause. suspect possibly degree of uremia, possibly medication side effect in setting of acute renal failure [place] PT/OT eval Family requesting for skilled rehab/[facility] bed. Social service is assisting with disposition Iron deficiency anemia iron levels low this hospitalization: 34. iron studies last month consistent with iron deficiency anemia (iron 43, tsat% 16.3%) Hypertension resume home antihypertensives NIDDM2 accu-checks, SSI Neuropathy/dementia Family is requesting neurology input to evaluate him for polypharmacy. Neurology consulted. home gabapentin concern if in acute renal failure, can cause higher serum levels and affect him more Hypothyroidism TSH 0.107, Free T4 1.57 synthroid decreased to 0.075 mg from .1 mg VTE: heparin sq Code: Full Dispo: SNF, 1-2 days
--- NOTE | 2023-06-16 17:59 | P.CNS ---
Date of Consult: 06/16/23 83-year-old gentleman well-known to me with hypertension, hyperlipidemia, DM 2, hypothyroidism, and pT2 high-grade urothelial carcinoma the bladder undergoing concurrent chemoradiation therapy with severe radiation cystitis and painful bladder spasms contributing to bilateral UVJ obstruction and mild to moderate bilateral hydronephrosis despite urethral catheterization. His about a week ago from a heart attack, and he has been emotionally adjusting since then. He eventually became so weak that he was unable to stand, had suffered several falls, and was unable to complete his scheduled radiation therapy, which prompted his presentation to the emergency department where he was evaluated for decompensation and weakness with acute on chronic kidney disease. Since that time, he has been medically managed for both his renal failure and his anemia, and he has symptomatically dramatically improved. He is now communicative and much closer back to his baseline. The family informs me that he will be moving in with some relatives in a new care situation following a stent at rehab on discharge from the hospital. His 's is on Thursday. 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 I counseled the family that at that time, I would assess to perform retrograde studies and possible stent placement if UVJ obstruction is indeed demonstrated. I did residential child care counselor them that in the setting of severe cystitis and inflamed mucosa of the bladder, visualization of the ureteral orifices may be impossible, and we may then have a decision as to whether percutaneous nephrostomy tubes may need to be placed. Since his renal function is back at its baseline with him being well-hydrated on this admission, we will have to consider the value of such intervention if I am unable to place stents. Radiation cystitis contributing to contracted bladder and painful bladder spasms with urethral Harkins catheter in place -Since right now he is having no significant pelvic pain, we will recommend he resume the Vesicare 10 mg and Myrbetriq 50 mg on discharge. -The family was uncertain if he was taking the low-dose amitriptyline previously prescribed to manage his severe bladder spasms and pelvic pain. I counseled them that certainly the amitriptyline could contribute to alterations in the mental status, especially in the dehydrated state. We will have them hold off on resuming the amitriptyline until and unless issues with the spasms recurs.
--- NOTE | 2023-06-16 20:56 | P.PN ---
Date of Service: 06/16/23 Vital Signs Temp Pulse Resp BP Pulse Ox 98.2 F 75 15 113/65 95 06/16/23 16:00 06/16/23 16:00 06/16/23 16:00 06/16/23 16:00 06/16/23 16:00 Medications Amlodipine Besylate (Amlodipine 10 Mg Tab) 10 mg PO DAILY [facility] Last Admin: 06/16/23 09:15 Dose: 10 mg Atorvastatin Calcium (Atorvastatin 10 Mg Tab) 10 mg PO DAILY [facility] Last Admin: 06/16/23 09:15 Dose: 10 mg Ergocalciferol (Drisdol (Vitamin D=Ergocalciferol) 58682 Unit Cap) 50,000 unit PO Q7D@0900 [facility] Gabapentin (Gabapentin 100 Mg Cap) 100 mg PO BID [facility] Last Admin: 06/16/23 20:22 Dose: 100 mg Haloperidol Lactate (Haloperidol Lact 5 Mg/Ml Inj) 2 mg IV Q4H PRN PRN Reason: DELIRIUM Last Admin: 06/16/23 01:12 Dose: 2 mg Heparin Sodium (Porcine) (Heparin 5000 Unit/Ml 1 Ml Vial) 5,000 unit SQ Q8HR [facility] Last Admin: 06/16/23 16:11 Dose: 5,000 unit Home Med (Mirabegron [Myrbetriq]) 50 mg PO DAILY [facility] Last Admin: 06/16/23 09:00 Dose: Not Given Home Med (Solifenacin Succinate [Vesicare]) 10 mg PO DAILY [facility] Last Admin: 06/16/23 09:00 Dose: Not Given Home Med (Trospium Chloride [Sanctura]) 60 mg PO DAILY [facility] Last Admin: 06/16/23 09:00 Dose: Not Given Sodium Chloride (Ns 1000 Ml Ivbag) 1,000 mls @ 75 mls/hr IV .[id number] [facility] Last Admin: 06/16/23 15:20 Dose: Not Given Insulin Human Regular (Insulin Regular (Human) 100 Unit/Ml) 0 unit SQ ACHS [facility]; Protocol Last Admin: 06/16/23 16:11 Dose: Not Given Levothyroxine Sodium (Levothyroxine Sod 0.075 Mg Tab) 0.075 mg PO DAILYAC [facility] Last Admin: 06/16/23 05:34 Dose: 0.075 mg Memantine (Memantine Hcl 10 Mg Tablet) 10 mg PO BEDTIME [facility] Last Admin: 06/16/23 20:22 Dose: 10 mg Pantoprazole Sodium (Pantoprazole 40mg Tablet) 40 mg PO DAILY [facility]; Protocol Last Admin: 06/16/23 09:15 Dose: 40 mg Tamsulosin HCl (Tamsulosin 0.4 Mg Sr Cap) 0.4 mg PO DAILY [facility] Last Admin: 06/16/23 09:15 Dose: 0.4 mg Tramadol HCl (Tramadol Hcl 50 Mg Tab) 50 mg PO Q6H PRN PRN Reason: Pain scale 5-7 (Moderate) Last Admin: 06/16/23 01:09 Dose: 50 mg Microbiology Results 06/12/23 16:06 Clean Catch Urine [place] Count - Final No growth. 06/12/23 16:06 Clean Catch Urine - Final No growth. 06/12/23 15:05 Blood - Blood Aerobic Blood Culture - Preliminary No growth in 24 hours. 06/12/23 15:05 Blood - Blood Anaerobic Blood Culture - Preliminary No growth in 24 hours. 06/12/23 15:01 Blood - Blood Aerobic Blood Culture - Preliminary No growth in 24 hours. 06/12/23 15:01 Blood - Blood Anaerobic Blood Culture - Preliminary No growth in 24 hours. Assessment/ Plan: Nephrology No dyspnea No chest pain No acute events overnight Vitals, medications, blood work and imaging reviewed in the chart NAD. MMM. NCAT. Normal Respiratory Effort. S1S2. ND Abd. No C/C/E. No rash. AAO. Normal speech. Harkins light Stage I PUNEET likely due to hypovolemia CKD III -No NSAIDs Hypophosphatemia -Replete prn -Encourage nutrition HTN with CKD -Continue Amlodipine DM II with CKD & Polyneuropathy -RISS -Continue Gabapentin Hypoalbuminemia -Encourage nutrition Anemia in chronic illness -Monitor H&H Case reviewed with Dr. Portillo
[2023-06-16] MEDS: DOCUSATE NA 100 MG CAP PO SCH (21:09)
--- NOTE | 2023-06-17 02:48 | CON ---
Reason For Consultation: Consultation called because of altered mental status. History Of Present Illness: Mr. Samuels is an 83-year-old right-handed patient with arthritis, bladder c ancer, treated by Dr. Rob Portillo, diabetes, noninsulin-dependent diabetes mellitus, hypertension, and hypothyroidism. The patient was admitted to [facility] on 06/12/2023 after a fall, whe re there were some confusion and lethargy. He was reportedly also dehydrated and was very distraught after his recently . At [facility], the patient was again reported disorie nted and confused; however, it turns out that the patient was likely significantly dehydrated as with IV fluid replacement, he improved significantly and that did return towards his baseline. His creat inine was 2.91 on the and he is now hydrated with creatinine 1.78, doing much better, fully orien jackson and following all instructions and commands and a granddaughter at the bedside and the patient di d report he has been back to a negative baseline. There were questions about whether polypharmacy ma y have been contributing to confusion and that was discussed with the family and all attempts were ma de to minimize medications such as neuromodulators including gabapentin and allow him to continue wit h the Namenda, which may be increased to twice daily for his mild cognitive impairment. Past Medical History: As noted above. Allergies: NO KNOWN DRUG ALLERGIES. Surgical History: Neck and back surgery and right knee replacement. Family History: Noncontributory. Social History: No alcohol, tobacco, or IV drug use. Review of Systems: No significant fevers or chills. He has depression as noted and anxiety. No pulmonary issues. Ther e is urinary retention and diffuse weakness. Physical Examination: Vital Signs: Blood pressure 113/65, pulse 75, respiratory rate 15, temperature 98.2, O2 saturation 9 5%. Weight 230 pounds, height 5 feet 11 inches, BMI 32.0. General: Mr. Samuels is resting in bed. He is alert and oriented to situation, place, time. No acute d istress. HEENT: Normocephalic, atraumatic. He has IV going. Neurological: He has no focal deficits. Arms, legs, diffuse weakness, stocking-glove loss, light to uch temperature. Assessment: Mr. Samuels is an 83-year-old patient with resolved probably multifactorial encephalopathy r elated to dehydration, stress anxiety related to recent of his , and potential polypharmacy . Plan: Decrease and stop gabapentin as appropriate. May increase his Namenda to 10 mg twice daily fo r baseline and consider donepezil 5 mg daily after his discharge from hospital. At this point, he ma y be evaluated by physical and occupational therapy services, say what level of therapy may be requir ed, either home health or inpatient depending on how he is doing. TIKI/CACHORRO Voice ID: [id number] Report ID: [id number]
[2023-06-17 04:55] LABS: Absolute Eosinophils 0.3 K/uL (0-0.5); Absolute Lymphocytes (CBC) 0.5 K/uL (0.7-4.9); Absolute Monocytes 0.5 K/uL (0.1-1.3); Absolute Neutrophil 3.6 K/uL (1.8-8.0); Basophils % 0.4 % (0-1.3); Eosinophils % 6.2 % (0-4.4); Hematocrit 25.4 % (39.6-49.0); Hemoglobin 8.2 g/dL (13.6-17.9); Lymphocytes % 10.3 % (15.3-44.8); MCHC 32.3 g/dL (32.0-36.0); MCV 95.8 fL (80-100); MPV 8.2 fL (7.6-11.3); Monocytes % 9.4 % (3.3-12.3); Neutrophils % 73.7 % (41.7-73.7); Nucleated Red Blood Cells % 0.1 % (0-0); Platelets 151 thou/uL (152-406); RBC Red Blood Cell Count 2.66 M/uL (4.33-5.43); Red Cell Distribution Width 18.7 % (12.1-15.2)
[2023-06-17 05:08] LABS: Anion Gap 6.1 mEq/L (5.0-15.0); Phosphorus 2.8 mg/dL (2.5-4.9); Potassium 4.1 mEq/L (3.5-5.1)
--- NOTE | 2023-06-17 12:08 | P.PN ---
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 Bilateral hydropnephrosis secondary to UPJ obstruction Chronic urinary retention with indwelling kirk catheter 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 no obstructing stone/mass. multilevel degenerative changes in spine. unchanged 6 mm RLL pulm nodule. PUNEET likely secondary to dehydration / radiation patient unable to clearly recount events prior to admission, but states his 's was "a huge impact and is the reason why he ended up in the hospital" creatinine improving IVF dc'd this morning Nephrology consulted urinalysis in ED with +LE, +WBC. started on abx given increased risk factors - indwelling kirk / hx bladder cancer final urine culture without growth. Blood cx without growth since 06/11. dc rocephin on 06/15, received (06/12-06/15) afebrile, no leukocytosis urology consulted at patient's family request tentative plan for cystoscopy with bladder biopsy/TURBT next thursday per Dr. Portillo resume vesicare 10 mg and myrbetriq 50 mg on discharge discontinue amitriptyline for now - given lack of symptoms and possibly contributing to mentation acute encephalopathy, suspect metabolic very mild hyponatremia, unlikely cause. suspect possibly degree of uremia, possibly medication side effect in setting of acute renal failure although at a low dose - gabapentin 100mg bid, this would be at top of list of possibily contributing, can work on weaning, to minimize risk going forward [place] PT/OT eval Family requesting for skilled rehab/[facility] bed. Social service is assisting with disposition Iron deficiency anemia, chronic iron levels low this hospitalization: 34. iron studies last month consistent with iron deficiency anemia (iron 43, tsat% 16.3%) Hypertension continue home antihypertensives NIDDM2 accu-checks, SSI Neuropathy/dementia Family is requesting neurology input to evaluate him for polypharmacy. Neurology consulted. Hypothyroidism TSH 0.107, Free T4 1.57 synthroid decreased to 0.075 mg from .1 mg VTE: heparin sq Code: Full Dispo: SNF,~ 1 day monitor off IVF, repeat labs
[2023-06-17 16:33] VITALS: O2SAT 93
[2023-06-17] MEDS ORDERED: AMITRIPTYLINE 25 MG TAB PO SCH (21:00)
--- NOTE | 2023-06-17 22:26 | P.PN ---
Date of Service: 06/17/23 Vital Signs Temp Pulse Resp BP Pulse Ox 98.5 F 80 20 131/68 96 06/17/23 20:00 06/17/23 20:00 06/17/23 20:00 06/17/23 20:00 06/17/23 20:00 Medications Amlodipine Besylate (Amlodipine 10 Mg Tab) 10 mg PO DAILY [facility] Last Admin: 06/17/23 09:16 Dose: 10 mg Atorvastatin Calcium (Atorvastatin 10 Mg Tab) 10 mg PO DAILY [facility] Last Admin: 06/17/23 09:16 Dose: 10 mg Docusate Sodium (Docusate Na 100 Mg Cap) 100 mg PO BID [facility] Last Admin: 06/17/23 20:51 Dose: 100 mg Ergocalciferol (Drisdol (Vitamin D=Ergocalciferol) 89631 Unit Cap) 50,000 unit PO Q7D@0900 [facility] Gabapentin (Gabapentin 100 Mg Cap) 100 mg PO BID [facility] Last Admin: 06/17/23 20:51 Dose: 100 mg Haloperidol Lactate (Haloperidol Lact 5 Mg/Ml Inj) 2 mg IV Q4H PRN PRN Reason: DELIRIUM Last Admin: 06/16/23 01:12 Dose: 2 mg Heparin Sodium (Porcine) (Heparin 5000 Unit/Ml 1 Ml Vial) 5,000 unit SQ Q8HR [facility] Last Admin: 06/17/23 18:15 Dose: 5,000 unit Home Med (Mirabegron [Myrbetriq]) 50 mg PO DAILY [facility] Last Admin: 06/17/23 09:00 Dose: Not Given Home Med (Solifenacin Succinate [Vesicare]) 10 mg PO DAILY [facility] Last Admin: 06/17/23 09:00 Dose: Not Given Home Med (Trospium Chloride [Sanctura]) 60 mg PO DAILY [facility] Last Admin: 06/17/23 09:00 Dose: Not Given Insulin Human Regular (Insulin Regular (Human) 100 Unit/Ml) 0 unit SQ [facility]; Protocol Last Admin: 06/17/23 20:52 Dose: Not Given Levothyroxine Sodium (Levothyroxine Sod 0.075 Mg Tab) 0.075 mg PO DAILYAC [facility] Last Admin: 06/17/23 05:51 Dose: 0.075 mg Memantine (Memantine Hcl 10 Mg Tablet) 10 mg PO BEDTIME [facility] Last Admin: 06/17/23 20:51 Dose: 10 mg Pantoprazole Sodium (Pantoprazole 40mg Tablet) 40 mg PO DAILY [facility]; Protocol Last Admin: 06/17/23 09:16 Dose: 40 mg Tamsulosin HCl (Tamsulosin 0.4 Mg Sr Cap) 0.4 mg PO DAILY [facility] Last Admin: 06/17/23 09:16 Dose: 0.4 mg Tramadol HCl (Tramadol Hcl 50 Mg Tab) 50 mg PO Q6H PRN PRN Reason: Pain scale 5-7 (Moderate) Last Admin: 06/16/23 01:09 Dose: 50 mg Microbiology Results 06/12/23 15:05 Blood - Blood Aerobic Blood Culture - Final No growth in 5 days. 06/12/23 15:05 Blood - Blood Anaerobic Blood Culture - Final No growth in 5 days. 06/12/23 15:01 Blood - Blood Aerobic Blood Culture - Final No growth in 5 days. 06/12/23 15:01 Blood - Blood Anaerobic Blood Culture - Final No growth in 5 days. 06/12/23 16:06 Clean Catch Urine Troy Count - Final No growth. 06/12/23 16:06 Clean Catch Urine - Final No growth. Assessment/ Plan: Nephrology No dyspnea No chest pain No acute events overnight Vitals, medications, blood work and imaging reviewed in the chart NAD. MMM. NCAT. Normal Respiratory Effort. S1S2. ND Abd. No C/C/E. No rash. AAO. Normal speech. Shahana light Stage I PUNEET likely due to hypovolemia CKD III BL Hydronephrosis -No NSAIDs Hypophosphatemia -Replete prn -Encourage nutrition HTN with CKD -Continue Amlodipine DM II with CKD & Polyneuropathy -RISS -Continue Gabapentin Hypoalbuminemia -Encourage nutrition Anemia in chronic illness -Monitor H&H Chronic Urinary Retention -Continue kirk Hospitalist note reviewed
[2023-06-18 09:13] LABS: Anion Gap 9.7 mEq/L (5.0-15.0); Magnesium 1.5 mg/dL (1.6-2.4); Potassium 3.7 mEq/L (3.5-5.1)
--- NOTE | 2023-06-18 11:06 | P.DS ---
Admission Date: 06/14/23 Discharge Date: 06/18/23 Disposition: TRANSFER TO SNF - REHAB Reason for Admission: PUNEET, decompensating Consultations: Nephrology - Dr. Paul, Dr. Han Neurology - Dr. Coffman Urology - Dr. Portillo Brief History of Present Illness: 83yo M, PMH: hypertension, hyperlipidemia, diabetes, hypothyroidism, history of bladder cancer on radiation (Chronic kirk), arthritis, frequent falls Patient presents to the ED with chief complaint of weakness. He attended his radiation treatment today but was unable to complete due to his weakness. Family at bedside reports he has become more and more lethargic and confused since Thursday, he previously was admitted from the ED on Thursday but [facility] to his . Traumagram is negative, UA suggestive of infection, acute on chronic kidney disease. Laboratory evaluation H&H 8.7/26.9, left shift neutrophils 79, sodium 133, BUN/creatinine 57/2.91, GFR 21, serum glucose 166. CT head reports "No intracranial hemorrhage, hydrocephalus or e xtra-axial fluid collection. No acute large vascular territory infarct. Cerebral atrophy. Remote left thalamic lacunar infarct. The paranasal sinuses and mastoids are clear. 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 PUNEET felt to be secondary to dehydration / side effect from radiation therapy and altered mentation secondary to PUNEET and potentially medication side effect due to the acute decrease in renal clearance. CT noted mild bilateral hydronephrosis (unchanged), unchanged 6 mm RLL pulmonary nodule, otherwise negative for any acute findings. Nephrology was consulted. Creatinine improved with IV fluids. Patient also received ~3 days of empiric rocephin given history and risk of infections, however urine and blood cultures were without any growth so antibiotics were discontinued. Patient was feeling better, mentation improved, afebrile without leukocytosis, and was deemed stable for discharge to SNF where patient can continue to work on strength/endurance prior to returning home. Urology was consulted at patient's family request. Dr. Portillo plans to perform cystoscopy with bladder biopsy/TURBT next Thursday to further evaluate. Recommends to resume Vesicare 10 mg and Myrbetriq 50 mg on discharge given patient is without significant pelvic pain. Dr. Coffman, Neurology was consulted to evaluate patient for polypharmacy. Recommended to slowly work with PCP and potentially wean gabapentin with the goal of discontinuing to minimize risk going forward as its been known to contri bute to metabolic encephalopathy. Can slowly lower dose with PCP and see if original symptoms it was treating worsen or no change and can discontinue the medication. Dr. Portillo had also recommended to discontinue amitripyline for now as it could be further contributing to patients mentation. CT head in ER noted remote left thalamic lacunar infarct. Discussed results with patient and family who reported this as new information to them. Spoke with radiologist over the phone who reported infarct could be seen as far back as 2020 and was very tiny in size. On further discussion with family, they reported several months ago he had a very transient episode of right arm numbness. There were no acute findings on imaging. Blood glucose levels were minimally elevated off home glimepiride. recommend discontinuing glimepiride for now and recommend following up with PCP to further discuss if/when to restart. Medications: Stop amitriptyline Synthroid decreased to 0.075 mg from .1 mg Stop glimiperide for now Follow up: PCP 3-5 days Urology, Dr. Portillo next week as planned Nephrology 1-2 weeks Please call to schedule / confirm appointments Physical Exam: GEN: Alert, orientedx3 HEENT: Normal conjunctiva, sclera anicteric CV: Regular rate and rhythm, no edema Pulm: Nonlabored respirations on room air, clear bilaterally ABD: soft, nontender, nondistended Neuro: Normal speech, normal affect Vital Signs/Physical Exam: Temp Pulse Resp BP Pulse Ox 98.3 F 80 15 145/75 H 93 06/18/23 08:00 06/18/23 10:26 06/18/23 08:00 06/18/23 10:26 06/18/23 08:00 Laboratory Data at Discharge: WBC 4.90 thou/uL (4.3-10.9) 06/17/23 04:24 Hgb 8.2 g/dL (13.6-17.9) L 06/17/23 04:24 Hct 25.4 % (39.6-49.0) L 06/17/23 04:24 Plt Count 151 thou/uL (152-406) L 06/17/23 04:24 PT 13.7 SECONDS (9.5-12.5) H 06/12/23 15:01 INR 1.25 06/12/23 15:01 APTT 27.1 SECONDS (24.3-36.9) 06/12/23 15:01 Sodium 140 mEq/L (136-145) 06/18/23 07:30 Potassium 3.7 mEq/L (3.5-5.1) 06/18/23 07:30 BUN 24 mg/dL (7-18) H 06/18/23 07:30 Creatinine 1.76 mg/dL (0.70-1.30) H 06/18/23 07:30 Glucose 117 mg/dL (74-106) H 06/18/23 07:30 Phosphorus 2.8 mg/dL (2.5-4.9) 06/17/23 04:24 Magnesium 1.5 mg/dL (1.6-2.4) L 06/18/23 07:30 Total Bilirubin 0.4 mg/dL (0.2-1.0) 06/12/23 15:01 AST 77 U/L (15-37) H 06/12/23 15:01 ALT 42 U/L (16-61) 06/12/23 15:01 Alkaline Phosphatase 103 U/L (45-117) 06/12/23 15:01 Triglycerides 115 mg/dL (<150) 06/13/23 02:57 Cholesterol 103 mg/dL (<200) 06/13/23 02:57 HDL Cholesterol 38 mg/dL (40-60) L 06/13/23 02:57 Cholesterol/HDL Ratio 2.71 06/13/23 02:57 Home Medications: Pravastatin [Pravachol*] 40 mg PO DAILY 08/24/13 Amlodipine [Norvasc*] 10 mg PO DAILY 04/02/23 Memantine HCl [Namenda*] 10 mg PO BEDTIME 05/27/23 Gabapentin [Neurontin*] 100 mg PO BID 06/09/23 Mirabegron [Myrbetriq] 50 mg PO DAILY 06/09/23 Pantoprazole [Protonix Tab*] 40 mg PO DAILY 06/09/23 Trospium Chloride [Sanctura] 60 mg PO DAILY 06/09/23 Furosemide [Lasix] 20 mg PO M,W,F 06/12/23 Hydrocodone/Acetaminophen [Hydrocodone-Acetamin 5-325 mg] 5 - 325 mg PO Q6H PRN 06/12/23 Solifenacin Succinate [Vesicare] 10 mg PO DAILY 06/12/23 Tamsulosin [Flomax*] 0.4 mg PO DAILY 06/12/23 Tramadol HCl [Ultram] 50 mg PO Q6H PRN 06/12/23 Levothyroxine [Synthroid*] 0.075 mg PO DAILYAC 30 Days #30 tab 06/18/23 New Medications: Levothyroxine [Synthroid*] 0.075 mg PO DAILYAC 30 Days #30 tab Physician Discharge Instructions: Physician discharge instructions: Patient presented to ED with worsening generalized weakness, lethargy, confusion and was found to have an PUNEET. PUNEET felt to be secondary to dehydration / side effect from radiation therapy and altered mentation secondary to PUNEET and potentially medication side effect due to the acute decrease in renal clearance. CT noted mild bilateral hydronephrosis (unchanged), unchanged 6 mm RLL pulmonary nodule, otherwise negative for any acute findings. Nephrology was consulted. Creatinine improved with IV fluids. Patient also received ~3 days of empiric rocephin given history and risk of infections, however urine and blood cultures were without any growth so antibiotics were discontinued. Patient was feeling better, mentation improved, afebrile without leukocytosis, and was deemed stable for discharge to SNF where patient can continue to work on strength/endurance prior to returning home. Urology was consulted at patient's family request. Dr. Portillo plans to perform cystoscopy with bladder biopsy/TURBT next Thursday to further evaluate. Recommends to resume Vesicare 10 mg and Myrbetriq 50 mg on discharge given patient is without significant pelvic pain. Dr. Coffman, Neurology was consulted to evaluate patient for polypharmacy. Recommended to slowly work with PCP and potentially wean gabapentin with the goal of discontinuing to minimize risk going forward as its been known to contribute to metabolic encephalopathy. Can slowly lower dose with PCP and see if original symptoms it was treating worsen or no change and can discontinue the medication. Dr. Portillo had also recommended to discontinue amitripyline for now as it could be further contributing to patients mentation. CT head in ER noted remote left thalamic lacunar infarct. Discussed results with patient and family who reported this as new information to them. Spoke with radiologist over the phone who reported infarct could be seen as far back as 2020 and was very tiny in size. On further discussion with family, they reported several months ago he had a very transient episode of right arm numbness. There were no acute findings on imaging. Blood glucose levels were minimally elevated off home glimepiride. recommend discontinuing glimepiride for now and recommend following up with PCP to further discuss if/when to restart. Medications: Stop amitriptyline Synthroid decreased to 0.075 mg from .1 mg Stop glimiperide for now Follow up: PCP 3-5 days Urology, Dr. Portillo next week as planned Nephrology 1-2 weeks Please call to schedule / confirm appointments Followup: Florin Strange MD [Primary Care Provider] - Time spent managing pt's care (in minutes): 45
[2023-06-18 12:38] VITALS: BP 140/74; TEMP 98.1
[2023-06-20] MEDS ORDERED: DRISDOL (VITAMIN D=ERGOCALCIFEROL) 50000 UNIT CAP PO SCH (09:00)
== END 2023-06-18 13:44 | DRG 682 ==
LOC: ER 13:48 → ERHOLD 17:06 → 4TH 19:19 → OBSVTOIN 06-14 13:40
PROVIDERS: ADMIT Internal Medicine; ATTEND Hospitalist
DX: N17.9 Acute kidney failure, unspecified (principal); G93.41 Metabolic encephalopathy; E87.1 Hypo-osmolality and hyponatremia; F03.911 Unspecified dementia, unspecified severity, with agitation; N30.40 Irradiation cystitis without hematuria; Q62.11 Congenital occlusion of ureteropelvic junction; F03.94 Unspecified dementia, unspecified severity, with anxiety; E86.0 Dehydration; E03.9 Hypothyroidism, unspecified; E78.5 Hyperlipidemia, unspecified; C67.9 Malignant neoplasm of bladder, unspecified; I12.9 Hypertensive chronic kidney disease with stage 1 through stage 4 chronic kidney disease, or unspecified chronic kidney disease; N18.2 Chronic kidney disease, stage 2 (mild); E11.22 Type 2 diabetes mellitus with diabetic chronic kidney disease; E11.42 Type 2 diabetes mellitus with diabetic polyneuropathy; D63.1 Anemia in chronic kidney disease; D50.9 Iron deficiency anemia, unspecified; I87.8 Other specified disorders of veins; I87.2 Venous insufficiency (chronic) (peripheral); E88.09 Other disorders of plasma-protein metabolism, not elsewhere classified; E83.39 Other disorders of phosphorus metabolism; N40.1 Benign prostatic hyperplasia with lower urinary tract symptoms; R33.8 Other retention of urine; T50.995A Adverse effect of other drugs, medicaments and biological substances, initial encounter; R91.8 Other nonspecific abnormal finding of lung field; Z60.2 Problems related to living alone; Z63.4 Disappearance and death of family member; Z91.81 History of falling; Z79.84 Long term (current) use of oral hypoglycemic drugs; Z86.73 Personal history of transient ischemic attack (TIA), and cerebral infarction without residual deficits; Z96.651 Presence of right artificial knee joint; Z79.890 Hormone replacement therapy; Z79.899 Other long term (current) drug therapy
CPT/HCPCS: 36415; 70450; 71045; 71250; 72125; 80048; 80053; 80061; 80069; 81001; 82607; 82728; 82947; 83540; 83605; 83735; 84100; 84439; 84443; 85025; 85610; 85730; 87040; 87086; 87088; 93005; 96365; 96366; 97116; 97163; 97165; 97530; 97542; 99285; G0378; J0696; J1630; J1644; J1815; J7030; Q5106

== ENCOUNTER 2023-06-23 10:26 | Day surgery (SDC) | payer OTHER ==
[2023-06-23] MEDS: NA CHLORIDE 0.9% 1,000 ML ONE (11:00)
[2023-06-23] MEDS ORDERED: NA CHLORIDE 0.9% 100 ML ONE (11:25)
[2023-06-23] MEDS ORDERED: ONDANSETRON 4 MG/2 ML VIAL ONE (13:08)
[2023-06-23] MEDS ORDERED: LIDOCAINE 1% MPF 5 ML VIAL ONE (13:08)
[2023-06-23] MEDS ORDERED: propofoL 200 MG/20 ML VIAL IV ONE (13:08)
[2023-06-23] MEDS ORDERED: FENTANYL CITR 100 MCG/2 ML ONE (13:08)
[2023-06-23] MEDS: CEFEPIME 1 GM/VIAL ONE (13:15)
[2023-06-23] MEDS ORDERED: EPHEDRINE SULF 50 MG/ML VIAL ONE (14:29)
[2023-06-23] MEDS ORDERED: dexAMETHasone 10 MG/ML VIAL ONE (14:33)
[2023-06-23] MEDS: HYDROMORPHONE HCL 1 MG/ML INJ ONE ×2 (15:50→16:25)
[2023-06-23] MEDS: FENTANYL CITR 100 MCG/2 ML ONE (16:00)
--- NOTE | 2023-06-23 16:22 | RAD REPORT ---
EXAM DESCRIPTION: RAD - Urethrocystogrphy Retrograde - 06/23/2023 3:38 pm CLINICAL HISTORY: GIOVANA STENTS COMPARISON: None available. FINDINGS: 10 images were sent to PACS, documenting fluoroscopy use during bilateral ureteral stentin g procedure. No radiologist was available for the procedure, nor will any image interpretation he pro vided. Please refer to the procedural report for additional details. Fluoroscopy time: 15 seconds. IMPRESSION: Documentation of fluoroscopy utilization as above.
[2023-06-23 16:58] VITALS: O2SAT 96
[2023-06-23] MEDS ORDERED: OXYBUTYNIN ER 5 MG TAB PO ONE (17:17)
[2023-06-23] MEDS ORDERED: CODEINE 30MG/APAP 300MG TAB ONE (17:17)
[2023-06-23] MEDS: OXYBUTYNIN ER 5 MG TAB PO ONE (17:20)
[2023-06-23] MEDS: CODEINE 30MG/APAP 300MG TAB PO PRN (17:20)
[2023-06-23 18:11] VITALS: BP 125/55; TEMP 96.9
--- NOTE | 2023-06-23 19:19 | OP ---
Surgeon: ADONAY FELICIANO Preoperative Diagnoses: 1.Bilateral ureterovesical junction obstruction/stenosis. 2.Ongoing concurrent chemoradiation therapy treatments. 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 4.Bilateral hydronephrosis. 5.Acute kidney injury on chronic kidney disease. 6.Pelvic pain/bladder spasms. Postoperative Diagnoses: 1.Bilateral ureterovesical junction obstruction/stenosis. 2.Ongoing concurrent chemoradiation therapy treatments. 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 4.Bilateral hydronephrosis. 5.Acute kidney injury on chronic kidney disease. 6.Pelvic pain/bladder spasms. Principal Procedures: 1.Cystoscopy. 2.Left retrograde pyelography. 3.Left 7-Northern Irish ureteral stent placement. 4.Transurethral resection of the right ureteral orifice. 5.Right retrograde pyelography. 6.Right ureteral stent placement. 7.Random bladder biopsies and fulguration. 8.Placement of urethral Harkins catheter. Indication For Procedure: Mr. 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 Because of his chronic medical conditions and general poor hea lth, he was not an optimal candidate for cystectomy and ultimately elected to proceed with concurrent chemoradiation therapy. 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 This resulted in intermittent episodes of moderate volume incomplete emptying with urethral Harkins catheters placed as well as gross hematuria. 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 As a result, he presents today for definitive evaluation of his current bladder state a nd management of the UVJ obstruction. Procedure In Detail: The patient was consented in the preoperative holding area before being transfe rred to the operative suite where general anesthesia was induced. He was given cefepime 1 g IV antim icrobial prophylaxis about 1 hour prior to the procedure start. Pneumo boots were provided for DVT p rophylaxis. He was placed in the lithotomy position, padded and secured to the table appropriately, and his genitalia were prepped with Hibiclens before being draped in standard fashion. The case was begun using the 26-Northern Irish resectoscope, along with a visual obturator to traverse the urethra and ent er his bladder with ease. The urethra was nicely dilated from having an indwelling urethral Harkins ca theter, which was removed prior to prepping his genitalia and draping him accordingly. Upon entry in the bladder, I noted some fibrinous debris in the region of the trigone, but the remainder of the bl adder was free of any gross mucosal papillary lesion, foreign body, or stone. The trigone was visibl e and the ureteral orifices were apparently orthotopic in location; so, attempts to cannulate them we re made using the tip of the Sensor wire. Using a Sensor wire, with a 5-Northern Irish ureteral access catheter to guide it, we attempted to intubate t he right ureteral orifice from multiple different positions without success. The orifice was near co mpletely stenotic. However, I turned my attention to the patient's left side and was indeed able to intubate the left ureteral orifice and advanced the 5-Northern Irish ureteral access catheter over it into th e mid distal ureter. A retrograde pyelogram was then performed. Left retrograde pyelography: Using a 70:30 mixture of Omnipaque and saline, contrast was injected vi a the lumen of the 5-Northern Irish ureteral access catheter and did propagate into the distal before moving up a very tortuous ureter into the mid and proximal ureter before entering a hydronephrotic left connie l pelvis with pelvocaliectasis. As a result, given the marked obstruction observed, I passed a Senso r wire up and coiled it in the putative upper pole collecting system. Over this, I was able to pass a 7-Northern Irish x 26 cm double-J ureteral stent with a coil observed fluoroscopically in the upper pole wi thin the renal pelvis of the left kidney and one cystoscopically was formed within his bladder. We then turned our attention back to the patient's right side and you know where the stenotic uretera l orifice was visible. Again, attempts to cannulate it using the tip of the Sensor wire failed; so, I utilized the opposite, sharper and stiffer end to ultimately intubate the ureteral orifice after us ing the thin loop electrode to resect the mucosal layers of the obstructed right ureteral orifice. O nce the mucosal layers were resected and sent for pathologic analysis as right ureteral orifice biops ies, I was then able to use the sharper stiffer end of the Sensor wire to intubate the resected urete ral orifice on the right and ultimately pass a 5-Northern Irish ureteral access catheter over it. Once withi n the intramural ureter on the right, I was then able to utilize the Sensor wire with a hydrophilic t ip to navigate via the 5-Northern Irish ureteral access catheter and into the distal end, up the mid and prox imal ureter before entering the putative renal pelvis and collecting system. I thus advanced the 5-F rench ureteral access catheter over the Sensor wire and removed the wire to perform a retrograde pyel ogram study. Right retrograde pyelography: Using a 70:30 mixture of Omnipaque and saline, contrast was injected v ia the lumen of the 5-Northern Irish ureteral access catheter and did propagate again up a very tortuous righ t ureter before entering the renal pelvis and calices which were markedly dilated. I thus advanced t he Sensor wire into the collecting system as observed fluoroscopically and passed a 7-Northern Irish x 26 cm double-J ureteral stent over the wire coiling it within the renal pelvis and collecting system on the right. A coil was formed cystoscopically within the patient's bladder. I then utilized cold cup bi opsy forceps to take random sampling biopsies from the posterior wall of his bladder, the dome of his bladder, and the left lateral wall, which were all sent for pathologic analysis. I then utilized th e resection loop to fulgurate the base of each of those biopsy sites until they were hemostatic with the bladder decompressed. I then retrograde filled his bladder and passed a new 18-Northern Irish coude cath eter into his bladder with ease and with about 10 to 15 cc of sterile water instilled into the balloo n. The catheter was connected to a floor bag and a StatLock, and he was then extubated and awakened from general anesthesia before being transferred to a stretcher and then transferred to the recovery room in good condition. Complications: None. Discharge Disposition: The ureteral stents will need to remain in place during the remainder of his concurrent chemoradiation therapy and for approximately 3 months after his last radiation treatment t o try to minimize the risk of recurrent UVJ stenosis. Further, a Harkins catheter was placed and a uri ne sample was taken from the purulent drainage coming out of his kidneys after the stents were placed . Once we know the results of that culture, the patient may be treated with the appropriate antimicr obial in advance of the anticipated voiding trial to occur in 7 to 10 days from the date of surgery. Subsequent followup should be established with me 3 months from the date of surgery for outpatient c ystoscopy and reassessment. As far as medication management, I provided written instructions to the patient in their discharge in structions that he should take either VESIcare/solifenacin 10 mg or instead take Sanctura/trospium 60 mg extended release tablets once a day. He should not take both prescriptions as both were listed o n his list of active medications. Additionally, he should take the Myrbetriq/mirabegron 50 mg once every day. I did instruct the patient and his daughter that should his pain with voiding or bladder spasm pain s econdary to radiation cystitis remain out of control despite the medications mentioned above, in abou t 2 to 3 weeks, he may begin taking the amitriptyline previously prescribed. SIM/CACHORRO Voice ID: [id number] Report ID: [id number]
== END 2023-06-23 17:56 ==
LOC: OR 10:26
PROVIDERS: ATTEND Urology
PROC: 0T788DZ Dilation of Bilateral Ureters with Intraluminal Device, Via Natural or Artificial Opening Endoscopic (ICD-10-PCS; 2023-06-23)
PROC: 0TT68ZZ Resection of Right Ureter, Via Natural or Artificial Opening Endoscopic (ICD-10-PCS; 2023-06-23)
PROC: 0TBB8ZX Excision of Bladder, Via Natural or Artificial Opening Endoscopic, Diagnostic (ICD-10-PCS; principal; 2023-06-23 11:30)
DX: N30.41 Irradiation cystitis with hematuria (principal); N13.5 Crossing vessel and stricture of ureter without hydronephrosis; R39.82 Chronic bladder pain; N13.30 Unspecified hydronephrosis; Q62.12 Congenital occlusion of ureterovesical orifice; C67.9 Malignant neoplasm of bladder, unspecified; N18.9 Chronic kidney disease, unspecified; N17.9 Acute kidney failure, unspecified; R10.2 Pelvic and perineal pain; R33.0 Drug induced retention of urine; N40.1 Benign prostatic hyperplasia with lower urinary tract symptoms; Z79.60 Long term (current) use of unspecified immunomodulators and immunosuppressants
CPT/HCPCS: 52204; 52332; 52290; 87088 ×2; 87086 ×2; 82947 ×2; 74450; 51610; J2704; J2001; J3010 ×2; J1100; J1170 ×2; J2405; J7030; J0692